=== PATIENT | female | born 1930 | race Caucasian/White ===

== ENCOUNTER 2017-04-05 14:45 | Emergency (ER) | payer MEDICARE, BC ==
[2017-04-05 15:00] VITALS: O2SAT 98
--- NOTE | 2017-04-05 15:19 | ERPHSYRPT ---
- History of Present Illness Time Seen by Provider: 04/05/17 15:00 Source: patient Exam Limitations: clinical condition Patient Subjective Stated Complaint: WAS GETTING READY FOR A [employer] AND PATIENT REACHED INTO SOMETHING AND CUT LEFT HAND. Triage Nursing Assessment: TO ROOM PER W/C. SKIN W/D, COLOR NORMAL. HAD APPLIED PRESSURE WITH DISH TOWEL TO LEFT HAND. HAS 1CM LAC TO BACK OF LEFT HAND. HAD MODERATE BLEEDING THAT IS NOW CONTROLLED. WAS BROUGHT TO ER PER NEIGHBOR. PATIENT DOES NOT KNOW NAMES OF MEDS AND USES MAIL ORDER FOR SCRIPTS. Physician History: PATIENT WITH HISTORY OF TYPE 2 DIABETES AND CORONARY ARTERY DISEASE, PACEMAKER INSERTION ON COUMADIN THERAPY, WHILE WORKING AT [employer], SUSTAINED BRUISING AND SMALL LACERATION TO BACK OF LEFT HAND, HAD DIFFICULTY CONTROLLING BLEEDING INITIALLY. PATIENT IS UNSURE OF MECHANISM OF TRAUMA OR INJURY. Occurred: just prior to arrival Method of Injury: unknown Quality: other (BRUISING TO BACK OF HAND WITH SMALL LACERATION) Severity of Pain-Max: mild Severity of Pain-Current: mild Extremities Pain Location: hand: left Modifying Factors: Improves With: other (BLEEDING FROM WOUND) Allergies/Adverse Reactions: codeine Allergy (Verified 04/05/17 15:00) pneumococcal vaccine Allergy (Verified 04/05/17 15:00) Home Medications: AMITRIPTYLINE HCL 50 mg Tab [AMITRIPTYLINE HCL 50 mg Tablet] 50 mg PO HS [History] Multivit-Min/FA/Lycopene/Lut [Centrum Silver Tablet] 1 each PO DAILY 10/18/15 [ History] Naproxen Sodium 220 mg [Aleve 220 MG] 220 mg PO Q12H PRN PRN 10/18/15 [ History] [place]-3/Dha/Epa/Fish Oil [Fish Oil 1,200 mg Softgel] 2 each PO BID 10/18/15 [ History] Torsemide 100 mg PO DAILY 10/18/15 [History] Sildenafil Citrate [Sildenafil] 20 mg PO TID 03/19/16 [History] Hx Tetanus, Diphtheria Vaccination/Date Given: No Hx Influenza Vaccination/Date Given: Yes Hx Pneumococcal Vaccination/Date Given: No - Review of Systems Constitutional: No Symptoms Ears, Nose, & Throat: No Symptoms Respiratory: No Symptoms Musculoskeletal: Injury - Past Medical History Pertinent Past Medical History: Yes Neurological History: No Pertinent History ENT History: No Pertinent History Cardiac History: Coronary Artery Disease Respiratory History: No Pertinent History Endocrine Medical History: Diabetes Type II Musculoskeletal History: No Pertinent History GI Medical History: No Pertinent History History: No Pertinent History Psycho-Social History: No Pertinent History Female Reproductive Disorders: No Pertinent History - Past Surgical History Past Surgical History: Yes Neuro Surgical History: No Pertinent History Cardiac: Pacemaker Respiratory: No Pertinent History Gastrointestinal: Appendectomy, Cholecystectomy Genitourinary: No Pertinent History Musculoskeletal: No Pertinent History Female Surgical History: Hysterectomy - Social History Smoking Status: Never smoker Exposure to second hand smoke: No Drug Use: none Patient Lives Alone: No - Nursing Vital Signs Nursing Vital Signs: Initial Vital Signs Temperature 98.2 F Temperature Source Oral Pulse Rate 70 Respiratory Rate 16 Blood Pressure [Right Arm] 175/74 Pain Intensity 6 - Physical Exam General Appearance: alert Hand Exam: ecchymosis (LEFT HAND THERE IS A 2CM X 2.5CM AREA OF ECCHYMOSIS WITH A 3MM SUPERFICIAL LACAERATION AT THE BORDER PERIPHERAL OVER THE MID LEFT 2ND TO 3RD METACARPALS) DTR - Upper Extremity Exam: bicep (R): 2+, bicep (L): 2+, tricep (R): 2+, tricep (L): 2+ SpO2: 98 Oxygen Delivery: Room Air - Radiology Exams Left Hand X-ray Interpretation: Discussed w/ radiologist (DEGENERATIVE ARTHRITIS, NO FRACTURE) Ordered Tests: Active Orders 24 hr Category Date Time Status HAND (MINIMUM 3 VIEWS) Stat Exams 04/05/17 15:11 Completed - Progress Progress Note: 04/05/17 15:45 TETNUS IS UP TO DATE Counseled pt/family regarding: diagnosis, need for follow-up, rad results - Departure Time of Disposition: 15:40 Departure Disposition: Home Clinical Impression: CONTUSION/LACERATION LEFT HAND Condition: Stable Critical Care Time: No Referrals: CALVIN SRIVASTAVA MD [Primary Care Provider] - Instructions: Care for a Laceration After Repair Additional Instructions: APPLY WIDE BANDAID OVER WOUND ALONG WITH APPLICATION OF ICE EVERY 4 HOURS, 30 MINUTES FOR DURATION 48 HOURS. WATCHD OR SIGNS OF INFECTIONS, REDNESS, SWELLING OR DRAINAGE. REDUCE USE OF LIFTING WITH LEFT HAND FOR 1 WEEK.
--- NOTE | 2017-04-05 15:43 | XRAY ---
Indication: Second metacarpal pain and laceration. Comparison: None 3 views of the left hand limited due to rings at the base of the 3rd-5th fingers which patient states can't be removed. There is 2nd finger tip punctate soft tissue foreign body, ulnar carpal degenerative calcifications, and advanced degenerative changes base of the first metacarpal. No other bony, articular, or soft tissue abnormalities.
[2017-04-05 16:10] VITALS: BP 160/62; PULSE 74
== END 2017-04-05 16:10 | disposition home or self-care (01) ==
LOC: ED 14:45
DX: S61.412A Laceration without foreign body of left hand, initial encounter (principal); W45.8XXA Other foreign body or object entering through skin, initial encounter; E11.9 Type 2 diabetes mellitus without complications; I25.10 Atherosclerotic heart disease of native coronary artery without angina pectoris; Z79.01 Long term (current) use of anticoagulants; Z79.899 Other long term (current) drug therapy
CPT/HCPCS: 73130; 99282

== ENCOUNTER 2017-04-12 10:14 | Emergency (ER) | payer MEDICARE, BC ==
[2017-04-12 10:29] VITALS: O2SAT 98
[2017-04-12] MEDS ORDERED: Lactated Ringers 500 ML IV ONE (10:33)
--- NOTE | 2017-04-12 10:39 | ERPHSYRPT ---
- History of Present Illness Time Seen by Provider: 04/12/17 10:16 Historian: patient, family Exam Limitations: no limitations Patient Subjective Stated Complaint: pt co weakness,loose stools yesterday, eating and drinking well, abd pain yesterday Triage Nursing Assessment: pt arrived per wc, alert,ambluated from wc to bed without difficulty, mocus membranes moist, no edema note. abd soft with bs Physician History: patient hasn't felt well for 2-3 days; no travel; no exposure; no bad food; no one else ill; yesterday had diarrhea x 6 liquid brown stools with cramping diffuse; no localization; decreased appetite yesterday - only ate watermelon; today only water; no N&V; no fever or chills; no bm today; no gu symptoms Timing/Duration: today (feels weak), yesterday (abd cramps and diarrhea), improved Activities at Onset: none Quality: cramping Abdominal Pain Onset Location: generalized abdomen Pain Radiation: no radiation Severity of Pain-Max: moderate Severity of Pain-Current: none Associated Symptoms: diarrhea (yesterday only), fatigue, loss of appetite Previous symptoms: no prior history Allergies/Adverse Reactions: codeine Allergy (Verified 04/12/17 10:30) pneumococcal vaccine Allergy (Verified 04/12/17 10:30) Home Medications: Multivit-Min/FA/Lycopene/Lut [Centrum Silver Tablet] 1 each PO DAILY 10/18/15 [ History] [place]-3/Dha/Epa/Fish Oil [Fish Oil 1,200 mg Softgel] 2 each PO BID 10/18/15 [ History] Torsemide 100 mg PO DAILY 10/18/15 [History] Bumetanide 1 mg [Bumex 1 mg] 1 mg DAILY 04/12/17 [History] Gabapentin 100 mg BID 04/12/17 [History] Glimepiride 1 mg DAILY 04/12/17 [History] Levothyroxine Sodium 88 Mcg [Synthroid 88 Mcg] 88 mcg DAILY 04/12/17 [ History] Oxybutynin Chloride [Oxybutynin Chloride ER] 5 mg DAILY 04/12/17 [History] Ropinirole HCl 1 mg DAILY 04/12/17 [History] Tamsulosin HCl 0.4 mg [Flomax 0.4 MG] 0.4 mg DAILY 04/12/17 [History] Hx Tetanus, Diphtheria Vaccination/Date Given: No Hx Influenza Vaccination/Date Given: No Hx Pneumococcal Vaccination/Date Given: No - Review of Systems Constitutional: Malaise Eyes: No Symptoms Ears, Nose, & Throat: No Symptoms Respiratory: No Cough, No Dyspnea, No Wheezing Cardiac: No Chest Pain, No Palpitations, No Syncope Abdominal/Gastrointestinal: Abdominal Pain (crasmps yesterday only), Diarrhea ( x6 yesterday only), No Nausea, No Vomiting, No Constipation, No Hematemesis, No Hematochezia, No Melena Genitourinary Symptoms: No Dysuria, No Frequency, No Hematuria, No Hesitancy, No Incontinence, No Urgency, No Urinary Retention Musculoskeletal: No Symptoms Skin: No Symptoms Neurological: Dizziness (yesterday mild), No Gait Changes, No Headache, No Seizure, No Vertigo Psychological: No Symptoms Endocrine: No Symptoms Hematologic/Lymphatic: No Symptoms Immunological/Allergic: No Symptoms - Past Medical History Pertinent Past Medical History: Yes Neurological History: No Pertinent History ENT History: No Pertinent History Cardiac History: Coronary Artery Disease Respiratory History: No Pertinent History Endocrine Medical History: Diabetes Type II Musculoskeletal History: No Pertinent History GI Medical History: No Pertinent History History: No Pertinent History Psycho-Social History: No Pertinent History Female Reproductive Disorders: No Pertinent History - Past Surgical History Past Surgical History: Yes Neuro Surgical History: No Pertinent History Cardiac: Pacemaker Respiratory: No Pertinent History Gastrointestinal: Appendectomy, Cholecystectomy Genitourinary: No Pertinent History Musculoskeletal: No Pertinent History Female Surgical History: Hysterectomy - Social History Smoking Status: Never smoker Exposure to second hand smoke: No Alcohol Use: None Drug Use: none Patient Lives Alone: No Significant Family History: no pertinent family hx - Female History Hx Last Menstrual Period: post Hx Now: No - Nursing Vital Signs Nursing Vital Signs: Initial Vital Signs Temperature 97.5 F Temperature Source Oral Pulse Rate 70 Respiratory Rate 22 Blood Pressure [Right Arm] 136/50 Pain Intensity 0 - Physical Exam General Appearance: mild distress, alert, anxiety Eye Exam: PERRL/EOMI, eyes nml inspection, No photophobia Ears, Nose, Throat Exam: normal ENT inspection, TMs normal, pharynx normal, No moist mucous membranes (semi dry), No pharyngeal erythema Neck Exam: normal inspection, non-tender, supple, full range of motion, No meningismus, No JVD Respiratory Exam: normal breath sounds, lungs clear, airway intact, No chest tenderness, No respiratory distress, No crackles/rales, No rhonchi, No wheezing Cardiovascular Exam: regular rate/rhythm, normal heart sounds, normal peripheral pulses, capillary refill <2 sec, edema (trace), No murmur Gastrointestinal/Abdomen Exam: soft, normal bowel sounds, distention (soft/ mild ), No tenderness, No mass, No guarding, No pulsatile mass, No rebound, No organomegaly Pelvic Exam: deferred Rectal Exam: deferred Back Exam: normal inspection, normal range of motion, No CVA tenderness, No rash Extremity Exam: normal inspection, normal range of motion, pedal edema (trace), No kathryn's sign Neurologic Exam: alert, oriented x 3, cooperative, ton container filler II-XII nml as tested, normal mood/affect, nml cerebellar function, nml station & gait, sensation nml Skin Exam: normal color, warm, dry, No rash, No cyanosis Lymphatic Exam: No adenopathy SpO2 Interpretation: normal SpO2: 98 Oxygen Delivery: Room Air - Course Nursing assessment & vital signs reviewed: Yes EKG Interpreted by Me: RATE (paced 72), Right [place] Deviation, Right Bundle Branch Block, Non-specific ST Changes, Other (unchanged from 10-20-15) Rhythm Strip: Rate (72 paced) Ordered Tests: Active Orders 24 hr Category Date Time Status EKG-ER Only STAT Care 04/12/17 10:31 Active IV Insertion STAT Care 04/12/17 10:31 Active Orthostatic Vital Signs STAT Care 04/12/17 10:41 Active Re-Check Vital Signs STAT Care 04/12/17 10:31 Completed CBC W DIFF Stat Lab 04/12/17 10:50 Completed CMP Stat Lab 04/12/17 10:50 Completed Manual Differential NC Stat Lab 04/12/17 10:50 Completed TROPONIN Stat Lab 04/12/17 10:50 Completed UA W/RFX UR CULTURE Stat Lab 04/12/17 11:20 Completed Medication Summary Discontinued Medications Generic Name Dose Route Start Last Admin Trade Name Freq PRN Reason Stop Dose Admin Lactated Ringer's 500 mls @ 999 mls/hr 04/12/17 10:33 04/12/17 10:44 Lactated Ringers IV 04/12/17 11:03 999 mls/hr .Q31M ONE Administration Lactated Ringer's Confirm 04/12/17 10:42 Lactated Ringers Administered 04/12/17 10:43 Dose 1,000 mls @ ud IV .STK-MED ONE Lab/Rad Data: Laboratory Result Diagrams 04/12/17 10:50 04/12/17 10:50 Laboratory Results 04/12/17 04/12/17 04/12/17 Range/Units 11:20 10:50 10:50 WBC 10.9 H (4.0-10.5) K/mm3 RBC 4.27 (4.1-5.4) M/mm3 Hgb 13.7 (12.0-16.0) gm/dl Hct 40.9 (35-47) % MCV 95.8 (78-100) fl MCH 32.1 H (26-32) pg MCHC 33.5 (32-36) g/dl RDW 13.4 (11.5-14.0) % Plt Count 232 (150-450) K/mm3 MPV 10.9 H (6-9.5) fl Segmented Neutrophils 90 H (36.0-66.0) % Band Neutrophils 1 (0.0-2.0) % Lymphocytes (Manual) 8 L (24-44) % Eosinophils (Manual) 1 (0.00-3.0) % Differential Comment NORMAL Toxic Granulation 1+ Platelet Estimate NORMAL (NORMAL) Sodium 142 (136-145) mEq/L Potassium 3.5 (3.5-5.1) mEq/L Chloride 102 (98-107) mEq/L Carbon Dioxide 24.6 (21-32) mEq/L Anion Gap 19.3 H (5-15) MEQ/L BUN 33 H (9-20) mg/dL Creatinine 1.74 H (0.55-1.30) mg/dl Estimated GFR 30 ML/MIN Glucose 171 H (70-110) MG/DL Calcium 10.0 (8.5-10.1) mg/dL Total Bilirubin 1.20 H (0.2-1.0) mg/dL AST 20 (15-37) U/L ALT 11 L (12-78) U/L Alkaline Phosphatase 95 (46-116) U/L Troponin I < 0.017 (0.000-0.056) ng/ml Serum Total Protein 7.7 (6.4-8.2) gm/dL Albumin 3.3 L (3.4-5.0) g/dL Ur Collection Type CATH Urine Color YELLOW (YELLOW) Urine Appearance SLIGHTLY HAZY (CLEAR) Urine pH 5.0 (5-6) Ur Specific [place] 1.015 (1.005-1.025) Urine Protein NEGATIVE (Negative) Urine Ketones NEGATIVE (NEGATIVE) Urine Blood NEGATIVE (0-5) [place]/ul Urine Nitrite NEGATIVE (NEGATIVE) Urine Bilirubin NEGATIVE (NEGATIVE) Urine Urobilinogen NORMAL (0-1) mg/dL Ur Leukocyte Esterase NEGATIVE (NEGATIVE) Urine Glucose NEGATIVE (NEGATIVE) mg/dL Specimen Received 04/12/17 1120 reviewed - Progress Progress: improved (after IV fluids), re-examined (after IV fluids) Progress Note: 04/12/17 10:40 family at bedside; will get OSVS; give fluid bolus, labs and recheck 04/12/17 11:27 OSVS wnl; tolerated ok; CBC and u/a wnl; will continue IV fluids and recheck 04/12/17 12:11 rechecked and feeling better; no pains or diarrhea; discussed labs and result; treatment plan and d/c instructions given; family at bedside understood Counseled pt/family regarding: lab results, diagnosis, need for follow-up - Departure Time of Disposition: 12:12 Departure Disposition: Home Clinical Impression: Gastroenteritis Condition: Stable Critical Care Time: No Instructions: Viral Gastroenteritis -- Adult Additional Instructions: gatorade; yogurt; BRAT diet; follow up lmd recheck Follow-up with family doctor as directed. Call for appointment. Return if any problems. If you smoke please stop. Call or follow up with your family doctor for assistance if you need it to stop. Please wear your seatbelt when driving. Have a nice day. Thank you for allowing us to participate in your care today. :o) Dr Trey Croft
[2017-04-12] MEDS ORDERED: Lactated Ringers 1,000 ML IV ONE (10:42)
[2017-04-12 11:00] LABS: Mean Cell Volume 95.8 fl (78-100); Mean Corpuscular Hemoglobin 32.1 pg (26-32); Mean Platelet Volume 10.9 fl (6-9.5); Platelet Count 232 K/mm3 (150-450); Red Blood Count 4.27 M/mm3 (4.1-5.4); Red Cell Distribution Width 13.4 % (11.5-14.0); White Blood Count 10.9 K/mm3 (4.0-10.5)
[2017-04-12 11:23] LABS: ADD URINE CULTURE? NO (NO); Bilirubin NEGATIVE (NEGATIVE); Blood NEGATIVE Ery/ul (0-5); COMPLETE URINE MICROSCOPIC? NO; Collection Type CATH; Glucose NEGATIVE (NEGATIVE); Leukocyte Esterase NEGATIVE (NEGATIVE)
[2017-04-12 11:32] LABS: BAND 1 % (0.0-2.0); Eosinophil 1 % (0.00-3.0); Platelet Estimate NORMAL (NORMAL); Total Cells Counted 100; Toxic Granulation 1+
[2017-04-12 11:36] LABS: ALBUMIN 3.3 g/dL (3.4-5.0); ALKALINE PHOSPHATASE 95 U/L (46-116); ANION GAP 19.3 MEQ/L (5-15); BLOOD UREA NITROGEN 33 mg/dL (9-20); CHLORIDE 102 mEq/L (98-107); Carbon Dioxide 24.6 mEq/L (21-32); Glucose 171 MG/DL (70-110); Potassium 3.5 mEq/L (3.5-5.1); SGOT/AST 20 U/L (15-37); SODIUM 142 mEq/L (136-145); Total Protein 7.7 gm/dL (6.4-8.2)
[2017-04-12 11:39] LABS: TROPONIN < 0.017 ng/ml (0.000-0.056)
[2017-04-12 11:47] LABS: SGPT/ALT 11 U/L (12-78)
[2017-04-12 12:14] VITALS: BP 137/70; PULSE 77
== END 2017-04-12 12:31 | disposition home or self-care (01) ==
LOC: ED 10:14
DX: K52.9 Noninfective gastroenteritis and colitis, unspecified (principal); R53.1 Weakness; R53.83 Other fatigue; R19.7 Diarrhea, unspecified; Z79.899 Other long term (current) drug therapy
CPT/HCPCS: 36000; 36415; 80053; 81002; 84484; 85025; 87493; 93005; 96360; 96361; 99284

== ENCOUNTER 2017-10-14 05:24 | Inpatient (IN) | payer MEDICARE, BC ==
[2017-10-14] MEDS ORDERED: Lasix 40 MG/4 ML IV ONE (05:29)
[2017-10-14] MEDS ORDERED: ROCEPHIN 1 Gm-D5w 50 ml Bag** 1 G/50 ML IVPB IV STA (05:29)
[2017-10-14] MEDS ORDERED: DUONEB 0.5-3 MG/3 ml Neb IH ONE ×2 (05:29→05:32)
[2017-10-14] MEDS ORDERED: Levofloxacin 500MG/100ML D5W 500 MG/100 ML BAG IV STA (05:29)
[2017-10-14] MEDS ORDERED: solu-MEDROL 125 MG IV ONE (05:29)
[2017-10-14] MEDS ORDERED: Pepcid 20 MG VIAL IV ONE ×2 (05:29→06:11)
[2017-10-14] MEDS ORDERED: Sodium Chloride 0.9% 1000 ML 1,000 ML IV SCH (05:30)
[2017-10-14] MEDS ORDERED: Zofran 4 MG/2 ML VIAL IV ONE (05:35)
[2017-10-14] MEDS ORDERED: solu-MEDROL 125 MG ONE (05:36)
[2017-10-14] MEDS ORDERED: Lasix 40 MG/4 ML ONE (05:36)
[2017-10-14] MEDS ORDERED: Zofran 4 MG/2 ML VIAL ONE (05:36)
[2017-10-14] MEDS ORDERED: Sodium Chloride 0.9% 1000 ML 1,000 ML ONE (05:37)
[2017-10-14 06:07] LABS: Lactic Acid 2.8 (0.4-2.0)
[2017-10-14] MEDS ORDERED: ROCEPHIN 1 Gm-D5w 50 ml Bag** 1 G/50 ML IVPB IV ONE (06:11)
[2017-10-14] MEDS ORDERED: Levofloxacin 500MG/100ML D5W 500 MG/100 ML BAG IV ONE (06:11)
[2017-10-14 06:14] LABS: BASOPHIL % 0.1 % (0.0-0.4); Basophil (Absolute #) 0.02 (0-0.4); Eosinophil (Absolute #) 0.19 (0-0.5); Granulocyte Absolute (ANC) 15.99 (1.4-6.9); Hematocrit 40.6 % (35-47); Hemoglobin 12.9 gm/dl (12.0-16.0); Lymphocyte (Absolute #) 2.76 (1.0-4.6); Mean Cell Volume 93.1 fl (78-100); Mean Corpuscular Hemoglobin 29.6 pg (26-32); Mean Corpuscular Hgb Concent. 31.8 g/dl (32-36); Mean Platelet Volume 10.2 fl (6-9.5); Monocyte (Absolute #) 0.76 (0.0-1.3); Monocytes % 3.9 % (0.0-12.0); Platelet Count 263 K/mm3 (150-450); Red Blood Count 4.36 M/mm3 (4.1-5.4); Red Cell Distribution Width 13.5 % (11.5-14.0); White Blood Count 19.7 K/mm3 (4.0-10.5)
[2017-10-14 06:14] LABS: A-aADO2 511; ABG HEMOGLOBIN 14.1; ABG POTASSIUM 4.5 (3.5-5.1); ARTERIAL BLOOD GAS BASE EXCESS -3.5 (-2.0-2.0); ARTERIAL BLOOD GAS FIO2 100 %; ARTERIAL BLOOD GAS PCO2 41 mmHg (35-45); ARTERIAL BLOOD GAS PO2 151 mmHg (75-100); ARTERIAL BLOOD GAS pH 7.34 (7.35-7.45); HCO3- 22.1 (22-28); HGB O2 SAT 96.9 g/dF (94-100); Methhemoglobin 1.1 % (1.4-1.5); paO2 pAO1 0.23
[2017-10-14 06:15] LABS: ABG SITE LEFT RADIAL; ALLEN TEST OK? YES
[2017-10-14] MEDS ORDERED: FEVERALL 325 MG ONE (06:26)
--- NOTE | 2017-10-14 06:38 | ERPHSYRPT ---
- History of Present Illness Time Seen by Provider: 10/14/17 05:30 Source: patient, EMS Exam Limitations: clinical condition Patient Subjective Stated Complaint: SOB Triage Nursing Assessment: SOB beginning today, pt present by EMS with complaints of SOB. Pt to ED with CPAP in place. Pt in distress on arrival, unable to speak due to SOB. Pt alert, oriented x4. Physician History: 86-year-old female with significant past medical history of hypertension, pulmonary hypertension, chronic atrial fibrillation, carotid atherosclerosis, cerebrovascular accident, hypertension. Was doing all right since last night, suddenly she started getting sick by stomach and had episode of vomiting twice at home and afterwards she started getting short of breath. So her called ambulance and patient was brought into the emergency room. Patient was alert but extremely short of breath in the emergency room. Patient was given DuoNeb nebulizer treatment on the route to the emergency room. Patient was put on BiPAP immediately in the emergency room. A shunt denies any fever, chills, chest pain, and she states that she was feeling fine when she went to bed, but afterwards she had episode of vomiting and's after that she become very short of breath Timing/Duration: today Activities at Onset: rest Severity of Dyspnea-Max: severe Severity of Dyspnea-Current: severe Possible Cause: frequent episodes Associated Symptoms: fever International travel in last 2 weeks: No Allergies/Adverse Reactions: codeine Allergy (Verified 04/12/17 10:30) penicillin G Allergy (Verified 10/14/17 06:08) Penicillins Allergy (Verified 10/14/17 06:08) pneumococcal vaccine Allergy (Verified 04/12/17 10:30) Home Medications: Multivit-Min/FA/Lycopen/Lutein [Centrum Silver Tablet] 1 each PO DAILY 10/18/15 [History] [place]-3/Dha/Epa/Fish Oil [Fish Oil 1,200 mg Softgel] 2 each PO BID 10/18/15 [ History] Torsemide 100 mg PO DAILY 10/18/15 [History] Bumetanide 1 mg [Bumex 1 mg] 1 mg DAILY 04/12/17 [History] Gabapentin 100 mg BID 04/12/17 [History] Glimepiride 1 mg DAILY 04/12/17 [History] Levothyroxine Sodium 88 Mcg [Synthroid 88 Mcg] 88 mcg DAILY 04/12/17 [ History] Oxybutynin Chloride [Oxybutynin Chloride ER] 5 mg DAILY 04/12/17 [History] Ropinirole HCl 1 mg DAILY 04/12/17 [History] Tamsulosin HCl 0.4 mg [Flomax 0.4 MG] 0.4 mg DAILY 04/12/17 [History] Hx Tetanus, Diphtheria Vaccination/Date Given: No Hx Influenza Vaccination/Date Given: No Hx Pneumococcal Vaccination/Date Given: No Immunizations Up to Date: No - Review of Systems Constitutional: Fever Eyes: No Symptoms Ears, Nose, & Throat: No Symptoms Respiratory: Cough, Cyanosis, Dyspnea, Dyspnea on Exertion (KINNEY), Wheezing Cardiac: Palpitations, Orthopnea, PND Abdominal/Gastrointestinal: No Symptoms Genitourinary Symptoms: No Symptoms Musculoskeletal: No Symptoms Skin: No Symptoms Neurological: No Symptoms Psychological: No Symptoms - Past Medical History Pertinent Past Medical History: Yes Neurological History: Stroke ENT History: No Pertinent History Cardiac History: Arrhythmia, Congestive Heart Failure, Coronary Artery Disease, Hypertension Respiratory History: COPD Endocrine Medical History: Diabetes Type II Musculoskeletal History: Arthritis GI Medical History: No Pertinent History History: No Pertinent History Psycho-Social History: No Pertinent History Female Reproductive Disorders: No Pertinent History Other Medical History: GERD, pacemaker - Past Surgical History Past Surgical History: Yes Neuro Surgical History: No Pertinent History Cardiac: Pacemaker Respiratory: No Pertinent History Gastrointestinal: Appendectomy, Cholecystectomy Genitourinary: No Pertinent History Musculoskeletal: No Pertinent History Female Surgical History: Hysterectomy - Social History Smoking Status: Former smoker Exposure to second hand smoke: No Alcohol Use: None Drug Use: none Patient Lives Alone: No Significant Family History: no pertinent family hx - Nursing Vital Signs Nursing Vital Signs: Initial Vital Signs Pulse Rate 75 10/14/17 05:57 Respiratory Rate 45 H 10/14/17 05:57 Blood Pressure 163/130 10/14/17 05:57 O2 Sat by Pulse Oximetry 95 10/14/17 05:57 Pain Scale Pain Intensity 0 - Physical Exam General Appearance: moderate distress, alert Eye Exam: PERRL/EOMI Ears, Nose, Throat Exam: normal ENT inspection Neck Exam: normal inspection, supple, JVD Respiratory Exam: accessory muscle use, prolonged expirations, crackles/rales, rhonchi, wheezing Cardiovascular/Chest Exam: JVD, irregular Abdominal/Gastrointestinal Exam: soft, No tenderness, No distention, No mass Extremity Exam: non-tender, normal range of motion, normal inspection, no calf tenderness, no pedal edema Peripheral Pulses Exam: carotid (R): 1+, carotid (L): 1+, femoral (R): 2+, femoral (L): 2+, dorsalis-pedis (R): 2+, dorsalis-pedis (L): 2+ Neurologic Exam: alert, oriented x 3, cooperative, sensation nml, No motor deficits, No sensory deficit Skin Exam: cyanosis, No dry Lymphatic Exam: No adenopathy SpO2 Interpretation: normal, ABG ordered, O2 applied SpO2: 100 Oxygen Delivery: BiPap Procedures - Central Line Timeout: Performed Central Line Lumen: triple Lumen Size: 7 Kinyarwanda Central Line Procedure: chlorahexadine prep, Aseptic Technique Central Line Postion: subclavian (R) Anesthesia: 1% Lidocaine cc's of anesthesia: 3 Ultrasound Guided Placement: No Complications: none Central Line Post Position: sutured, good blood return, position confirmed w/ CXR - Course Nursing assessment & vital signs reviewed: Yes EKG Interpreted by Me: Non-specific ST Changes - Radiology Exams Chest X-ray Interpretation: Reviewed by me, Pneumonia (right side aspiration pneumonia , right subclavian catheter in place) Ordered Tests: Active Orders 24 hr Category Date Time Status CO2 Monitoring STAT Care 10/14/17 05:29 Active Drum Sprayer STAT Care 10/14/17 05:31 Active EKG-ER Only STAT Care 10/14/17 05:29 Active IV Insertion STAT Care 10/14/17 05:29 Active Oxygen-ED Only NASAL CANNULA 2 lpm Care 10/14/17 05:29 Active Pulse Oximetry (ED) STAT Care 10/14/17 05:29 Active CHEST 1 VIEW (PORTABLE) Stat Exams 10/14/17 05:30 Taken ABG [ARTERIAL BLOOD GASES] Routine Lab 10/14/17 05:45 Completed BLOOD CULTURE Stat Lab 10/14/17 06:04 Ordered CBC W DIFF Stat Lab 10/14/17 06:04 Completed CMP Stat Lab 10/14/17 06:04 Received CULTURE,SPUTUM Stat Lab 10/14/17 05:30 Uncollected CULTURE,URINE Stat Lab 10/14/17 06:04 Received Lactic Acid Stat Lab 10/14/17 05:29 Results NT PRO BNP Stat Lab 10/14/17 06:04 Received TROPONIN Q3H Lab 10/14/17 05:30 Ordered TROPONIN Q3H Lab 10/14/17 08:30 Ordered TROPONIN Q3H Lab 10/14/17 11:30 Ordered TROPONIN Q3H Lab 10/14/17 14:30 Ordered TROPONIN Q3H Lab 10/14/17 17:30 Ordered UA W/RFX UR CULTURE Stat Lab 10/14/17 06:04 Received BiPap/CPAP Assessment STAT RT 10/14/17 05:29 Active Respiratory Nebulizer STAT RT 10/14/17 05:32 Active Medication Summary Generic Name Dose Route Start Last Admin Trade Name Freq PRN Reason Stop Dose Admin Sodium Chloride 1,000 mls @ 100 mls/hr 10/14/17 05:30 10/14/17 06:10 Sodium Chloride 0.9% 1000 Ml IV 11/13/17 05:29 100 mls/hr .Q10H FAHAD Administration Discontinued Medications Generic Name Dose Route Start Last Admin Trade Name Freq PRN Reason Stop Dose Admin Acetaminophen Confirm 10/14/17 06:26 Feverall 325 Mg Administered 10/14/17 06:27 Dose 650 mg .ROUTE .STK-MED ONE Albuterol/Ipratropium 3 ml 10/14/17 05:29 Duoneb 0.5-3 Mg/3 Ml Neb IH 10/14/17 05:30 STAT ONE Albuterol/Ipratropium Confirm 10/14/17 05:32 Duoneb 0.5-3 Mg/3 Ml Neb Administered 10/14/17 05:33 Dose 3 ml IH .STK-MED ONE Famotidine 20 mg 10/14/17 05:29 10/14/17 06:12 Pepcid 20 Mg Vial IV 10/14/17 05:30 20 mg STAT ONE Administration Famotidine Confirm 10/14/17 06:11 Pepcid 20 Mg Vial Administered 10/14/17 06:12 Dose 20 mg IV .STK-MED ONE Furosemide 40 mg 10/14/17 05:29 10/14/17 06:09 Lasix 40 Mg/4 Ml IV 10/14/17 05:30 40 mg STAT ONE Administration Furosemide Confirm 10/14/17 05:36 Lasix 40 Mg/4 Ml Administered 10/14/17 05:37 Dose 40 mg .ROUTE .STK-MED ONE Levofloxacin/Dextrose 500 mg in 100 mls @ 100 mls/hr 10/14/17 05:29 Levofloxacin 500mg/100ml D5w IV 10/14/17 06:28 STAT STA Ceftriaxone Sodium/Dextrose 1 g in 50 mls @ 100 mls/hr 10/14/17 05:29 06:12 Rocephin 1 Gm-D5w 50 Ml Bag IV 10/14/17 05:58 100 mls/hr STAT STA Administration Ceftriaxone Sodium/Dextrose Confirm 10/14/17 06:11 Rocephin 1 Gm-D5w 50 Ml Bag Administered 10/14/17 06:12 Dose 1 g in 50 mls @ ud IV .STK-MED ONE Levofloxacin/Dextrose Confirm 10/14/17 06:11 Levofloxacin 500mg/100ml D5w Administered 10/14/17 06:12 Dose 500 mg in 100 mls @ ud IV .STK-MED ONE Methylprednisolone Sodium Succinate 80 mg 10/14/17 05:29 10/14/17 06:09 Solu-Medrol 125 Mg IV 10/14/17 05:30 80 mg STAT ONE Administration Methylprednisolone Sodium Succinate Confirm 10/14/17 05:36 Solu-Medrol 125 Mg Administered 10/14/17 05:37 Dose 125 mg .ROUTE .STK-MED ONE Ondansetron HCl 4 mg 10/14/17 05:35 10/14/17 06:09 Zofran 4 Mg/2 Ml Vial IV 10/14/17 05:36 4 mg STAT ONE Administration Ondansetron HCl Confirm 10/14/17 05:36 Zofran 4 Mg/2 Ml Vial Administered 10/14/17 05:37 Dose 4 mg .ROUTE .STK-MED ONE Lab/Rad Data: Laboratory Result Diagrams 10/14/17 06:04 Laboratory Results 10/14/17 10/14/17 10/14/17 Range/Units 06:04 05:45 05:29 WBC 19.7 H (4.0-10.5) K/mm3 RBC 4.36 (4.1-5.4) M/mm3 Hgb 12.9 (12.0-16.0) gm/dl Hct 40.6 (35-47) % MCV 93.1 (78-100) fl MCH 29.6 (26-32) pg MCHC 31.8 L (32-36) g/dl RDW 13.5 (11.5-14.0) % Plt Count 263 (150-450) K/mm3 MPV 10.2 H (6-9.5) fl Gran % 81.0 H (36.0-66.0) % Lymphocytes % 14.0 L (24.0-44.0) % Monocytes % 3.9 (0.0-12.0) % Eosinophils % 1.0 (0.00-5.0) % Basophils % 0.1 (0.0-0.4) % Basophils # 0.02 (0-0.4) Puncture Site LEFT RADIAL pCO2 41 (35-45) mmHg pO2 151 H* (75-100) mmHg Base Excess -3.5 L (-2.0-2.0) O2 Saturation 96.9 (94-100) g/dF ABG pH 7.34 L (7.35-7.45) ABG HCO3 22.1 (22-28) ABG O2 Sat (Measured) 100.0 (95-100) % Adria Test YES A-a Gradient 511 a/A Ratio 0.23 Hemoglobin 14.1 Carboxyhemoglobin 2.0 (0.0-6.9) % THgb Methemoglobin 1.1 L (1.4-1.5) % Potassium 4.5 (3.5-5.1) Temperature 37.0 C POC O2 Flow Rate 100 % Lactic Acid 2.8 H (0.4-2.0) - Progress Air Movement: fair Blood Culture(s) Obtained: Yes Antibiotics given: Yes Discussed with : César Will see patient in: hospital (full admit) (ICU) Counseled pt/family regarding: lab results, diagnosis, need for follow-up, rad results - Departure Time of Disposition: 06:40 Departure Disposition: In-patient Admission Clinical Impression: Pneumonia Qualifiers: Pneumonia type: aspiration pneumonia Aspiration pneumonia type: due to vomit Laterality: right Lung location: lower lobe of lung Qualified Code(s): J69.0 - Pneumonitis due to inhalation of food and vomit Condition: Fair Critical Care Time: Yes Critical Care Time(excluding separately billable procedures): 30-74 minutes Referrals: CALVIN SRIVASTAVA MD [Primary Care Provider] -
[2017-10-14 06:51] LABS: ALBUMIN 3.2 g/dL (3.4-5.0); BILIRUBIN,TOTAL 0.7 mg/dL (0.2-1.0); Calcium 9.4 mg/dL (8.5-10.1); Creatinine 1 1.5 mg/dl (0.55-1.30); Potassium 4.2 mEq/L (3.5-5.1); Total Protein 7.1 gm/dL (6.4-8.2)
[2017-10-14 06:57] LABS: Appearance CLEAR (CLEAR); Bilirubin NEGATIVE (NEGATIVE); Blood NEGATIVE Ery/ul (0-5); Glucose NEGATIVE (NEGATIVE); Ketones NEGATIVE (NEGATIVE); Leukocyte Esterase NEGATIVE (NEGATIVE); Nitrite NEGATIVE (NEGATIVE); Protein,Urine Dip NEGATIVE (Negative); Urobilinogen NORMAL mg/dL (0-1)
[2017-10-14 07:45] LABS: INFLUENZA A NEGATIVE (NEGATIVE); INFLUENZA B NEGATIVE (NEGATIVE); RESPIRATORY SYNCTIAL VIRUS NEGATIVE (Negative)
[2017-10-14 07:56] LABS: A-aADO2 -23; ABG HEMOGLOBIN 12.6; ABG POTASSIUM 3.9 (3.5-5.1); ARTERIAL BLD GAS O2 SATURATION 100.1 % (95-100); ARTERIAL BLOOD GAS BASE EXCESS -1.1 (-2.0-2.0); ARTERIAL BLOOD GAS FIO2 60 %; ARTERIAL BLOOD GAS PCO2 33 mmHg (35-45); ARTERIAL BLOOD GAS PO2 410 mmHg (75-100); ARTERIAL BLOOD GAS VENT MODE BiPAP; ARTERIAL BLOOD GAS pH 7.44 (7.35-7.45); CARBOXYHEMOGLOBIN 1.6 % THgb (0.0-6.9); HCO3- 22.4 (22-28); HGB O2 SAT 97.3 g/dF (94-100); Methhemoglobin 1.2 % (1.4-1.5); paO2 pAO1 1.06
[2017-10-14 07:57] LABS: ABG SITE RIGHT RADIAL; ALLEN TEST OK? YES
[2017-10-14 07:59] LABS: Lactic Acid 2.6 (0.4-2.0)
--- NOTE | 2017-10-14 10:40 | XRAY ---
Indication: Short of breath. Comparison: October 20, 2015. Portable chest demonstrates new diffuse right lung airspace disease with upper lobe consolidation. Remaining left lung, heart, right central venous access catheter, and left pacemaker unremarkable.
[2017-10-14] MEDS: DUONEB 0.5-3 MG/3 ml Neb IH SCH ×3 (11:15→18:55)
[2017-10-14] MEDS ORDERED: ELIQUIS PO SCH (13:00)
[2017-10-14] MEDS: Amaryl 2 MG PO SCH (13:13)
[2017-10-14] MEDS: Flomax 0.4 MG PO SCH (13:14)
[2017-10-14] MEDS: Lyrica 50MG PO SCH (13:14)
[2017-10-14] MEDS: Ditropan XL 5 MG PO SCH (13:14)
[2017-10-14 13:31] LABS: Granulocyte Absolute (ANC) 21.88 (1.4-6.9); Hematocrit 35.5 % (35-47); Hemoglobin 11.4 gm/dl (12.0-16.0); Mean Cell Volume 93.2 fl (78-100); Mean Corpuscular Hemoglobin 29.9 pg (26-32); Mean Corpuscular Hgb Concent. 32.1 g/dl (32-36); Mean Platelet Volume 10.5 fl (6-9.5); Platelet Count 198 K/mm3 (150-450); Red Blood Count 3.81 M/mm3 (4.1-5.4); Red Cell Distribution Width 13.6 % (11.5-14.0)
[2017-10-14] MEDS ORDERED: Merrem 1 GM 1 G in Sodium Chloride 100ML MINI-BAG PLUS 100 ML IV SCH (14:00)
[2017-10-14] MEDS: solu-MEDROL 40 MG IV SCH ×2 (14:50→21:50)
[2017-10-14] MEDS: Merrem 1 GM 1 G in Sodium Chloride 100ML MINI-BAG PLUS 100 ML IV SCH (14:50)
[2017-10-14] MEDS: Neurontin 100 MG PO SCH ×2 (15:04→21:50)
[2017-10-14 15:23] LABS: BAND 22 % (0.0-2.0); Lymphocytes 3 % (24-44); Metamyelocyte 1 %; Monocyte 4 % (0.0-12.0); Neutrophils 70 % (36.0-66.0); Total Cells Counted 100
[2017-10-14 15:24] LABS: ANISOCYTOSIS 1+; Platelet Estimate NORMAL (NORMAL); Poikilocytosis 1+; Rouleau 1+
--- NOTE | 2017-10-14 21:39 | PCM.HP ---
History of Present Illness - Chief Complaint Chief Complaint: sudden onset of shortness of breath and vomiting for 3hrs History of Present Illness: is a 86 year old female.86-year-old female with significant past medical history of hypertension, pulmonary hypertension, chronic atrial fibrillation, carotid atherosclerosis, cerebrovascular accident, hypertension. Was doing all right since last night, suddenly she started getting sick by stomach and had episode of vomiting twice at home and afterwards she started getting short of breath. So her called ambulance and patient was brought into the emergency room. Patient was alert but extremely short of breath in the emergency room. Patient was given DuoNeb nebulizer treatment on the route to the emergency room. Patient was put on BiPAP immediately in the emergency room. A shunt denies any fever, chills, chest pain, and she states that she was feeling fine when she went to bed, but afterwards she had episode of vomiting and's after that she become very short of breath Timing/Duration: today Activities at Onset: rest Severity of Dyspnea-Max: severe Severity of Dyspnea-Current: severe Possible Cause: frequent episodes Associated Symptoms: fever International travel in last 2 weeks: No - Review of Systems Constitutional: Fever, No Chills Eyes: No Symptoms Ears, Nose, & Throat: No Symptoms Respiratory: Orthopnea, Short Of Breath, Wheezing, No Cough Cardiac: No Chest Pain, No Edema, No Syncope Abdominal/Gastrointestinal: Vomiting, No Abdominal Pain, No Nausea, No Diarrhea Genitourinary Symptoms: No Dysuria Musculoskeletal: No Back Pain, No Neck Pain Skin: No Rash Neurological: No Dizziness, No Focal Weakness, No Sensory Changes Psychological: No Symptoms Endocrine: No Symptoms Hematologic/Lymphatic: No Symptoms Immunological/Allergic: No Symptoms Medications & Allergies Home Medications: Home Medication List Bumetanide 1 mg [Bumex 1 mg] 1 mg DAILY 04/12/17 [History Confirmed ] Gabapentin 300 mg TID 04/12/17 [History Confirmed 10/14/17] Glimepiride 1 mg PO DAILY 04/12/17 [History Confirmed 10/14/17] Oxybutynin Chloride [Oxybutynin Chloride ER] 5 mg DAILY 04/12/17 [History Confirmed 10/14/17] Ropinirole HCl 1 mg PO HS 04/12/17 [History Confirmed 10/14/17] Tamsulosin HCl 0.4 mg [Flomax 0.4 MG] 0.4 mg DAILY 04/12/17 [History Confirmed 10/14/17] Amitriptyline HCl 25 mg [Elavil 25 mg] 25 mg PO HS 10/14/17 [History Confirmed 10/14/17] Apixaban [Eliquis] 2.5 mg PO BID 10/14/17 [History Confirmed 10/14/17] Pregabalin 50 mg [Lyrica 50MG] 50 mg PO DAILY 10/14/17 [History Confirmed 10/14/17] Simvastatin 5 mg PO HS 10/14/17 [History Confirmed 10/14/17] Allergies/Adverse Reactions: Allergies Allergy/AdvReac Type Severity Reaction Status Date / Time codeine Allergy Verified 04/12/17 10:30 penicillin G Allergy Verified 10/14/17 06:08 Penicillins Allergy Verified 10/14/17 06:08 pneumococcal vaccine Allergy Verified 04/12/17 10:30 - Past Medical History Past Medical History: Yes Neurological History: Stroke ENT History: No Pertinent History Cardiac History: Arrhythmia, Congestive Heart Failure, Coronary Artery Disease, Hypertension Respiratory History: COPD Endocrine Medical History: Diabetes Type II Musculoskelatal History: Arthritis GI Medical History: No Pertinent History History: No Pertinent History Pyscho-Social History: No Pertinent History Reproductive Disorders: No Pertinent History Comment: GERD, pacemaker - Female History Hx Last Menstrual Period: hysterectomy Are you now?: No - Past Surgical History Past Surgical History: Yes Neuro Surgical History: No Pertinent History Cardiac History: Pacemaker Respiratory Surgery: No Pertinent History GI Surgical History: Appendectomy, Cholecystectomy Genitourinary Surgical Hx: No Pertinent History Musculskeletal Surgical Hx: No Pertinent History Female Surgical History: Hysterectomy - Social History Smoking Status: Former smoker Exposure to second hand smoke: No Alcohol: None Drug Use: none Significant Family History: no pertinent family hx - Physical Exam Vital Signs: Vital Signs - 24 hr Temp Pulse Resp BP Pulse Ox 10/14/17 20:00 97.8 F 73 24 121/54 97 10/14/17 18:56 73 21 99 10/14/17 16:00 98.0 F 73 20 116/53 99 10/14/17 14:34 73 24 99 10/14/17 11:52 98.0 F 76 21 113/71 97 10/14/17 11:13 98.0 F 73 26 H 123/59 97 10/14/17 11:00 76 10/14/17 10:55 78 22 96 10/14/17 10:22 73 10/14/17 07:00 73 31 H 122/48 100 10/14/17 06:44 70 37 H 147/113 100 10/14/17 06:41 100 10/14/17 06:22 78 39 H 100 10/14/17 06:03 98 10/14/17 05:57 75 45 H 163/130 95 Oxygen-Last 24 hours O2 Percentage 4 Liters = 36% O2 Percentage 5 Liters = 40% O2 Percentage 6 Liters = 44% O2 Percentage 6 Liters = 44% O2 Percentage 100% O2 Percentage 100% Oxygen Flowrate (L/min)-RT 6 Oxygen Flowrate (L/min)-RT 6 General Appearance: no apparent distress, alert Neurologic Exam: alert, oriented x 3, cooperative, normal mood/affect, nml cerebellar function, nml station & gait, sensation nml, No motor deficits Eye Exam: PERRL/EOMI, eyes nml inspection Ears, Nose, Throat Exam: normal ENT inspection, TMs normal, pharynx normal, moist mucous membranes Neck Exam: normal inspection, non-tender, supple, full range of motion Respiratory Exam: normal breath sounds, accessory muscle use, crackles/rales, rhonchi, wheezing, No respiratory distress Cardiovascular Exam: irregular, capillary refill 2-3 sec Gastrointestinal/Abdomen Exam: soft, normal bowel sounds, No tenderness, No mass Back Exam: normal inspection, normal range of motion, No CVA tenderness, No vertebral tenderness Extremity Exam: normal inspection, normal range of motion, pelvis stable Skin Exam: normal color, warm, dry, No rash Lymphatic Exam: No adenopathy Results - Labs Lab/Micro Results: Accuchecks Date 10/14/17 Time 18:08 Accucheck Value: 296 Lab Results-Last 24 Hours 10/14/17 10/14/17 10/14/17 Range/Units 13:45 13:45 14:30 WBC 23.0 H (4.0-10.5) K/mm3 RBC 3.81 L (4.1-5.4) M/mm3 Hgb 11.4 L (12.0-16.0) gm/dl Hct 35.5 (35-47) % MCV 93.2 (78-100) fl MCH 29.9 (26-32) pg MCHC 32.1 (32-36) g/dl RDW 13.6 (11.5-14.0) % Plt Count 198 (150-450) K/mm3 MPV 10.5 H (6-9.5) fl Segmented Neutrophils 70 H (36.0-66.0) % Band Neutrophils 22 H (0.0-2.0) % Lymphocytes (Manual) 3 L (24-44) % Monocytes (Manual) 4 (0.0-12.0) % Metamyelocytes 1 % Differential Comment ABNORMAL Platelet Estimate NORMAL (NORMAL) Poikilocytosis 1+ Anisocytosis 1+ Rouleaux 1+ Troponin I 0.101 H* 0.200 H* (0.000-0.056) ng/ml 10/14/17 Range/Units 18:30 WBC (4.0-10.5) K/mm3 RBC (4.1-5.4) M/mm3 Hgb (12.0-16.0) gm/dl Hct (35-47) % MCV (78-100) fl MCH (26-32) pg MCHC (32-36) g/dl RDW (11.5-14.0) % Plt Count (150-450) K/mm3 MPV (6-9.5) fl Segmented Neutrophils (36.0-66.0) % Band Neutrophils (0.0-2.0) % Lymphocytes (Manual) (24-44) % Monocytes (Manual) (0.0-12.0) % Metamyelocytes % Differential Comment Platelet Estimate (NORMAL) Poikilocytosis Anisocytosis Rouleaux Troponin I 0.076 H* (0.000-0.056) ng/ml Accuchecks Date 10/14/17 Time 18:08 Accucheck Value: 296 - Other Procedures and Tests Respiratory Therapy 10/14/17 10:55 Flutter Therapy UD Respiratory Nebulizer Q4H 10/14/17 11:36 RT Screen per Nursing Assess ONCE Assessment/Plan (1) Pneumonia Current Visit: Yes Status: Acute Qualifiers: Pneumonia type: aspiration pneumonia Aspiration pneumonia type: due to vomit Laterality: right Lung location: upper lobe of lung Qualified Code(s ): J69.0 - Pneumonitis due to inhalation of food and vomit Assessment & Plan: Chief Complaint Diagnosis sudden onset of shortness of breath and vomiting for 3hrs Allergies Allergy/AdvReac Type Severity Reaction Status Date / Time codeine Allergy Verified 04/12/17 10:30 penicillin G Allergy Verified 10/14/17 06:08 Penicillins Allergy Verified 10/14/17 06:08 pneumococcal vaccine Allergy Verified 04/12/17 10:30 Vital Signs (Last 24 hours) Temp Pulse Resp BP Pulse Ox 10/14/17 20:00 97.8 F 73 24 121/54 97 10/14/17 18:56 73 21 99 10/14/17 16:00 98.0 F 73 20 116/53 99 10/14/17 14:34 73 24 99 10/14/17 11:52 98.0 F 76 21 113/71 97 10/14/17 11:13 98.0 F 73 26 H 123/59 97 10/14/17 11:00 76 10/14/17 10:55 78 22 96 10/14/17 10:22 73 10/14/17 07:00 73 31 H 122/48 100 10/14/17 06:44 70 37 H 147/113 100 10/14/17 06:41 100 10/14/17 06:22 78 39 H 100 10/14/17 06:03 98 10/14/17 05:57 75 45 H 163/130 95 Home Medications Medication Instructions Recorded Confirmed Last Taken Type Amitriptyline HCl 25 mg [Elavil 25 mg PO 10/14/17 10/14/17 10/13/17 History 25 mg] Apixaban [Eliquis] 2.5 mg PO BID 10/14/17 10/14/17 10/13/17 History Pregabalin 50 mg [Lyrica 50 mg PO DAILY 10/14/17 10/14/17 10/13/17 History 50MG] Simvastatin 5 mg PO HS 10/14/17 10/14/17 10/13/17 History Current Medications Generic Name Dose Route Start Last Admin Trade Name Freq PRN Reason Stop Dose Admin Albuterol/Ipratropium 3 ml 10/14/17 11:00 10/14/17 18:55 Duoneb 0.5-3 Mg/3 Ml Neb IH 11/13/17 10:59 3 ml Q4HRT FAHAD Administration Amitriptyline HCl 25 mg 10/14/17 22:00 Elavil 25 Mg PO 11/13/17 21:59 HS FAHAD Bumetanide 1 mg 10/15/17 10:00 Bumex 1 Mg PO 11/14/17 09:59 DAILY FAHAD Gabapentin 300 mg 10/14/17 15:00 10/14/17 15:04 Neurontin 100 Mg PO 11/13/17 14:59 300 mg TID FAHAD Administration Glimepiride 1 mg 10/14/17 13:00 10/14/17 13:13 Amaryl 2 Mg PO 11/13/17 12:59 1 mg DAILY FAHAD Administration Levofloxacin/Dextrose 500 mg in 100 mls @ 100 mls/hr 10/15/17 10:00 Levofloxacin 500mg/100ml D5w IV 11/14/17 09:59 Q24H10 FAHAD Meropenem 1 g/ Sodium Chloride 100 mls @ 200 mls/hr 10/14/17 14:00 10/14/17 14:50 IV 11/13/17 13:59 200 mls/hr Q12H FAHAD Administration Methylprednisolone Sodium Succinate 40 mg 10/14/17 14:00 10/14/17 14:50 Solu-Medrol 40 Mg IV 11/13/17 13:59 40 mg Q8H FAHAD Administration Oxybutynin Chloride 5 mg 10/14/17 13:00 10/14/17 13:14 Ditropan Xl 5 Mg PO 11/13/17 12:59 5 mg DAILY FAHAD Administration Pregabalin 50 mg 10/14/17 13:00 10/14/17 13:14 Lyrica 50mg PO 11/13/17 12:59 50 mg DAILY FAHAD Administration Ropinirole HCl 1 mg 10/14/17 22:00 Requip 0.5 Mg PO 11/13/17 21:59 HS FAHAD Simvastatin 5 mg 10/14/17 22:00 Zocor 10mg PO 11/13/17 21:59 HS FAHAD Tamsulosin HCl 0.4 mg 10/14/17 13:00 10/14/17 13:14 Flomax 0.4 Mg PO 11/13/17 12:59 0.4 mg DAILY FAHAD Administration Discontinued Medications Generic Name Dose Route Start Last Admin Trade Name Dianna PRN Reason Stop Dose Admin Acetaminophen Confirm 10/14/17 06:26 Feverall 325 Mg Administered 10/14/17 06:27 Dose 650 mg .ROUTE .STK-MED ONE Albuterol/Ipratropium 3 ml 10/14/17 05:29 10/14/17 06:22 Duoneb 0.5-3 Mg/3 Ml Neb IH 10/14/17 05:30 3 ml STAT ONE Administration Albuterol/Ipratropium Confirm 10/14/17 05:32 Duoneb 0.5-3 Mg/3 Ml Neb Administered 10/14/17 05:33 Dose 3 ml IH .STK-MED ONE Apixaban 2.5 mg 10/14/17 13:00 10/14/17 13:15 Eliquis PO 11/13/17 12:59 2.5 mg BID FAHAD Administration Famotidine 20 mg 10/14/17 05:29 10/14/17 06:12 Pepcid 20 Mg Vial IV 10/14/17 05:30 20 mg STAT ONE Administration Famotidine Confirm 10/14/17 06:11 Pepcid 20 Mg Vial Administered 10/14/17 06:12 Dose 20 mg IV .STK-MED ONE Furosemide 40 mg 10/14/17 05:29 10/14/17 06:09 Lasix 40 Mg/4 Ml IV 10/14/17 05:30 40 mg STAT ONE Administration Furosemide Confirm 10/14/17 05:36 Lasix 40 Mg/4 Ml Administered 10/14/17 05:37 Dose 40 mg .ROUTE .STK-MED ONE Levofloxacin/Dextrose 500 mg in 100 mls @ 100 mls/hr 10/14/17 05:29 10/14/17 06:46 Levofloxacin 500mg/100ml D5w IV 10/14/17 06:28 100 mls/hr STAT STA Administration Ceftriaxone Sodium/Dextrose 1 g in 50 mls @ 100 mls/hr 10/14/17 05:29 06:12 Rocephin 1 Gm-D5w 50 Ml Bag IV 10/14/17 05:58 100 mls/hr STAT STA Administration Sodium Chloride 1,000 mls @ 100 mls/hr 10/14/17 05:30 10/14/17 06:10 Sodium Chloride 0.9% 1000 Ml IV 11/13/17 05:29 100 mls/hr .Q10H FAHAD Administration Ceftriaxone Sodium/Dextrose Confirm 10/14/17 06:11 Rocephin 1 Gm-D5w 50 Ml Bag Administered 10/14/17 06:12 Dose 1 g in 50 mls @ ud IV .STK-MED ONE Levofloxacin/Dextrose Confirm 10/14/17 06:11 Levofloxacin 500mg/100ml D5w Administered 10/14/17 06:12 Dose 500 mg in 100 mls @ ud IV .STK-MED ONE Sodium Chloride Confirm 10/14/17 05:37 Sodium Chloride 0.9% 1000 Ml Administered 10/14/17 05:38 Dose 1,000 mls @ ud .ROUTE .STK-MED ONE Meropenem 1 g/ Sodium Chloride 100 mls @ 200 mls/hr 10/14/17 14:00 IV 11/13/17 13:59 Q8HT FAHAD Methylprednisolone Sodium Succinate 80 mg 10/14/17 05:29 10/14/17 06:09 Solu-Medrol 125 Mg IV 10/14/17 05:30 80 mg STAT ONE Administration Methylprednisolone Sodium Succinate Confirm 10/14/17 05:36 Solu-Medrol 125 Mg Administered 10/14/17 05:37 Dose 125 mg .ROUTE .STK-MED ONE Non-Formulary Medication 2.5 mg 10/14/17 13:00 Apixaban [Eliquis] PO 11/13/17 12:59 BID FAHAD Ondansetron HCl 4 mg 10/14/17 05:35 10/14/17 06:09 Zofran 4 Mg/2 Ml Vial IV 10/14/17 05:36 4 mg STAT ONE Administration Ondansetron HCl Confirm 10/14/17 05:36 Zofran 4 Mg/2 Ml Vial Administered 10/14/17 05:37 Dose 4 mg .ROUTE .STK-MED ONE Intake & Output (Last 24 hours) 10/12/17 10/13/17 10/14/17 10/15/17 11:59 11:59 11:59 11:59 Intake Total 960 Output Total 900 Balance 60 Weight 74.4 kg Microbiology Results (Last 24 hours) 10/14/17 06:04 Catherized Urine Culture - Pending 10/14/17 06:04 Blood - Pending 10/14/17 06:04 Blood Blood Culture - Pending 10/14/17 05:30 Blood - Pending 10/14/17 05:30 Blood Blood Culture - Pending Laboratory Results (Last 24 hours) 10/14/17 10/14/17 10/14/17 18:30 14:30 13:45 WBC 23.0 H RBC 3.81 L Hgb 11.4 L Hct 35.5 MCV 93.2 MCH 29.9 MCHC 32.1 RDW 13.6 Plt Count 198 MPV 10.5 H Gran % Lymphocytes % Monocytes % Eosinophils % Basophils % Segmented Neutrophils 70 H Band Neutrophils 22 H Lymphocytes (Manual) 3 L Monocytes (Manual) 4 Basophils # Metamyelocytes 1 Differential Comment ABNORMAL Platelet Estimate NORMAL Poikilocytosis 1+ Anisocytosis 1+ Rouleaux 1+ Puncture Site pCO2 pO2 Base Excess O2 Saturation ABG pH ABG HCO3 ABG O2 Sat (Measured) Adria Test A-a Gradient a/A Ratio Hemoglobin Carboxyhemoglobin Methemoglobin Potassium Temperature POC O2 Flow Rate Vent Mode Inspiratory BiPAP Expiratory BiPAP Sodium Chloride Carbon Dioxide Anion Gap BUN Creatinine Estimated GFR Glucose Lactic Acid Calcium Total Bilirubin AST ALT Alkaline Phosphatase Troponin I 0.076 H* 0.200 H* NT-Pro-B Natriuret Pep Serum Total Protein Albumin Ur Collection Type Urine Color Urine Appearance Urine pH Ur Specific [place] Urine Protein Urine Ketones Urine Blood Urine Nitrite Urine Bilirubin Urine Urobilinogen Ur Leukocyte Esterase Urine Culture Reflexed Urine Glucose Influenza Type A Ag Influenza Type B Ag RSV (PCR) Specimen Received 10/14/17 10/14/17 10/14/17 13:45 09:39 07:58 WBC RBC Hgb Hct MCV MCH MCHC RDW Plt Count MPV Gran % Lymphocytes % Monocytes % Eosinophils % Basophils % Segmented Neutrophils Band Neutrophils Lymphocytes (Manual) Monocytes (Manual) Basophils # Metamyelocytes Differential Comment Platelet Estimate Poikilocytosis Anisocytosis Rouleaux Puncture Site pCO2 pO2 Base Excess O2 Saturation ABG pH ABG HCO3 ABG O2 Sat (Measured) Adria Test A-a Gradient a/A Ratio Hemoglobin Carboxyhemoglobin Methemoglobin Potassium Temperature POC O2 Flow Rate Vent Mode Inspiratory BiPAP Expiratory BiPAP Sodium Chloride Carbon Dioxide Anion Gap BUN Creatinine Estimated GFR Glucose Lactic Acid 2.6 H Calcium Total Bilirubin AST ALT Alkaline Phosphatase Troponin I 0.101 H* 0.303 H* NT-Pro-B Natriuret Pep Serum Total Protein Albumin Ur Collection Type Urine Color Urine Appearance Urine pH Ur Specific [place] Urine Protein Urine Ketones Urine Blood Urine Nitrite Urine Bilirubin Urine Urobilinogen Ur Leukocyte Esterase Urine Culture Reflexed Urine Glucose Influenza Type A Ag Influenza Type B Ag RSV (PCR) Specimen Received 10/14/17 10/14/17 10/14/17 07:39 06:30 06:04 WBC RBC Hgb Hct MCV MCH MCHC RDW Plt Count MPV Gran % Lymphocytes % Monocytes % Eosinophils % Basophils % Segmented Neutrophils Band Neutrophils Lymphocytes (Manual) Monocytes (Manual) Basophils # Metamyelocytes Differential Comment Platelet Estimate Poikilocytosis Anisocytosis Rouleaux Puncture Site RIGHT RADIAL pCO2 33 L pO2 410 H* Base Excess -1.1 O2 Saturation 97.3 ABG pH 7.44 ABG HCO3 22.4 ABG O2 Sat (Measured) 100.1 H Adria Test YES A-a Gradient -23 a/A Ratio 1.06 Hemoglobin 12.6 Carboxyhemoglobin 1.6 Methemoglobin 1.2 L Potassium 3.9 Temperature 37.0 POC O2 Flow Rate 60 Vent Mode BiPAP Inspiratory BiPAP 12 Expiratory BiPAP 6 Sodium Chloride Carbon Dioxide Anion Gap BUN Creatinine Estimated GFR Glucose Lactic Acid Calcium Total Bilirubin AST ALT Alkaline Phosphatase Troponin I 0.025 NT-Pro-B Natriuret Pep Serum Total Protein Albumin Ur Collection Type Urine Color Urine Appearance Urine pH Ur Specific [place] Urine Protein Urine Ketones Urine Blood Urine Nitrite Urine Bilirubin Urine Urobilinogen Ur Leukocyte Esterase Urine Culture Reflexed Urine Glucose Influenza Type A Ag NEGATIVE Influenza Type B Ag NEGATIVE RSV (PCR) NEGATIVE Specimen Received 10/14/17 10/14/17 10/14/17 06:04 06:04 06:04 WBC 19.7 H RBC 4.36 Hgb 12.9 Hct 40.6 MCV 93.1 MCH 29.6 MCHC 31.8 L RDW 13.5 Plt Count 263 MPV 10.2 H Gran % 81.0 H Lymphocytes % 14.0 L Monocytes % 3.9 Eosinophils % 1.0 Basophils % 0.1 Segmented Neutrophils Band Neutrophils Lymphocytes (Manual) Monocytes (Manual) Basophils # 0.02 Metamyelocytes Differential Comment Platelet Estimate Poikilocytosis Anisocytosis Rouleaux Puncture Site pCO2 pO2 Base Excess O2 Saturation ABG pH ABG HCO3 ABG O2 Sat (Measured) Adria Test A-a Gradient a/A Ratio Hemoglobin Carboxyhemoglobin Methemoglobin Potassium 4.2 Temperature POC O2 Flow Rate Vent Mode Inspiratory BiPAP Expiratory BiPAP Sodium 139 Chloride 103 Carbon Dioxide 22.0 Anion Gap 18.0 H BUN 30 H Creatinine 1.50 H Estimated GFR 35 Glucose 238 H Lactic Acid Calcium 9.4 Total Bilirubin 0.70 AST 36 ALT 20 Alkaline Phosphatase 172 H Troponin I NT-Pro-B Natriuret Pep 2520 H Serum Total Protein 7.1 Albumin 3.2 L Ur Collection Type CATH Urine Color YELLOW Urine Appearance CLEAR Urine pH 5.0 Ur Specific [place] 1.020 Urine Protein NEGATIVE Urine Ketones NEGATIVE Urine Blood NEGATIVE Urine Nitrite NEGATIVE Urine Bilirubin NEGATIVE Urine Urobilinogen NORMAL Ur Leukocyte Esterase NEGATIVE Urine Culture Reflexed NO Urine Glucose NEGATIVE Influenza Type A Ag Influenza Type B Ag RSV (PCR) Specimen Received 10/14/17 0630 10/14/17 10/14/17 05:45 05:29 WBC RBC Hgb Hct MCV MCH MCHC RDW Plt Count MPV Gran % Lymphocytes % Monocytes % Eosinophils % Basophils % Segmented Neutrophils Band Neutrophils Lymphocytes (Manual) Monocytes (Manual) Basophils # Metamyelocytes Differential Comment Platelet Estimate Poikilocytosis Anisocytosis Rouleaux Puncture Site LEFT RADIAL pCO2 41 pO2 151 H* Base Excess -3.5 L O2 Saturation 96.9 ABG pH 7.34 L ABG HCO3 22.1 ABG O2 Sat (Measured) 100.0 Adria Test YES A-a Gradient 511 a/A Ratio 0.23 Hemoglobin 14.1 Carboxyhemoglobin 2.0 Methemoglobin 1.1 L Potassium 4.5 Temperature 37.0 POC O2 Flow Rate 100 Vent Mode Inspiratory BiPAP Expiratory BiPAP Sodium Chloride Carbon Dioxide Anion Gap BUN Creatinine Estimated GFR Glucose Lactic Acid 2.8 H Calcium Total Bilirubin AST ALT Alkaline Phosphatase Troponin I NT-Pro-B Natriuret Pep Serum Total Protein Albumin Ur Collection Type Urine Color Urine Appearance Urine pH Ur Specific [place] Urine Protein Urine Ketones Urine Blood Urine Nitrite Urine Bilirubin Urine Urobilinogen Ur Leukocyte Esterase Urine Culture Reflexed Urine Glucose Influenza Type A Ag Influenza Type B Ag RSV (PCR) Specimen Received Orders (Last 24 hours) Category Date Time Status Bedrest ROUTINE Activity 10/14/17 10:22 Active Bedrest with BRP/BSC TOLERATED Activity 10/14/17 10:22 Active ACCUCHECK [Accucheck] ACHS Care 10/14/17 13:01 Active Admission/Status Order ROUTINE Care 10/14/17 10:22 Active CO2 Monitoring STAT Care 10/14/17 05:29 Inactive Dope Pourer ROUTINE Care 10/14/17 10:22 Active Dope Pourer STAT Care 10/14/17 05:31 Completed Code Status Order ROUTINE Care 10/14/17 10:22 Active EKG-ER Only STAT Care 10/14/17 05:29 Completed IV Insertion ROUTINE Care 10/14/17 10:22 Completed IV Insertion STAT Care 10/14/17 05:29 Completed Implement Pneumonia Pathway ROUTINE Care 10/14/17 10:22 Active Oxygen-ED Only NASAL CANNULA 2 lpm Care 10/14/17 05:29 Inactive Pulse Oximetry (ED) STAT Care 10/14/17 05:29 Completed Cardio-Pulmonary Rehab .as ordered Cons 10/14/17 11:01 Active Infection Control Consult ROUTINE Cons 10/14/17 11:36 Completed Infection Control Consult ROUTINE Cons 10/14/17 12:00 Active Medical Territory Manager/Discharge Plan ROUTINE Cons 10/14/17 11:36 Active Nutritional Admission Screen once Diet 10/14/17 11:36 Completed Regular Diet Diet 10/14/17 Breakfast Active CHEST 1 VIEW (PORTABLE) Stat Exams 10/14/17 05:30 Completed ABG [ARTERIAL BLOOD GASES] Routine Lab 10/14/17 05:45 Completed ARTERIAL BLOOD GASES Stat Lab 10/14/17 07:39 Completed BLOOD CULTURE Stat Lab 10/14/17 06:04 Stop Req BMP DAILY Lab 10/15/17 10:22 Ordered BMP DAILY Lab 10/16/17 10:22 Ordered CBC W DIFF DAILY Lab 10/14/17 13:45 Completed CBC W DIFF DAILY Lab 10/15/17 10:22 Ordered CBC W DIFF DAILY Lab 10/16/17 10:22 Ordered CBC W DIFF Stat Lab 10/14/17 06:04 Completed CMP Stat Lab 10/14/17 06:04 Completed CULTURE,SPUTUM Stat Lab 10/14/17 05:30 Uncollected CULTURE,URINE Stat Lab 10/14/17 06:04 Received Lactic Acid Routine Lab 10/14/17 07:58 Completed Lactic Acid Stat Lab 10/14/17 05:29 Completed Manual Differential NC Routine Lab 10/14/17 13:45 Completed NT PRO BNP Stat Lab 10/14/17 06:04 Completed Respiratory Panel Stat Lab 10/14/17 06:04 Completed TROPONIN Q3H Lab 10/14/17 06:30 Completed TROPONIN Q3H Lab 10/14/17 09:39 Completed TROPONIN Q3H Lab 10/14/17 13:45 Completed TROPONIN Q3H Lab 10/14/17 14:30 Completed TROPONIN Q3H Lab 10/14/17 18:30 Completed UA W/RFX UR CULTURE Stat Lab 10/14/17 06:04 Completed Acetaminophen 325Mg [Feverall 325 mg] Med 10/14/17 06:26 Discontinued 650 mg .ROUTE .STK-MED ONE Albuterol/Ipratropium 3ml Neb* [DUONEB 0.5-3 MG/3 ml Med 10/14/17 05:32 Discontinued Neb] 3 ml IH .STK-MED ONE Albuterol/Ipratropium 3ml Neb* [DUONEB 0.5-3 MG/3 ml Med 10/14/17 11:00 Active Neb] 3 ml IH Q4HRT Albuterol/Ipratropium 3ml Neb* [DUONEB 0.5-3 MG/3 ml Med 10/14/17 05:29 Discontinued Neb] 3 ml IH STAT ONE Amitriptyline HCl 25 mg [Elavil 25 mg] Med 10/14/17 22:00 Active 25 mg PO HS Apixaban [Eliquis] Med 10/14/17 13:00 Discontinued 2.5 mg PO BID Apixaban [Eliquis] Med 10/14/17 13:00 Discontinued 2.5 mg PO BID Bumetanide 1 mg [Bumex 1 mg] Med 10/15/17 10:00 Active 1 mg PO DAILY Ceftriaxone 1 GM/50 ML PREMIX* [ROCEPHIN 1 Gm-D5w 50 ml Med 10/14/17 05:29 Discontinued Bag] 1 g in 50 ml IV STAT Ceftriaxone 1 GM/50 ML PREMIX* [ROCEPHIN 1 Gm-D5w 50 ml Med 10/14/17 06:11 Discontinued Bag] 1 g in 50 ml IV UD Famotidine 20 mg Vial [Pepcid 20 MG VIAL] Med 10/14/17 06:11 Discontinued 20 mg IV .STK-MED ONE Famotidine 20 mg Vial [Pepcid 20 MG VIAL] Med 10/14/17 05:29 Discontinued 20 mg IV STAT ONE Furosemide 40 mg/4 ml [Lasix 40 MG/4 ML] Med 10/14/17 05:36 Discontinued 40 mg .ROUTE .STK-MED ONE Furosemide 40 mg/4 ml [Lasix 40 MG/4 ML] Med 10/14/17 05:29 Discontinued 40 mg IV STAT ONE Gabapentin 100 mg [Neurontin 100 MG] Med 10/14/17 15:00 Active 300 mg PO TID Glimepiride 2 mg [Amaryl 2 MG] Med 10/14/17 13:00 Active 1 mg PO DAILY Levofloxacin [Levofloxacin 500MG/100ML D5W] Med 10/15/17 10:00 Active 500 mg in 100 ml IV Q24H10 Levofloxacin [Levofloxacin 500MG/100ML D5W] Med 10/14/17 05:29 Discontinued 500 mg in 100 ml IV STAT Levofloxacin [Levofloxacin 500MG/100ML D5W] Med 10/14/17 06:11 Discontinued 500 mg in 100 ml IV UD Meropenem [Merrem 1 GM] 1 g Med 10/14/17 14:00 Active NaCl 0.9% 100 ml Mini-Bag Plus [Sodium Chloride 100ML MINI-BAG PLUS] 100 ml IV Q12H Meropenem [Merrem 1 GM] 1 g Med 10/14/17 14:00 Discontinued NaCl 0.9% 100 ml Mini-Bag Plus [Sodium Chloride 100ML MINI-BAG PLUS] 100 ml IV Q8HT Methylprednis Sod Succ 125 mg* [solu-MEDROL 125 MG] Med 10/14/17 05:36 Discontinued 125 mg .ROUTE .STK-MED ONE Methylprednis Sod Succ 125 mg* [solu-MEDROL 125 MG] Med 10/14/17 05:29 Discontinued 80 mg IV STAT ONE Methylprednisolone Sod Suc 40M [solu-MEDROL 40 MG] Med 10/14/17 14:00 Active 40 mg IV Q8H NaCl 0.9% 1000 ml [Sodium Chloride 0.9% 1000 ML] 1,000 Med 10/14/17 05:30 Discontinued ml IV 100 mls/hr Ondansetron HCl 4 mg/2 ml [Zofran 4 MG/2 ML VIAL] Med 10/14/17 05:36 Discontinued 4 mg .ROUTE .STK-MED ONE Ondansetron HCl 4 mg/2 ml [Zofran 4 MG/2 ML VIAL] Med 10/14/17 05:35 Discontinued 4 mg IV STAT ONE Oxybutynin Chloride Xl 5 mg [Ditropan XL 5 MG] Med 10/14/17 13:00 Active 5 mg PO DAILY Pregabalin 50 mg [Lyrica 50MG] Med 10/14/17 13:00 Active 50 mg PO DAILY Ropinirole HCl 0.5 mg [Requip 0.5 MG] Med 10/14/17 22:00 Active 1 mg PO HS Simvastatin 10 mg [Zocor 10MG] Med 10/14/17 22:00 Active 5 mg PO HS Tamsulosin HCl 0.4 mg [Flomax 0.4 MG] Med 10/14/17 13:00 Active 0.4 mg PO DAILY BiPap/CPAP Assessment STAT RT 10/14/17 05:29 Completed Flutter Therapy UD RT 10/14/17 10:55 Active RT Screen per Nursing Assess ONCE RT 10/14/17 11:36 Active Respiratory Nebulizer Q4H RT 10/14/17 10:55 Active Respiratory Nebulizer STAT RT 10/14/17 05:32 Completed Respiratory Therapy Consult ROUTINE RT 10/14/17 10:22 Active Transfer Order Routine Transfer 10/14/17 Completed Patient Care Notes (Last 24 hours) 10/14/17 15:31 Nursing Note by Lorrie Overton spoke with Dr. Lindsey on the phone, informed pt just coughed up some blood. asked about pt taking eliquis. Stated no, stop the eliquis, it is causing her bleeding. Initialized on 10/14/17 15:31 - END OF NOTE 10/14/17 13:18 Nursing Note by Lorrie Overton Pt asking for home medications to be reordered. went through medication list with pt, states theres a new pill and a heart pill she can't think of the name of. brought in pill box but those meds are not present. Pt calling home to see if nephew can find the pills and will call back. Dr Lindsey stated to continue home meds. will continue home meds at this time and informed pt when nephew looks for those pills we will enter them Initialized on 10/14/17 13:18 - END OF NOTE Code(s): J18.9 - PNEUMONIA, UNSPECIFIED ORGANISM (2) Vomiting Current Visit: Yes Status: Acute Qualifiers: Vomiting type: unspecified Vomiting Intractability: intractable Nausea presence: without nausea Qualified Code(s): R11.11 - Vomiting without nausea Code(s): R11.10 - VOMITING, UNSPECIFIED (3) Elevated troponin Current Visit: Yes Status: Acute Code(s): R74.8 - ABNORMAL LEVELS OF OTHER SERUM ENZYMES (4) Atrial fibrillation Current Visit: Yes Status: Chronic Qualifiers: Atrial fibrillation type: chronic Qualified Code(s): I48.2 - Chronic atrial fibrillation Code(s): I48.91 - UNSPECIFIED ATRIAL FIBRILLATION (5) Pulmonary hypertension Current Visit: Yes Status: Chronic Code(s): I27.20 - PULMONARY HYPERTENSION , UNSPECIFIED
[2017-10-14] MEDS: Requip 0.5 MG PO SCH (21:50)
[2017-10-14] MEDS: Zocor 10MG PO SCH (21:51)
[2017-10-14] MEDS: ELAVIL 25 MG PO SCH (21:51)
[2017-10-14] MEDS ORDERED: NON-FORMULARY ITEM (Simvastatin [Simvastatin] 5 MG) PO SCH (22:00)
[2017-10-14] MEDS: NovoLOG Insulin SQ PRN (22:33)
[2017-10-14] MEDS: Restoril 15 MG PO PRN (23:04)
[2017-10-15] MEDS: DUONEB 0.5-3 MG/3 ml Neb IH SCH ×6 (00:04→17:47)
[2017-10-15] MEDS: Merrem 1 GM 1 G in Sodium Chloride 100ML MINI-BAG PLUS 100 ML IV SCH ×2 (01:35→14:26)
[2017-10-15] MEDS: solu-MEDROL 40 MG IV SCH ×3 (06:26→21:54)
[2017-10-15 09:25] LABS: Hematocrit 35.1 % (35-47); Hemoglobin 11.3 gm/dl (12.0-16.0); Mean Cell Volume 92.4 fl (78-100); Mean Corpuscular Hemoglobin 29.7 pg (26-32); Mean Corpuscular Hgb Concent. 32.2 g/dl (32-36); Mean Platelet Volume 10.3 fl (6-9.5); Platelet Count 185 K/mm3 (150-450); Red Cell Distribution Width 13.7 % (11.5-14.0); White Blood Count 24.7 K/mm3 (4.0-10.5)
--- NOTE | 2017-10-15 09:33 | XRAY ---
Indication: Pneumonia. Comparison: One day earlier. Portable chest demonstrates mild clearing of the diffuse right lung airspace disease again greatest in the upper lobe. New small bibasilar effusions. Heart and mediastinal structures within normal limits with stable right venous access catheter and left pacemaker.
[2017-10-15] MEDS: Levofloxacin 500MG/100ML D5W 500 MG/100 ML BAG IV SCH (09:34)
[2017-10-15] MEDS: Neurontin 100 MG PO SCH ×3 (09:34→21:54)
[2017-10-15] MEDS: Flomax 0.4 MG PO SCH (09:35)
[2017-10-15] MEDS: Amaryl 2 MG PO SCH (09:35)
[2017-10-15] MEDS: Lyrica 50MG PO SCH (09:35)
[2017-10-15] MEDS: BUMEX 1 MG PO SCH (09:35)
[2017-10-15] MEDS: Ditropan XL 5 MG PO SCH (09:36)
[2017-10-15 09:54] LABS: ANION GAP 15.3 MEQ/L (5-15); Calcium 9.3 mg/dL (8.5-10.1); Carbon Dioxide 23.7 mEq/L (21-32); Creatinine 1 1.69 mg/dl (0.55-1.30); Potassium 4.1 mEq/L (3.5-5.1)
[2017-10-15] MEDS: NovoLOG Insulin SQ PRN ×2 (11:23→22:33)
--- NOTE | 2017-10-15 11:47 | PCM.NOTE ---
Date and Time: 10/15/17 1147 Subjective Assessment: doing better - Review of Systems Constitutional: No Fever, No Chills Eyes: No Symptoms Ears, Nose, & Throat: No Symptoms Respiratory: No Cough, No Short Of Breath Cardiac: No Chest Pain, No Edema, No Syncope Abdominal/Gastrointestinal: No Abdominal Pain, No Nausea, No Vomiting, No Diarrhea Genitourinary Symptoms: No Dysuria Musculoskeletal: No Back Pain, No Neck Pain Skin: No Rash Neurological: No Dizziness, No Focal Weakness, No Sensory Changes Psychological: No Symptoms Endocrine: No Symptoms Hematologic/Lymphatic: No Symptoms Immunological/Allergic: No Symptoms Objective Exam General Appearance: no apparent distress, alert Neurologic Exam: alert, oriented x 3, cooperative, normal mood/affect, nml cerebellar function, sensation nml, No motor deficits Skin Exam: normal color, warm, dry Eye Exam: PERRL, EOMI, eyes nml inspection Ears, Nose, Throat Exam: normal ENT inspection, pharynx normal, moist mucous membranes Neck Exam: normal inspection, non-tender, supple, full range of motion Respiratory Exam: normal breath sounds, lungs clear, No respiratory distress Cardiovascular Exam: regular rate/rhythm, normal heart sounds Gastrointestinal/Abdomen Exam: soft, No tenderness, No mass Extremity Exam: normal inspection, normal range of motion Back Exam: normal inspection, normal range of motion, No CVA tenderness, No vertebral tenderness Pelvic Exam: deferred Rectal Exam: deferred OBJECTIVE DATA Vital Signs: Vital Signs - 24 hr Temp Pulse Resp BP Pulse Ox 10/15/17 11:00 78 10/15/17 10:42 78 16 96 10/15/17 08:16 98 10/15/17 08:00 98 F 78 16 155/67 98 10/15/17 07:00 75 16 98 10/15/17 06:34 70 23 148/65 99 10/15/17 03:45 75 19 98 10/15/17 00:01 76 10/15/17 00:00 97.7 F 76 20 125/60 99 10/14/17 23:50 77 23 99 10/14/17 20:00 97.8 F 73 24 121/54 97 10/14/17 18:56 73 21 99 10/14/17 16:00 98.0 F 73 20 116/53 99 10/14/17 14:34 73 24 99 10/14/17 11:52 98.0 F 76 21 113/71 97 Oxygen-Last 24 hours O2 Percentage 5 Liters = 40% O2 Percentage 6 Liters = 44% O2 Percentage 6 Liters = 44% O2 Percentage 4 Liters = 36% O2 Percentage 4 Liters = 36% O2 Percentage 5 Liters = 40% O2 Percentage 6 Liters = 44% Oxygen Flowrate (L/min)-RT 6 Intake and Output: Intake & Output 10/12/17 10/13/17 10/14/17 10/15/17 11:59 11:59 11:59 11:59 Intake Total 2470 Output Total 2275 Balance 195 Weight 74.4 kg Lab Results: Accuchecks Date 10/15/17 Date 10/15/17 Date 10/14/17 Date 10/14/17 Time 11:22 Time 08:08 Time 22:10 Time 18:08 Accucheck Value: 246 Accucheck Value: 206 Accucheck Value: 281 Accucheck Value: 296 Lab Results-Last 24 Hours 10/14/17 10/14/17 10/14/17 Range/Units 13:45 13:45 14:30 WBC 23.0 H (4.0-10.5) K/mm3 RBC 3.81 L (4.1-5.4) M/mm3 Hgb 11.4 L (12.0-16.0) gm/dl Hct 35.5 (35-47) % MCV 93.2 (78-100) fl MCH 29.9 (26-32) pg MCHC 32.1 (32-36) g/dl RDW 13.6 (11.5-14.0) % Plt Count 198 (150-450) K/mm3 MPV 10.5 H (6-9.5) fl Segmented Neutrophils 70 H (36.0-66.0) % Band Neutrophils 22 H (0.0-2.0) % Lymphocytes (Manual) 3 L (24-44) % Monocytes (Manual) 4 (0.0-12.0) % Metamyelocytes 1 % Differential Comment ABNORMAL Platelet Estimate NORMAL (NORMAL) Poikilocytosis 1+ Anisocytosis 1+ Rouleaux 1+ Sodium (136-145) mEq/L Potassium (3.5-5.1) mEq/L Chloride (98-107) mEq/L Carbon Dioxide (21-32) mEq/L Anion Gap (5-15) MEQ/L BUN (9-20) mg/dL Creatinine (0.55-1.30) mg/dl Estimated GFR ML/MIN Glucose (70-110) MG/DL Calcium (8.5-10.1) mg/dL Troponin I 0.101 H* 0.200 H* (0.000-0.056) ng/ml 10/14/17 10/15/17 10/15/17 Range/Units 18:30 09:22 09:22 WBC 24.7 H (4.0-10.5) K/mm3 RBC 3.80 L (4.1-5.4) M/mm3 Hgb 11.3 L (12.0-16.0) gm/dl Hct 35.1 (35-47) % MCV 92.4 (78-100) fl MCH 29.7 (26-32) pg MCHC 32.2 (32-36) g/dl RDW 13.7 (11.5-14.0) % Plt Count 185 (150-450) K/mm3 MPV 10.3 H (6-9.5) fl Segmented Neutrophils (36.0-66.0) % Band Neutrophils (0.0-2.0) % Lymphocytes (Manual) (24-44) % Monocytes (Manual) (0.0-12.0) % Metamyelocytes % Differential Comment Platelet Estimate (NORMAL) Poikilocytosis Anisocytosis Rouleaux Sodium 139 (136-145) mEq/L Potassium 4.1 (3.5-5.1) mEq/L Chloride 104 (98-107) mEq/L Carbon Dioxide 23.7 (21-32) mEq/L Anion Gap 15.3 H (5-15) MEQ/L BUN 41 H (9-20) mg/dL Creatinine 1.69 H (0.55-1.30) mg/dl Estimated GFR 31 ML/MIN Glucose 240 H (70-110) MG/DL Calcium 9.3 (8.5-10.1) mg/dL Troponin I 0.076 H* (0.000-0.056) ng/ml Radiology Exams: Radiology Procedures Category Date Time Status Portable Chest [CHEST 1 VIEW (PORTABLE)] Routine Exams 10/15/17 08:46 Completed Assessment/Plan (1) Pneumonia Current Visit: Yes Status: Acute Qualifiers: Pneumonia type: aspiration pneumonia Aspiration pneumonia type: due to vomit Laterality: right Lung location: upper lobe of lung Qualified Code(s ): J69.0 - Pneumonitis due to inhalation of food and vomit Code(s): J18.9 - PNEUMONIA, UNSPECIFIED ORGANISM (2) Vomiting Current Visit: Yes Status: Acute Qualifiers: Vomiting type: unspecified Vomiting Intractability: intractable Nausea presence: without nausea Qualified Code(s): R11.11 - Vomiting without nausea Code(s): R11.10 - VOMITING, UNSPECIFIED (3) Elevated troponin Current Visit: Yes Status: Acute Code(s): R74.8 - ABNORMAL LEVELS OF OTHER SERUM ENZYMES (4) Atrial fibrillation Current Visit: Yes Status: Chronic Qualifiers: Atrial fibrillation type: chronic Qualified Code(s): I48.2 - Chronic atrial fibrillation Code(s): I48.91 - UNSPECIFIED ATRIAL FIBRILLATION (5) Pulmonary hypertension Current Visit: Yes Status: Chronic Code(s): I27.20 - PULMONARY HYPERTENSION , UNSPECIFIED
[2017-10-15] MEDS ORDERED: Valium 5 MG PO PRN (14:00)
[2017-10-15] MEDS: Restoril 15 MG PO PRN (20:27)
[2017-10-15] MEDS: Zocor 10MG PO SCH (21:54)
[2017-10-15] MEDS: FISH OIL 1,000 MG CAPSULE PO SCH (21:54)
[2017-10-15] MEDS: ELAVIL 25 MG PO SCH (21:55)
[2017-10-15] MEDS: Requip 0.5 MG PO SCH (21:55)
[2017-10-16] MEDS: Merrem 1 GM 1 G in Sodium Chloride 100ML MINI-BAG PLUS 100 ML IV SCH ×2 (01:41→14:01)
[2017-10-16] MEDS: solu-MEDROL 40 MG IV SCH ×2 (06:20→22:27)
[2017-10-16] MEDS: DUONEB 0.5-3 MG/3 ml Neb IH SCH ×4 (06:42→18:11)
[2017-10-16] MEDS: Neurontin 100 MG PO SCH ×3 (09:31→22:23)
[2017-10-16] MEDS: Levofloxacin 500MG/100ML D5W 500 MG/100 ML BAG IV SCH (09:31)
[2017-10-16 10:24] LABS: Hematocrit 35.3 % (35-47); Hemoglobin 11.4 gm/dl (12.0-16.0); Mean Cell Volume 92.7 fl (78-100); Mean Corpuscular Hemoglobin 29.9 pg (26-32); Mean Corpuscular Hgb Concent. 32.3 g/dl (32-36); Platelet Count 213 K/mm3 (150-450); Red Blood Count 3.81 M/mm3 (4.1-5.4); Red Cell Distribution Width 14.2 % (11.5-14.0)
[2017-10-16] MEDS: Amaryl 2 MG PO SCH (10:40)
[2017-10-16] MEDS: BUMEX 1 MG PO SCH (10:40)
[2017-10-16] MEDS: Flomax 0.4 MG PO SCH (10:41)
[2017-10-16] MEDS: FISH OIL 1,000 MG CAPSULE PO SCH ×2 (10:41→22:22)
[2017-10-16] MEDS: Lyrica 50MG PO SCH (10:42)
[2017-10-16] MEDS: Ditropan XL 5 MG PO SCH (10:42)
[2017-10-16 10:44] LABS: ANION GAP 14.5 MEQ/L (5-15); Calcium 9.2 mg/dL (8.5-10.1); Creatinine 1 1.43 mg/dl (0.55-1.30); Potassium 4.3 mEq/L (3.5-5.1)
[2017-10-16 10:50] LABS: BAND 5 % (0.0-2.0); Lymphocytes 2 % (24-44); Monocyte 5 % (0.0-12.0); Neutrophils 88 % (36.0-66.0); Total Cells Counted 100
[2017-10-16 10:51] LABS: Granulocyte Absolute (ANC) 20.5 (1.4-6.9); Platelet Estimate NORMAL (NORMAL)
[2017-10-16] MEDS: NovoLOG Insulin SQ PRN (12:29)
[2017-10-16] MEDS: ELIQUIS PO SCH ×2 (14:01→22:27)
[2017-10-16] MEDS: Zocor 10MG PO SCH (22:23)
[2017-10-16] MEDS: Requip 0.5 MG PO SCH (22:26)
[2017-10-16] MEDS: ELAVIL 25 MG PO SCH (22:26)
[2017-10-16] MEDS: Restoril 15 MG PO PRN (22:35)
[2017-10-17] MEDS: Merrem 1 GM 1 G in Sodium Chloride 100ML MINI-BAG PLUS 100 ML IV SCH (02:13)
[2017-10-17] MEDS: DUONEB 0.5-3 MG/3 ml Neb IH SCH ×2 (06:44→10:25)
[2017-10-17 08:32] VITALS: BP 182/77
[2017-10-17] MEDS: Amaryl 2 MG PO SCH (09:31)
[2017-10-17] MEDS: BUMEX 1 MG PO SCH (09:33)
[2017-10-17] MEDS: ELIQUIS PO SCH (09:34)
[2017-10-17] MEDS: FISH OIL 1,000 MG CAPSULE PO SCH (09:35)
[2017-10-17] MEDS: Lyrica 50MG PO SCH (09:36)
[2017-10-17] MEDS: Flomax 0.4 MG PO SCH (09:36)
[2017-10-17] MEDS: Levofloxacin 500MG/100ML D5W 500 MG/100 ML BAG IV SCH (09:36)
[2017-10-17] MEDS: Neurontin 100 MG PO SCH (09:36)
[2017-10-17] MEDS: solu-MEDROL 40 MG IV SCH (09:37)
[2017-10-17] MEDS: Ditropan XL 5 MG PO SCH (09:38)
[2017-10-17 09:44] LABS: ANION GAP 16.4 MEQ/L (5-15); Calcium 9.3 mg/dL (8.5-10.1); Carbon Dioxide 23.8 mEq/L (21-32); Creatinine 1 1.6 mg/dl (0.55-1.30); Potassium 4.4 mEq/L (3.5-5.1)
[2017-10-17 09:56] LABS: Granulocyte Absolute (ANC) 16.39 (1.4-6.9); Hematocrit 37.5 % (35-47); Hemoglobin 11.9 gm/dl (12.0-16.0); Mean Cell Volume 92.6 fl (78-100); Mean Corpuscular Hgb Concent. 31.7 g/dl (32-36); Mean Platelet Volume 11.1 fl (6-9.5); Platelet Count 222 K/mm3 (150-450); Red Blood Count 4.05 M/mm3 (4.1-5.4); White Blood Count 17.6 K/mm3 (4.0-10.5)
[2017-10-17 10:18] LABS: Mean Corpuscular Hemoglobin 29.3 pg (26-32)
[2017-10-17 10:29] VITALS: PULSE 73; O2SAT 96
--- NOTE | 2017-10-17 10:39 | XRAY ---
Indication: Pneumonia. Comparison: October 15, 2017. PA/lateral chest demonstrates continued clearing of the right lung airspace disease with small residual in the right upper lobe and small right base effusion. Left effusion has cleared. Heart is not enlarged. No new cardiopulmonary abnormalities.
[2017-10-17 12:32] LABS: Lymphocytes 10 % (24-44); Monocyte 5 % (0.0-12.0); Neutrophils 85 % (36.0-66.0); Platelet Estimate NORMAL (NORMAL); Total Cells Counted 100
== END 2017-10-17 13:34 | disposition home or self-care (01) | DRG 179 ==
LOC: ED 05:24 → ICU 10:19
PROVIDERS: ADMIT General Practice; ATTEND General Practice
DX: J69.0 Pneumonitis due to inhalation of food and vomit (principal); K21.9 Gastro-esophageal reflux disease without esophagitis; I10 Essential (primary) hypertension; R06.02 Shortness of breath; E11.9 Type 2 diabetes mellitus without complications; I25.10 Atherosclerotic heart disease of native coronary artery without angina pectoris; J44.9 Chronic obstructive pulmonary disease, unspecified; M19.90 Unspecified osteoarthritis, unspecified site; Z95.0 Presence of cardiac pacemaker; Z87.891 Personal history of nicotine dependence; Z79.899 Other long term (current) drug therapy; I50.9 Heart failure, unspecified; J18.9 Pneumonia, unspecified organism; R11.11 Vomiting without nausea; R74.8 Abnormal levels of other serum enzymes; I48.91 Unspecified atrial fibrillation; I27.20 Pulmonary hypertension, unspecified
CPT/HCPCS: 36000; 36415; 36600; 71045; 71046; 80048; 80053; 81002; 82375; 82803; 82962; 83605; 83880; 84484; 85025; 85027; 87040; 87070; 87086; 87631; 93005; 93041; 94002; 94640; 94667; 94668; 94760; 96360; 96361; 96365; 99285; J0696; J1940; J1956; J2405; J2920; J2930; A9270-GY

== ENCOUNTER 2017-10-19 13:56 | Emergency (ER) | payer MEDICARE, BC ==
--- NOTE | 2017-10-19 14:35 | ERPHSYRPT ---
- History of Present Illness Time Seen by Provider: 10/19/17 14:15 Source: patient Exam Limitations: clinical condition Patient Subjective Stated Complaint: PT REPORTS HEADACHE-GENERAL WEAKNESS- NUMBNESS TO RIGHT SIDE OF HEAD-BROUGHT TO ED PER EMS FROM HOME-REPORTS RECENT DC FROM HOSPITAL Triage Nursing Assessment: PT PINK WARM ET [id number] ALL QUESTIONS CORRECTLY-TALKATIVE WITH NO DIFFICULTY NOTED-HAND IN STORE DEMONSTRATOR EQUAL BILATERALLY- PUPILS REACTIVE-MOIST COUGH NOTED-PT REPROTS CLEAR SPUTUM Physician History: PATIENT WITH A HISTORY OF TYPE 2 DIABETES, RECENTLY HOSPITALIZED FOR PNEUMONIA , NOW COMPLAINS OF GENERALIZED WEAKNESS ASSOCIATED WITH COUGH OCCASIONAL DYSPNEA. ALSO COMPLAINS OF A RIGHT HEADACHE OVER THE PAST WEEK, DENIES CHEST PAIN, FEVER OR DIFFICULTY BREATHING. Timing/Duration: today Severity: mild Associated Symptoms: cough, weakness Allergies/Adverse Reactions: codeine Allergy (Verified 10/19/17 13:59) penicillin G Allergy (Verified 10/19/17 13:59) Penicillins Allergy (Verified 10/19/17 13:59) pneumococcal vaccine Allergy (Verified 10/19/17 13:59) Home Medications: RX: Bumetanide 1 mg [Bumex 1 mg] 1 mg DAILY 04/12/17 [History] RX: Gabapentin 300 mg TID 04/12/17 [History] RX: Glimepiride 1 mg PO DAILY 04/12/17 [History] RX: Oxybutynin Chloride [Oxybutynin Chloride ER] 5 mg DAILY 04/12/17 [History] RX: Ropinirole HCl 1 mg PO HS 04/12/17 [History] RX: Tamsulosin HCl 0.4 mg [Flomax 0.4 MG] 0.4 mg DAILY 04/12/17 [History] RX: Amitriptyline HCl 25 mg [Elavil 25 mg] 25 mg PO HS 10/14/17 [History] RX: Apixaban [Eliquis] 2.5 mg PO BID 10/14/17 [History] RX: Pregabalin 50 mg [Lyrica 50MG] 50 mg PO DAILY 10/14/17 [History] RX: Simvastatin 5 mg PO HS 10/14/17 [History] RX: Pratts-3S/Dha/Epa/Fish Oil [Fish Oil 1,200 mg Softgel] 2 each PO BID [History] Hx Tetanus, Diphtheria Vaccination/Date Given: No Hx Influenza Vaccination/Date Given: No Hx Pneumococcal Vaccination/Date Given: No Immunizations Up to Date: Yes - Review of Systems Constitutional: No Fever, No Chills Eyes: No Symptoms Ears, Nose, & Throat: No Symptoms Respiratory: Cough, Dyspnea Cardiac: No Symptoms, No Chest Pain, No Edema, No Syncope Abdominal/Gastrointestinal: No Symptoms, No Abdominal Pain, No Nausea, No Vomiting, No Diarrhea Genitourinary Symptoms: No Symptoms, No Dysuria Musculoskeletal: No Symptoms, No Back Pain, No Neck Pain Skin: No Rash Neurological: No Dizziness, No Focal Weakness, No Sensory Changes Psychological: No Symptoms Endocrine: No Symptoms All Other Systems: Reviewed and Negative - Past Medical History Pertinent Past Medical History: Yes Neurological History: Stroke ENT History: No Pertinent History Cardiac History: Arrhythmia, Congestive Heart Failure, Coronary Artery Disease, Hypertension Respiratory History: COPD Endocrine Medical History: Diabetes Type II Musculoskeletal History: Arthritis GI Medical History: No Pertinent History History: No Pertinent History Psycho-Social History: No Pertinent History Female Reproductive Disorders: No Pertinent History Other Medical History: GERD, pacemaker - Past Surgical History Past Surgical History: Yes Neuro Surgical History: No Pertinent History Cardiac: Pacemaker Respiratory: No Pertinent History Gastrointestinal: Appendectomy, Cholecystectomy Genitourinary: No Pertinent History Musculoskeletal: No Pertinent History Female Surgical History: Hysterectomy - Social History Smoking Status: Former smoker Exposure to second hand smoke: No Alcohol Use: None Drug Use: none Patient Lives Alone: No Significant Family History: no pertinent family hx - Female History Hx Now: No - Nursing Vital Signs Nursing Vital Signs: Initial Vital Signs Temperature 98.1 F 10/19/17 13:58 Pulse Rate 69 10/19/17 13:58 Respiratory Rate 20 10/19/17 13:58 Blood Pressure 156/62 10/19/17 13:58 O2 Sat by Pulse Oximetry 97 10/19/17 13:58 Pain Scale Pain Intensity 7 - Physical Exam SpO2: 97 Oxygen Delivery: Room Air - Course EKG Interpreted by Me: RATE, Sinus Rhythm, 1st degree AV Block Rhythm Strip: 3rd degree block (INDETERMINATE AXIS) - Radiology Exams Chest X-ray Interpretation: Interpreted by me (RIGHT LOWER AND MIDDLE LOBE INFILTRATES ) - CT Exams Head CT Interpretation: Discussed w/radiologist (NONACUTE SENILE BRAIN, OLD BASAL GANGLIA LACUNAR INFARCTS, NEAR COMPLETE FLUID LEVELING MAXILLARY SINUSES) Chest CT Interpretation: Discussed w/radiologist (NEW RIGHT UPPER INFILTRATE WITH SMALL EFFUSION, ALSO NEW TINY LEFT PLEURAL EFFUSION) Ordered Tests: Active Orders 24 hr Category Date Time Status Clean Catch Urine Specimen STAT Care 10/19/17 14:33 Active EKG-ER Only STAT Care 10/19/17 14:31 Active IV Insertion STAT Care 10/19/17 14:26 Active Oxygen-ED Only NASAL CANNULA 2 lpm Care 10/19/17 14:31 Active CHEST 1 VIEW (PORTABLE) Stat Exams 10/19/17 14:31 Taken CHEST WITHOUT CONTRAST [CT] Stat Exams 10/19/17 15:29 Taken HEAD WITHOUT CONTRAST [CT] Stat Exams 10/19/17 14:33 Taken CBC W DIFF Stat Lab 10/19/17 14:45 Completed CMP Stat Lab 10/19/17 14:45 Completed Manual Differential NC Stat Lab 10/19/17 14:45 Completed PROTIME WITH INR Stat Lab 10/19/17 14:45 Completed TROPONIN Q3H Lab 10/19/17 14:45 Completed TROPONIN Q3H Lab 10/20/17 02:45 Ordered UA W/ MICROSCOPIC Stat Lab 10/19/17 14:45 Completed Medication Summary Generic Name Dose Route Start Last Admin Trade Name Freq PRN Reason Stop Dose Admin Sodium Chloride 1,000 mls @ 50 mls/hr 10/19/17 14:45 10/19/17 15:05 Sodium Chloride 0.9% 1000 Ml IV 11/18/17 14:44 50 mls/hr .Q20H FAHAD Administration Discontinued Medications Generic Name Dose Route Start Last Admin Trade Name Freq PRN Reason Stop Dose Admin Levofloxacin/Dextrose 500 mg in 100 mls @ 100 mls/hr 10/19/17 16:27 10/19/17 16:33 Levofloxacin 500mg/100ml D5w IV 10/19/17 17:26 100 mls/hr STAT STA Administration Levofloxacin/Dextrose Confirm 10/19/17 16:31 Levofloxacin 500mg/100ml D5w Administered 10/19/17 16:32 Dose 500 mg in 100 mls @ ud IV .STK-MED ONE Lab/Rad Data: Laboratory Result Diagrams 10/19/17 14:45 10/19/17 14:45 Laboratory Results 01/09/2410/19/17 10/19/17 Range/Units 14:45 14:45 14:45 WBC (4.0-10.5) K/mm3 RBC (4.1-5.4) M/mm3 Hgb (12.0-16.0) gm/dl Hct (35-47) % MCV (78-100) fl MCH (26-32) pg MCHC (32-36) g/dl RDW (11.5-14.0) % Plt Count (150-450) K/mm3 MPV (6-9.5) fl Segmented Neutrophils (36.0-66.0) % Band Neutrophils (0.0-2.0) % Lymphocytes (Manual) (24-44) % Monocytes (Manual) (0.0-12.0) % Eosinophils (Manual) (0.00-3.0) % Nucleated RBCs % Differential Comment Platelet Estimate (NORMAL) INR 1.39 (0.8-3.0) Sodium (136-145) mEq/L Potassium (3.5-5.1) mEq/L Chloride (98-107) mEq/L Carbon Dioxide (21-32) mEq/L Anion Gap (5-15) MEQ/L BUN (9-20) mg/dL Creatinine (0.55-1.30) mg/dl Estimated GFR ML/MIN Glucose (70-110) MG/DL Calcium (8.5-10.1) mg/dL Total Bilirubin (0.2-1.0) mg/dL AST (15-37) U/L ALT (12-78) U/L Alkaline Phosphatase (46-116) U/L Troponin I 0.026 (0.000-0.056) ng/ml Serum Total Protein (6.4-8.2) gm/dL Albumin (3.4-5.0) g/dL Ur Collection Type VOID Urine Color YELLOW (YELLOW) Urine Appearance CLEAR (CLEAR) Urine pH 6.0 (5-6) Ur Specific [place] 1.010 (1.005-1.025) Urine Protein NEGATIVE (Negative) Urine Ketones NEGATIVE (NEGATIVE) Urine Blood NEGATIVE (0-5) Tanner/ul Urine Nitrite NEGATIVE (NEGATIVE) Urine Bilirubin NEGATIVE (NEGATIVE) Urine Urobilinogen NORMAL (0-1) mg/dL Ur Leukocyte Esterase NEGATIVE (NEGATIVE) Urine Microscopic RBC 0-2 (0-2) /HPF Urine Microscopic WBC 0-2 (0-5) /HPF Ur Epithelial Cells MANY (FEW) /HPF Urine Glucose NEGATIVE (NEGATIVE) mg/dL Specimen Received 10/19/2017 10/19/17 10/19/17 Range/Units 14:45 14:45 WBC 13.2 H (4.0-10.5) K/mm3 RBC 4.72 (4.1-5.4) M/mm3 Hgb 14.2 (12.0-16.0) gm/dl Hct 43.5 (35-47) % MCV 92.2 (78-100) fl MCH 30.1 (26-32) pg MCHC 32.6 (32-36) g/dl RDW 14.3 H (11.5-14.0) % Plt Count 276 (150-450) K/mm3 MPV 10.1 H (6-9.5) fl Segmented Neutrophils 88 H (36.0-66.0) % Band Neutrophils 1 (0.0-2.0) % Lymphocytes (Manual) 6 L (24-44) % Monocytes (Manual) 1 (0.0-12.0) % Eosinophils (Manual) 4 H (0.00-3.0) % Nucleated RBCs 1 % Differential Comment NORMAL Platelet Estimate NORMAL (NORMAL) INR (0.8-3.0) Sodium 141 (136-145) mEq/L Potassium 3.6 (3.5-5.1) mEq/L Chloride 103 (98-107) mEq/L Carbon Dioxide 29.4 (21-32) mEq/L Anion Gap 12.4 (5-15) MEQ/L BUN 53 H (9-20) mg/dL Creatinine 1.49 H (0.55-1.30) mg/dl Estimated GFR 35 ML/MIN Glucose 95 (70-110) MG/DL Calcium 9.2 (8.5-10.1) mg/dL Total Bilirubin 0.80 (0.2-1.0) mg/dL AST 27 (15-37) U/L ALT 44 (12-78) U/L Alkaline Phosphatase 144 H (46-116) U/L Troponin I (0.000-0.056) ng/ml Serum Total Protein 6.7 (6.4-8.2) gm/dL Albumin 3.0 L (3.4-5.0) g/dL Ur Collection Type Urine Color (YELLOW) Urine Appearance (CLEAR) Urine pH (5-6) Ur Specific [place] (1.005-1.025) Urine Protein (Negative) Urine Ketones (NEGATIVE) Urine Blood (0-5) Tanner/ul Urine Nitrite (NEGATIVE) Urine Bilirubin (NEGATIVE) Urine Urobilinogen (0-1) mg/dL Ur Leukocyte Esterase (NEGATIVE) Urine Microscopic RBC (0-2) /HPF Urine Microscopic WBC (0-5) /HPF Ur Epithelial Cells (FEW) /HPF Urine Glucose (NEGATIVE) mg/dL Specimen Received - Progress Progress Note: 10/19/17 16:39 ADMINISTERED IV NORMAL SALINE 50ML/HR, LEVAQUIN 500MG IVPB, TYLENOL 650MG ORALLY Discussed with Dr.: Michael Mayfield (DISCUSSED WITH DR Molina LANG A 1705 ACCEPTS TRANSFER TO [facility]IA [facility] DIRECT ADMISSION) - Departure Time of Disposition: 18:25 Departure Disposition: Transfer Clinical Impression: RECURRENT PNEUMONIA , ACUTE MAXILLARY SINUSITIS Condition: Stable Critical Care Time: No Referrals: CLAVIN SRIVASTAVA MD [Primary Care Provider] -
[2017-10-19] MEDS ORDERED: Sodium Chloride 0.9% 1000 ML 1,000 ML IV SCH (14:45)
[2017-10-19 14:49] LABS: Granulocyte Absolute (ANC) 10.32 (1.4-6.9); Hematocrit 43.5 % (35-47); Hemoglobin 14.2 gm/dl (12.0-16.0); Mean Cell Volume 92.2 fl (78-100); Mean Corpuscular Hemoglobin 30.1 pg (26-32); Mean Corpuscular Hgb Concent. 32.6 g/dl (32-36); Mean Platelet Volume 10.1 fl (6-9.5); Platelet Count 276 K/mm3 (150-450); Red Blood Count 4.72 M/mm3 (4.1-5.4); Red Cell Distribution Width 14.3 % (11.5-14.0); White Blood Count 13.2 K/mm3 (4.0-10.5)
[2017-10-19 15:09] LABS: ANION GAP 12.4 MEQ/L (5-15); BILIRUBIN,TOTAL 0.8 mg/dL (0.2-1.0); Calcium 9.2 mg/dL (8.5-10.1); Carbon Dioxide 29.4 mEq/L (21-32); Creatinine 1 1.49 mg/dl (0.55-1.30); Potassium 3.6 mEq/L (3.5-5.1); Total Protein 6.7 gm/dL (6.4-8.2)
[2017-10-19 15:13] LABS: Appearance CLEAR (CLEAR); Bilirubin NEGATIVE (NEGATIVE); Blood NEGATIVE Ery/ul (0-5); Epithelial Cells MANY /HPF (FEW); Glucose NEGATIVE (NEGATIVE); INR 1.39 (0.8-3.0); Ketones NEGATIVE (NEGATIVE); Leukocyte Esterase NEGATIVE (NEGATIVE); Nitrite NEGATIVE (NEGATIVE); Protein,Urine Dip NEGATIVE (Negative); Urobilinogen NORMAL mg/dL (0-1); WBC 0-2 /HPF (0-5)
[2017-10-19 16:20] LABS: BAND 1 % (0.0-2.0); Eosinophil 4 % (0.00-3.0); Lymphocytes 6 % (24-44); Monocyte 1 % (0.0-12.0); Neutrophils 88 % (36.0-66.0); Nucleated Red Blood Cell 1 %; Total Cells Counted 100
[2017-10-19 16:21] LABS: Platelet Estimate NORMAL (NORMAL)
[2017-10-19] MEDS ORDERED: Levofloxacin 500MG/100ML D5W 500 MG/100 ML BAG IV STA (16:27)
[2017-10-19] MEDS ORDERED: Levofloxacin 500MG/100ML D5W 500 MG/100 ML BAG IV ONE (16:31)
[2017-10-19 16:34] VITALS: BP 150/74; O2SAT 97
[2017-10-19 17:40] VITALS: PULSE 88
--- NOTE | 2017-10-19 22:35 | XRAY ---
Indication: Cough and weakness. Possible pneumonia. Multiple contiguous axial images obtained through the chest without contrast as ordered. Comparison: August 30, 2015. Lung parenchyma demonstrates new right upper lobe airspace opacity with small effusion. Also tiny left effusion. Stable bibasilar fibrosis/scarring and scattered calcified granulomas. Heart is not enlarged again with left-sided pacemaker and leads. Aorta remains mildly arteriosclerotic without aneurysmal dilatation. Again a few calcified mediastinal nodes. No pathologic mediastinal lymphadenopathy. Stable small hiatal hernia. Bony thorax intact again with minimal degenerative changes throughout the spine. Limited upper abdomen again demonstrates pneumobilia. Impression: 1. New right upper lobe airspace disease with small effusion. Tiny left effusion. 2. Stable small hiatal hernia and evidence for old granulomatous disease. CTDI 16.94
--- NOTE | 2017-10-19 22:36 | XRAY ---
Indication: Right-sided headache and weakness 1 week. No known injury. Multiple contiguous axial images obtained through the head without contrast. Comparison: None Several images slightly degraded by motion artifact. There is age-appropriate global atrophy and mild periventricular degenerative micro-ischemia bilaterally. Remote lacunar infarcts in the left basal ganglia. No acute intracranial hemorrhage, abnormal extra-axial fluid collection, or mass effect. Fourth ventricle is midline. Bony calvarium intact. There is near complete opacification of the visualized maxillary sinuses. Mastoid air cells are clear. Impression: 1. Nonacute senile brain with left basal ganglia remote lacunar infarcts. 2. Incidental paranasal sinus disease. CTDI 69.79
--- NOTE | 2017-10-19 22:37 | XRAY ---
Indication: Dyspnea. Comparison: October 17, 2017. Portable chest demonstrates stable right upper lung airspace disease with small effusion. New tiny left effusion. Heart is not enlarged again with left-sided dual-lead pacemaker.
== END 2017-10-19 18:42 | disposition short-term general hospital (02) ==
LOC: ED 13:56
DX: J18.9 Pneumonia, unspecified organism (principal); J01.00 Acute maxillary sinusitis, unspecified; R51 Headache; R53.1 Weakness; E11.9 Type 2 diabetes mellitus without complications; Z79.899 Other long term (current) drug therapy
CPT/HCPCS: 36415; 70450; 71045; 71250; 80053; 81000; 84484; 85025; 85610; 93005; 96360; 96361; 96365; 99285; J1956

== ENCOUNTER 2017-11-26 09:18 | Emergency (ER) | payer MEDICARE, BC ==
[2017-11-26] MEDS ORDERED: TYLENOL 325 MG PO ONE (09:44)
[2017-11-26] MEDS ORDERED: TYLENOL 325 MG ONE (09:48)
--- NOTE | 2017-11-26 09:49 | ERPHSYRPT ---
- History of Present Illness Time Seen by Provider: 11/26/17 09:35 Source: patient Physician History: CC: neck pain Hx: 86 y/o patient of Dr Srivastava. She awoke today with a stiff neck. She has left sided neck pain. She had prior carotid surgery. She takes blood thinners. No fall or injury. She has pain in left neck worse when she moves the neck. Pain is severe. She does not want to live the rest of her life like this nor does she want to answer any further questions. Severity: severe Allergies/Adverse Reactions: codeine Allergy (Verified 11/26/17 09:47) penicillin G Allergy (Verified 11/26/17 09:47) Penicillins Allergy (Verified 11/26/17 09:47) pneumococcal vaccine Allergy (Verified 11/26/17 09:47) Home Medications: Bumetanide 1 mg [Bumex 1 mg] 1 mg DAILY 04/12/17 [History] Gabapentin 300 mg TID 04/12/17 [History] Glimepiride 1 mg PO DAILY 04/12/17 [History] Oxybutynin Chloride [Oxybutynin Chloride ER] 5 mg DAILY 04/12/17 [History] Ropinirole HCl 1 mg PO HS 04/12/17 [History] Tamsulosin HCl 0.4 mg [Flomax 0.4 MG] 0.4 mg DAILY 04/12/17 [History] Amitriptyline HCl 25 mg [Elavil 25 mg] 50 mg PO HS 10/14/17 [History] Apixaban [Eliquis] 2.5 mg PO BID 10/14/17 [History] Pregabalin 50 mg [Lyrica 50MG] 50 mg PO DAILY 10/14/17 [History] Simvastatin 5 mg PO HS 10/14/17 [History] Sildenafil Citrate [Sildenafil] 20 mg PO TID 11/26/17 [History] Hx Tetanus, Diphtheria Vaccination/Date Given: No Hx Influenza Vaccination/Date Given: No Hx Pneumococcal Vaccination/Date Given: No - Review of Systems Constitutional: No Fever, No Chills Cardiac: No Chest Pain Abdominal/Gastrointestinal: No Abdominal Pain, No Nausea, No Vomiting Musculoskeletal: Neck Pain (stiff neck) Skin: No Rash Neurological: No Focal Weakness, No Headache, No Parasthesia All Other Systems: Reviewed and Negative - Past Medical History Pertinent Past Medical History: Yes Neurological History: Stroke ENT History: No Pertinent History Cardiac History: Arrhythmia, Congestive Heart Failure, Coronary Artery Disease, Hypertension Respiratory History: COPD Endocrine Medical History: Diabetes Type II Musculoskeletal History: Arthritis GI Medical History: No Pertinent History History: No Pertinent History Psycho-Social History: No Pertinent History Female Reproductive Disorders: No Pertinent History Other Medical History: GERD, pacemaker - Past Surgical History Past Surgical History: Yes Neuro Surgical History: No Pertinent History Cardiac: Pacemaker Respiratory: No Pertinent History Gastrointestinal: Appendectomy, Cholecystectomy Genitourinary: No Pertinent History Musculoskeletal: No Pertinent History Female Surgical History: Hysterectomy - Social History Smoking Status: Former smoker Exposure to second hand smoke: No Alcohol Use: None Drug Use: none Patient Lives Alone: No Significant Family History: no pertinent family hx - Nursing Vital Signs Nursing Vital Signs: Initial Vital Signs Temperature 97.4 F 11/26/17 09:27 Pulse Rate 70 11/26/17 09:27 Respiratory Rate 18 11/26/17 09:27 Blood Pressure 158/63 11/26/17 09:27 O2 Sat by Pulse Oximetry 97 11/26/17 09:27 Pain Scale Pain Intensity 10 - Physical Exam General Appearance: alert Eye Exam: PERRL/EOMI Ears, Nose, Throat Exam: moist mucous membranes Neck Exam: normal inspection, non-tender, supple Respiratory Exam: normal breath sounds, lungs clear Cardiovascular Exam: regular rate/rhythm Gastrointestinal/Abdomen Exam: soft, No tenderness, No distention Extremity Exam: normal inspection, normal range of motion Neurologic Exam: alert, oriented x 3, cooperative, operator supply II-XII nml as tested, sensation nml, No motor deficits Skin Exam: warm, dry, No rash - Course Nursing assessment & vital signs reviewed: Yes - CT Exams cervical CT Interpretation: Tele-radiologist Report (no fx or canal stensosis, cervical lortotic straightening, degenerative change, osteopenia) Ordered Tests: Active Orders 24 hr Category Date Time Status Other ED Treatment STAT Care 11/26/17 09:44 Active CERVICAL SPINE WO CONTRAST [CT] Stat Exams 11/26/17 09:43 Completed Medication Summary Discontinued Medications Generic Name Dose Route Start Last Admin Trade Name Freq PRN Reason Stop Dose Admin Acetaminophen 650 mg 11/26/17 09:44 11/26/17 09:48 Tylenol 325 Mg PO 11/26/17 09:45 650 mg STAT ONE Administration Acetaminophen Confirm 11/26/17 09:48 Tylenol 325 Mg Administered 11/26/17 09:49 Dose 650 mg .ROUTE .STK-MED ONE - Progress Progress Note: 11/26/17 10:40 Advised warm compress, APAP, and follow up with Dr Srivastava to consider PT. Counseled pt/family regarding: diagnosis, need for follow-up, rad results - Departure Time of Disposition: 10:41 Departure Disposition: Home Clinical Impression: Torticollis, acute Condition: Stable Critical Care Time: No Referrals: CALVIN SRIVASTAVA MD [Primary Care Provider] - Instructions: Cervical Muscle Strain (DC), Torticollis, Adult Additional Instructions: Tylenol 650mg every 6 hours as needed for pain. Warm compresses to neck off and on. Follow up with Dr Srivastava this week.
--- NOTE | 2017-11-26 10:24 | XRAY ---
Indication: Left neck pain and stiffness. No known injury. Multiple contiguous axial images obtained through the cervical spine. Sagittal and coronal reformatted images obtained. Comparison: None Age-related osteopenia and nonunited C1 posterior arch, a normal variant. Axial images negative for acute fracture, suspicious bony lesions, or spinal canal stenosis. Mild C6-C7 degenerative endplate spurring and mild multilevel bilateral degenerative facet arthropathy. Sagittal and coronal reformatted images demonstrates cervical lordotic straightening, positional versus paraspinal muscular spasm. Minimal 2 mm anterolisthesis of C3 on C4 on C5 presumed degenerative. C6-C7 disc space loss. No acute compression fracture or jumped facet. Normal appearing craniocervical junction. Visualized noncontrasted soft tissues demonstrates minimal bilateral carotid calcifications and previous left carotid endarterectomy. Base of the brain unremarkable. Mild right apical pleural parenchymal scarring. Impression: 1. Negative acute fracture or canal stenosis. 2. Cervical lordotic straightening, positional versus paraspinal spasm. 3. Multilevel degenerative spondylosis and osteopenia. CT DI 46.10
[2017-11-26 11:00] VITALS: BP 138/70; PULSE 76; O2SAT 98
== END 2017-11-26 11:00 | disposition home or self-care (01) ==
LOC: ED 09:18
DX: M43.6 Torticollis (principal)
CPT/HCPCS: 72125; 99283; 99284; A9270-GY

== ENCOUNTER 2018-01-28 12:12 | Inpatient (IN) | payer MEDICARE, BC ==
[2018-01-28 13:20] LABS: Granulocyte Absolute (ANC) 16.01 (1.4-6.9); Hematocrit 35.5 % (35-47); Hemoglobin 11.8 gm/dl (12.0-16.0); Mean Cell Volume 89.4 fl (78-100); Mean Corpuscular Hemoglobin 29.7 pg (26-32); Mean Corpuscular Hgb Concent. 33.2 g/dl (32-36); Mean Platelet Volume 10.7 fl (6-9.5); Platelet Count 231 K/mm3 (150-450); Red Blood Count 3.97 M/mm3 (4.1-5.4); Red Cell Distribution Width 13.9 % (11.5-14.0); White Blood Count 18.4 K/mm3 (4.0-10.5)
--- NOTE | 2018-01-28 13:55 | XRAY ---
Indication: Right shoulder pain following fall. Comparison: None 3 views of the right shoulder demonstrates mild AC degenerative arthropathy. No other bony, articular, or soft tissue abnormalities. Chest reported separately.
[2018-01-28 13:59] LABS: ANION GAP 16.6 MEQ/L (5-15); Calcium 9.2 mg/dL (8.4-10.2); Creatinine 1 1.27 mg/dL (0.52-1.04); Potassium 4.4 mmol/L (3.5-5.1)
[2018-01-28] MEDS ORDERED: MEDICATION INTERVENTION MC SCH (14:00)
--- NOTE | 2018-01-28 14:00 | XRAY ---
Indication: Pneumonia. Short of breath. Comparison: October 19, 2017. PA/lateral chest again demonstrates hazy right lung airspace disease with small effusion again extending into the minor/major fissure. Remaining heart, left lung, bony thorax, and left-sided pacemaker unremarkable.
[2018-01-28 14:41] LABS: ALBUMIN 3.4 g/dL (3.5-5.0); ANION GAP 15.9 MEQ/L (5-15); BILIRUBIN,TOTAL 0.6 mg/dL (0.2-1.3); Calcium 9.2 mg/dL (8.4-10.2); Creatinine 1 1.29 mg/dL (0.52-1.04); Potassium 4.4 mmol/L (3.5-5.1); Total Protein 6.3 g/dL (6.3-8.2)
[2018-01-28] MEDS: NEURONTIN 300 MG PO SCH ×2 (14:44→22:02)
[2018-01-28] MEDS: ROCEPHIN 1 Gm-D5w 50 ml Bag** 1 G/50 ML IVPB IV SCH (14:44)
[2018-01-28] MEDS: Zithromax 500 MG/ 250 ML NaCl Premix 500 MG/250 ML IVPB IV SCH (14:44)
[2018-01-28] MEDS ORDERED: PROVENTIL 2.5 MG/3 ML NEB IH PRN (14:47)
--- NOTE | 2018-01-28 14:50 | CONS ---
CONSULT DATE: 01/28/2018 HISTORY: Samina Lopez is an 87 year-old pleasant woman with long standing history of pulmonary problems, well known to me, who has not been feeling good for about a week. The patient was also experiencing increasing cough productive of expectoration. She was seen by Dr. Lindsey and was admitted with diagnosis of pneumonia. A chest x-ray performed had shown infiltrates in the right lung which are largely unchanged from previous x-ray of 10/19/2017. The patient does report increasing shortness of breath. She reports low grade fever at home. PAST MEDICAL HISTORY: The patient has history of chronic obstructive pulmonary disease, hypoxemia, pulmonary hypertension along with coronary artery disease. PAST SURGICAL HISTORY: No recent surgery. She had pacemaker placed in the past. PERSONAL AND SOCIAL HISTORY: Nonsmoker. MEDICATIONS: Home and current medications are reviewed. ALLERGIES: ALLERGIES NOTED. PHYSICAL EXAMINATION: This is an elderly woman who is sitting comfortably in bed. Vital signs are noted. HEENT: Normocephalic. Oral exam unremarkable. CVS: First and second heart sounds are normal, regular, rhythmic. RESPIRATORY: Shows diminished breath sounds. Basilar crackles are heard. ABDOMEN: Soft. EXTREMITIES: No edema noted. LABORATORY DATA AND TESTS: Labs are pending. Chest x-ray noted. ASSESSMENT: This is an 87 year old woman admitted with: 1) Right lung community acquired pneumonia. 2) Congestive heart failure with decompensation? 3) Underlying chronic obstructive pulmonary disease. 4) Chronic hypoxic respiratory failure. 5) Pulmonary hypertension. 6) Chronic obstructive pulmonary disease. 7) Atrial fibrillation on anticoagulation comorbid as listed above. RECOMMENDATIONS: I agree with the present treatments. Start the patient on Rocephin and Zithromax IV. Check sputum culture. Follow up labs. Eliquis will offer deep venous thrombosis prophylaxis. Keep saturation more than 92%. Will place the patient on telemetry due to age and comorbidities. I will continue to follow. Thank you for allowing me to participate in the care of Samina Lopez.
[2018-01-28 14:55] LABS: PREALBUMIN 9.49 mg/dL (17.6-36.0)
[2018-01-28] MEDS ORDERED: Neurontin 100 MG PO SCH (15:00)
[2018-01-28] MEDS ORDERED: SILDENAFIL CITRATE 20 MG PO SCH (15:00)
[2018-01-28 17:09] LABS: BAND 12 % (0.0-2.0); Lymphocytes 2 % (24-44); Monocyte 4 % (0.0-12.0); Neutrophils 82 % (36.0-66.0); Total Cells Counted 100
[2018-01-28 17:10] LABS: Platelet Estimate NORMAL (NORMAL)
[2018-01-28] MEDS: PATIENT OWN MEDICATION PO SCH ×2 (17:31→22:02)
[2018-01-28] MEDS: Coreg 6.25 MG PO SCH (17:31)
[2018-01-28] MEDS ORDERED: NON-FORMULARY ITEM (Simvastatin [Simvastatin] 5 MG) PO SCH (22:00)
[2018-01-28] MEDS ORDERED: ELAVIL 25 MG PO SCH (22:00)
[2018-01-28] MEDS: Requip 0.5 MG PO SCH (22:00)
[2018-01-28] MEDS: Zocor 10MG PO SCH (22:01)
[2018-01-28] MEDS: ELIQUIS 2.5 MG TABLET PO SCH (22:01)
[2018-01-29] MEDS: Flomax 0.4 MG PO SCH (08:26)
[2018-01-29] MEDS: BUMEX 1 MG PO SCH (08:26)
[2018-01-29] MEDS: Coreg 6.25 MG PO SCH ×2 (08:26→16:27)
[2018-01-29] MEDS: SYNTHROID 88 MCG PO SCH (08:26)
[2018-01-29] MEDS: Lyrica 50MG PO SCH (08:26)
[2018-01-29] MEDS: NEURONTIN 300 MG PO SCH ×3 (08:26→21:49)
[2018-01-29] MEDS: Amaryl 2 MG PO SCH (08:26)
[2018-01-29] MEDS: Ditropan XL 5 MG PO SCH (08:26)
[2018-01-29] MEDS: ECOTRIN 81 MG PO SCH (08:27)
[2018-01-29] MEDS: PATIENT OWN MEDICATION PO SCH ×3 (08:27→21:50)
[2018-01-29] MEDS: ELIQUIS 2.5 MG TABLET PO SCH ×2 (08:27→21:49)
--- NOTE | 2018-01-29 09:10 | PCM.NOTE ---
Date and Time: 01/29/18907 Subjective Assessment: still very short of breath, labs reviewed, Dr Rain Mayfield notes reviewed - Review of Systems Constitutional: No Fever, No Chills Eyes: No Symptoms Ears, Nose, & Throat: No Symptoms Respiratory: No Cough, No Short Of Breath Cardiac: No Chest Pain, No Edema, No Syncope Abdominal/Gastrointestinal: No Abdominal Pain, No Nausea, No Vomiting, No Diarrhea Genitourinary Symptoms: No Dysuria Musculoskeletal: No Back Pain, No Neck Pain Skin: No Rash Neurological: No Dizziness, No Focal Weakness, No Sensory Changes Psychological: No Symptoms Endocrine: No Symptoms Hematologic/Lymphatic: No Symptoms Immunological/Allergic: No Symptoms Objective Exam General Appearance: no apparent distress, alert Neurologic Exam: alert, oriented x 3, cooperative, normal mood/affect, nml cerebellar function, sensation nml, No motor deficits Skin Exam: normal color, warm, dry Eye Exam: PERRL, EOMI, eyes nml inspection Ears, Nose, Throat Exam: normal ENT inspection, pharynx normal, moist mucous membranes Neck Exam: normal inspection, non-tender, supple, full range of motion Respiratory Exam: prolonged expirations, crackles/rales, rhonchi, wheezing, No respiratory distress Cardiovascular Exam: regular rate/rhythm, normal heart sounds Gastrointestinal/Abdomen Exam: soft, No tenderness, No mass Extremity Exam: normal inspection, normal range of motion Back Exam: normal inspection, normal range of motion, No CVA tenderness, No vertebral tenderness Pelvic Exam: deferred Rectal Exam: deferred OBJECTIVE DATA Vital Signs: Vital Signs - 24 hr Temp Pulse Resp BP Pulse Ox 01/29/18 07:37 98.3 F 75 18 117/58 97 01/29/18 04:00 97.5 F 71 16 98/49 98 01/29/18 00:00 97.8 F 69 16 98/48 97 01/28/18 20:50 82 20 97 01/28/18 20:00 97.5 F 75 20 120/59 100 01/28/18 16:33 98.3 F 70 18 123/58 100 01/28/18 14:48 85 22 96 01/28/18 12:44 72 24 136/61 01/28/18 12:37 72 24 136/61 95 Oxygen-Last 24 hours O2 Percentage 4 Liters = 36% O2 Percentage 2 Liters = 28% O2 Percentage 3 Liters = 32% O2 Percentage 4 Liters = 36% O2 Percentage 4 Liters = 36% O2 Percentage 3 Liters = 32% Pain Assessment - Last Documented Pain Scale Used FLACC Intake and Output: Intake & Output 01/26/18 01/27/18 01/28/18 01/29/18 11:59 11:59 11:59 11:59 Intake Total 620 Balance 620 Weight 70.3 kg Lab Results: Lab Results-Last 24 Hours 01/28/18 01/28/18 01/28/18 Range/Units 13:07 13:07 13:13 WBC 18.4 H (4.0-10.5) K/mm3 RBC 3.97 L (4.1-5.4) M/mm3 Hgb 11.8 L (12.0-16.0) gm/dl Hct 35.5 (35-47) % MCV 89.4 (78-100) fl MCH 29.7 (26-32) pg MCHC 33.2 (32-36) g/dl RDW 13.9 (11.5-14.0) % Plt Count 231 (150-450) K/mm3 MPV 10.7 H (6-9.5) fl Absolute Granulocytes 16.01 H (1.4-6.9) Segmented Neutrophils 82 H (36.0-66.0) % Band Neutrophils 12 H (0.0-2.0) % Lymphocytes (Manual) 2 L (24-44) % Monocytes (Manual) 4 (0.0-12.0) % Platelet Estimate NORMAL (NORMAL) RBC Morphology NORMAL Sodium 138 138 (137-145) mmol/L Potassium 4.4 4.4 (3.5-5.1) mmol/L Chloride 105 106 (98-107) mmol/L Carbon Dioxide 21 L 20 L (22-30) mmol/L Anion Gap 16.6 H 15.9 H (5-15) MEQ/L BUN 47 H 47 H (7-17) mg/dL Creatinine 1.27 H 1.29 H (0.52-1.04) mg/dL Estimated GFR 42.5 41.7 ML/MIN Glucose 141 H 143 H (74-106) mg/dL Calcium 9.2 9.2 (8.4-10.2) mg/dL Total Bilirubin 0.60 (0.2-1.3) mg/dL AST 24 (14-36) U/L ALT 14 (0-35) U/L Alkaline Phosphatase 128 H (38-126) U/L NT-Pro-B Natriuret Pep (0-1800) pg/mL Serum Total Protein 6.3 (6.3-8.2) g/dL Albumin 3.4 L (3.5-5.0) g/dL Prealbumin 9.49 L (17.6-36.0) mg/dL 01/28/18 Range/Units 14:20 WBC (4.0-10.5) K/mm3 RBC (4.1-5.4) M/mm3 Hgb (12.0-16.0) gm/dl Hct (35-47) % MCV (78-100) fl MCH (26-32) pg MCHC (32-36) g/dl RDW (11.5-14.0) % Plt Count (150-450) K/mm3 MPV (6-9.5) fl Absolute Granulocytes (1.4-6.9) Segmented Neutrophils (36.0-66.0) % Band Neutrophils (0.0-2.0) % Lymphocytes (Manual) (24-44) % Monocytes (Manual) (0.0-12.0) % Platelet Estimate (NORMAL) RBC Morphology Sodium (137-145) mmol/L Potassium (3.5-5.1) mmol/L Chloride (98-107) mmol/L Carbon Dioxide (22-30) mmol/L Anion Gap (5-15) MEQ/L BUN (7-17) mg/dL Creatinine (0.52-1.04) mg/dL Estimated GFR ML/MIN Glucose (74-106) mg/dL Calcium (8.4-10.2) mg/dL Total Bilirubin (0.2-1.3) mg/dL AST (14-36) U/L ALT (0-35) U/L Alkaline Phosphatase (38-126) U/L NT-Pro-B Natriuret Pep 4040 H (0-1800) pg/mL Serum Total Protein (6.3-8.2) g/dL Albumin (3.5-5.0) g/dL Prealbumin (17.6-36.0) mg/dL Radiology Exams: Radiology Procedures Category Date Time Status CHEST 2 VIEWS (PA AND LAT) Stat Exams 01/28/18 12:44 Completed SHOULDER Urgent Exams 01/28/18 13:40 Completed Assessment/Plan (1) Pneumonia Current Visit: Yes Status: Acute Onset Date: ~01/29/18 Qualifiers: Pneumonia type: due to unspecified organism Laterality: unspecified laterality Lung location: unspecified part of lung Qualified Code(s): J18.9 - Pneumonia, unspecified organism Code(s): J18.9 - PNEUMONIA, UNSPECIFIED ORGANISM (2) Atrial fibrillation Current Visit: No Status: Chronic Qualifiers: Atrial fibrillation type: chronic Code(s): I48.91 - UNSPECIFIED ATRIAL FIBRILLATION (3) Pulmonary hypertension Current Visit: Yes Status: Chronic Code(s): I27.20 - PULMONARY HYPERTENSION , UNSPECIFIED
[2018-01-29 09:30] LABS: Hematocrit 35.2 % (35-47); Hemoglobin 11.3 gm/dl (12.0-16.0); Mean Cell Volume 91.4 fl (78-100); Mean Corpuscular Hgb Concent. 32.1 g/dl (32-36); Mean Platelet Volume 10.2 fl (6-9.5); Platelet Count 248 K/mm3 (150-450); Red Blood Count 3.85 M/mm3 (4.1-5.4)
[2018-01-29 09:35] LABS: Mean Corpuscular Hemoglobin 29.3 pg (26-32)
[2018-01-29 09:43] LABS: ANION GAP 11.3 MEQ/L (5-15); Calcium 9.2 mg/dL (8.4-10.2); Creatinine 1 1.13 mg/dL (0.52-1.04); Potassium 4.4 mmol/L (3.5-5.1)
[2018-01-29] MEDS: Zithromax 500 MG/ 250 ML NaCl Premix 500 MG/250 ML IVPB IV SCH (10:58)
[2018-01-29] MEDS: ROCEPHIN 1 Gm-D5w 50 ml Bag** 1 G/50 ML IVPB IV SCH (11:00)
[2018-01-29] MEDS: Requip 0.5 MG PO SCH (21:50)
[2018-01-29] MEDS: Zocor 10MG PO SCH (21:50)
[2018-01-30] MEDS: Amaryl 2 MG PO SCH (08:08)
[2018-01-30] MEDS: Coreg 6.25 MG PO SCH (08:09)
[2018-01-30] MEDS: PATIENT OWN MEDICATION PO SCH (10:13)
[2018-01-30] MEDS: ROCEPHIN 1 Gm-D5w 50 ml Bag** 1 G/50 ML IVPB IV SCH ×2 (10:13→10:20)
[2018-01-30] MEDS: BUMEX 1 MG PO SCH (10:14)
[2018-01-30] MEDS: ECOTRIN 81 MG PO SCH (10:15)
[2018-01-30] MEDS: SYNTHROID 88 MCG PO SCH (10:15)
[2018-01-30] MEDS: Ditropan XL 5 MG PO SCH (10:15)
[2018-01-30] MEDS: ELIQUIS 2.5 MG TABLET PO SCH (10:15)
[2018-01-30] MEDS: Flomax 0.4 MG PO SCH (10:15)
[2018-01-30] MEDS: NEURONTIN 300 MG PO SCH (10:15)
[2018-01-30] MEDS: Lyrica 50MG PO SCH (10:15)
[2018-01-30] MEDS: Zithromax 500 MG/ 250 ML NaCl Premix 500 MG/250 ML IVPB IV SCH (10:23)
--- NOTE | 2018-01-30 11:47 | PCM.DS ---
Discharge Summary Date of Admission: 01/28/18 12:12 Admitting Physician: CALVIN SRIVASTAVA Consults: Consults on Case 01/28/18 13:50 Consult Pulmonology ROUTINE Primary Care Provider: CALVIN SRIVASTAVA Allergies Allergies codeine Allergy (Verified 11/26/17 09:47) penicillin G Allergy (Verified 11/26/17 09:47) Penicillins Allergy (Verified 11/26/17 09:47) pneumococcal vaccine Allergy (Verified 11/26/17 09:47) Hospital Summary - Hospital Course Hospital Course: Chief Complaint Diagnosis Pneumonia Allergies Allergy/AdvReac Type Severity Reaction Status Date / Time codeine Allergy Verified 11/26/17 09:47 penicillin G Allergy Verified 11/26/17 09:47 Penicillins Allergy Verified 11/26/17 09:47 pneumococcal vaccine Allergy Verified 11/26/17 09:47 Vital Signs (Last 24 hours) Temp Pulse Resp BP Pulse Ox 01/30/18 09:05 71 18 96 01/30/18 07:02 98.3 F 71 18 120/57 93 L 01/30/18 04:00 97.9 F 71 18 114/58 94 L 01/30/18 00:00 98.5 F 76 23 125/55 94 L 01/29/18 20:00 97.5 F 70 23 118/59 97 01/29/18 19:31 69 16 94 L 01/29/18 16:00 97.4 F 70 18 131/60 97 01/29/18 12:00 97.5 F 70 18 116/58 98 Home Medications Medication Instructions Recorded Confirmed Last Taken Type Aspirin EC 81 mg [Ecotrin 81 81 mg PO DAILY 01/28/18 01/28/18 01/28/18 07:00 History mg] Carvedilol 6.25 mg [Coreg 6.25 6.25 mg PO BID 01/28/18 01/28/18 01/28/18 07: 00 History MG] Levothyroxine Sodium 88 Mcg 88 mcg PO DAILY 01/28/18 01/28/18 01/28/18 07:00 History [Synthroid 88 Mcg] Cephalexin Mh 500 mg [Keflex 500 500 mg PO QID 5 Days #20 capsule 01/30/18 Unknown Rx mg] Current Medications Generic Name Dose Route Start Last Admin Trade Name Freq PRN Reason Stop Dose Admin Albuterol Sulfate 2.5 mg 01/28/18 14:47 Proventil 2.5 Mg/3 Ml Neb IH 02/27/18 14:46 Q4H PRN PRN SHORTNESS OF BREATH/WHEEZING Amitriptyline HCl 50 mg 01/28/18 22:00 01/29/18 21:49 Amitriptyline Hcl 50 Mg Tablet PO 02/27/18 21:59 50 mg HS FAHAD Administration Apixaban 2.5 mg 01/28/18 22:00 01/30/18 10:15 Eliquis 2.5 Mg Tablet PO 02/27/18 21:59 2.5 mg BID FAHAD Administration Aspirin 81 mg 01/29/18 10:00 01/30/18 10:15 Ecotrin 81 Mg PO 02/28/18 09:59 81 mg DAILY FAHAD Administration Bumetanide 1 mg 01/29/18 10:00 01/30/18 10:14 Bumex 1 Mg PO 02/28/18 09:59 1 mg DAILY FAHAD Administration Carvedilol 6.25 mg 01/28/18 17:00 01/30/18 08:09 Coreg 6.25 Mg PO 02/27/18 16:59 6.25 mg BIDWMEALS FAHAD Administration Gabapentin 300 mg 01/28/18 15:00 01/30/18 10:15 Neurontin 300 Mg PO 02/27/18 14:59 300 mg TID FAHAD Administration Glimepiride 1 mg 01/29/18 08:00 01/30/18 08:08 Amaryl 2 Mg PO 02/28/18 07:59 1 mg DAILY@0800 FAHAD Administration Ceftriaxone Sodium/Dextrose 1 g in 50 mls @ 100 mls/hr 01/28/18 13:00 10:20 Rocephin 1 Gm-D5w 50 Ml Bag IV 02/27/18 12:59 Not Given Q24H10 FAHAD Azithromycin 500 mg in 250 mls @ 250 mls/hr 01/28/18 14:00 01/30/18 10:23 Zithromax 500 Mg/ 250 Ml Nacl Premix IV 02/27/18 13:59 Not Given DAILY FAHAD Levothyroxine Sodium 88 mcg 01/29/18 10:00 01/30/18 10:15 Synthroid 88 Mcg PO 02/28/18 09:59 88 mcg DAILY FAHAD Administration Oxybutynin Chloride 5 mg 01/29/18 10:00 01/30/18 10:15 Ditropan Xl 5 Mg PO 02/28/18 09:59 5 mg DAILY FAHAD Administration Patient Own Med 1 each 01/28/18 17:00 01/30/18 10:13 Misc: Sildenafil 20 PO 02/27/18 16:59 1 each Mg Tablet TID FAHAD Administration Pregabalin 50 mg 01/29/18 10:00 01/30/18 10:15 Lyrica 50mg PO 02/28/18 09:59 50 mg DAILY FAHAD Administration Ropinirole HCl 1 mg 01/28/18 22:00 01/29/18 21:50 Requip 0.5 Mg PO 02/27/18 21:59 1 mg HS FAHAD Administration Simvastatin 5 mg 01/28/18 22:00 01/29/18 21:50 Zocor 10mg PO 02/27/18 21:59 5 mg HS FAHAD Administration Tamsulosin HCl 0.4 mg 01/29/18 10:00 01/30/18 10:15 Flomax 0.4 Mg PO 02/28/18 09:59 0.4 mg DAILY FAHAD Administration Intake & Output (Last 24 hours) 01/27/18 01/28/18 01/29/18 01/30/18 11:59 11:59 11:59 11:59 Intake Total 1100 970 Balance 1100 970 Weight 70.3 kg Microbiology Results (Last 24 hours) 01/28/18 13:15 Blood Blood Culture Gram Stain - Pending 01/28/18 13:15 Blood Blood Culture - Preliminary NO GROWTH TO DATE 01/28/18 13:15 Blood Blood Culture Gram Stain - Pending 01/28/18 13:15 Blood Blood Culture - Preliminary NO GROWTH TO DATE Orders (Last 24 hours) Category Date Time Status Discharge Planning,Consult Routine Discharge 01/30/18 Active Discharge Routine Discharge 01/30/18 Ordered - Vitals & Intake/Output Vital Signs: Vital Signs Temperature 98.3 F 01/30/18 07:02 Pulse Rate 71 01/30/18 09:05 Respiratory Rate 18 01/30/18 09:05 Blood Pressure 120/57 01/30/18 07:02 O2 Sat by Pulse Oximetry 96 01/30/18 09:05 Oxygen-Last Documented O2 Percentage 4 Liters = 36% Intake & Output: Intake & Output 01/27/18 01/28/18 01/29/18 01/30/18 11:59 11:59 11:59 11:59 Intake Total 1100 970 Balance 1100 970 Weight 70.3 kg - Lab Result Diagrams: 01/29/18 09:14 01/29/18 09:14 Micro Results-Entire Visit: Microbiology 01/28/18 13:15 Blood Culture - Preliminary Blood NO GROWTH TO DATE 01/28/18 13:15 Blood Culture - Preliminary Blood NO GROWTH TO DATE - Radiology Exams Ordered Rad Exams-Entire Visit: Radiology Procedures Category Date Time Status CHEST 2 VIEWS (PA AND LAT) Stat Exams 01/28/18 12:44 Completed SHOULDER Urgent Exams 01/28/18 13:40 Completed - Procedures and Test Procedures and Tests throughout Hospitalization: Therapy Orders & Screens 01/28/18 12:44 Respiratory Therapy Consult ROUTINE Comment: Reason For Exam: Diagnosis: Pneumonia 01/28/18 14:20 Oxygen NASAL CANNULA 2 lpm Comment: keep SPO2 >92% Diagnosis: Pneumonia 01/28/18 14:48 Respiratory Nebulizer PRN Comment: Diagnosis: Pneumonia Discharge Exam General Appearance: no apparent distress, alert Neurologic Exam: alert, oriented x 3, cooperative, normal mood/affect, nml cerebellar function, sensation nml, No motor deficits Skin Exam: normal color, warm, dry Eye Exam: PERRL, EOMI, eyes nml inspection Ears, Nose, Throat Exam: normal ENT inspection, pharynx normal, moist mucous membranes Neck Exam: normal inspection, non-tender, supple, full range of motion Respiratory Exam: normal breath sounds, lungs clear, No respiratory distress Cardiovascular Exam: regular rate/rhythm, normal heart sounds Gastrointestinal/Abdomen Exam: soft, No tenderness, No mass Extremity Exam: normal inspection, normal range of motion Back Exam: normal inspection, normal range of motion, No CVA tenderness, No vertebral tenderness Pelvic Exam: deferred Rectal Exam: deferred Final Diagnosis/Problem List - Final Discharge Diagnosis/Problem (1) Pneumonia Current Visit: Yes Status: Acute Onset Date: ~01/29/18 (2) Atrial fibrillation Current Visit: No Status: Chronic (3) Pulmonary hypertension Current Visit: Yes Status: Chronic - Discharge Discharge Date: 01/30/18 Disposition: Home, Self-Care Condition: Stable Prescriptions: New Cephalexin Mh 500 mg [Keflex 500 mg] 500 mg PO QID 5 Days #20 capsule Continue Ropinirole HCl 1 mg PO HS Glimepiride 1 mg PO DAILY Gabapentin 300 mg PO TID Tamsulosin HCl 0.4 mg [Flomax 0.4 MG] 0.4 mg PO DAILY Oxybutynin Chloride [Oxybutynin Chloride ER] 5 mg PO DAILY Bumetanide 1 mg [Bumex 1 mg] 1 mg PO DAILY Pregabalin 50 mg [Lyrica 50MG] 50 mg PO DAILY Amitriptyline HCl 25 mg [Elavil 25 mg] 50 mg PO HS Simvastatin 5 mg PO HS Apixaban [Eliquis] 2.5 mg PO BID Sildenafil Citrate [Sildenafil] 20 mg PO TID Levothyroxine Sodium 88 Mcg [Synthroid 88 Mcg] 88 mcg PO DAILY Carvedilol 6.25 mg [Coreg 6.25 MG] 6.25 mg PO BID Aspirin EC 81 mg [Ecotrin 81 mg] 81 mg PO DAILY Instructions: Pneumonia, Adult (DC) Additional Instructions: [facility] WILL CALL YOU TO ARRANGE YOUR FIRST VISIT. Follow up with: JENNIFER MASTERSON [ACTIVE STAFF] - 02/06/18 3:45 pm (at [facility] ) CALVIN SRIVASTAVA MD [Primary Care Provider] - 02/04/18 10:00 am (at [facility] ) Forms: Discharge Instructions
[2018-01-30 12:19] VITALS: BP 143/75; PULSE 72; O2SAT 94
== END 2018-01-30 12:40 | disposition home health service (06) | DRG 194 ==
LOC: MED SURG 12:12 → OBSVTOIN 12:12
PROVIDERS: ADMIT General Practice; ATTEND General Practice
DX: J18.9 Pneumonia, unspecified organism (principal); J96.11 Chronic respiratory failure with hypoxia; I48.91 Unspecified atrial fibrillation; I27.20 Pulmonary hypertension, unspecified; E78.5 Hyperlipidemia, unspecified; E11.9 Type 2 diabetes mellitus without complications; J44.9 Chronic obstructive pulmonary disease, unspecified; G62.9 Polyneuropathy, unspecified; I50.9 Heart failure, unspecified; G47.30 Sleep apnea, unspecified; M19.90 Unspecified osteoarthritis, unspecified site; Z79.01 Long term (current) use of anticoagulants; Z79.899 Other long term (current) drug therapy; Z95.0 Presence of cardiac pacemaker
CPT/HCPCS: 36415; 71046; 73030; 80048; 80053; 83880; 84134; 85025; 85027; 87040; 94150; 94640; 94760; J0456; J0696; A9270-GY

== ENCOUNTER 2018-06-02 11:47 | Inpatient (IN) | payer MEDICARE, BC ==
[2018-06-02] MEDS ORDERED: DUONEB 0.5-3 MG/3 ml Neb IH ONE ×2 (12:21→12:31)
[2018-06-02] MEDS ORDERED: solu-MEDROL 125 MG IV ONE (12:21)
--- NOTE | 2018-06-02 12:28 | ERPHSYRPT ---
- History of Present Illness Time Seen by Provider: 06/02/18 12:15 Source: patient Exam Limitations: no limitations Patient Subjective Stated Complaint: SOB starting yesterday,. wheezing today. sdenies CP or cough Triage Nursing Assessment: alert and slightly confused. audible exp wheezes. O2 placed at 2L NC with sat of 91 on arrival. exp wheezes ausculatated. denies swelling. denies CP Physician History: 87 y/o female with history of COPD and atrial fibrillation comes to the ER with complaints of shortness of breath, wheezing and cough for the past 2 days. Pt has been using her neb treatments with no relief. Pt did receive a duoneb in the ER with some relief of dyspnea. Pt also admits that her legs are more swollen. Pt arrives with a low grade fever of 100.1. Timing/Duration: yesterday Activities at Onset: none Severity of Dyspnea-Max: mild Severity of Dyspnea-Current: mild Possible Cause: occasional episodes Modifying Factors: Improves With: nothing Associated Symptoms: wheezing Allergies/Adverse Reactions: codeine Allergy (Verified 11/26/17 09:47) penicillin G Allergy (Verified 11/26/17 09:47) Penicillins Allergy (Verified 11/26/17 09:47) pneumococcal vaccine Allergy (Verified 11/26/17 09:47) Home Medications: Bumetanide 1 mg [Bumex 1 mg] 1 mg PO DAILY 04/12/17 [History] Gabapentin 300 mg PO TID 04/12/17 [History] Glimepiride 1 mg PO DAILY 04/12/17 [History] Oxybutynin Chloride [Oxybutynin Chloride ER] 5 mg PO DAILY 04/12/17 [History] Ropinirole HCl 1 mg PO HS 04/12/17 [History] Tamsulosin HCl 0.4 mg [Flomax 0.4 MG] 0.4 mg PO DAILY 04/12/17 [History] Amitriptyline HCl 25 mg [Elavil 25 mg] 50 mg PO HS 10/14/17 [History] Apixaban [Eliquis] 2.5 mg PO BID 10/14/17 [History] Simvastatin 5 mg PO HS 10/14/17 [History] Sildenafil Citrate [Sildenafil] 20 mg PO TID 11/26/17 [History] Carvedilol 6.25 mg [Coreg 6.25 MG] 6.25 mg PO BID 01/28/18 [History] Hx Tetanus, Diphtheria Vaccination/Date Given: No Hx Influenza Vaccination/Date Given: No Hx Pneumococcal Vaccination/Date Given: No - Review of Systems Constitutional: No Fever, No Chills Eyes: No Symptoms Ears, Nose, & Throat: No Symptoms Respiratory: Cough, Dyspnea, Dyspnea on Exertion (KINNEY), Wheezing Cardiac: No Chest Pain, No Edema, No Syncope Abdominal/Gastrointestinal: No Abdominal Pain, No Nausea, No Vomiting, No Diarrhea Genitourinary Symptoms: No Dysuria Musculoskeletal: No Back Pain, No Neck Pain Skin: No Rash Neurological: No Dizziness, No Focal Weakness, No Sensory Changes Psychological: No Symptoms Endocrine: No Symptoms All Other Systems: Reviewed and Negative - Past Medical History Pertinent Past Medical History: Yes Neurological History: Stroke ENT History: No Pertinent History Cardiac History: Arrhythmia, Congestive Heart Failure, Coronary Artery Disease, Hypertension Respiratory History: COPD Endocrine Medical History: Diabetes Type II Musculoskeletal History: Arthritis GI Medical History: No Pertinent History History: No Pertinent History Psycho-Social History: No Pertinent History Female Reproductive Disorders: No Pertinent History Other Medical History: GERD, pacemaker - Past Surgical History Past Surgical History: Yes Neuro Surgical History: No Pertinent History Cardiac: Pacemaker Respiratory: No Pertinent History Gastrointestinal: Appendectomy, Cholecystectomy Genitourinary: No Pertinent History Musculoskeletal: No Pertinent History Female Surgical History: Hysterectomy - Social History Smoking Status: Never smoker Exposure to second hand smoke: No Alcohol Use: None Drug Use: none Patient Lives Alone: No Significant Family History: no pertinent family hx - Female History Hx Now: No - Nursing Vital Signs Nursing Vital Signs: Initial Vital Signs Temperature 100.1 F 06/02/18 12:11 Pulse Rate 72 06/02/18 12:11 Respiratory Rate 22 06/02/18 12:11 Blood Pressure 131/85 06/02/18 12:11 O2 Sat by Pulse Oximetry 96 06/02/18 12:11 Pain Scale Pain Intensity 0 - Physical Exam General Appearance: no apparent distress, alert Eye Exam: PERRL/EOMI Neck Exam: normal inspection, supple Respiratory Exam: respiratory distress, wheezing Cardiovascular/Chest Exam: normal heart sounds, regular rate/rhythm Abdominal/Gastrointestinal Exam: soft, No tenderness, No distention, No mass Extremity Exam: non-tender, normal range of motion, normal inspection, no calf tenderness, no pedal edema Neurologic Exam: alert, oriented x 3, cooperative, 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 nml as tested, sensation nml, No motor deficits Skin Exam: normal color, warm, No dry SpO2 Interpretation: normal SpO2: 96 Oxygen Delivery: Nasal Cannula - Course Nursing assessment & vital signs reviewed: Yes EKG Interpreted by Me: NORMAL AXIS, NORMAL INTERVALS, Right Bundle Branch Block , NORMAL ST-T Ordered Tests: Active Orders 24 hr Category Date Time Status Admit as Inpatient ROUTINE Care 06/02/18 14:05 Active Bog Cutter STAT Care 06/02/18 12:22 Active Code Status Order ROUTINE Care 06/02/18 14:04 Active EKG-ER Only STAT Care 06/02/18 12:21 Active IV Care Q6H Care 06/02/18 14:04 Active IV Insertion STAT Care 06/02/18 12:21 Active Implement CHF Pathway ROUTINE Care 06/02/18 14:04 Active Oxygen-ED Only NASAL CANNULA 2 lpm Care 06/02/18 12:37 Active Telemetry ROUTINE Care 06/02/18 14:04 Active Weight,Daily 0600 Care 06/02/18 14:04 Active Low Sodium Diet 06/02/18 Dinner Active CHEST 1 VIEW (PORTABLE) IN AM Exams 06/03/18 06:00 Ordered CHEST 1 VIEW (PORTABLE) Stat Exams 06/02/18 12:22 Ordered ARTERIAL BLOOD GASES Stat Lab 06/02/18 12:21 Completed BLOOD CULTURE Stat Lab 06/02/18 12:40 Received BMP AM.LAB Lab 06/03/18 04:00 Ordered CBC AM.LAB Lab 06/03/18 04:00 Ordered CBC W DIFF Stat Lab 06/02/18 12:30 Completed CMP Stat Lab 06/02/18 12:30 Completed MAGNESIUM Stat Lab 06/02/18 12:30 Completed NT PRO BNP AM.LAB Lab 06/03/18 04:00 Ordered NT PRO BNP Stat Lab 06/02/18 12:30 Completed PROTIME WITH INR Stat Lab 06/02/18 12:30 Completed PTT Stat Lab 06/02/18 12:30 Completed TROPONIN Q3H Lab 06/02/18 12:30 Completed TROPONIN Q3H Lab 06/02/18 15:30 Ordered TROPONIN Q3H Lab 06/02/18 18:30 Ordered TROPONIN Q3H Lab 06/02/18 21:30 Ordered TROPONIN Q3H Lab 06/03/18 00:30 Ordered EKG IN AM RT 06/03/18 06:00 Active Oxygen NASAL CANNULA 2 lpm RT 06/02/18 14:04 Active Peak Expiratory Flow Rate ONCE RT 06/02/18 12:30 Completed Respiratory Therapy Assessment DAILY RT 06/02/18 12:30 Completed Respiratory Therapy Assessment DAILY RT 06/02/18 14:31 Completed Transfer Order Routine Transfer 06/02/18 Ordered Medication Summary Generic Name Dose Route Start Last Admin Trade Name Freq PRN Reason Stop Dose Admin Albuterol/Ipratropium 3 ml 06/02/18 14:04 06/02/18 14:30 Duoneb 0.5-3 Mg/3 Ml Neb IH 07/02/18 14:03 3 ml Q4HPRN PRN Administration SHORTNESS OF BREATH/WHEEZING Furosemide 40 mg 06/03/18 10:00 Lasix 40 Mg/4 Ml IV 07/03/18 09:59 DAILY FAHAD Levofloxacin/Dextrose 750 mg in 150 mls @ 100 mls/hr 06/02/18 14:01 06/02/18 14:08 Levofloxacin 750mg/150ml D5w IV 06/02/18 15:30 100 mls/hr STAT STA Administration Levofloxacin/Dextrose 750 mg in 150 mls @ 100 mls/hr 06/03/18 10:00 Levofloxacin 750mg/150ml D5w IV 07/03/18 09:59 Q24H10 FAHAD Methylprednisolone Sodium Succinate 80 mg 06/02/18 14:30 Solu-Medrol 125 Mg IV 07/02/18 14:29 Q6H FAHAD Discontinued Medications Generic Name Dose Route Start Last Admin Trade Name Freq PRN Reason Stop Dose Admin Albuterol/Ipratropium 3 ml 06/02/18 12:21 06/02/18 12:35 Duoneb 0.5-3 Mg/3 Ml Neb IH 06/02/18 12:22 3 ml STAT ONE Administration Albuterol/Ipratropium Confirm 06/02/18 12:31 Duoneb 0.5-3 Mg/3 Ml Neb Administered 06/02/18 12:32 Dose 3 ml IH .STK-MED ONE Furosemide 40 mg 06/02/18 13:57 08/26/18 14:05 Lasix 40 Mg/4 Ml IV 06/02/18 13:58 40 mg STAT ONE Administration Furosemide Confirm 06/02/18 14:03 Lasix 40 Mg/4 Ml Administered 06/02/18 14:04 Dose 40 mg .ROUTE .STK-MED ONE Levofloxacin/Dextrose Confirm 06/02/18 14:07 Levofloxacin 750mg/150ml D5w Administered 06/02/18 14:08 Dose 750 mg in 150 mls @ ud IV .STK-MED ONE Methylprednisolone Sodium Succinate 125 mg 06/02/18 12:21 06/02/18 12:33 Solu-Medrol 125 Mg IV 06/02/18 12:22 125 mg STAT ONE Administration Methylprednisolone Sodium Succinate Confirm 06/02/18 12:30 Solu-Medrol 125 Mg Administered 06/02/18 12:31 Dose 125 mg .ROUTE .STK-MED ONE Lab/Rad Data: Laboratory Result Diagrams 06/02/18 12:30 06/02/18 12:30 Laboratory Results 06/02/18 06/02/18 06/02/18 Range/Units 12:30 12:30 12:30 WBC (4.0-10.5) K/mm3 RBC (4.1-5.4) M/mm3 Hgb (12.0-16.0) gm/dl Hct (35-47) % MCV (78-100) fl MCH (26-32) pg MCHC (32-36) g/dl RDW (11.5-14.0) % Plt Count (150-450) K/mm3 MPV (6-9.5) fl Gran % (36.0-66.0) % Eos # (Auto) (0-0.5) Absolute Lymphs (auto) (1.0-4.6) Absolute Monos (auto) (0.0-1.3) Lymphocytes % (24.0-44.0) % Monocytes % (0.0-12.0) % Eosinophils % (0.00-5.0) % Basophils % (0.0-0.4) % Absolute Granulocytes (1.4-6.9) Basophils # (0-0.4) PT 15.1 H (9.95-12.35) SECONDS INR 1.29 (0.8-3.0) APTT 27.9 (25.3-37.0) SECONDS Puncture Site pCO2 (35-45) mmHg pO2 (75-100) mmHg Base Excess (-2.0-2.0) O2 Saturation (94-100) g/dF ABG pH (7.35-7.45) ABG HCO3 (22-28) ABG O2 Sat (Measured) (95-100) % Adria Test A-a Gradient a/A Ratio Hemoglobin Carboxyhemoglobin (0.0-6.9) % THgb Methemoglobin (1.4-1.5) % Potassium 4.2 (3.5-5.1) Temperature C POC O2 Flow Rate % Sodium 138 (137-145) mmol/L Chloride 106 (98-107) mmol/L Carbon Dioxide 20 L (22-30) mmol/L Anion Gap 16.2 H (5-15) MEQ/L BUN 35 H (7-17) mg/dL Creatinine 1.33 H (0.52-1.04) mg/dL Estimated GFR 40.3 ML/MIN Glucose 129 H (74-106) mg/dL Calcium 9.2 (8.4-10.2) mg/dL Magnesium 1.5 L (1.6-2.3) mg/dL Total Bilirubin 1.20 (0.2-1.3) mg/dL AST 29 (14-36) U/L ALT 15 (0-35) U/L Alkaline Phosphatase 150 H (38-126) U/L Troponin I 0.091 H* (0.000-0.034) ng/mL NT-Pro-B Natriuret Pep 3360 H (0-1800) pg/mL Serum Total Protein 6.9 (6.3-8.2) g/dL Albumin 3.9 (3.5-5.0) g/dL 06/02/18 06/02/18 Range/Units 12:30 12:21 WBC 17.7 H (4.0-10.5) K/mm3 RBC 3.95 L (4.1-5.4) M/mm3 Hgb 12.3 (12.0-16.0) gm/dl Hct 36.2 (35-47) % MCV 91.6 (78-100) fl MCH 31.1 (26-32) pg MCHC 34.0 (32-36) g/dl RDW 14.4 H (11.5-14.0) % Plt Count 219 (150-450) K/mm3 MPV 10.4 H (6-9.5) fl Gran % 86.6 H (36.0-66.0) % Eos # (Auto) 0.26 (0-0.5) Absolute Lymphs (auto) 0.63 L (1.0-4.6) Absolute Monos (auto) 1.44 H (0.0-1.3) Lymphocytes % 3.6 L (24.0-44.0) % Monocytes % 8.1 (0.0-12.0) % Eosinophils % 1.5 (0.00-5.0) % Basophils % 0.2 (0.0-0.4) % Absolute Granulocytes 15.35 H (1.4-6.9) Basophils # 0.03 (0-0.4) PT (9.95-12.35) SECONDS INR (0.8-3.0) APTT (25.3-37.0) SECONDS Puncture Site LEFT BRACHIAL pCO2 29 L (35-45) mmHg pO2 178 H* (75-100) mmHg Base Excess -2.2 L (-2.0-2.0) O2 Saturation 95.7 (94-100) g/dF ABG pH 7.46 H (7.35-7.45) ABG HCO3 20.6 L (22-28) ABG O2 Sat (Measured) 99.7 (95-100) % Adria Test NOT APPLICABLE A-a Gradient 71 a/A Ratio 0.71 Hemoglobin 12.8 Carboxyhemoglobin 2.6 (0.0-6.9) % THgb Methemoglobin 1.4 (1.4-1.5) % Potassium 4.0 (3.5-5.1) Temperature 37.0 C POC O2 Flow Rate 40 % Sodium (137-145) mmol/L Chloride (98-107) mmol/L Carbon Dioxide (22-30) mmol/L Anion Gap (5-15) MEQ/L BUN (7-17) mg/dL Creatinine (0.52-1.04) mg/dL Estimated GFR ML/MIN Glucose (74-106) mg/dL Calcium (8.4-10.2) mg/dL Magnesium (1.6-2.3) mg/dL Total Bilirubin (0.2-1.3) mg/dL AST (14-36) U/L ALT (0-35) U/L Alkaline Phosphatase (38-126) U/L Troponin I (0.000-0.034) ng/mL NT-Pro-B Natriuret Pep (0-1800) pg/mL Serum Total Protein (6.3-8.2) g/dL Albumin (3.5-5.0) g/dL - Progress Progress: improved Progress Note: 06/02/18 13:59 Pt has increase vascular congestion on the right side, could be CHF vs pneumonia. Pt had a low grade fever of 100.1 and a white count of 17,000. Pt will be given a dose of levaquin for possible pneumonia. Pt will also be given a dose of lasix 40mg IV X 1 dose. Pt also has a troponin of 0.091 with no EKG changes. This elevated troponin is likely due to CHF since the patient has no chest pain but the cardiac enzymes will be followed in the inpatient. Pt has been admitted to Dr Srivastava. 06/02/18 14:01 - Departure Time of Disposition: 14:03 Departure Disposition: In-patient Admission Clinical Impression: CHF (congestive heart failure) Qualifiers: Heart failure type: unspecified Heart failure chronicity: acute on chronic Qualified Code(s): I50.9 - Heart failure, unspecified COPD (chronic obstructive pulmonary disease) Qualifiers: COPD type: unspecified COPD Qualified Code(s): J44.9 - Chronic obstructive pulmonary disease, unspecified Pneumonia Qualifiers: Pneumonia type: due to unspecified organism Laterality: right Lung location: upper lobe of lung Qualified Code(s): J18.1 - Lobar pneumonia, unspecified organism Condition: Fair Critical Care Time: Yes Critical Care Time(excluding separately billable procedures): 30-74 minutes Referrals: CALVIN SRIVASTAVA MD [Primary Care Provider] - Instructions: Heart Failure, Chronic Obstructive Pulmonary Disease
[2018-06-02] MEDS ORDERED: solu-MEDROL 125 MG ONE (12:30)
[2018-06-02 12:50] LABS: A-aADO2 71; ABG HEMOGLOBIN 12.8; ABG SITE LEFT BRACHIAL; ARTERIAL BLD GAS O2 SATURATION 99.7 % (95-100); ARTERIAL BLOOD GAS BASE EXCESS -2.2 (-2.0-2.0); ARTERIAL BLOOD GAS FIO2 40 %; ARTERIAL BLOOD GAS PCO2 29 mmHg (35-45); ARTERIAL BLOOD GAS PO2 178 mmHg (75-100); ARTERIAL BLOOD GAS pH 7.46 (7.35-7.45); CARBOXYHEMOGLOBIN 2.6 % THgb (0.0-6.9); HCO3- 20.6 (22-28); HGB O2 SAT 95.7 g/dF (94-100); Methhemoglobin 1.4 % (1.4-1.5); paO2 pAO1 0.71
[2018-06-02 12:56] LABS: BASOPHIL % 0.2 % (0.0-0.4); Basophil (Absolute #) 0.03 (0-0.4); Eosinophil % 1.5 % (0.00-5.0); Eosinophil (Absolute #) 0.26 (0-0.5); Granulocyte Absolute (ANC) 15.35 (1.4-6.9); Granulocytes % 86.6 % (36.0-66.0); Hematocrit 36.2 % (35-47); Hemoglobin 12.3 gm/dl (12.0-16.0); Lymphocyte (Absolute #) 0.63 (1.0-4.6); Lymphocytes % 3.6 % (24.0-44.0); Mean Cell Volume 91.6 fl (78-100); Mean Corpuscular Hemoglobin 31.1 pg (26-32); Mean Platelet Volume 10.4 fl (6-9.5); Monocyte (Absolute #) 1.44 (0.0-1.3); Monocytes % 8.1 % (0.0-12.0); Platelet Count 219 K/mm3 (150-450); Red Blood Count 3.95 M/mm3 (4.1-5.4); Red Cell Distribution Width 14.4 % (11.5-14.0); White Blood Count 17.7 K/mm3 (4.0-10.5)
[2018-06-02 13:12] LABS: ALBUMIN 3.9 g/dL (3.5-5.0); ANION GAP 16.2 MEQ/L (5-15); BILIRUBIN,TOTAL 1.2 mg/dL (0.2-1.3); Calcium 9.2 mg/dL (8.4-10.2); Creatinine 1 1.33 mg/dL (0.52-1.04); Potassium 4.2 mmol/L (3.5-5.1); Total Protein 6.9 g/dL (6.3-8.2)
[2018-06-02 13:16] LABS: INR 1.29 (0.8-3.0)
[2018-06-02 13:19] LABS: PTT 27.9 SECONDS (25.3-37.0)
[2018-06-02] MEDS ORDERED: Lasix 40 MG/4 ML IV ONE (13:57)
[2018-06-02] MEDS ORDERED: LEVOFLOXACIN 750MG/150ML D5W 750 MG/150 ML BAG IV STA (14:01)
[2018-06-02] MEDS ORDERED: Lasix 40 MG/4 ML ONE (14:03)
[2018-06-02] MEDS ORDERED: LEVOFLOXACIN 750MG/150ML D5W 750 MG/150 ML BAG IV ONE (14:07)
[2018-06-02] MEDS: DUONEB 0.5-3 MG/3 ml Neb IH PRN ×2 (14:30→20:19)
[2018-06-02] MEDS: NEURONTIN 300 MG PO SCH ×2 (15:58→21:08)
[2018-06-02] MEDS: PATIENT OWN MEDICATION PO SCH ×2 (16:41→21:08)
[2018-06-02] MEDS: Coreg 6.25 MG PO SCH (16:41)
[2018-06-02] MEDS ORDERED: Zithromax 500 MG/ 250 ML NaCl Premix 500 MG/250 ML IVPB IV SCH (18:00)
[2018-06-02] MEDS ORDERED: ROCEPHIN 1 Gm-D5w 50 ml Bag** 1 G/50 ML IVPB IV SCH (20:00)
[2018-06-02] MEDS: solu-MEDROL 125 MG IV SCH (20:22)
[2018-06-02] MEDS: Zocor 10MG PO SCH (21:07)
[2018-06-02] MEDS: Requip 0.5 MG PO SCH (21:07)
[2018-06-02] MEDS: ELIQUIS 2.5 MG TABLET PO SCH (21:08)
[2018-06-02] MEDS ORDERED: SILDENAFIL CITRATE 20 MG PO SCH (22:00)
[2018-06-02] MEDS ORDERED: Neurontin 100 MG PO SCH (22:00)
[2018-06-02] MEDS ORDERED: ELAVIL 25 MG PO SCH (22:00)
[2018-06-02] MEDS ORDERED: NON-FORMULARY ITEM (Simvastatin [Simvastatin] 5 MG) PO SCH (22:00)
[2018-06-03] MEDS: DUONEB 0.5-3 MG/3 ml Neb IH PRN ×2 (00:30→07:19)
[2018-06-03] MEDS: solu-MEDROL 125 MG IV SCH ×4 (00:31→17:43)
[2018-06-03 05:37] LABS: Hemoglobin 12.3 gm/dl (12.0-16.0); Mean Cell Volume 90.7 fl (78-100); Mean Corpuscular Hgb Concent. 34.2 g/dl (32-36); Mean Platelet Volume 10.7 fl (6-9.5); Platelet Count 205 K/mm3 (150-450); Red Blood Count 3.97 M/mm3 (4.1-5.4); Red Cell Distribution Width 14.5 % (11.5-14.0); White Blood Count 17.1 K/mm3 (4.0-10.5)
[2018-06-03 05:44] LABS: Mean Corpuscular Hemoglobin 30.9 pg (26-32)
[2018-06-03 05:52] LABS: ANION GAP 14.8 MEQ/L (5-15); Calcium 8.9 mg/dL (8.4-10.2); Creatinine 1 1.2 mg/dL (0.52-1.04); Potassium 3.7 mmol/L (3.5-5.1)
[2018-06-03] MEDS ORDERED: MEDICATION INTERVENTION MC SCH (07:45)
[2018-06-03] MEDS: Coreg 6.25 MG PO SCH ×2 (07:59→17:43)
[2018-06-03] MEDS: Amaryl 2 MG PO SCH (07:59)
--- NOTE | 2018-06-03 08:35 | XRAY ---
Indication: CHF. Comparison: One day earlier. Portable chest unchanged again demonstrating diffuse right lung airspace opacity, right effusion, and left-sided dual-lead pacemaker. Heart is not enlarged. No new cardiopulmonary abnormalities.
[2018-06-03] MEDS ORDERED: BUMEX 1 MG PO SCH (10:00)
[2018-06-03] MEDS ORDERED: LEVOFLOXACIN 750MG/150ML D5W 750 MG/150 ML BAG IV SCH (10:00)
[2018-06-03] MEDS: NEURONTIN 300 MG PO SCH ×3 (10:11→21:35)
[2018-06-03] MEDS: Flomax 0.4 MG PO SCH (10:11)
[2018-06-03] MEDS: Lasix 40 MG/4 ML IV SCH (10:11)
[2018-06-03] MEDS: PATIENT OWN MEDICATION PO SCH ×3 (10:11→21:46)
[2018-06-03] MEDS: ELIQUIS 2.5 MG TABLET PO SCH ×2 (10:11→21:35)
[2018-06-03] MEDS: Ditropan XL 5 MG PO SCH (10:13)
--- NOTE | 2018-06-03 13:11 | PCM.HP ---
History of Present Illness - Chief Complaint Chief Complaint: Shortness of Breath for 2 -3 days History of Present Illness: 87 y/o female with history of COPD and atrial fibrillation comes to the ER with complaints of shortness of breath, wheezing and cough for the past 2 days. Pt has been using her neb treatments with no relief. Pt did receive a duoneb in the ER with some relief of dyspnea. Pt also admits that her legs are more swollen. Pt arrives with a low grade fever of 100.1. Timing/Duration: yesterday Activities at Onset: none Severity of Dyspnea-Max: mild Severity of Dyspnea-Current: mild Possible Cause: occasional episodes Modifying Factors: Improves With: nothing Associated Symptoms: wheezing. - Review of Systems Constitutional: No Fever, No Chills Eyes: No Symptoms Ears, Nose, & Throat: No Symptoms Respiratory: Orthopnea, Short Of Breath, No Cough Cardiac: Chest Pain, No Edema, No Syncope Abdominal/Gastrointestinal: No Abdominal Pain, No Nausea, No Vomiting, No Diarrhea Genitourinary Symptoms: No Dysuria Musculoskeletal: No Back Pain, No Neck Pain Skin: No Rash Neurological: No Dizziness, No Focal Weakness, No Sensory Changes Psychological: No Symptoms Endocrine: No Symptoms Hematologic/Lymphatic: No Symptoms Immunological/Allergic: No Symptoms Medications & Allergies Home Medications: Home Medication List Bumetanide 1 mg [Bumex 1 mg] 1 mg PO DAILY 04/12/17 [History Confirmed ] Gabapentin 300 mg PO TID 04/12/17 [History Confirmed 06/02/18] Glimepiride 1 mg PO DAILY 04/12/17 [History Confirmed 06/02/18] Oxybutynin Chloride [Oxybutynin Chloride ER] 5 mg PO DAILY 04/12/17 [History Confirmed 06/02/18] Ropinirole HCl 1 mg PO HS 04/12/17 [History Confirmed 06/02/18] Tamsulosin HCl 0.4 mg [Flomax 0.4 MG] 0.4 mg PO DAILY 04/12/17 [History Confirmed 06/02/18] Amitriptyline HCl 25 mg [Elavil 25 mg] 50 mg PO HS 10/14/17 [History Confirmed 06/02/18] Apixaban [Eliquis] 2.5 mg PO BID 10/14/17 [History Confirmed 06/02/18] Simvastatin 5 mg PO HS 10/14/17 [History Confirmed 06/02/18] Sildenafil Citrate [Sildenafil] 20 mg PO TID 11/26/17 [History Confirmed ] Carvedilol 6.25 mg [Coreg 6.25 MG] 6.25 mg PO BID 01/28/18 [History Confirmed 06/02/18] Allergies/Adverse Reactions: Allergies Allergy/AdvReac Type Severity Reaction Status Date / Time levofloxacin [From Levaquin] Allergy Intermediate Hives Verified 06/02/18 15:35 codeine Allergy Verified 11/26/17 09:47 penicillin G Allergy Verified 11/26/17 09:47 Penicillins Allergy Verified 11/26/17 09:47 pneumococcal vaccine Allergy Verified 11/26/17 09:47 - Past Medical History Past Medical History: Yes Neurological History: Stroke ENT History: No Pertinent History Cardiac History: Arrhythmia, Congestive Heart Failure, Coronary Artery Disease, Hypertension Respiratory History: COPD Endocrine Medical History: Diabetes Type II Musculoskelatal History: Arthritis GI Medical History: No Pertinent History History: No Pertinent History Pyscho-Social History: No Pertinent History Reproductive Disorders: No Pertinent History Comment: GERD, pacemaker - Female History Are you now?: No - Past Surgical History Past Surgical History: Yes Neuro Surgical History: No Pertinent History Cardiac History: Pacemaker Respiratory Surgery: No Pertinent History GI Surgical History: Appendectomy, Cholecystectomy Genitourinary Surgical Hx: No Pertinent History Musculskeletal Surgical Hx: No Pertinent History Female Surgical History: Hysterectomy - Social History Smoking Status: Never smoker Exposure to second hand smoke: No Alcohol: None Drug Use: none Significant Family History: no pertinent family hx - Physical Exam Vital Signs: Vital Signs - 24 hr Temp Pulse Resp BP Pulse Ox 06/03/18 12:00 73 18 136/63 98 06/03/18 11:13 94 L 06/03/18 07:31 98.1 F 70 18 122/59 97 06/03/18 07:19 72 20 96 06/03/18 03:59 98.0 F 75 18 125/49 95 06/03/18 03:00 18 06/03/18 00:30 69 19 97 06/02/18 23:42 97.8 F 74 19 124/58 97 06/02/18 23:00 19 08/26/18 20:19 70 18 96 06/02/18 19:48 97.9 F 73 19 132/60 97 06/02/18 19:00 18 06/02/18 15:36 96 06/02/18 15:22 77 18 96 06/02/18 15:02 98.2 F 70 18 136/87 96 06/02/18 15:00 98.2 F 70 18 136/87 96 06/02/18 14:59 98.2 F 70 18 136/87 96 06/02/18 14:39 96 06/02/18 14:32 70 18 97 06/02/18 13:15 74 20 123/63 96 Oxygen-Last 24 hours O2 Percentage 2 Liters = 28% O2 Percentage 2 Liters = 28% O2 Percentage 2 Liters = 28% O2 Percentage 2 Liters = 28% O2 Percentage 2 Liters = 28% O2 Percentage 2 Liters = 28% General Appearance: no apparent distress, alert Neurologic Exam: alert, oriented x 3, cooperative, normal mood/affect, nml cerebellar function, nml station & gait, sensation nml, No motor deficits Eye Exam: PERRL/EOMI, eyes nml inspection Ears, Nose, Throat Exam: normal ENT inspection, TMs normal, pharynx normal, moist mucous membranes Neck Exam: normal inspection, non-tender, supple, full range of motion Respiratory Exam: normal breath sounds, lungs clear, No respiratory distress Cardiovascular Exam: regular rate/rhythm, normal heart sounds, normal peripheral pulses Gastrointestinal/Abdomen Exam: soft, normal bowel sounds, No tenderness, No mass Back Exam: normal inspection, normal range of motion, No CVA tenderness, No vertebral tenderness Extremity Exam: normal inspection, normal range of motion, pelvis stable Skin Exam: normal color, warm, dry, No rash Lymphatic Exam: No adenopathy Results - Labs Lab/Micro Results: Lab Results-Last 24 Hours 06/02/18 06/02/18 06/02/18 Range/Units 12:30 12:30 12:30 WBC 17.7 H (4.0-10.5) K/mm3 RBC 3.95 L (4.1-5.4) M/mm3 Hgb 12.3 (12.0-16.0) gm/dl Hct 36.2 (35-47) % MCV 91.6 (78-100) fl MCH 31.1 (26-32) pg MCHC 34.0 (32-36) g/dl RDW 14.4 H (11.5-14.0) % Plt Count 219 (150-450) K/mm3 MPV 10.4 H (6-9.5) fl Gran % 86.6 H (36.0-66.0) % Eos # (Auto) 0.26 (0-0.5) Absolute Lymphs (auto) 0.63 L (1.0-4.6) Absolute Monos (auto) 1.44 H (0.0-1.3) Lymphocytes % 3.6 L (24.0-44.0) % Monocytes % 8.1 (0.0-12.0) % Eosinophils % 1.5 (0.00-5.0) % Basophils % 0.2 (0.0-0.4) % Absolute Granulocytes 15.35 H (1.4-6.9) Basophils # 0.03 (0-0.4) PT 15.1 H (9.95-12.35) SECONDS INR 1.29 (0.8-3.0) APTT 27.9 (25.3-37.0) SECONDS Sodium 138 (137-145) mmol/L Potassium 4.2 (3.5-5.1) mmol/L Chloride 106 (98-107) mmol/L Carbon Dioxide 20 L (22-30) mmol/L Anion Gap 16.2 H (5-15) MEQ/L BUN 35 H (7-17) mg/dL Creatinine 1.33 H (0.52-1.04) mg/dL Estimated GFR 40.3 ML/MIN Glucose 129 H (74-106) mg/dL Calcium 9.2 (8.4-10.2) mg/dL Magnesium 1.5 L (1.6-2.3) mg/dL Total Bilirubin 1.20 (0.2-1.3) mg/dL AST 29 (14-36) U/L ALT 15 (0-35) U/L Alkaline Phosphatase 150 H (38-126) U/L Troponin I (0.000-0.034) ng/mL NT-Pro-B Natriuret Pep 3360 H (0-1800) pg/mL Serum Total Protein 6.9 (6.3-8.2) g/dL Albumin 3.9 (3.5-5.0) g/dL 06/02/18 06/02/18 06/02/18 Range/Units 12:30 15:35 18:38 WBC (4.0-10.5) K/mm3 RBC (4.1-5.4) M/mm3 Hgb (12.0-16.0) gm/dl Hct (35-47) % MCV (78-100) fl MCH (26-32) pg MCHC (32-36) g/dl RDW (11.5-14.0) % Plt Count (150-450) K/mm3 MPV (6-9.5) fl Gran % (36.0-66.0) % Eos # (Auto) (0-0.5) Absolute Lymphs (auto) (1.0-4.6) Absolute Monos (auto) (0.0-1.3) Lymphocytes % (24.0-44.0) % Monocytes % (0.0-12.0) % Eosinophils % (0.00-5.0) % Basophils % (0.0-0.4) % Absolute Granulocytes (1.4-6.9) Basophils # (0-0.4) PT (9.95-12.35) SECONDS INR (0.8-3.0) APTT (25.3-37.0) SECONDS Sodium (137-145) mmol/L Potassium (3.5-5.1) mmol/L Chloride (98-107) mmol/L Carbon Dioxide (22-30) mmol/L Anion Gap (5-15) MEQ/L BUN (7-17) mg/dL Creatinine (0.52-1.04) mg/dL Estimated GFR ML/MIN Glucose (74-106) mg/dL Calcium (8.4-10.2) mg/dL Magnesium (1.6-2.3) mg/dL Total Bilirubin (0.2-1.3) mg/dL AST (14-36) U/L ALT (0-35) U/L Alkaline Phosphatase (38-126) U/L Troponin I 0.091 H* 0.181 H* 0.136 H* (0.000-0.034) ng/mL NT-Pro-B Natriuret Pep (0-1800) pg/mL Serum Total Protein (6.3-8.2) g/dL Albumin (3.5-5.0) g/dL 06/02/18 06/03/18 06/03/18 Range/Units 21:28 01:02 05:31 WBC 17.1 H (4.0-10.5) K/mm3 RBC 3.97 L (4.1-5.4) M/mm3 Hgb 12.3 (12.0-16.0) gm/dl Hct 36.0 (35-47) % MCV 90.7 (78-100) fl MCH 30.9 (26-32) pg MCHC 34.2 (32-36) g/dl RDW 14.5 H (11.5-14.0) % Plt Count 205 (150-450) K/mm3 MPV 10.7 H (6-9.5) fl Gran % (36.0-66.0) % Eos # (Auto) (0-0.5) Absolute Lymphs (auto) (1.0-4.6) Absolute Monos (auto) (0.0-1.3) Lymphocytes % (24.0-44.0) % Monocytes % (0.0-12.0) % Eosinophils % (0.00-5.0) % Basophils % (0.0-0.4) % Absolute Granulocytes (1.4-6.9) Basophils # (0-0.4) PT (9.95-12.35) SECONDS INR (0.8-3.0) APTT (25.3-37.0) SECONDS Sodium (137-145) mmol/L Potassium (3.5-5.1) mmol/L Chloride (98-107) mmol/L Carbon Dioxide (22-30) mmol/L Anion Gap (5-15) MEQ/L BUN (7-17) mg/dL Creatinine (0.52-1.04) mg/dL Estimated GFR ML/MIN Glucose (74-106) mg/dL Calcium (8.4-10.2) mg/dL Magnesium (1.6-2.3) mg/dL Total Bilirubin (0.2-1.3) mg/dL AST (14-36) U/L ALT (0-35) U/L Alkaline Phosphatase (38-126) U/L Troponin I 0.108 H* 0.075 H* (0.000-0.034) ng/mL NT-Pro-B Natriuret Pep (0-1800) pg/mL Serum Total Protein (6.3-8.2) g/dL Albumin (3.5-5.0) g/dL 06/03/18 Range/Units 05:31 WBC (4.0-10.5) K/mm3 RBC (4.1-5.4) M/mm3 Hgb (12.0-16.0) gm/dl Hct (35-47) % MCV (78-100) fl MCH (26-32) pg MCHC (32-36) g/dl RDW (11.5-14.0) % Plt Count (150-450) K/mm3 MPV (6-9.5) fl Gran % (36.0-66.0) % Eos # (Auto) (0-0.5) Absolute Lymphs (auto) (1.0-4.6) Absolute Monos (auto) (0.0-1.3) Lymphocytes % (24.0-44.0) % Monocytes % (0.0-12.0) % Eosinophils % (0.00-5.0) % Basophils % (0.0-0.4) % Absolute Granulocytes (1.4-6.9) Basophils # (0-0.4) PT (9.95-12.35) SECONDS INR (0.8-3.0) APTT (25.3-37.0) SECONDS Sodium 138 (137-145) mmol/L Potassium 3.7 (3.5-5.1) mmol/L Chloride 105 (98-107) mmol/L Carbon Dioxide 22 (22-30) mmol/L Anion Gap 14.8 (5-15) MEQ/L BUN 36 H (7-17) mg/dL Creatinine 1.20 H (0.52-1.04) mg/dL Estimated GFR 45.4 ML/MIN Glucose 222 H (74-106) mg/dL Calcium 8.9 (8.4-10.2) mg/dL Magnesium (1.6-2.3) mg/dL Total Bilirubin (0.2-1.3) mg/dL AST (14-36) U/L ALT (0-35) U/L Alkaline Phosphatase (38-126) U/L Troponin I (0.000-0.034) ng/mL NT-Pro-B Natriuret Pep 7610 H (0-1800) pg/mL Serum Total Protein (6.3-8.2) g/dL Albumin (3.5-5.0) g/dL - Radiology Impressions Radiology Exams & Impressions: Radiology Procedures Category Date Time Status CHEST 1 VIEW (PORTABLE) IN AM Exams 06/03/18 06:00 Completed - Other Procedures and Tests Respiratory Therapy 06/02/18 14:04 Oxygen NASAL CANNULA 2 lpm 06/02/18 15:16 Peak Expiratory Flow Rate ONCE Respiratory Therapy Assessment DAILY 06/02/18 20:26 BiPap/CPAP ROUTINE Assessment/Plan (1) Elevated troponin I level Current Visit: Yes Status: Acute Code(s): R74.8 - ABNORMAL LEVELS OF OTHER SERUM ENZYMES (2) CHF (congestive heart failure) Current Visit: Yes Status: Acute Onset Date: ~06/02/18 Qualifiers: Heart failure type: combined systolic and diastolic Heart failure chronicity: chronic Qualified Code(s): I50.42 - Chronic combined systolic ( congestive) and diastolic (congestive) heart failure Code(s): I50.9 - HEART FAILURE, UNSPECIFIED (3) COPD (chronic obstructive pulmonary disease) Current Visit: Yes Status: Acute Onset Date: ~06/02/18 Qualifiers: COPD type: unspecified COPD Qualified Code(s): J44.9 - Chronic obstructive pulmonary disease, unspecified (4) Pneumonia Current Visit: Yes Status: Acute Onset Date: ~06/02/18 Qualifiers: Pneumonia type: due to unspecified organism Laterality: right Lung location: upper lobe of lung Qualified Code(s): J18.1 - Lobar pneumonia, unspecified organism Code(s): J18.9 - PNEUMONIA, UNSPECIFIED ORGANISM (5) Atrial fibrillation Current Visit: No Status: Chronic Qualifiers: Code(s): I48.91 - UNSPECIFIED ATRIAL FIBRILLATION
[2018-06-03] MEDS ORDERED: Zithromax 500 MG/ 250 ML NaCl Premix 500 MG/250 ML IVPB IV SCH (18:00)
[2018-06-03] MEDS: Zithromax 500 MG/ 250 ML NaCl Premix 500 MG/250 ML IVPB IV SCH (18:22)
[2018-06-03] MEDS ORDERED: Robitussin-Dm Syrup PO PRN (21:22)
[2018-06-03] MEDS: Requip 0.5 MG PO SCH (21:35)
[2018-06-03] MEDS: Zocor 10MG PO SCH (21:36)
[2018-06-03] MEDS: ROCEPHIN 1 Gm-D5w 50 ml Bag** 1 G/50 ML IVPB IV SCH (21:37)
[2018-06-04] MEDS: solu-MEDROL 125 MG IV SCH ×5 (01:10→23:45)
[2018-06-04] MEDS ORDERED: NORCO 5/325 MG PO PRN (02:39)
[2018-06-04] MEDS: DUONEB 0.5-3 MG/3 ml Neb IH PRN (07:37)
[2018-06-04] MEDS: Amaryl 2 MG PO SCH (07:53)
[2018-06-04] MEDS: Coreg 6.25 MG PO SCH ×2 (07:53→17:28)
[2018-06-04 09:10] LABS: Hematocrit 38.2 % (35-47); Mean Cell Volume 91.2 fl (78-100); Mean Platelet Volume 10.8 fl (6-9.5); Platelet Count 256 K/mm3 (150-450); Red Blood Count 4.19 M/mm3 (4.1-5.4); Red Cell Distribution Width 14.5 % (11.5-14.0); White Blood Count 23.6 K/mm3 (4.0-10.5)
[2018-06-04] MEDS: Ditropan XL 5 MG PO SCH (09:16)
[2018-06-04] MEDS: NEURONTIN 300 MG PO SCH ×3 (09:16→21:44)
[2018-06-04] MEDS: Flomax 0.4 MG PO SCH (09:16)
[2018-06-04] MEDS: Lasix 40 MG/4 ML IV SCH (09:17)
[2018-06-04] MEDS: ELIQUIS 2.5 MG TABLET PO SCH ×2 (09:17→21:44)
[2018-06-04] MEDS: PATIENT OWN MEDICATION PO SCH ×3 (09:18→21:45)
[2018-06-04 09:50] LABS: ALBUMIN 4.1 g/dL (3.5-5.0); ANION GAP 16.5 MEQ/L (5-15); BILIRUBIN,TOTAL 0.5 mg/dL (0.2-1.3); Creatinine 1 1.12 mg/dL (0.52-1.04); Potassium 3.7 mmol/L (3.5-5.1); TROPONIN 0.019 ng/mL (0.000-0.034); Total Protein 6.9 g/dL (6.3-8.2)
[2018-06-04] MEDS ORDERED: LEVOFLOXACIN 750MG/150ML D5W 750 MG/150 ML BAG IV SCH (10:00)
--- NOTE | 2018-06-04 11:47 | PCM.NOTE ---
Date and Time: 06/04/18 1145 Subjective Assessment: doing ok - Review of Systems Constitutional: No Fever, No Chills Eyes: No Symptoms Ears, Nose, & Throat: No Symptoms Respiratory: No Cough, No Short Of Breath Cardiac: No Chest Pain, No Edema, No Syncope Abdominal/Gastrointestinal: No Abdominal Pain, No Nausea, No Vomiting, No Diarrhea Genitourinary Symptoms: No Dysuria Musculoskeletal: No Back Pain, No Neck Pain Skin: No Rash Neurological: No Dizziness, No Focal Weakness, No Sensory Changes Psychological: No Symptoms Endocrine: No Symptoms Hematologic/Lymphatic: No Symptoms Immunological/Allergic: No Symptoms Objective Exam General Appearance: no apparent distress, alert Neurologic Exam: alert, oriented x 3, cooperative, normal mood/affect, nml cerebellar function, sensation nml, No motor deficits Skin Exam: normal color, warm, dry Eye Exam: PERRL, EOMI, eyes nml inspection Ears, Nose, Throat Exam: normal ENT inspection, pharynx normal, moist mucous membranes Neck Exam: normal inspection, non-tender, supple, full range of motion Respiratory Exam: normal breath sounds, lungs clear, No respiratory distress Cardiovascular Exam: regular rate/rhythm, normal heart sounds Gastrointestinal/Abdomen Exam: soft, No tenderness, No mass Extremity Exam: normal inspection, normal range of motion Back Exam: normal inspection, normal range of motion, No CVA tenderness, No vertebral tenderness Pelvic Exam: deferred Rectal Exam: deferred OBJECTIVE DATA Vital Signs: Vital Signs - 24 hr Temp Pulse Resp BP Pulse Ox 06/04/18 08:00 97.5 F 72 20 153/69 98 06/04/18 07:37 76 20 95 06/04/18 04:00 98 F 73 20 105/64 96 06/04/18 00:00 18 06/03/18 23:53 97.7 F 71 18 116/53 98 06/03/18 20:15 73 16 95 06/03/18 20:00 97.7 F 74 16 131/60 96 06/03/18 16:00 98.0 F 70 18 139/64 96 06/03/18 12:00 73 18 136/63 98 Oxygen-Last 24 hours O2 Percentage 2 Liters = 28% O2 Percentage 2 Liters = 28% Pain Assessment - Last Documented Pain Intensity 0 Pain Scale [facility] Intake and Output: Intake & Output 08/25/18 06/02/18 06/03/18 06/04/18 11:59 11:59 11:59 11:59 Intake Total 1740 840 Output Total 800 Balance 1740 40 Weight 74.5 kg 78 kg Lab Results: Lab Results-Last 24 Hours 06/04/18 06/04/18 Range/Units 09:04 09:04 WBC 23.6 H (4.0-10.5) K/mm3 RBC 4.19 (4.1-5.4) M/mm3 Hgb 13.0 (12.0-16.0) gm/dl Hct 38.2 (35-47) % MCV 91.2 (78-100) fl MCH 31.0 (26-32) pg MCHC 34.0 (32-36) g/dl RDW 14.5 H (11.5-14.0) % Plt Count 256 (150-450) K/mm3 MPV 10.8 H (6-9.5) fl Sodium 139 (137-145) mmol/L Potassium 3.7 (3.5-5.1) mmol/L Chloride 104 (98-107) mmol/L Carbon Dioxide 22 (22-30) mmol/L Anion Gap 16.5 H (5-15) MEQ/L BUN 38 H (7-17) mg/dL Creatinine 1.12 H (0.52-1.04) mg/dL Estimated GFR 49.1 ML/MIN Glucose 267 H (74-106) mg/dL Calcium 9.0 (8.4-10.2) mg/dL Total Bilirubin 0.50 (0.2-1.3) mg/dL AST 26 (14-36) U/L ALT 17 (0-35) U/L Alkaline Phosphatase 121 (38-126) U/L Troponin I 0.019 (0.000-0.034) ng/mL Serum Total Protein 6.9 (6.3-8.2) g/dL Albumin 4.1 (3.5-5.0) g/dL Radiology Exams: Radiology Procedures Category Date Time Status CHEST 1 VIEW (PORTABLE) IN AM Exams 06/03/18 06:00 Completed Multi-Disciplinary Progress Notes: Multi-Disciplinary Progress Notes 06/03/18 21:15 Respiratory Note by AriJulian WENT TO PLACE PT ON CPAP W/ 2LPM INLINE AND PT STATED SHE DID NOT WANT TO WEAR CPAP TONIGHT. SHE TOOK IT OFF LAST NIGHT. I PLACED HER ON 2LPM VIA NC AND SATS WERE 97%. Initialized on 06/03/18 21:15 - END OF NOTE Assessment/Plan (1) CHF (congestive heart failure) Current Visit: Yes Status: Acute Onset Date: ~06/02/18 Qualifiers: Heart failure type: combined systolic and diastolic Heart failure chronicity: chronic Qualified Code(s): I50.42 - Chronic combined systolic ( congestive) and diastolic (congestive) heart failure Code(s): I50.9 - HEART FAILURE, UNSPECIFIED (2) Elevated troponin I level Current Visit: Yes Status: Resolved Code(s): R74.8 - ABNORMAL LEVELS OF OTHER SERUM ENZYMES (3) COPD (chronic obstructive pulmonary disease) Current Visit: Yes Status: Acute Onset Date: ~06/02/18 Qualifiers: COPD type: unspecified COPD Qualified Code(s): J44.9 - Chronic obstructive pulmonary disease, unspecified (4) Pneumonia Current Visit: Yes Status: Acute Onset Date: ~06/02/18 Qualifiers: Pneumonia type: due to unspecified organism Laterality: right Lung location: upper lobe of lung Qualified Code(s): J18.1 - Lobar pneumonia, unspecified organism Code(s): J18.9 - PNEUMONIA, UNSPECIFIED ORGANISM (5) Atrial fibrillation Current Visit: Yes Status: Chronic Qualifiers: Code(s): I48.91 - UNSPECIFIED ATRIAL FIBRILLATION
[2018-06-04 12:39] LABS: Hematocrit 40.5 % (35-47); Hemoglobin 13.6 gm/dl (12.0-16.0); Mean Corpuscular Hemoglobin 30.9 pg (26-32); Mean Corpuscular Hgb Concent. 33.6 g/dl (32-36); Mean Platelet Volume 10.8 fl (6-9.5); Platelet Count 244 K/mm3 (150-450); Red Cell Distribution Width 14.7 % (11.5-14.0)
[2018-06-04 12:47] LABS: White Blood Count 25.2 K/mm3 (4.0-10.5)
[2018-06-04] MEDS: Zithromax 500 MG/ 250 ML NaCl Premix 500 MG/250 ML IVPB IV SCH (18:08)
[2018-06-04] MEDS: Zocor 10MG PO SCH (21:44)
[2018-06-04] MEDS: Requip 0.5 MG PO SCH (21:45)
[2018-06-04] MEDS: ROCEPHIN 1 Gm-D5w 50 ml Bag** 1 G/50 ML IVPB IV SCH (22:48)
[2018-06-05] MEDS: solu-MEDROL 125 MG IV SCH (07:01)
[2018-06-05] MEDS: Flomax 0.4 MG PO SCH (09:35)
[2018-06-05] MEDS: NEURONTIN 300 MG PO SCH ×3 (09:35→21:54)
[2018-06-05] MEDS: ELIQUIS 2.5 MG TABLET PO SCH ×2 (09:35→21:54)
[2018-06-05] MEDS: Ditropan XL 5 MG PO SCH (09:35)
[2018-06-05] MEDS: Amaryl 2 MG PO SCH (09:35)
[2018-06-05] MEDS: Coreg 6.25 MG PO SCH ×2 (09:36→17:48)
[2018-06-05] MEDS: Lasix 40 MG/4 ML IV SCH (09:36)
[2018-06-05] MEDS: PATIENT OWN MEDICATION PO SCH ×3 (09:36→21:56)
--- NOTE | 2018-06-05 11:24 | PCM.NOTE ---
Date and Time: 06/05/18 1123 Subjective Assessment: doing better - Review of Systems Constitutional: No Fever, No Chills Eyes: No Symptoms Ears, Nose, & Throat: No Symptoms Respiratory: No Cough, No Short Of Breath Cardiac: No Chest Pain, No Edema, No Syncope Abdominal/Gastrointestinal: No Abdominal Pain, No Nausea, No Vomiting, No Diarrhea Genitourinary Symptoms: No Dysuria Musculoskeletal: No Back Pain, No Neck Pain Skin: No Rash Neurological: No Dizziness, No Focal Weakness, No Sensory Changes Psychological: No Symptoms Endocrine: No Symptoms Hematologic/Lymphatic: No Symptoms Immunological/Allergic: No Symptoms Objective Exam General Appearance: no apparent distress, alert Neurologic Exam: alert, oriented x 3, cooperative, normal mood/affect, nml cerebellar function, sensation nml, No motor deficits Skin Exam: normal color, warm, dry Eye Exam: PERRL, EOMI, eyes nml inspection Ears, Nose, Throat Exam: normal ENT inspection, pharynx normal, moist mucous membranes Neck Exam: normal inspection, non-tender, supple, full range of motion Respiratory Exam: normal breath sounds, lungs clear, No respiratory distress Cardiovascular Exam: regular rate/rhythm, normal heart sounds Gastrointestinal/Abdomen Exam: soft, No tenderness, No mass Extremity Exam: normal inspection, normal range of motion Back Exam: normal inspection, normal range of motion, No CVA tenderness, No vertebral tenderness Pelvic Exam: deferred Rectal Exam: deferred OBJECTIVE DATA Vital Signs: Vital Signs - 24 hr Temp Pulse Resp BP Pulse Ox 06/05/18 08:28 97 06/05/18 07:09 97.7 F 75 16 126/61 95 06/05/18 04:00 97.2 F 68 14 132/61 95 06/05/18 00:00 98.1 F 71 16 120/59 94 L 06/04/18 21:00 72 17 95 06/04/18 20:00 97.9 F 71 16 142/66 99 06/04/18 16:00 97.0 F 75 18 134/63 99 06/04/18 12:00 97.5 F 77 18 150/69 98 Pain Assessment - Last Documented Pain Intensity 0 Pain Scale Used [facility] Intake and Output: Intake & Output 06/02/18 06/03/18 06/04/18 06/05/18 11:59 11:59 11:59 11:59 Intake Total 5369 113 4851 Output Total 800 950 Balance 1740 40 330 Weight 74.5 kg 78 kg 76.1 kg Lab Results: Lab Results-Last 24 Hours 06/04/18 Range/Units 12:35 WBC 25.2 H* (4.0-10.5) K/mm3 RBC 4.40 (4.1-5.4) M/mm3 Hgb 13.6 (12.0-16.0) gm/dl Hct 40.5 (35-47) % MCV 92.0 (78-100) fl MCH 30.9 (26-32) pg MCHC 33.6 (32-36) g/dl RDW 14.7 H (11.5-14.0) % Plt Count 244 (150-450) K/mm3 MPV 10.8 H (6-9.5) fl Assessment/Plan (1) CHF (congestive heart failure) Current Visit: Yes Status: Acute Onset Date: ~06/02/18 Qualifiers: Heart failure type: combined systolic and diastolic Heart failure chronicity: chronic Qualified Code(s): I50.42 - Chronic combined systolic ( congestive) and diastolic (congestive) heart failure Code(s): I50.9 - HEART FAILURE, UNSPECIFIED (2) Elevated troponin I level Current Visit: Yes Status: Resolved Code(s): R74.8 - ABNORMAL LEVELS OF OTHER SERUM ENZYMES (3) COPD (chronic obstructive pulmonary disease) Current Visit: Yes Status: Acute Onset Date: ~06/02/18 Qualifiers: COPD type: unspecified COPD Qualified Code(s): J44.9 - Chronic obstructive pulmonary disease, unspecified (4) Pneumonia Current Visit: Yes Status: Acute Onset Date: ~06/02/18 Qualifiers: Pneumonia type: due to unspecified organism Laterality: right Lung location: upper lobe of lung Qualified Code(s): J18.1 - Lobar pneumonia, unspecified organism Code(s): J18.9 - PNEUMONIA, UNSPECIFIED ORGANISM (5) Atrial fibrillation Current Visit: Yes Status: Chronic Qualifiers: Code(s): I48.91 - UNSPECIFIED ATRIAL FIBRILLATION
[2018-06-05] MEDS: solu-MEDROL 40 MG IV SCH (17:48)
[2018-06-05] MEDS ORDERED: solu-MEDROL 125 MG IV SCH ×2 (18:00)
[2018-06-05] MEDS: Zithromax 500 MG/ 250 ML NaCl Premix 500 MG/250 ML IVPB IV SCH (21:53)
[2018-06-05] MEDS: Requip 0.5 MG PO SCH (21:54)
[2018-06-05] MEDS: ROCEPHIN 1 Gm-D5w 50 ml Bag** 1 G/50 ML IVPB IV SCH (21:54)
[2018-06-05] MEDS: Zocor 10MG PO SCH (21:55)
[2018-06-06] MEDS: solu-MEDROL 40 MG IV SCH (06:19)
[2018-06-06] MEDS: Flomax 0.4 MG PO SCH (08:43)
[2018-06-06] MEDS: Coreg 6.25 MG PO SCH (08:43)
[2018-06-06] MEDS: Amaryl 2 MG PO SCH (08:43)
[2018-06-06] MEDS: NEURONTIN 300 MG PO SCH (08:44)
[2018-06-06] MEDS: Ditropan XL 5 MG PO SCH (08:44)
[2018-06-06] MEDS: ELIQUIS 2.5 MG TABLET PO SCH (08:44)
[2018-06-06] MEDS: Lasix 40 MG/4 ML IV SCH (08:45)
[2018-06-06] MEDS: PATIENT OWN MEDICATION PO SCH (10:06)
[2018-06-06 13:42] VITALS: BP 163/74; PULSE 75; O2SAT 94
--- NOTE | 2018-06-06 21:38 | PCM.DS ---
Discharge Summary Date of Admission: 06/02/18 14:54 Admitting Physician: CALVIN SRIVASTAVA Primary Care Provider: CALVIN SRIVASTAVA Allergies Allergies levofloxacin [From Levaquin] Allergy (Intermediate, Verified 06/02/18 15:35) Hives Hives noted to IV insertion site where antibiotic was infused. codeine Allergy (Verified 11/26/17 09:47) penicillin G Allergy (Verified 11/26/17 09:47) Penicillins Allergy (Verified 11/26/17 09:47) pneumococcal vaccine Allergy (Verified 11/26/17 09:47) Hospital Summary - Hospital Course Hospital Course: Chief Complaint Diagnosis Shortness of Breath for 2 -3 days Allergies Allergy/AdvReac Type Severity Reaction Status Date / Time levofloxacin [From Levaquin] Allergy Intermediate Hives Verified 06/02/18 15:35 codeine Allergy Verified 11/26/17 09:47 penicillin G Allergy Verified 11/26/17 09:47 Penicillins Allergy Verified 11/26/17 09:47 pneumococcal vaccine Allergy Verified 11/26/17 09:47 Vital Signs (Last 24 hours) Temp Pulse Resp BP Pulse Ox 06/06/18 13:41 97.5 F 75 163/74 94 L 06/06/18 12:00 97.3 F 73 18 165/82 95 06/06/18 08:00 18 06/06/18 07:14 98.1 F 70 18 116/56 95 06/06/18 04:00 97.8 F 79 20 128/60 95 06/06/18 00:00 97.7 F 68 18 142/65 96 Home Medications Medication Instructions Recorded Confirmed Last Taken Type Cephalexin Mh 500 mg [Keflex 500 500 mg PO QID #28 capsule 06/06/18 Unknown Rx mg] Methylprednisolone Packet 4 mg PO UD #30 packet 06/06/18 Unknown Rx [Medrol Dosepack] Current Medications Discontinued Medications Generic Name Dose Route Start Last Admin Trade Name Freq PRN Reason Stop Dose Admin Hydrocodone Bitart/Acetaminophen 1 tab 06/04/18 02:39 [place] 5/325 Mg PO 06/09/18 02:38 Q6H PRN PRN PAIN Albuterol/Ipratropium 3 ml 06/02/18 12:21 06/02/18 12:35 Duoneb 0.5-3 Mg/3 Ml Neb IH 06/02/18 12:22 3 ml STAT ONE Administration Albuterol/Ipratropium Confirm 06/02/18 12:31 Duoneb 0.5-3 Mg/3 Ml Neb Administered 06/02/18 12:32 Dose 3 ml IH .STK-MED ONE Albuterol/Ipratropium 3 ml 06/02/18 14:04 06/04/18 07:37 Duoneb 0.5-3 Mg/3 Ml Neb IH 07/02/18 14:03 3 ml Q4HPRN PRN Administration SHORTNESS OF BREATH/WHEEZING Amitriptyline HCl 50 mg 06/02/18 22:00 06/05/18 21:54 Amitriptyline Hcl 50 Mg Tablet PO 07/02/18 21:59 50 mg HS FAHAD Administration Apixaban 2.5 mg 06/02/18 22:00 06/06/18 08:44 Eliquis 2.5 Mg Tablet PO 07/02/18 21:59 2.5 mg BID FAHAD Administration Carvedilol 6.25 mg 06/02/18 17:00 06/06/18 08:43 Coreg 6.25 Mg PO 07/02/18 16:59 6.25 mg BIDWMEALS FAHAD Administration Furosemide 40 mg 06/02/18 13:57 06/02/18 14:05 Lasix 40 Mg/4 Ml IV 06/02/18 13:58 40 mg STAT ONE Administration Furosemide Confirm 06/02/18 14:03 Lasix 40 Mg/4 Ml Administered 06/02/18 14:04 Dose 40 mg .ROUTE .STK-MED ONE Furosemide 40 mg 06/03/18 10:00 06/06/18 08:45 Lasix 40 Mg/4 Ml IV 07/03/18 09:59 40 mg DAILY FAHAD Administration Gabapentin 300 mg 06/02/18 15:00 06/06/18 08:44 Neurontin 300 Mg PO 07/02/18 14:59 300 mg TID FAHAD Administration Glimepiride 1 mg 06/03/18 08:00 06/06/18 08:43 Amaryl 2 Mg PO 07/03/18 07:59 1 mg QAM@0800 FAHAD Administration Guaifenesin/Dextromethorphan 5 ml 06/03/18 21:22 06/03/18 21:35 Robitussin-Dm Syrup PO 07/03/18 21:21 5 ml Q4H PRN PRN Administration COUGH Levofloxacin/Dextrose 750 mg in 150 mls @ 100 mls/hr 06/02/18 14:01 06/02/18 14:08 Levofloxacin 750mg/150ml D5w IV 06/02/18 15:30 100 mls/hr STAT STA Administration Levofloxacin/Dextrose 750 mg in 150 mls @ 100 mls/hr 06/03/18 10:00 Levofloxacin 750mg/150ml D5w IV 07/03/18 09:59 Q24H10 FAHAD Levofloxacin/Dextrose Confirm 06/02/18 14:07 Levofloxacin 750mg/150ml D5w Administered 06/02/18 14:08 Dose 750 mg in 150 mls @ ud IV .STK-MED ONE Levofloxacin/Dextrose 750 mg in 150 mls @ 100 mls/hr 06/04/18 10:00 Levofloxacin 750mg/150ml D5w IV 07/04/18 09:59 Q48H FAHAD Azithromycin 500 mg in 250 mls @ 250 mls/hr 06/03/18 18:00 Zithromax 500 Mg/ 250 Ml Nacl Premix IV 07/03/18 17:59 Q24H10 FAHAD Ceftriaxone Sodium/Dextrose 1 g in 50 mls @ 100 mls/hr 06/02/18 20:00 20:23 Rocephin 1 Gm-D5w 50 Ml Bag IV 07/02/18 19:59 100 mls/hr Q24H10 FAHAD Administration Azithromycin 500 mg in 250 mls @ 250 mls/hr 06/02/18 18:00 06/02/18 18:44 Zithromax 500 Mg/ 250 Ml Nacl Premix IV 07/02/18 17:59 250 mls/hr Q24H10 FAHAD Administration Ceftriaxone Sodium/Dextrose 1 g in 50 mls @ 100 mls/hr 06/03/18 22:00 21:54 Rocephin 1 Gm-D5w 50 Ml Bag IV 07/03/18 21:59 100 mls/hr Q24H22 FAHAD Administration Azithromycin 500 mg in 250 mls @ 250 mls/hr 06/03/18 19:00 06/05/18 21:53 Zithromax 500 Mg/ 250 Ml Nacl Premix IV 07/03/18 18:59 250 mls/hr Q24H FAHAD Administration Methylprednisolone Sodium Succinate 125 mg 06/02/18 12:21 06/02/18 12:33 Solu-Medrol 125 Mg IV 06/02/18 12:22 125 mg STAT ONE Administration Methylprednisolone Sodium Succinate Confirm 06/02/18 12:30 Solu-Medrol 125 Mg Administered 06/02/18 12:31 Dose 125 mg .ROUTE .STK-MED ONE Methylprednisolone Sodium Succinate 80 mg 06/02/18 18:00 06/05/18 07:01 Solu-Medrol 125 Mg IV 07/02/18 17:59 80 mg Q6HT FAHAD Administration Methylprednisolone Sodium Succinate 80 mg 06/05/18 18:00 Solu-Medrol 125 Mg IV 07/05/18 17:59 Q12H FAHAD Methylprednisolone Sodium Succinate 40 mg 06/05/18 18:00 06/06/18 06:19 Solu-Medrol 40 Mg IV 07/05/18 17:59 40 mg Q12H FAHAD Administration Miscellaneous Information 0 each 06/03/18 07:45 Medication Intervention 07/03/18 07:44 .RN TO CHECK WITH [facility] Oxybutynin Chloride 5 mg 06/03/18 10:00 06/06/18 08:44 Ditropan Xl 5 Mg PO 07/03/18 09:59 5 mg DAILY FAHAD Administration Patient Own Med: 0 each 06/02/18 15:00 06/06/18 10:06 Sildenafil 20 Mg Tab PO 07/02/18 14:59 1 each TID FAHAD Administration Ropinirole HCl 1 mg 06/02/18 22:00 06/05/18 21:54 Requip 0.5 Mg PO 07/02/18 21:59 1 mg HS FAHAD Administration Simvastatin 5 mg 06/02/18 22:00 06/05/18 21:55 Zocor 10mg PO 07/02/18 21:59 5 mg HS FAHAD Administration Tamsulosin HCl 0.4 mg 06/03/18 10:00 06/06/18 08:43 Flomax 0.4 Mg PO 07/03/18 09:59 0.4 mg DAILY FAHAD Administration Intake & Output (Last 24 hours) 06/04/18 06/05/18 06/06/18 06/07/18 11:59 11:59 11:59 11:59 Intake Total 840 1280 1736 480 Output Total 021 456 7536 Balance 40 330 -664 480 Weight 78 kg 76.1 kg 72.3 kg Microbiology Results (Last 24 hours) 06/02/18 12:30 Blood Blood Culture Gram Stain - Final Not Reportable 06/02/18 12:30 Blood Blood Culture - Final NO GROWTH 06/02/18 12:40 Blood Blood Culture Gram Stain - Final Not Reportable 06/02/18 12:40 Blood Blood Culture - Final NO GROWTH 06/04/18 Unknown Sputum - Expectorant Gram Stain - Final 06/04/18 Unknown Sputum - Expectorant Sputum Culture - Final ORGANISMS ISOLATED ARE CONSISTENT WITH NORMAL RESP VANDANA MODERATE GROWTH, NO PREDOMINANT ORGANISM Orders (Last 24 hours) Category Date Time Status Discharge Routine Discharge 06/06/18 12:30 Ordered Patient Care Notes (Last 24 hours) 06/06/18 12:15 (created 06/06/18 15:15) Case Management Note by Daniela Freed DR. ROUNDED AND EVALUATED, DISCUSSED DC HOME WITH PT ALONG WITH RX'S THAT SHE WOULD BE SENT HOME ON. PT REPORTS FEELING BETTER AND IN AGREEMENT WITH DISCHARGE TO HOME. VERBALIZED UNDERSTANDING TO ALL INFORMATION PROVIDED. CONTINUES TO DECLINE ADDNL NEEDS FOR DISCHARGE. INDEPENDENT WITH ALL ADL'S. REPORTS THAT HER FAMILY WILL PICK HER UP TODAY. Initialized on 06/06/18 15:15 - END OF NOTE 06/06/18 11:04 Pharmacy Note by Ravi Cuello Sputum culture shows heavy yeast. Recommend treating with Diflucan if clinically indicated. Initialized on 06/06/18 11:04 - END OF NOTE - Vitals & Intake/Output Vital Signs: Vital Signs Temperature 97.5 F 06/06/18 13:41 Pulse Rate 75 06/06/18 13:41 Respiratory Rate 18 06/06/18 12:00 Blood Pressure 163/74 06/06/18 13:41 O2 Sat by Pulse Oximetry 94 L 06/06/18 13:41 Oxygen-Last Documented O2 Percentage 2 Liters = 28% Intake & Output: Intake & Output 06/04/18 06/05/18 06/06/18 06/07/18 11:59 11:59 11:59 11:59 Intake Total 840 1280 1736 480 Output Total 543 081 2586 Balance 40 330 -664 480 Weight 78 kg 76.1 kg 72.3 kg - Lab Result Diagrams: 06/04/18 12:35 06/04/18 09:04 Micro Results-Entire Visit: Microbiology 06/02/18 12:30 Blood Culture Gram Stain - Final Blood Not Reportable Blood Culture - Final NO GROWTH 06/02/18 12:40 Blood Culture Gram Stain - Final Blood Not Reportable Blood Culture - Final NO GROWTH 06/04/18 Unknown Gram Stain - Final Sputum - Expectorant Sputum Culture - Final ORGANISMS ISOLATED ARE CONSISTENT WITH NORMAL RESP VANDANA MODERATE GROWTH, NO PREDOMINANT ORGANISM - Procedures and Test Procedures and Tests throughout Hospitalization: Therapy Orders & Screens 06/02/18 12:30 Peak Expiratory Flow Rate ONCE Comment: Reason For Exam: Diagnosis: Shortness of Breath Respiratory Therapy Assessment DAILY Comment: Diagnosis: Shortness of Breath 06/02/18 14:04 Oxygen NASAL CANNULA 2 lpm Comment: Diagnosis: Shortness of Breath 06/02/18 14:31 Respiratory Therapy Assessment DAILY Comment: Diagnosis: Shortness of Breath 06/02/18 15:16 Peak Expiratory Flow Rate ONCE Comment: Reason For Exam: Diagnosis: Shortness of Breath Respiratory Therapy Assessment DAILY Comment: Diagnosis: Shortness of Breath 06/02/18 16:00 RT Screen per Nursing Assess ONCE Comment: Protocol Order Physician Instructions: Greater than 3 points order RT Admission Screen Reason For Exam: Triggered on Admission Diagnosis: Shortness of Breath Diagnosis: Shortness of Breath Pneumonia: Yes Home O2: No Asthma: No CHF: Yes Home CPAP/BIPAP: Yes Home Nebs/MDI: No Total Points: 11 06/02/18 20:26 BiPap/CPAP ROUTINE Comment: Diagnosis: Shortness of Breath 06/03/18 06:00 EKG IN AM Comment: Diagnosis: Shortness of Breath Discharge Exam General Appearance: no apparent distress, alert Neurologic Exam: alert, oriented x 3, cooperative, normal mood/affect, nml cerebellar function, sensation nml, No motor deficits Skin Exam: normal color, warm, dry Eye Exam: PERRL, EOMI, eyes nml inspection Ears, Nose, Throat Exam: normal ENT inspection, pharynx normal, moist mucous membranes Neck Exam: normal inspection, non-tender, supple, full range of motion Respiratory Exam: normal breath sounds, lungs clear, No respiratory distress Cardiovascular Exam: regular rate/rhythm, normal heart sounds Gastrointestinal/Abdomen Exam: soft, No tenderness, No mass Extremity Exam: normal inspection, normal range of motion Back Exam: normal inspection, normal range of motion, No CVA tenderness, No vertebral tenderness Pelvic Exam: deferred Rectal Exam: deferred Final Diagnosis/Problem List - Final Discharge Diagnosis/Problem (1) CHF (congestive heart failure) Status: Resolved Onset Date: ~06/02/18 Assessment & Plan: Chief Complaint Diagnosis Shortness of Breath for 2 -3 days Allergies Allergy/AdvReac Type Severity Reaction Status Date / Time levofloxacin [From Levaquin] Allergy Intermediate Hives Verified 06/02/18 15:35 codeine Allergy Verified 11/26/17 09:47 penicillin G Allergy Verified 11/26/17 09:47 Penicillins Allergy Verified 11/26/17 09:47 pneumococcal vaccine Allergy Verified 11/26/17 09:47 Vital Signs (Last 24 hours) Temp Pulse Resp BP Pulse Ox 06/06/18 13:41 97.5 F 75 163/74 94 L 06/06/18 12:00 97.3 F 73 18 165/82 95 06/06/18 08:00 18 06/06/18 07:14 98.1 F 70 18 116/56 95 06/06/18 04:00 97.8 F 79 20 128/60 95 06/06/18 00:00 97.7 F 68 18 142/65 96 Home Medications Medication Instructions Recorded Confirmed Last Taken Type Cephalexin Mh 500 mg [Keflex 500 500 mg PO QID #28 capsule 06/06/18 Unknown Rx mg] Methylprednisolone Packet 4 mg PO UD #30 packet 06/06/18 Unknown Rx [Medrol Dosepack] Current Medications Discontinued Medications Generic Name Dose Route Start Last Admin Trade Name Freq PRN Reason Stop Dose Admin Hydrocodone Bitart/Acetaminophen 1 tab 06/04/18 02:39 [place] 5/325 Mg PO 06/09/18 02:38 Q6H PRN PRN PAIN Albuterol/Ipratropium 3 ml 06/02/18 12:21 06/02/18 12:35 Duoneb 0.5-3 Mg/3 Ml Neb IH 06/02/18 12:22 3 ml STAT ONE Administration Albuterol/Ipratropium Confirm 06/02/18 12:31 Duoneb 0.5-3 Mg/3 Ml Neb Administered 06/02/18 12:32 Dose 3 ml IH .STK-MED ONE Albuterol/Ipratropium 3 ml 06/02/18 14:04 06/04/18 07:37 Duoneb 0.5-3 Mg/3 Ml Neb IH 07/02/18 14:03 3 ml Q4HPRN PRN Administration SHORTNESS OF BREATH/WHEEZING Amitriptyline HCl 50 mg 06/02/18 22:00 06/05/18 21:54 Amitriptyline Hcl 50 Mg Tablet PO 07/02/18 21:59 50 mg HS FAHAD Administration Apixaban 2.5 mg 06/02/18 22:00 06/06/18 08:44 Eliquis 2.5 Mg Tablet PO 07/02/18 21:59 2.5 mg BID FAHAD Administration Carvedilol 6.25 mg 06/02/18 17:00 06/06/18 08:43 Coreg 6.25 Mg PO 07/02/18 16:59 6.25 mg BIDWMEALS FAHAD Administration Furosemide 40 mg 06/02/18 13:57 06/02/18 14:05 Lasix 40 Mg/4 Ml IV 06/02/18 13:58 40 mg STAT ONE Administration Furosemide Confirm 06/02/18 14:03 Lasix 40 Mg/4 Ml Administered 06/02/18 14:04 Dose 40 mg .ROUTE .STK-MED ONE Furosemide 40 mg 06/03/18 10:00 06/06/18 08:45 Lasix 40 Mg/4 Ml IV 07/03/18 09:59 40 mg DAILY FAHAD Administration Gabapentin 300 mg 06/02/18 15:00 06/06/18 08:44 Neurontin 300 Mg PO 07/02/18 14:59 300 mg TID FAHAD Administration Glimepiride 1 mg 06/03/18 08:00 06/06/18 08:43 Amaryl 2 Mg PO 07/03/18 07:59 1 mg QAM@0800 FAHAD Administration Guaifenesin/Dextromethorphan 5 ml 06/03/18 21:22 06/03/18 21:35 Robitussin-Dm Syrup PO 07/03/18 21:21 5 ml Q4H PRN PRN Administration COUGH Levofloxacin/Dextrose 750 mg in 150 mls @ 100 mls/hr 06/02/18 14:01 06/02/18 14:08 Levofloxacin 750mg/150ml D5w IV 06/02/18 15:30 100 mls/hr STAT STA Administration Levofloxacin/Dextrose 750 mg in 150 mls @ 100 mls/hr 06/03/18 10:00 Levofloxacin 750mg/150ml D5w IV 07/03/18 09:59 Q24H10 FAHAD Levofloxacin/Dextrose Confirm 06/02/18 14:07 Levofloxacin 750mg/150ml D5w Administered 06/02/18 14:08 Dose 750 mg in 150 mls @ ud IV .STK-MED ONE Levofloxacin/Dextrose 750 mg in 150 mls @ 100 mls/hr 06/04/18 10:00 Levofloxacin 750mg/150ml D5w IV 07/04/18 09:59 Q48H FAHAD Azithromycin 500 mg in 250 mls @ 250 mls/hr 06/03/18 18:00 Zithromax 500 Mg/ 250 Ml Nacl Premix IV 07/03/18 17:59 Q24H10 FAHAD Ceftriaxone Sodium/Dextrose 1 g in 50 mls @ 100 mls/hr 06/02/18 20:00 20:23 Rocephin 1 Gm-D5w 50 Ml Bag IV 07/02/18 19:59 100 mls/hr Q24H10 FAHAD Administration Azithromycin 500 mg in 250 mls @ 250 mls/hr 06/02/18 18:00 06/02/18 18:44 Zithromax 500 Mg/ 250 Ml Nacl Premix IV 07/02/18 17:59 250 mls/hr Q24H10 FAHAD Administration Ceftriaxone Sodium/Dextrose 1 g in 50 mls @ 100 mls/hr 06/03/18 22:00 21:54 Rocephin 1 Gm-D5w 50 Ml Bag IV 07/03/18 21:59 100 mls/hr Q24H22 FAHAD Administration Azithromycin 500 mg in 250 mls @ 250 mls/hr 06/03/18 19:00 06/05/18 21:53 Zithromax 500 Mg/ 250 Ml Nacl Premix IV 07/03/18 18:59 250 mls/hr Q24H FAHAD Administration Methylprednisolone Sodium Succinate 125 mg 06/02/18 12:21 06/02/18 12:33 Solu-Medrol 125 Mg IV 06/02/18 12:22 125 mg STAT ONE Administration Methylprednisolone Sodium Succinate Confirm 06/02/18 12:30 Solu-Medrol 125 Mg Administered 06/02/18 12:31 Dose 125 mg .ROUTE .STK-MED ONE Methylprednisolone Sodium Succinate 80 mg 06/02/18 18:00 06/05/18 07:01 Solu-Medrol 125 Mg IV 07/02/18 17:59 80 mg Q6HT FAHAD Administration Methylprednisolone Sodium Succinate 80 mg 06/05/18 18:00 Solu-Medrol 125 Mg IV 07/05/18 17:59 Q12H FAHAD Methylprednisolone Sodium Succinate 40 mg 06/05/18 18:00 06/06/18 06:19 Solu-Medrol 40 Mg IV 07/05/18 17:59 40 mg Q12H FAHAD Administration Miscellaneous Information 0 each 06/03/18 07:45 Medication Intervention 07/03/18 07:44 .RN TO CHECK WITH [facility] Oxybutynin Chloride 5 mg 06/03/18 10:00 06/06/18 08:44 Ditropan Xl 5 Mg PO 07/03/18 09:59 5 mg DAILY FAHAD Administration Patient Own Med: 0 each 06/02/18 15:00 06/06/18 10:06 Sildenafil 20 Mg Tab PO 07/02/18 14:59 1 each TID FAHAD Administration Ropinirole HCl 1 mg 06/02/18 22:00 06/05/18 21:54 Requip 0.5 Mg PO 07/02/18 21:59 1 mg HS FAHAD Administration Simvastatin 5 mg 06/02/18 22:00 06/05/18 21:55 Zocor 10mg PO 07/02/18 21:59 5 mg HS FAHAD Administration Tamsulosin HCl 0.4 mg 06/03/18 10:00 06/06/18 08:43 Flomax 0.4 Mg PO 07/03/18 09:59 0.4 mg DAILY FAHAD Administration Intake & Output (Last 24 hours) 06/04/18 06/05/18 06/06/18 06/07/18 11:59 11:59 11:59 11:59 Intake Total 840 1280 1736 480 Output Total 283 556 1558 Balance 40 330 -664 480 Weight 78 kg 76.1 kg 72.3 kg Microbiology Results (Last 24 hours) 06/02/18 12:30 Blood Blood Culture Gram Stain - Final Not Reportable 06/02/18 12:30 Blood Blood Culture - Final NO GROWTH 06/02/18 12:40 Blood Blood Culture Gram Stain - Final Not Reportable 06/02/18 12:40 Blood Blood Culture - Final NO GROWTH 06/04/18 Unknown Sputum - Expectorant Gram Stain - Final 06/04/18 Unknown Sputum - Expectorant Sputum Culture - Final ORGANISMS ISOLATED ARE CONSISTENT WITH NORMAL RESP VANDANA MODERATE GROWTH, NO PREDOMINANT ORGANISM Orders (Last 24 hours) Category Date Time Status Discharge Routine Discharge 06/06/18 12:30 Ordered Patient Care Notes (Last 24 hours) 06/06/18 12:15 (created 06/06/18 15:15) Case Management Note by Daniela Freed DR. ROUNDED AND EVALUATED, DISCUSSED DC HOME WITH PT ALONG WITH RX'S THAT SHE WOULD BE SENT HOME ON. PT REPORTS FEELING BETTER AND IN AGREEMENT WITH DISCHARGE TO HOME. VERBALIZED UNDERSTANDING TO ALL INFORMATION PROVIDED. CONTINUES TO DECLINE ADDNL NEEDS FOR DISCHARGE. INDEPENDENT WITH ALL ADL'S. REPORTS THAT HER FAMILY WILL PICK HER UP TODAY. Initialized on 06/06/18 15:15 - END OF NOTE 06/06/18 11:04 Pharmacy Note by Ravi Cuello Sputum culture shows heavy yeast. Recommend treating with Diflucan if clinically indicated. Initialized on 06/06/18 11:04 - END OF NOTE (2) Elevated troponin I level Status: Resolved (3) COPD (chronic obstructive pulmonary disease) Status: Resolved Onset Date: ~06/02/18 (4) Pneumonia Status: Resolved Onset Date: ~06/02/18 (5) Atrial fibrillation Status: Chronic - Discharge Discharge Date: 06/06/18 Disposition: Home, Self-Care Condition: Fair Prescriptions: New Cephalexin Mh 500 mg [Keflex 500 mg] 500 mg PO QID #28 capsule Methylprednisolone Packet [Medrol Dosepack] 4 mg PO UD #30 packet Continue Ropinirole HCl 1 mg PO HS Glimepiride 1 mg PO DAILY Gabapentin 300 mg PO TID Tamsulosin HCl 0.4 mg [Flomax 0.4 MG] 0.4 mg PO DAILY Oxybutynin Chloride [Oxybutynin Chloride ER] 5 mg PO DAILY Bumetanide 1 mg [Bumex 1 mg] 1 mg PO DAILY Amitriptyline HCl 25 mg [Elavil 25 mg] 50 mg PO HS Simvastatin 5 mg PO HS Apixaban [Eliquis] 2.5 mg PO BID Sildenafil Citrate [Sildenafil] 20 mg PO TID Carvedilol 6.25 mg [Coreg 6.25 MG] 6.25 mg PO BID Instructions: Heart Failure, Adult (DC), Exacerbation of COPD (DC) Follow up with: CALVIN SRIVASTAVA MD [Primary Care Provider] - 06/12/18 11:00 am ([facility]) Forms: Discharge Instructions
== END 2018-06-06 13:55 | disposition home or self-care (01) | DRG 291 ==
LOC: ED 11:47 → MED SURG 14:54
PROVIDERS: ADMIT General Practice; ATTEND General Practice
DX: I50.9 Heart failure, unspecified (principal); J44.9 Chronic obstructive pulmonary disease, unspecified; R74.8 Abnormal levels of other serum enzymes; J18.9 Pneumonia, unspecified organism; I25.10 Atherosclerotic heart disease of native coronary artery without angina pectoris; E11.9 Type 2 diabetes mellitus without complications; K21.9 Gastro-esophageal reflux disease without esophagitis; I10 Essential (primary) hypertension; Z95.0 Presence of cardiac pacemaker; I48.91 Unspecified atrial fibrillation; Z79.01 Long term (current) use of anticoagulants; M19.90 Unspecified osteoarthritis, unspecified site; Z79.899 Other long term (current) drug therapy; Z86.73 Personal history of transient ischemic attack (TIA), and cerebral infarction without residual deficits
CPT/HCPCS: 36000; 36415; 36600; 71045; 80048; 80053; 82375; 82803; 83735; 83880; 84484; 85025; 85027; 85610; 85730; 87040; 87070; 93005; 93041; 94150; 94640; 94660; 94760; 96365; 96374; 96375; 99285; J0456; J0696; J1940; J1956; J2920; J2930; A9270-GY

== ENCOUNTER 2018-06-15 01:19 | Emergency (ER) | payer MEDICARE, BC ==
[2018-06-15 01:36] VITALS: PULSE 73; O2SAT 95
--- NOTE | 2018-06-15 01:58 | ERPHSYRPT ---
- History of Present Illness Time Seen by Provider: 06/15/18 01:50 Source: patient, family Exam Limitations: no limitations Patient Subjective Stated Complaint: pt states she has been feeling some fullnes in her lt neck tonight. states she is having no pain. Triage Nursing Assessment: pt alert and oriented. answers questions approp. pt transfer from wheelchair to stretcher with minimal assist. respirations nonlabored with lungs cta. no tenderness noted in neck, no swelling. 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 Pt states that she woke up with left sided neck pain lasting several minutes. In the ER, patient has no complaints. Pt did take 3 baby ASA prior to arrival. Pt denies any headache, blurry vision, dizziness, chest pain, shortness of breath or palpitations. Timing/Duration: today Severity: mild Character of Deficits: none Deficits: no difficulties Baseline/Normal Cognition: alert oriented x 3 Current Cognition: alert oriented x 3 Baseline Gait: walks w/o assistance Associated Symptoms: denies symptoms Allergies/Adverse Reactions: levofloxacin [From Levaquin] Allergy (Intermediate, Verified 06/15/18 01:36) Hives Hives noted to IV insertion site where antibiotic was infused. codeine Allergy (Verified 06/15/18 01:36) penicillin G Allergy (Verified 06/15/18 01:36) Penicillins Allergy (Verified 06/15/18 01:36) pneumococcal vaccine Allergy (Verified 06/15/18 01:36) Home Medications: Bumetanide 1 mg [Bumex 1 mg] 1 mg PO DAILY 04/12/17 [History] Gabapentin 300 mg PO TID 04/12/17 [History] Glimepiride 1 mg PO DAILY 04/12/17 [History] Oxybutynin Chloride [Oxybutynin Chloride ER] 5 mg PO DAILY 04/12/17 [History] Ropinirole HCl 1 mg PO HS 04/12/17 [History] Tamsulosin HCl 0.4 mg [Flomax 0.4 MG] 0.4 mg PO DAILY 04/12/17 [History] Amitriptyline HCl 25 mg [Elavil 25 mg] 50 mg PO HS 10/14/17 [History] Apixaban [Eliquis] 2.5 mg PO BID 10/14/17 [History] Simvastatin 5 mg PO HS 10/14/17 [History] Sildenafil Citrate [Sildenafil] 20 mg PO TID 11/26/17 [History] Carvedilol 6.25 mg [Coreg 6.25 MG] 6.25 mg PO BID 01/28/18 [History] Hx Tetanus, Diphtheria Vaccination/Date Given: No Hx Influenza Vaccination/Date Given: No Hx Pneumococcal Vaccination/Date Given: No Immunizations Up to Date: No - Review of Systems Constitutional: No Fever, No Chills Eyes: No Symptoms Ears, Nose, & Throat: No Symptoms Respiratory: No Cough, No Dyspnea Cardiac: No Chest Pain, No Edema, No Syncope Abdominal/Gastrointestinal: No Abdominal Pain, No Nausea, No Vomiting, No Diarrhea Genitourinary Symptoms: No Dysuria Musculoskeletal: Neck Pain, No Back Pain Skin: No Rash Neurological: No Dizziness, No Focal Weakness, No Sensory Changes Psychological: No Symptoms Endocrine: No Symptoms All Other Systems: Reviewed and Negative - Past Medical History Pertinent Past Medical History: Yes Neurological History: Stroke ENT History: No Pertinent History Cardiac History: Arrhythmia, Congestive Heart Failure, Coronary Artery Disease, Hypertension Respiratory History: COPD Endocrine Medical History: Diabetes Type II Musculoskeletal History: Arthritis GI Medical History: No Pertinent History History: No Pertinent History Psycho-Social History: No Pertinent History Female Reproductive Disorders: No Pertinent History Other Medical History: GERD, pacemaker - Past Surgical History Past Surgical History: Yes Neuro Surgical History: No Pertinent History Cardiac: Pacemaker Respiratory: No Pertinent History Gastrointestinal: Appendectomy, Cholecystectomy Genitourinary: No Pertinent History Musculoskeletal: No Pertinent History Female Surgical History: Hysterectomy - Social History Smoking Status: Never smoker Exposure to second hand smoke: No Alcohol Use: None Drug Use: none Patient Lives Alone: No Significant Family History: no pertinent family hx - Nursing Vital Signs Nursing Vital Signs: Initial Vital Signs Temperature 97.2 F 06/15/18 01:27 Pulse Rate 73 06/15/18 01:27 Respiratory Rate 16 06/15/18 01:27 Blood Pressure 143/72 06/15/18 01:27 O2 Sat by Pulse Oximetry 95 06/15/18 01:27 Pain Scale Pain Intensity 0 - Priscila Coma Scale Best Eye Response (Priscila): (4) open spontaneously Best Verbal Response ([place]): (5) oriented Best Motor Response (Priscila): (6) obeys commands Priscila Total: 15 - Physical Exam General Appearance: no apparent distress, alert Eye Exam: bilateral eye: PERRL, EOMI Ears, Nose, Throat Exam: normal ENT inspection, moist mucous membranes Neck Exam: normal inspection, non-tender, supple, full range of motion, No carotid bruit, No JVD, No limited range of motion, No midline tenderness Respiratory: normal breath sounds, lungs clear, airway intact, No respiratory distress Cardiovascular: regular rate/rhythm, No edema Gastrointestinal: soft, No tenderness, No distention Back Exam: normal inspection Extremity Exam: normal inspection, No pedal edema 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, 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 Exam: tongue midline Coordination/Gait: normal finger to nose, normal gait Skin Exam: normal color, warm, dry, No rash SpO2: 95 Oxygen Delivery: Room Air - Course Nursing assessment & vital signs reviewed: Yes EKG Interpreted by Me: RATE (HR 70), NORMAL INTERVALS, NORMAL QRS, Right Bundle Branch Block, NORMAL ST-T Ordered Tests: Active Orders 24 hr Category Date Time Status [employer] Manager STAT Care 06/15/18 01:53 Active EKG-ER Only STAT Care 06/15/18 01:53 Active HEAD WITHOUT CONTRAST [CT] Stat Exams 06/15/18 01:54 Taken CBC W DIFF Stat Lab 06/15/18 02:25 Completed CMP Stat Lab 06/15/18 02:25 Completed Manual Differential NC Stat Lab 06/15/18 02:25 Completed PROTIME WITH INR Stat Lab 06/15/18 02:25 Completed PTT Stat Lab 06/15/18 02:25 Completed TROPONIN Q3H Lab 06/15/18 02:25 Completed TROPONIN Q3H Lab 06/15/18 05:00 Ordered TROPONIN Q3H Lab 06/15/18 08:00 Ordered TROPONIN Q3H Lab 06/15/18 11:00 Ordered TROPONIN Q3H Lab 06/15/18 14:00 Ordered Lab/Rad Data: Laboratory Result Diagrams 06/15/18 02:25 06/15/18 02:25 Laboratory Results 06/15/18 06/15/18 06/15/18 Range/Units 02:25 02:25 02:25 WBC (4.0-10.5) K/mm3 RBC (4.1-5.4) M/mm3 Hgb (12.0-16.0) gm/dl Hct (35-47) % MCV (78-100) fl MCH (26-32) pg MCHC (32-36) g/dl RDW (11.5-14.0) % Plt Count (150-450) K/mm3 MPV (6-9.5) fl Absolute Granulocytes (1.4-6.9) PT 12.5 H (9.95-12.35) SECONDS INR 1.07 (0.8-3.0) APTT 25.0 L (25.3-37.0) SECONDS Sodium 137 (137-145) mmol/L Potassium 3.9 (3.5-5.1) mmol/L Chloride 101 (98-107) mmol/L Carbon Dioxide 29 (22-30) mmol/L Anion Gap 10.1 (5-15) MEQ/L BUN 34 H (7-17) mg/dL Creatinine 1.05 H (0.52-1.04) mg/dL Estimated GFR 52.9 ML/MIN Glucose 76 (74-106) mg/dL Calcium 8.6 (8.4-10.2) mg/dL Total Bilirubin 0.60 (0.2-1.3) mg/dL AST 12 L (14-36) U/L ALT 15 (0-35) U/L Alkaline Phosphatase 109 (38-126) U/L Troponin I 0.023 (0.000-0.034) ng/mL Serum Total Protein 5.4 L (6.3-8.2) g/dL Albumin 3.1 L (3.5-5.0) g/dL 06/15/18 Range/Units 02:25 WBC 11.0 H (4.0-10.5) K/mm3 RBC 3.70 L (4.1-5.4) M/mm3 Hgb 11.6 L (12.0-16.0) gm/dl Hct 34.5 L (35-47) % MCV 93.2 (78-100) fl MCH 31.3 (26-32) pg MCHC 33.6 (32-36) g/dl RDW 14.9 H (11.5-14.0) % Plt Count 185 (150-450) K/mm3 MPV 9.9 H (6-9.5) fl Absolute Granulocytes 8.20 H (1.4-6.9) PT (9.95-12.35) SECONDS INR (0.8-3.0) APTT (25.3-37.0) SECONDS Sodium (137-145) mmol/L Potassium (3.5-5.1) mmol/L Chloride (98-107) mmol/L Carbon Dioxide (22-30) mmol/L Anion Gap (5-15) MEQ/L BUN (7-17) mg/dL Creatinine (0.52-1.04) mg/dL Estimated GFR ML/MIN Glucose (74-106) mg/dL Calcium (8.4-10.2) mg/dL Total Bilirubin (0.2-1.3) mg/dL AST (14-36) U/L ALT (0-35) U/L Alkaline Phosphatase (38-126) U/L Troponin I (0.000-0.034) ng/mL Serum Total Protein (6.3-8.2) g/dL Albumin (3.5-5.0) g/dL - Progress Progress: improved Progress Note: 06/15/18 03:25 The patient has remained asymptomatic in the ER. The CT scan head and cardiac workup are all within normal limits. Pt will F/U with her PCP. - Departure Time of Disposition: 03:26 Departure Disposition: Home Clinical Impression: Neck pain Condition: Stable Critical Care Time: No Referrals: CALVIN SRIVASTAVA MD [Primary Care Provider] - Instructions: Generalized Neck Pain (DC) Additional Instructions: Follow up with your primary care doctor in the next few days for additional recommendations.
[2018-06-15 02:32] LABS: Hematocrit 34.5 % (35-47); Hemoglobin 11.6 gm/dl (12.0-16.0); Mean Cell Volume 93.2 fl (78-100); Mean Corpuscular Hgb Concent. 33.6 g/dl (32-36); Mean Platelet Volume 9.9 fl (6-9.5); Platelet Count 185 K/mm3 (150-450); Red Cell Distribution Width 14.9 % (11.5-14.0)
[2018-06-15 02:49] LABS: ALBUMIN 3.1 g/dL (3.5-5.0); ANION GAP 10.1 MEQ/L (5-15); BILIRUBIN,TOTAL 0.6 mg/dL (0.2-1.3); Calcium 8.6 mg/dL (8.4-10.2); Creatinine 1 1.05 mg/dL (0.52-1.04); Potassium 3.9 mmol/L (3.5-5.1); Total Protein 5.4 g/dL (6.3-8.2)
[2018-06-15 02:53] LABS: INR 1.07 (0.8-3.0)
[2018-06-15 02:57] LABS: Mean Corpuscular Hemoglobin 31.3 pg (26-32)
[2018-06-15 03:34] VITALS: BP 127/75
[2018-06-15 04:40] LABS: Eosinophil 4 % (0.00-3.0); Lymphocytes 14 % (24-44); Monocyte 10 % (0.0-12.0); Neutrophils 72 % (36.0-66.0); Platelet Estimate NORMAL (NORMAL); Total Cells Counted 100
--- NOTE | 2018-06-15 07:25 | XRAY ---
Indication: Patient just doesn't feel right. Possible stroke. Multiple contiguous axial images obtained through the head without contrast. Comparison: October 19, 2017. Stable age-appropriate global atrophy, mild periventricular degenerative micro-ischemia bilaterally, and remote left basal ganglia lacunar infarcts. No acute intracranial hemorrhage, abnormal extra-axial fluid collection, or mass effect. Fourth ventricle is midline. Bony calvarium intact. Mild mucosal thickening of both ethmoid sinuses. Mastoid air cells are clear. Impression: 1. Stable nonacute senile brain with left basal ganglia remote lacunar infarcts. 2. Mild paranasal sinus disease. Comment: Preliminary interpretation was made by [facility]. No critical discrepancy. CTDI 68.32
== END 2018-06-15 03:42 | disposition home or self-care (01) ==
LOC: ED 01:19
DX: M54.2 Cervicalgia (principal); Z79.01 Long term (current) use of anticoagulants; Z79.899 Other long term (current) drug therapy
CPT/HCPCS: 36415; 70450; 80053; 84484; 85025; 85610; 85730; 93005; 93041; 99284

== ENCOUNTER 2018-06-26 16:06 | Emergency (ER) | payer MEDICARE, BC ==
[2018-06-26 16:54] VITALS: BP 163/85; PULSE 71; O2SAT 98
--- NOTE | 2018-06-26 16:54 | ERPHSYRPT ---
- History of Present Illness Time Seen by Provider: 06/26/18 16:45 Source: patient Exam Limitations: no limitations Physician History: patient suffered a skin tear to her left mid dorsal forearm on the edge of a kitchen cabinet a few minutes ago; local bruising and minimal bleeding; no other injuries or complaints; allergic to tetanus; right handed Occurred: just prior to arrival, this afternoon Method of Injury: other (scraped on a cabinet) Quality: aching Severity of Pain-Max: mild Severity of Pain-Current: mild Extremities Pain Location: arm: left (mid forearm dorsal) Modifying Factors: Improves With: nothing Associated Symptoms: none Allergies/Adverse Reactions: levofloxacin [From Levaquin] Allergy (Intermediate, Verified 06/26/18 16:36) Hives Hives noted to IV insertion site where antibiotic was infused. codeine Allergy (Verified 06/26/18 16:36) penicillin G Allergy (Verified 06/26/18 16:36) Penicillins Allergy (Verified 06/26/18 16:36) pneumococcal vaccine Allergy (Verified 06/26/18 16:36) Home Medications: Bumetanide 1 mg [Bumex 1 mg] 1 mg PO DAILY 04/12/17 [History] Gabapentin 300 mg PO TID 04/12/17 [History] Glimepiride 1 mg PO DAILY 04/12/17 [History] Oxybutynin Chloride [Oxybutynin Chloride ER] 5 mg PO DAILY 04/12/17 [History] Ropinirole HCl 1 mg PO HS 04/12/17 [History] Tamsulosin HCl 0.4 mg [Flomax 0.4 MG] 0.4 mg PO DAILY 04/12/17 [History] Amitriptyline HCl 25 mg [Elavil 25 mg] 50 mg PO HS 10/14/17 [History] Apixaban [Eliquis] 2.5 mg PO BID 10/14/17 [History] Simvastatin 5 mg PO HS 10/14/17 [History] Sildenafil Citrate [Sildenafil] 20 mg PO TID 11/26/17 [History] Carvedilol 6.25 mg [Coreg 6.25 MG] 6.25 mg PO BID 01/28/18 [History] Hx Tetanus, Diphtheria Vaccination/Date Given: No Hx Influenza Vaccination/Date Given: No Hx Pneumococcal Vaccination/Date Given: No - Review of Systems Constitutional: No Symptoms Respiratory: No Cough, No Dyspnea, No Wheezing Cardiac: No Chest Pain, No Palpitations, No Syncope Abdominal/Gastrointestinal: No Abdominal Pain, No Nausea, No Vomiting, No Diarrhea Skin: Other (skin tear left lateral forearm), No Cellulitis, No Rash Neurological: No Symptoms Psychological: No Symptoms Hematologic/Lymphatic: Easy Bleeding, Easy Bruising, No Blood Clots, No Gum Bleeding - Past Medical History Pertinent Past Medical History: Yes Neurological History: Stroke ENT History: No Pertinent History Cardiac History: Arrhythmia, Congestive Heart Failure, Coronary Artery Disease, Hypertension Respiratory History: COPD Endocrine Medical History: Diabetes Type II Musculoskeletal History: Arthritis GI Medical History: No Pertinent History History: No Pertinent History Psycho-Social History: No Pertinent History Female Reproductive Disorders: No Pertinent History Other Medical History: GERD, pacemaker - Past Surgical History Past Surgical History: Yes Neuro Surgical History: No Pertinent History Cardiac: Pacemaker Respiratory: No Pertinent History Gastrointestinal: Appendectomy, Cholecystectomy Genitourinary: No Pertinent History Musculoskeletal: No Pertinent History Female Surgical History: Hysterectomy - Social History Smoking Status: Never smoker Exposure to second hand smoke: No Alcohol Use: None Drug Use: none Patient Lives Alone: No Significant Family History: no pertinent family hx - Female History Hx Now: No - Physical Exam General Appearance: mild distress, alert Elbow/Forearm Exam: normal ROM, abrasions (with small skin tear mid dorsal left forearm; minimal bleeding), ecchymosis, soft tissue tenderness Wrist Exam: normal inspection, non-tender, no evidence of injury, normal ROM Neuro/Tendon Exam: normal sensation, normal motor functions, normal tendon functions, responds to pain, no evidence tendon injury Mental Status Exam: alert, oriented x 3, cooperative Skin Exam: normal color, warm, dry, ecchymosis (left forearm), laceration ( small skin tear left forearms 2 cm), No rash, No petechiae - Course Nursing assessment & vital signs reviewed: Yes Ordered Tests: Active Orders 24 hr Category Date Time Status Re-Check Vital Signs STAT Care 06/26/18 16:48 Ordered Wound Care STAT Care 06/26/18 16:48 Ordered - Progress Progress: improved Progress Note: 06/26/18 16:54 cleaned bacitracin dressing op site; release- instructions given Counseled pt/family regarding: diagnosis, need for follow-up - Departure Time of Disposition: 16:55 Departure Disposition: Home Clinical Impression: Contusion of left forearm, Skin tear of left forearm without complication Condition: Stable Critical Care Time: No Referrals: CALVIN SRIVASTAVA MD [Primary Care Provider] - Instructions: Contusion (DC), Wound Care Additional Instructions: clean dry Follow-up with family doctor as directed. Call for appointment. Return if any problems. If you smoke please stop. Call or follow up with your family doctor for assistance if you need it to stop. Please wear your seatbelt when driving. Have a nice day. Thank you for allowing us to participate in your care today. :o) Dr Trey Croft
== END 2018-06-26 17:11 | disposition home or self-care (01) ==
LOC: ED 16:06
DX: S51.812A Laceration without foreign body of left forearm, initial encounter (principal); S50.12XA Contusion of left forearm, initial encounter; W22.8XXA Striking against or struck by other objects, initial encounter; Y92.000 Kitchen of unspecified non-institutional (private) residence as the place of occurrence of the external cause; Z79.899 Other long term (current) drug therapy
CPT/HCPCS: 99283

== ENCOUNTER 2018-11-20 12:25 | Emergency (ER) | payer MEDICARE, BC ==
[2018-11-20] MEDS ORDERED: EMLA Cream 5 GM TP ONE (12:51)
--- NOTE | 2018-11-20 13:12 | ERPHSYRPT ---
- History of Present Illness Time Seen by Provider: 11/20/18 12:35 Source: patient Exam Limitations: no limitations Patient Subjective Stated Complaint: pt here for a fall on porch today, she lost her balance. she landed on concrete, no loc Triage Nursing Assessment: pt alert, resp easy, skin w/d/p. 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 pt c/o left hand, left elbow and left lower leg pain and skin tears. denies head, neck or back pain. Occurred: just prior to arrival Reason for Fall: slipped Injuries/Pain Location: upper extremity (left hand and elbow), lower extremity ( left lower leg) Loss of Consciousness: no loss of consciousness Quality: aching Severity of Pain-Max: mild Severity of Pain-Current: mild Modifying Factors: Improves With: movement (pain) Associated Symptoms (Fall): extremity injury, No abdominal pain, No confusion, No chest pain, No dizziness, No lightheadedness, No shortness of breath, No slurred speech, No trouble walking, No vision changes Allergies/Adverse Reactions: levofloxacin [From Levaquin] Allergy (Intermediate, Verified 11/20/18 12:58) Hives Hives noted to IV insertion site where antibiotic was infused. codeine Allergy (Verified 11/20/18 12:58) penicillin G Allergy (Verified 11/20/18 12:58) Penicillins Allergy (Verified 11/20/18 12:58) pneumococcal vaccine Allergy (Verified 11/20/18 12:58) Home Medications: Bumetanide 1 mg [Bumex 1 mg] 1 mg PO DAILY 04/12/17 [History] Gabapentin 300 mg PO TID 04/12/17 [History] Glimepiride 1 mg PO DAILY 04/12/17 [History] Oxybutynin Chloride [Oxybutynin Chloride ER] 5 mg PO DAILY 04/12/17 [History] Ropinirole HCl 1 mg PO HS 04/12/17 [History] Tamsulosin HCl 0.4 mg [Flomax 0.4 MG] 0.4 mg PO DAILY 04/12/17 [History] Amitriptyline HCl 25 mg [Elavil 25 mg] 50 mg PO HS 10/14/17 [History] Apixaban [Eliquis] 2.5 mg PO BID 10/14/17 [History] Simvastatin 5 mg PO HS 10/14/17 [History] Sildenafil Citrate [Sildenafil] 20 mg PO TID 11/26/17 [History] Carvedilol 6.25 mg [Coreg 6.25 MG] 6.25 mg PO BID 01/28/18 [History] Hx Tetanus, Diphtheria Vaccination/Date Given: No Hx Influenza Vaccination/Date Given: No Hx Pneumococcal Vaccination/Date Given: No Immunizations Up to Date: No - Review of Systems Constitutional: No Symptoms Eyes: No Symptoms Ears, Nose, & Throat: No Symptoms Respiratory: No Symptoms Cardiac: No Symptoms Abdominal/Gastrointestinal: No Symptoms Genitourinary Symptoms: No Symptoms Musculoskeletal: Fall, Injury Skin: Other (skin tears-multiple left hand, elbow and lower leg) Neurological: No Symptoms, No Dizziness, No Headache Psychological: No Symptoms Endocrine: No Symptoms Hematologic/Lymphatic: No Symptoms Immunological/Allergic: No Symptoms All Other Systems: Reviewed and Negative - Past Medical History Pertinent Past Medical History: Yes Neurological History: Stroke ENT History: No Pertinent History Cardiac History: Arrhythmia, Coronary Artery Disease, Congestive Heart Failure, Hypertension Respiratory History: COPD Endocrine Medical History: Diabetes Type II Musculoskeletal History: Arthritis GI Medical History: No Pertinent History History: No Pertinent History Psycho-Social History: No Pertinent History Female Reproductive Disorders: No Pertinent History Other Medical History: GERD, pacemaker - Past Surgical History Past Surgical History: Yes Neuro Surgical History: No Pertinent History Cardiac: Pacemaker Respiratory: No Pertinent History Gastrointestinal: Appendectomy, Cholecystectomy Genitourinary: No Pertinent History Musculoskeletal: No Pertinent History Female Surgical History: Hysterectomy - Social History Smoking Status: Never smoker Exposure to second hand smoke: No Alcohol Use: None Drug Use: none Patient Lives Alone: No Significant Family History: no pertinent family hx - Female History Hx Last Menstrual Period: post - Nursing Vital Signs Nursing Vital Signs: Initial Vital Signs Temperature 97.2 F 11/20/18 12:33 Pulse Rate 68 11/20/18 12:33 Respiratory Rate 18 11/20/18 12:33 Blood Pressure 154/68 11/20/18 12:33 O2 Sat by Pulse Oximetry 94 L 11/20/18 12:33 Pain Scale Pain Intensity 7 - [place] Coma Score Best Eye Response ([place]isc[place]): (4) open spontaneously Best Verbal Response ([place]): (5) oriented Best Motor Response (Prisc[place]): (6) obeys commands Priscila Total: 15 - Physical Exam General Appearance: no apparent distress, alert, anxiety Head Injury: no evidence of injury, No active bleeding, No Castillo's Sign Eye Exam: PERRL/EOMI, eyes nml inspection ENT Exam: airway nml, No evidence of ENT injury, No dental injury Neck Exam: supple, trachea midline, full range of motion, normal alignment Respiratory/Chest Exam: No chest tenderness Gastrointestinal Exam: No tenderness Rectal Exam: not done Extremity Exam: normal range of motion, capillary refill <3 sec, pelvis stable, deformities, pain with movement, tenderness, other (abrasions and multiple skin tears left hand, left elbow and left lower leg) Neurologic Exam: alert, oriented x 3, cooperative, 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, normal mood/affect Skin Exam: abrasion, other (multiple skin tears as above) SpO2 Interpretation: borderline oxygenation SpO2: 94 O2 Delivery: Room Air Procedures - Laceration/Wound Repair Left Dorsal Finger Wound Location: Left, hand Wound Length (cm): 1 Wound's Depth, Shape: superficial Wound Explored: clean Irrigated: Yes Hibiclens Prep: Yes Wound Repaired With: Steri-strips, Dermabond - Course Nursing assessment & vital signs reviewed: Yes Ordered Tests: Active Orders 24 hr Category Date Time Status Wound Care STAT Care 11/20/18 12:37 Active ELBOW (MINIMUM 3 VIEWS) Stat Exams 11/20/18 12:38 Completed HAND (MINIMUM 3 VIEWS) Stat Exams 11/20/18 12:38 Completed LOWER LEG Stat Exams 11/20/18 12:38 Completed Medication Summary Discontinued Medications Generic Name Dose Route Start Last Admin Trade Name Freq PRN Reason Stop Dose Admin Lidocaine/Prilocaine Confirm 11/20/18 12:51 Emla Cream 5 Gm Administered 11/20/18 12:52 Dose 5 gm TP .STK-MED ONE - Progress Progress: improved, pain not gone completely, re-examined Progress Note: 11/20/18 14:07 xrays of left hand left elbow and left lower leg no acute processes. Counseled pt/family regarding: diagnosis, need for follow-up, rad results - Departure Time of Disposition: 14:08 Departure Disposition: Home Clinical Impression: Abrasions of multiple sites, Skin tear of left upper extremity, Skin tear of left lower leg without complication Condition: Stable Critical Care Time: No Referrals: CALVIN SRIVASTAVA MD [Primary Care Provider] - Additional Instructions: keep all sites dry for 24 hours. after 24 hours, may wash all sites with soap and water. apply antibiotic ointment to all abrasion sites except those of left hand. leave left hand steristrips in place until they fall off. follow up with your primary doctor for further management Prescriptions: Hydrocodone/APAP 5-325 Tab^^^ [[place] 5-325 Tablet^^^] 1 tab PO Q6HPRN PRN #10 tablet MDD 6 PRN Reason: Pain
--- NOTE | 2018-11-20 13:17 | XRAY ---
Indication: Pain/laceration following fall. Comparison: None 3 views of the left elbow demonstrates mild osteopenia and tiny lateral epicondyle heterotopic ossification either degenerative versus old injury. No other bony, articular, or soft tissue abnormalities.
--- NOTE | 2018-11-20 13:19 | XRAY ---
Indication: Pain/laceration following fall. Comparison: None 3 views of the left hand demonstrates mild osteopenia, advanced degenerative changes 1st metacarpal multangular articulation, distal forearm vascular calcifications, ulnar carpal degenerative chondrocalcinosis, and ring base of 2nd finger. No other bony, articular, or soft tissue abnormalities.
--- NOTE | 2018-11-20 13:20 | XRAY ---
Indication: Pain/laceration following fall. Comparison: None 2 views of the left lower leg demonstrates proximal anterior soft tissue swelling/laceration, osteopenia, mild knee degenerative changes, and scattered vascular calcifications. No other bony, articular, or soft tissue abnormalities.
[2018-11-20] MEDS ORDERED: MORPHINE SULFATE 2 MG INJ IM ONE (14:06)
[2018-11-20] MEDS ORDERED: ZOFRAN ODT 4 MG PO ONE (14:07)
[2018-11-20] MEDS ORDERED: MORPHINE SULFATE 2 MG INJ ONE (14:10)
[2018-11-20] MEDS ORDERED: ZOFRAN ODT 4 MG ONE (14:10)
[2018-11-20 15:01] VITALS: BP 148/83; PULSE 70; O2SAT 98
== END 2018-11-20 15:01 | disposition home or self-care (01) ==
LOC: ED 12:25
DX: S50.812A Abrasion of left forearm, initial encounter (principal); S80.812A Abrasion, left lower leg, initial encounter; S61.215A Laceration without foreign body of left ring finger without damage to nail, initial encounter; S61.217A Laceration without foreign body of left little finger without damage to nail, initial encounter; W18.30XA Fall on same level, unspecified, initial encounter; Z79.899 Other long term (current) drug therapy; I25.10 Atherosclerotic heart disease of native coronary artery without angina pectoris; I50.9 Heart failure, unspecified; I10 Essential (primary) hypertension; E11.9 Type 2 diabetes mellitus without complications
CPT/HCPCS: 12001; 73080; 73130; 73590; 96372; 99284; J2270; Q0162; A9270-GY

== ENCOUNTER 2018-11-30 08:15 | Emergency (ER) | payer MEDICARE, BC ==
--- NOTE | 2018-11-30 08:28 | ERPHSYRPT ---
- History of Present Illness Time Seen by Provider: 11/30/18 08:18 Source: patient, EMS, old records Exam Limitations: clinical condition (dyspnea and confused) Physician History: patient brought by EMS from home- initial sats mid 80s put on O2 and improved to 90%, during duoneb enroute improved to mid 90S; denies CP; states not eating; hx of COPD, DM, recent Pnuemonia and falls; she is confused and disoriented; unable to add to hx at this time; sats now 95% on RA but breathing rapid and shallow at 40+/min; evidence of emesis this am on gown and soiled self with urine but denies N&V or gu symptoms Timing/Duration: today Activities at Onset: rest Severity of Dyspnea-Max: severe Severity of Dyspnea-Current: severe Possible Cause: occasional episodes Modifying Factors: Improves With: albuterol nebulizer Associated Symptoms: cough, loss of appetite, No chest pain/discomfort, No fever International travel in last 2 weeks: No Allergies/Adverse Reactions: levofloxacin [From Levaquin] Allergy (Intermediate, Verified 11/20/18 12:58) Hives Hives noted to IV insertion site where antibiotic was infused. codeine Allergy (Verified 11/20/18 12:58) penicillin G Allergy (Verified 11/20/18 12:58) Penicillins Allergy (Verified 11/20/18 12:58) pneumococcal vaccine Allergy (Verified 11/20/18 12:58) Home Medications: Bumetanide 1 mg [Bumex 1 mg] 1 mg PO DAILY 04/12/17 [History] Gabapentin 300 mg PO TID 04/12/17 [History] Glimepiride 1 mg PO DAILY 04/12/17 [History] Oxybutynin Chloride [Oxybutynin Chloride ER] 5 mg PO DAILY 04/12/17 [History] Ropinirole HCl 1 mg PO HS 04/12/17 [History] Tamsulosin HCl 0.4 mg [Flomax 0.4 MG] 0.4 mg PO DAILY 04/12/17 [History] Amitriptyline HCl 25 mg [Elavil 25 mg] 50 mg PO HS 10/14/17 [History] Apixaban [Eliquis] 2.5 mg PO BID 10/14/17 [History] Simvastatin 5 mg PO HS 10/14/17 [History] Sildenafil Citrate [Sildenafil] 20 mg PO TID 11/26/17 [History] Carvedilol 6.25 mg [Coreg 6.25 MG] 6.25 mg PO BID 01/28/18 [History] Hx Tetanus, Diphtheria Vaccination/Date Given: No Hx Influenza Vaccination/Date Given: No Hx Pneumococcal Vaccination/Date Given: No - Review of Systems Constitutional: No Symptoms Eyes: No Symptoms Ears, Nose, & Throat: No Symptoms Respiratory: Cough, Cyanosis, Dyspnea Cardiac: No Chest Pain, No Syncope Abdominal/Gastrointestinal: Vomiting, No Abdominal Pain, No Nausea Genitourinary Symptoms: No Symptoms Musculoskeletal: No Symptoms Skin: Other (evidence of old injuries from fall) Neurological: No Symptoms All Other Systems: Unable due to condition - Past Medical History Pertinent Past Medical History: Yes Neurological History: Stroke ENT History: No Pertinent History Cardiac History: Arrhythmia, Coronary Artery Disease, Congestive Heart Failure, Hypertension Respiratory History: COPD Endocrine Medical History: Diabetes Type II Musculoskeletal History: Arthritis GI Medical History: No Pertinent History History: No Pertinent History Psycho-Social History: No Pertinent History Female Reproductive Disorders: No Pertinent History Other Medical History: GERD, pacemaker - Past Surgical History Past Surgical History: Yes Neuro Surgical History: No Pertinent History Cardiac: Pacemaker Respiratory: No Pertinent History Gastrointestinal: Appendectomy, Cholecystectomy Genitourinary: No Pertinent History Musculoskeletal: No Pertinent History Female Surgical History: Hysterectomy - Social History Smoking Status: Never smoker Exposure to second hand smoke: No Alcohol Use: None Drug Use: none Patient Lives Alone: No Significant Family History: heart disease, diabetes, hypertension - Female History Hx Now: No - Nursing Vital Signs Nursing Vital Signs: Initial Vital Signs Respiratory Rate 42 H 11/30/18 08:16 Blood Pressure 168/87 11/30/18 08:16 O2 Sat by Pulse Oximetry 95 11/30/18 08:16 Pain Scale Pain Intensity 0 - Physical Exam General Appearance: severe distress (respiratory - tachypnes and dusky appearing ), alert, obese, other (confused- poor skin tugor; dry mucous membranes) Eye Exam: PERRL/EOMI, eyes nml inspection Ears, Nose, Throat Exam: hearing grossly normal, normal ENT inspection, normal pharynx Neck Exam: normal inspection, non-tender, supple, full range of motion, No carotid bruit, No JVD Respiratory Exam: respiratory distress (tachypnea 40+ rate), airway intact, diminished breath sounds, accessory muscle use, other (coarse), No normal breath sounds (shallow- rapid - coarse), No chest tenderness, No stridor Cardiovascular/Chest Exam: normal heart sounds, regular rate/rhythm, normal peripheral pulses, edema (trace), No murmur, No JVD Abdominal/Gastrointestinal Exam: soft, normal bowel sounds, distention (softly) , No tenderness, No mass, No guarding, No pulsatile mass, No rebound, No organomegaly Rectal Exam: deferred Extremity Exam: normal range of motion, normal capillary refill, pedal edema ( trace), No normal inspection (multiple old bruises and abrasions and cuts healing all extremities), No kathryn's sign Peripheral Pulses Exam: carotid (R): 4+, carotid (L): 4+, femoral (R): 4+, femoral (L): 4+, dorsalis-pedis (R): 2+, dorsalis-pedis (L): 2+ Neurologic Exam: alert, cooperative, sensation nml, agitation, other (moves all extremities well), No oriented x 3 (self- hospital but not cite- 2017), No normal mood/affect (anxious) Skin Exam: warm, dry, cyanosis (extremities) SpO2 Interpretation: normal SpO2: 95 (appears dusky and will place on O2) O2 Delivery: Room Air - Course Nursing assessment & vital signs reviewed: Yes EKG Interpreted by Me: RATE (74 paced), Left [place] Deviation, Left Bundle Branch Block (old), Non-specific ST Changes, Other (unchanged from 06-15-2018) Rhythm Strip: Rate (74 paced) - Radiology Exams Chest X-ray Interpretation: Interpreted by me, No Pneumothorax, Nml Heart Size, Nml Mediastinum, Other (pacemaker; possible early infiltrate RLL) Ordered Tests: Active Orders 24 hr Category Date Time Status [employer] STAT Care 11/30/18 08:20 Active Cath for Specimen-Straight STAT Care 11/30/18 08:20 Active EKG-ER Only STAT Care 11/30/18 08:19 Active IV Insertion STAT Care 11/30/18 08:19 Active IV Insertion-2nd Peripheral STAT Care 11/30/18 08:53 Active Oxygen-ED Only Nasal Cannula 2 lpm Care 11/30/18 08:19 Active Pulse Oximetry (ED) STAT Care 11/30/18 08:19 Active Rectal Temperature STAT Care 11/30/18 08:19 Active CHEST 1 VIEW (PORTABLE) Stat Exams 11/30/18 08:20 Taken ARTERIAL BLOOD GASES Stat Lab 11/30/18 08:40 Completed BLOOD CULTURE Stat Lab 11/30/18 08:40 Received CBC W DIFF Stat Lab 11/30/18 08:35 Completed CMP Stat Lab 11/30/18 08:35 Completed CULTURE,URINE Stat Lab 11/30/18 08:53 Received D-DIMER QUANTITATION Stat Lab 11/30/18 08:35 Completed Lactic Acid Stat Lab 11/30/18 08:40 Completed Lactic Acid Stat Lab 11/30/18 10:44 Ordered MAGNESIUM Stat Lab 11/30/18 08:35 Completed Manual Differential NC Stat Lab 11/30/18 08:35 Completed NT PRO BNP Stat Lab 11/30/18 08:35 Completed PROTIME WITH INR Stat Lab 11/30/18 08:35 Completed TROPONIN Q3H Lab 11/30/18 08:35 Completed TROPONIN Q3H Lab 11/30/18 11:30 Ordered TROPONIN Q3H Lab 11/30/18 14:30 Ordered TROPONIN Q3H Lab 11/30/18 17:30 Ordered TROPONIN Q3H Lab 11/30/18 20:30 Ordered UA W/RFX UR CULTURE Stat Lab 11/30/18 08:53 Completed Medication Summary Generic Name Dose Route Start Last Admin Trade Name Freq PRN Reason Stop Dose Admin Sodium Chloride 1,000 mls @ 100 mls/hr 11/30/18 08:30 11/30/18 08:36 Sodium Chloride 0.9% 1000 Ml IV 12/30/18 08:29 100 mls/hr .Q10H FAHAD Administration Sodium Chloride 1,000 mls @ 999 mls/hr 11/30/18 09:00 Sodium Chloride 0.9% 1000 Ml IV 11/30/18 11:00 .Q1H1M FAHAD Discontinued Medications Generic Name Dose Route Start Last Admin Trade Name Freq PRN Reason Stop Dose Admin Acetaminophen Confirm 11/30/18 08:47 [place] 325 Mg Administered 11/30/18 08:48 Dose 650 mg .ROUTE .STK-MED ONE Acetaminophen Confirm 11/30/18 08:47 F[place]all 650 Mg Administered 11/30/18 08:48 Dose 650 mg .ROUTE .STK-MED ONE Acetaminophen 650 mg 11/30/18 08:53 11/30/18 08:[address] [place] [address] 11/30/18 08:54 650 mg STAT ONE Administration Lactated Ringer's Confirm 11/30/18 08:33 Lactated Ringers Administered 11/30/18 08:34 Dose 1,000 mls @ ud IV .STK-MED ONE Ceftriaxone Sodium/Dextrose 1 g in 50 mls @ 100 mls/hr 11/30/18 08:53 09:02 Rocephin 1 Gm-D5w 50 Ml Bag IV 11/30/18 09:22 100 mls/hr STAT STA Administration Azithromycin 500 mg in 250 mls @ 250 mls/hr 11/30/18 08:53 11/30/18 09:21 Zithromax 500 Mg/ 250 Ml Nacl Premix IV 11/30/18 09:52 250 mls/hr STAT STA Administration Azithromycin Confirm 11/30/18 09:00 Zithromax 500 Mg/ 250 Ml Nacl Premix Administered 11/30/18 09:01 Dose 500 mg in 250 mls @ ud IV .STK-MED ONE Ceftriaxone Sodium/Dextrose Confirm 11/30/18 09:00 Rocephin 1 Gm-D5w 50 Ml Bag Administered 11/30/18 09:01 Dose 1 g in 50 mls @ ud IV .STK-MED ONE Lab/Rad Data: Laboratory Result Diagrams 11/30/18 08:35 11/30/18 08:35 Laboratory Results 11/30/18 11/30/18 11/30/18 Range/Units 08:53 08:40 08:40 WBC (4.0-10.5) K/mm3 RBC (4.1-5.4) M/mm3 Hgb (12.0-16.0) gm/dl Hct (35-47) % MCV (78-100) fl MCH (26-32) pg MCHC (32-36) g/dl RDW (11.5-14.0) % Plt Count (150-450) K/mm3 MPV (6-9.5) fl Segmented Neutrophils (36.0-66.0) % Band Neutrophils (0.0-2.0) % Lymphocytes (Manual) (24-44) % Monocytes (Manual) (0.0-12.0) % Toxic Granulation Platelet Estimate (NORMAL) RBC Morphology PT (9.95-12.35) SECONDS INR (0.8-3.0) D-Dimer (215-500) ng/mL Puncture Site RIGHT RADIAL pCO2 21 L (35-45) mmHg pO2 81 (75-100) mmHg Base Excess -6.1 L (-2.0-2.0) O2 Saturation 96.1 (94-100) g/dF ABG pH 7.47 H (7.35-7.45) ABG HCO3 15.3 L* (22-28) ABG O2 Sat (Measured) 99.8 (95-100) % Adria Test YES A-a Gradient 92 a/A Ratio 0.47 Hemoglobin 13.8 Carboxyhemoglobin 3.0 (0.0-6.9) % THgb Methemoglobin 0.7 L (1.4-1.5) % Temperature 37.0 C POC O2 Flow Rate 28 % Sodium (137-145) mmol/L Potassium 3.9 (3.5-5.1) mmol/L Chloride (98-107) mmol/L Carbon Dioxide (22-30) mmol/L Anion Gap (5-15) MEQ/L BUN (7-17) mg/dL Creatinine (0.52-1.04) mg/dL Estimated GFR ML/MIN Glucose (74-106) mg/dL Lactic Acid 4.2 H (0.4-2.0) Calcium (8.4-10.2) mg/dL Magnesium (1.6-2.3) mg/dL Total Bilirubin (0.2-1.3) mg/dL AST (14-36) U/L ALT (0-35) U/L Alkaline Phosphatase (38-126) U/L Troponin I (0.000-0.034) ng/mL NT-Pro-B Natriuret Pep (0-1800) pg/mL Serum Total Protein (6.3-8.2) g/dL Albumin (3.5-5.0) g/dL Urine Color QI (YELLOW) Urine Appearance SLIGHTLY CLOUDY (CLEAR) Urine pH 5.0 (5-6) Ur Specific [address] 1.021 (1.005-1.025) Urine Protein 100 (Negative) Urine Ketones SMALL (NEGATIVE) Urine Blood MODERATE (0-5) Tanner/ul Urine Nitrite NEGATIVE (NEGATIVE) Urine Bilirubin NEGATIVE (NEGATIVE) Urine Urobilinogen 4 (0-1) mg/dL Ur Leukocyte Esterase NEGATIVE (NEGATIVE) Urine WBC (Auto) 3-5 (0-5) /HPF Urine RBC (Auto) 3-5 (0-2) /HPF U Hyaline Cast (Auto) 3-5 (0-2) /LPF U Epithel Cells (Auto) RARE (FEW) /HPF Urine Bacteria (Auto) MODERATE (NEGATIVE) /HPF Urine Mucus (Auto) SLIGHT (NEGATIVE) /HPF Urine Culture Reflexed YES (NO) Urine Glucose 50 (NEGATIVE) mg/dL Influenza Type A Ag (NEGATIVE) Influenza Type B Ag (NEGATIVE) RSV (PCR) (Negative) 11/30/18 11/30/18 11/30/18 Range/Units 08:35 08:35 08:35 WBC (4.0-10.5) K/mm3 RBC (4.1-5.4) M/mm3 Hgb (12.0-16.0) gm/dl Hct (35-47) % MCV (78-100) fl MCH (26-32) pg MCHC (32-36) g/dl RDW (11.5-14.0) % Plt Count (150-450) K/mm3 MPV (6-9.5) fl Segmented Neutrophils (36.0-66.0) % Band Neutrophils (0.0-2.0) % Lymphocytes (Manual) (24-44) % Monocytes (Manual) (0.0-12.0) % Toxic Granulation Platelet Estimate (NORMAL) RBC Morphology PT 20.0 H (9.95-12.35) SECONDS INR 1.71 (0.8-3.0) D-Dimer 23045 H* (215-500) ng/mL Puncture Site pCO2 (35-45) mmHg pO2 (75-100) mmHg Base Excess (-2.0-2.0) O2 Saturation (94-100) g/dF ABG pH (7.35-7.45) ABG HCO3 (22-28) ABG O2 Sat (Measured) (95-100) % Daria Test A-a Gradient a/A Ratio Hemoglobin Carboxyhemoglobin (0.0-6.9) % THgb Methemoglobin (1.4-1.5) % Temperature C POC O2 Flow Rate % Sodium (137-145) mmol/L Potassium (3.5-5.1) mmol/L Chloride (98-107) mmol/L Carbon Dioxide (22-30) mmol/L Anion Gap (5-15) MEQ/L BUN (7-17) mg/dL Creatinine (0.52-1.04) mg/dL Estimated GFR ML/MIN Glucose (74-106) mg/dL Lactic Acid (0.4-2.0) Calcium (8.4-10.2) mg/dL Magnesium (1.6-2.3) mg/dL Total Bilirubin (0.2-1.3) mg/dL AST (14-36) U/L ALT (0-35) U/L Alkaline Phosphatase (38-126) U/L Troponin I 1.570 H* (0.000-0.034) ng/mL NT-Pro-B Natriuret Pep (0-1800) pg/mL Serum Total Protein (6.3-8.2) g/dL Albumin (3.5-5.0) g/dL Urine Color (YELLOW) Urine Appearance (CLEAR) Urine pH (5-6) Ur Specific [address] (1.005-1.025) Urine Protein (Negative) Urine Ketones (NEGATIVE) Urine Blood (0-5) Tanner/ul Urine Nitrite (NEGATIVE) Urine Bilirubin (NEGATIVE) Urine Urobilinogen (0-1) mg/dL Ur Leukocyte Esterase (NEGATIVE) Urine WBC (Auto) (0-5) /HPF Urine RBC (Auto) (0-2) /HPF U Hyaline Cast (Auto) (0-2) /LPF U Epithel Cells (Auto) (FEW) /HPF Urine Bacteria (Auto) (NEGATIVE) /HPF Urine Mucus (Auto) (NEGATIVE) /HPF Urine Culture Reflexed (NO) Urine Glucose (NEGATIVE) mg/dL Influenza Type A Ag NEGATIVE (NEGATIVE) Influenza Type B Ag NEGATIVE (NEGATIVE) RSV (PCR) NEGATIVE (Negative) 11/30/18 11/30/18 Range/Units 08:35 08:35 WBC 28.4 H* (4.0-10.5) K/mm3 RBC 4.24 (4.1-5.4) M/mm3 Hgb 13.5 (12.0-16.0) gm/dl Hct 39.4 (35-47) % MCV 92.9 (78-100) fl MCH 31.8 (26-32) pg MCHC 34.3 (32-36) g/dl RDW 14.6 H (11.5-14.0) % Plt Count 184 (150-450) K/mm3 MPV 10.7 H (6-9.5) fl Segmented Neutrophils 86 H (36.0-66.0) % Band Neutrophils 11 H (0.0-2.0) % Lymphocytes (Manual) 1 L (24-44) % Monocytes (Manual) 2 (0.0-12.0) % Toxic Granulation 2+ Platelet Estimate DECREASED (NORMAL) RBC Morphology NORMAL PT (9.95-12.35) SECONDS INR (0.8-3.0) D-Dimer (215-500) ng/mL Puncture Site pCO2 (35-45) mmHg pO2 (75-100) mmHg Base Excess (-2.0-2.0) O2 Saturation (94-100) g/dF ABG pH (7.35-7.45) ABG HCO3 (22-28) ABG O2 Sat (Measured) (95-100) % Adria Test A-a Gradient a/A Ratio Hemoglobin Carboxyhemoglobin (0.0-6.9) % THgb Methemoglobin (1.4-1.5) % Temperature C POC O2 Flow Rate % Sodium 136 L (137-145) mmol/L Potassium 4.1 (3.5-5.1) mmol/L Chloride 105 (98-107) mmol/L Carbon Dioxide 15 L* (22-30) mmol/L Anion Gap 19.4 H (5-15) MEQ/L BUN 27 H (7-17) mg/dL Creatinine 1.42 H (0.52-1.04) mg/dL Estimated GFR 37.4 ML/MIN Glucose 175 H (74-106) mg/dL Lactic Acid (0.4-2.0) Calcium 9.2 (8.4-10.2) mg/dL Magnesium 1.7 (1.6-2.3) mg/dL Total Bilirubin 4.30 H (0.2-1.3) mg/dL AST 79 H (14-36) U/L ALT 33 (0-35) U/L Alkaline Phosphatase 215 H (38-126) U/L Troponin I (0.000-0.034) ng/mL NT-Pro-B Natriuret Pep 07945 H (0-1800) pg/mL Serum Total Protein 6.9 (6.3-8.2) g/dL Albumin 3.8 (3.5-5.0) g/dL Urine Color (YELLOW) Urine Appearance (CLEAR) Urine pH (5-6) Ur Specific [address] (1.005-1.025) Urine Protein (Negative) Urine Ketones (NEGATIVE) Urine Blood (0-5) Tanner/ul Urine Nitrite (NEGATIVE) Urine Bilirubin (NEGATIVE) Urine Urobilinogen (0-1) mg/dL Ur Leukocyte Esterase (NEGATIVE) Urine WBC (Auto) (0-5) /HPF Urine RBC (Auto) (0-2) /HPF U Hyaline Cast (Auto) (0-2) /LPF U Epithel Cells (Auto) (FEW) /HPF Urine Bacteria (Auto) (NEGATIVE) /HPF Urine Mucus (Auto) (NEGATIVE) /HPF Urine Culture Reflexed (NO) Urine Glucose (NEGATIVE) mg/dL Influenza Type A Ag (NEGATIVE) Influenza Type B Ag (NEGATIVE) RSV (PCR) (Negative) reviewed - Progress Progress: improved (after meds and IV fluids), re-examined (after meds and test) Air Movement: fair Progress Note: 11/30/18 08:40 IV started; O2 applies; EKG paced no acute change; sats good at 95%; old chart , CXR; labs pending will monitor and recheck and get ABG for CO2 etention 11/30/18 08:57 lactate came back 4.2 and rectal temp was 103- tylenol and fluid bolus and ATBs ordered per sepsis protocol; will monitor and recheck; informed not coming 11/30/18 08:58 ABG sow ph 7.47; pCO2 21; Po2 81; BE - 6.1; elevated WBC 11/30/18 09:43 some improvement after IV fluids and O@; Dr Molina Maharaj paged for disposition; 11/30/18 10:03 Dr Molina Maharaj consulted and is seeing in ED before disposition 11/30/18 10:18 Dr Maharaj said to transfer to [facility] as a Direct Admit to her; we called notifying [facility] of the request; UA showed infection; aTBS given; will arrange transfer by EMS and continue fluids and to monitor; patient had slight drop in BP and increasing IV fluids and will monitor; 11/30/18 10:36 recheck and awake and alert; patient responded to fluid challenge and BP wnl; EMS notified and will transfer; [facility] accepted 11/30/18 11:20 Patient remains awake and alert and interactive though confused; VS ok; EMS here to transfer; Blood Culture(s) Obtained: Yes Antibiotics given: Yes Discussed with : Michael Masterson (consulted and will see in ED) Will see patient in: ED, other (transfer to [facility]) Counseled pt/family regarding: lab results, diagnosis, need for follow-up, rad results - Departure Time of Disposition: 11:21 Departure Disposition: Transfer (to [facility] per Dr Molina Maharaj) Clinical Impression: D-dimer, elevated, Elevated troponin I level, Severe sepsis Condition: Critical Critical Care Time: Yes Critical Care Time(excluding separately billable procedures): 30-74 minutes Referrals: CALVIN SRIVASTAVA MD [Primary Care Provider] - CALVIN MASTERSON [ACTIVE STAFF] -
[2018-11-30] MEDS ORDERED: Sodium Chloride 0.9% 1000 ML 1,000 ML IV SCH ×2 (08:30→09:00)
[2018-11-30] MEDS ORDERED: Lactated Ringers 0 ML IV ONE (08:33)
[2018-11-30] MEDS ORDERED: Sodium Chloride 0.9% 1000 ML 1,000 ML ONE ×2 (08:34→11:22)
[2018-11-30 08:45] LABS: A-aADO2 92; ABG HEMOGLOBIN 13.8; ABG POTASSIUM 3.9 (3.5-5.1); ARTERIAL BLD GAS O2 SATURATION 99.8 % (95-100); ARTERIAL BLOOD GAS BASE EXCESS -6.1 (-2.0-2.0); ARTERIAL BLOOD GAS FIO2 28 %; ARTERIAL BLOOD GAS PCO2 21 mmHg (35-45); ARTERIAL BLOOD GAS PO2 81 mmHg (75-100); ARTERIAL BLOOD GAS pH 7.47 (7.35-7.45); HCO3- 15.3 (22-28); HGB O2 SAT 96.1 g/dF (94-100); Lactic Acid 4.2 (0.4-2.0); Methhemoglobin 0.7 % (1.4-1.5); paO2 pAO1 0.47
[2018-11-30 08:46] LABS: ABG SITE RIGHT RADIAL; ALLEN TEST OK? YES
[2018-11-30] MEDS ORDERED: FEVERALL 650 MG ONE (08:47)
[2018-11-30] MEDS ORDERED: FEVERALL 325 MG ONE (08:47)
[2018-11-30] MEDS ORDERED: ROCEPHIN 1 Gm-D5w 50 ml Bag** 1 G/50 ML IVPB IV STA (08:53)
[2018-11-30] MEDS ORDERED: FEVERALL 650 MG PR ONE (08:53)
[2018-11-30] MEDS ORDERED: Zithromax 500 MG/ 250 ML NaCl Premix 500 MG/250 ML IVPB IV STA (08:53)
[2018-11-30 08:55] LABS: Hematocrit 39.4 % (35-47); Hemoglobin 13.5 gm/dl (12.0-16.0); Mean Cell Volume 92.9 fl (78-100); Mean Corpuscular Hemoglobin 31.8 pg (26-32); Mean Corpuscular Hgb Concent. 34.3 g/dl (32-36); Mean Platelet Volume 10.7 fl (6-9.5); Platelet Count 184 K/mm3 (150-450); Red Blood Count 4.24 M/mm3 (4.1-5.4); Red Cell Distribution Width 14.6 % (11.5-14.0)
[2018-11-30 08:56] LABS: INR 1.71 (0.8-3.0)
[2018-11-30 08:58] LABS: White Blood Count 28.4 K/mm3 (4.0-10.5)
[2018-11-30] MEDS ORDERED: ROCEPHIN 1 Gm-D5w 50 ml Bag** 1 G/50 ML IVPB IV ONE (09:00)
[2018-11-30] MEDS ORDERED: Zithromax 500 MG/ 250 ML NaCl Premix 500 MG/250 ML IVPB IV ONE (09:00)
[2018-11-30 09:08] LABS: ALBUMIN 3.8 g/dL (3.5-5.0); ANION GAP 19.4 MEQ/L (5-15); BILIRUBIN,TOTAL 4.3 mg/dL (0.2-1.3); Calcium 9.2 mg/dL (8.4-10.2); Creatinine 1 1.42 mg/dL (0.52-1.04); MAGNESIUM 1.7 mg/dL (1.6-2.3); Potassium 4.1 mmol/L (3.5-5.1); Total Protein 6.9 g/dL (6.3-8.2)
[2018-11-30 09:23] LABS: INFLUENZA A NEGATIVE (NEGATIVE); INFLUENZA B NEGATIVE (NEGATIVE); RESPIRATORY SYNCTIAL VIRUS NEGATIVE (Negative)
[2018-11-30 09:55] LABS: Appearance SLIGHTLY CLOUDY (CLEAR); Bacteria MODERATE /HPF (NEGATIVE); Bilirubin NEGATIVE (NEGATIVE); Blood MODERATE Ery/ul (0-5); Epithelial Cells RARE /HPF (FEW); Glucose 50 mg/dL (NEGATIVE); Ketones SMALL (NEGATIVE); Leukocyte Esterase NEGATIVE (NEGATIVE); Mucus SLIGHT /HPF (NEGATIVE); Nitrite NEGATIVE (NEGATIVE); Protein,Urine Dip 100 (Negative); Specific Gravity 1.021 (1.005-1.025); Urobilinogen 4 mg/dL (0-1)
[2018-11-30 10:08] LABS: BAND 11 % (0.0-2.0); Lymphocytes 1 % (24-44); Monocyte 2 % (0.0-12.0); Neutrophils 86 % (36.0-66.0); Platelet Estimate DECREASED (NORMAL); Total Cells Counted 100; Toxic Granulation 2+
[2018-11-30 11:11] VITALS: PULSE 70
[2018-11-30 11:21] VITALS: BP 102/53; O2SAT 95
--- NOTE | 2018-11-30 19:50 | XRAY ---
Indication: Short of breath. Comparison: June 03, 2018. Portable chest demonstrates clearing of previous right upper lung airspace opacity. Stable right base infiltrate/atelectasis, right base pleural effusion/thickening, right midlung discoid atelectasis/scarring, and right apical calcified granuloma. Left lung clear. Heart is not enlarged again with left-sided dual-lead pacemaker. Bony thorax intact again with mild osteopenia and degenerative changes. Impression: Stable right base infiltrate/atelectasis with pleural effusion/thickening.
--- NOTE | 2018-12-02 11:48 | HP ---
HISTORY OF PRESENT ILLNESS: The patient is a poor historian and is confused. No family members were available. History has been gathered from emergency room patient's chart and discussion with emergency room physician. Samina Lopez is an 87 year old woman with past medical history of hypertension, coronary artery disease, congestive heart failure, chronic obstructive pulmonary disease, chronic hypoxia and diabetes mellitus. Her recent course was notable for pneumonia and fall. She was brought to the emergency room this morning with increasing shortness of breath. Initial saturations were in the mid-80's and the patient was placed on oxygen and improved to 90's. Also she received DuoNeb from the emergency room. Also the patient was noted to be increasingly confused. Upon evaluation in the emergency room she was noted to be confused, emesis on her gown and soiled herself with urine. However she did not have any other symptoms. Also she was noted to have rapid shallow breathing while in the emergency room. Initial vitals in the emergency room were blood pressure 168/87, heart rate 74, respiratory rate 40. Oxygen saturation 95%. Her initial labs were notable for elevated lactic acid, elevated D-dimer, elevated BNP, elevated troponin. After initial evaluation she was treated with normal saline 1 liter, Tylenol 650 mg p.o. x1, Rocephin 1 gm x1, Zithromax 5 mg x1. At the time of this evaluation earlier today the patient was treated in the emergency room, alert, awake but confused. Upon asking she stated her breathing was better, "I'm okay" as answer to most other questions. Appeared comfortable. Having shallow and rapid breathing. PAST MEDICAL HISTORY: As noted above and gastroesophageal reflux disease. PAST SURGICAL HISTORY: Status post appendectomy, cholecystectomy, pacemaker placement. ALLERGIES: LEVOFLOXACIN, PENICILLIN, CODEINE. PNEUMOCOCCAL VACCINE. MEDICATIONS: Home medications were reviewed. FAMILY HISTORY: Heart disease, diabetes, hypertension in family members. SOCIAL HISTORY: Patient lives at home. No history of smoking, alcohol abuse or illicit drug use. REVIEW OF SYSTEMS: Somewhat limited since the patient is confused. However reported history of increasing shortness of breath, productive cough as noted. Also the patient was noted to have vomiting. The patient denied any symptoms. PHYSICAL EXAMINATION: An elderly woman lying comfortably in bed, not in acute distress. VITAL SIGNS: Blood pressure 104/58, heart rate 76, respiratory rate 40. Oxygen saturation of 98% on 2 liters. Also appeared pale. HEENT: Pallor is present. No icterus is noted. NECK: No JVD is present. CVS: S1, S2 present. RESPIRATORY: Breath sounds are bilaterally diminished, scattered rhonchi present. ABDOMEN: Obese, soft, nontender. NEURO: She is alert, cooperative but confused (less cooperative). EXTREMITIES: No edema on bilateral lower extremities. LABORATORY DATA AND TESTS: Labs from today show CBC with white blood cell 28.4, hemoglobin 13.5, hematocrit 39.4, [place] 184,[place] [address]. CMP notable for 27, creatinine 1.42, total bilirubin 4.30, AST 79, ALT 33, alkaline phosphatase 215. Troponin is 1.57. NT-BNP 708245. Flu A, B and respiratory syncytial virus were negative. UA showed presence of protein, moderate blood. Chest x-ray from today showed left axis deviation, left bundle branch block (old), nonspecific ST changes. Chest x-ray showed no pneumothorax, normal heart size, normal mediastinum, presence of early infiltrate (right lower lobe). ASSESSMENT: An 87 year old woman with impression: 1) Bronchopneumonia. 2) Sepsis. 3) Congestive heart failure with decompensation. 4) Elevated D-dimer. 5) Renal insufficiency. 6) Abnormal liver function test. 7) History of atrial fibrillation. 8) Diabetes mellitus. 9) Confusion. PLAN: The patient is admitted for further monitoring and management. In view of the patient's symptoms and abnormal labs as noted and likely need for cardiology input over the weekend, will transfer the patient to [facility]. The patient will be admitted there under my care. I advised nursing staff to check with the patient's family if they were okay with transferring her. I was informed by the emergency room nursing staff that son is agreeable with that. The patient will be transferred to [facility] on gentle diuretics, continue IV steroids, cardiology consultation will be obtained. Fall precautions. Replacement of electrolytes. The plan was discussed with the patient. Discussed with patient's emergency room nurse,
== END 2018-11-30 11:23 | disposition short-term general hospital (02) ==
LOC: ED 08:15
DX: R79.89 Other specified abnormal findings of blood chemistry (principal); R74.8 Abnormal levels of other serum enzymes; R65.20 Severe sepsis without septic shock; K21.9 Gastro-esophageal reflux disease without esophagitis; Z95.0 Presence of cardiac pacemaker
CPT/HCPCS: 80053; 81001; 82375; 82803; 83605; 83735; 83880; 84484; 85025; 85379; 85610; 87040; 87077; 87086; 87186; 87631; 93005; 93041; 96360; 96361; 96365; 96367; 96374; 96375; 99291; P9612; 36000; 36415; 36600; 71045; 99285; J0456; J0696; A9270-GY

== ENCOUNTER 2018-12-28 17:25 | Emergency (ER) | payer MEDICARE, BC ==
[2018-12-28 17:40] VITALS: O2SAT 97
[2018-12-28] MEDS ORDERED: TYLENOL 325 MG PO ONE (17:56)
[2018-12-28] MEDS ORDERED: DUONEB 0.5-3 MG/3 ml Neb IH ONE ×2 (17:57→18:09)
[2018-12-28] MEDS ORDERED: Sodium Chloride 0.9% 1000 ML 1,000 ML IV SCH (18:00)
--- NOTE | 2018-12-28 18:04 | ERPHSYRPT ---
- History of Present Illness Source: patient Exam Limitations: no limitations Patient Subjective Stated Complaint: Pt states "I got an infection in my internal pacemaker so they took it out and cleaned the cavity out. I have an external one on now. I started to have a cough a couple days ago and now I have a fever. [facility] Triage Nursing Assessment: Pt alert and oriented X 3, skin pwd. PT ambualtes slowly, able to speak in clear full sentences. PT has intermittant cough. pt has audible wheezes Timing/Duration: today (short of breath today) Severity of Dyspnea-Max: moderate Severity of Dyspnea-Current: moderate Possible Cause: occasional episodes (recent pneumonia recent infection in pacemaker p) Modifying Factors: Improves With: coughing. Worsens With: albuterol inhaler, albuterol nebulizer, deep breath, exertion, lying down, oxygen Associated Symptoms: constant, cough, fever, No intermittent, No anxiety, No chest pain/discomfort, No edema, No insomnia, No loss of appetite, No lightheadedness, No wheezing, No weakness, No ankle swelling, No chills, No hemoptysis, No calf pain, No dizziness, No heaviness, No heart racing, No lightheadedness, No leg swelling, No muscle spasms feet, No muscle spasms hands , No painful breathing, No productive cough, No sweating, No tightness, No tingling face International travel in last 2 weeks: No Hx Tetanus, Diphtheria Vaccination/Date Given: No Hx Influenza Vaccination/Date Given: No Hx Pneumococcal Vaccination/Date Given: No Immunizations Up to Date: Yes <ODALIS CRUZ - Last Filed: 12/28/18 19:10> <CALVIN SRIVASTAVA - Last Filed: 12/28/18 19:24> - History of Present Illness Time Seen by Provider: 12/28/18 17:46 Physician History: 88-year-old white female who states that she was treated for pneumonia 2 weeks ago she also states that she had developed a infection in her internal cardiac pacemaker which has been removed and an external pacemaker was placed. Arrives with complaint of shortness of breath when she arrives to the infusion center today. She was noted to have a increased temperature at infusion center She states that she developed short of breath and nonproductive cough she was unaware that she had a fever . She denies nausea no vomiting no chest pain. Past medical history includes CVA, diabetes type 2, COPD, arrhythmia, coronary artery disease, high blood pressure, arthritis, GERD, external pacemaker Patient had a recent pneumonia, she had an infection in her pacemaker pocket and therefore it was removed an external pacemaker was placed patient was receiving IV infusions to (antibiotics) through the infusion center. Past surgical history cataracts, tonsils, pacer, appendectomy, cholecystectomy, Pacer apparently removed and replaced with an external pacer Social history denies tobacco alcohol or illicit drug use (ODALIS CRUZ) Allergies/Adverse Reactions: levofloxacin [From Levaquin] Allergy (Intermediate, Verified 11/20/18 12:58) Hives Hives noted to IV insertion site where antibiotic was infused. codeine Allergy (Verified 11/20/18 12:58) penicillin G Allergy (Verified 11/20/18 12:58) Penicillins Allergy (Verified 11/20/18 12:58) pneumococcal vaccine Allergy (Verified 11/20/18 12:58) Home Medications: Gabapentin 300 mg PO BID 04/12/17 [History] Glimepiride 1 mg PO DAILY 04/12/17 [History] Oxybutynin Chloride [Oxybutynin Chloride ER] 5 mg PO DAILY 04/12/17 [History] Ropinirole HCl 1 mg PO HS 04/12/17 [History] Tamsulosin HCl 0.4 mg [Flomax 0.4 MG] 0.4 mg PO DAILY 04/12/17 [History] Amitriptyline HCl 25 mg [Elavil 25 mg] 50 mg PO HS 10/14/17 [History] Apixaban [Eliquis] 2.5 mg PO BID 10/14/17 [History] Simvastatin 5 mg PO HS 10/14/17 [History] Sildenafil Citrate [Sildenafil] 20 mg PO TID 11/26/17 [History] Carvedilol 6.25 mg [Coreg 6.25 MG] 6.25 mg PO BID 01/28/18 [History] Albuterol 2.5 mg/0.5 ml [PROVENTIL Solution 2.5 MG/0.5 ML] 2.5 mg IH Q6HPRN PRN 12/23/18 [History] Furosemide 20 mg [Lasix 20 mg] 20 mg PO BID 12/23/18 [History] Multivitamin [Multivitamins] 1 each PO DAILY 12/23/18 [History] Hosford-3 Fatty Acids/Fish Oil [Hosford-3 1,000 mg Softgel] 1 each PO DAILY [History] Potassium Chloride 10 Meq Tab* [Klor Con 10 MEQ] 10 meq PO DAILY 12/23/18 [ History] Prednisone 10 mg [Deltasone 10 mg] 10 mg PO DAILY 12/23/18 [History] Sildenafil Citrate [Sildenafil] 20 mg PO TID 12/23/18 [History] - Review of Systems Constitutional: Fever, No Chills, No Fatigue, No Lethargy, No Malaise, No Night Sweats, No Weakness, No Weight Loss Eyes: No Symptoms Ears, Nose, & Throat: No Symptoms Respiratory: Cough, Dyspnea, No Cyanosis, No Dyspnea on Exertion (KINNEY), No Stridor, No Wheezing Cardiac: No Chest Pain, No Edema, No Syncope Abdominal/Gastrointestinal: No Abdominal Pain, No Nausea, No Vomiting, No Diarrhea Genitourinary Symptoms: No Dysuria Musculoskeletal: No Back Pain, No Neck Pain Skin: No Rash Neurological: No Dizziness, No Focal Weakness, No Sensory Changes Psychological: No Symptoms Endocrine: No Symptoms (the pieces) All Other Systems: Reviewed and Negative <ODALIS CRUZ - Last Filed: 12/28/18 19:10> - Past Medical History Pertinent Past Medical History: Yes Neurological History: Stroke ENT History: No Pertinent History Cardiac History: Arrhythmia, Coronary Artery Disease, Congestive Heart Failure, Hypertension Respiratory History: COPD Endocrine Medical History: Diabetes Type II Musculoskeletal History: Arthritis GI Medical History: No Pertinent History History: No Pertinent History Psycho-Social History: No Pertinent History Female Reproductive Disorders: No Pertinent History Other Medical History: GERD, external pacemaker - Past Surgical History Past Surgical History: Yes Neuro Surgical History: No Pertinent History Cardiac: Pacemaker Respiratory: No Pertinent History Gastrointestinal: Appendectomy, Cholecystectomy Genitourinary: No Pertinent History Musculoskeletal: No Pertinent History Female Surgical History: Hysterectomy Other Surgical History: ppm placement, then removed for infecrtion, at this time she has external pacemaker. - Social History Smoking Status: Never smoker Exposure to second hand smoke: No Alcohol Use: None Drug Use: none Patient Lives Alone: No Significant Family History: heart disease, diabetes, hypertension - Female History Hx Now: No <ODALIS CRUZ - Last Filed: 12/28/18 19:10> - Physical Exam General Appearance: mild distress, alert Eye Exam: PERRL/EOMI Ears, Nose, Throat Exam: hearing grossly normal, normal ENT inspection, normal pharynx, No abnormal TM (R) Neck Exam: normal inspection, supple Respiratory Exam: respiratory distress, airway intact, other (dressing in place left anterior chest), No chest tenderness, No lungs clear Cardiovascular/Chest Exam: normal heart sounds, regular rate/rhythm Abdominal/Gastrointestinal Exam: soft, No tenderness, No distention, No mass Extremity Exam: non-tender, normal range of motion, normal inspection, no calf tenderness, no pedal edema Peripheral Pulses Exam: dorsalis-pedis (R): 2+, dorsalis-pedis (L): 2+ Neurologic Exam: alert, oriented x 3, cooperative, brush maker II-XII nml as tested, sensation nml, No motor deficits Skin Exam: normal color (Totally eliminated maxim when he had a pair as well as the surgery n last [place] for her to 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 ), warm SpO2 Interpretation: normal ((&%) SpO2: 97 <ODALIS CRUZ - Last Filed: 12/28/18 19:10> <CALVIN SRIVASTAVA - Last Filed: 12/28/18 19:24> - Nursing Vital Signs Nursing Vital Signs: Initial Vital Signs Temperature 101.8 F 12/28/18 17:32 Pulse Rate 72 12/28/18 17:32 Respiratory Rate 20 12/28/18 17:32 Blood Pressure 139/68 12/28/18 17:32 O2 Sat by Pulse Oximetry 97 12/28/18 17:32 Pain Scale Pain Intensity 0 - Course Nursing assessment & vital signs reviewed: Yes EKG Interpreted by Me: RATE (70 bpm), Other (EKG: Paced rhythm at 70 bpm) <ODALIS CRUZ - Last Filed: 12/28/18 19:10> Ordered Tests: Active Orders 24 hr Category Date Time Status Casing Splitter STAT Care 12/28/18 17:54 Active EKG-ER Only STAT Care 12/28/18 17:54 Active IV Insertion STAT Care 12/28/18 17:54 Active CHEST 1 VIEW (PORTABLE) Stat Exams 12/28/18 17:54 Taken BLOOD CULTURE Stat Lab 12/28/18 18:35 Received CBC W DIFF Stat Lab 12/28/18 18:34 Completed CMP Stat Lab 12/28/18 18:34 Completed CULTURE,SPUTUM Stat Lab 12/28/18 17:54 Uncollected D-DIMER QUANTITATION Stat Lab 12/28/18 18:34 Received Lactic Acid Stat Lab 12/28/18 18:15 Completed Manual Differential NC Stat Lab 12/28/18 18:34 Completed NT PRO BNP Stat Lab 12/28/18 18:34 Completed PROTIME WITH INR Stat Lab 12/28/18 18:34 Received PTT Stat Lab 12/28/18 18:34 Received TROPONIN Q3H Lab 12/28/18 18:10 Completed TROPONIN Q3H Lab 12/29/18 00:00 Ordered TROPONIN Q3H Lab 12/29/18 03:00 Ordered TROPONIN Q3H Lab 12/29/18 06:00 Ordered TROPONIN Routine Lab 12/28/18 21:00 Ordered UA W/RFX UR CULTURE Stat Lab 12/28/18 17:55 Uncollected VENOUS BLOOD GAS Stat Lab 12/28/18 18:15 Completed Peak Expiratory Flow Rate ONCE RT 12/28/18 18:14 Active Respiratory Nebulizer STAT RT 12/28/18 17:57 Completed Respiratory Therapy Assessment DAILY RT 12/28/18 18:15 Active Medication Summary Generic Name Dose Route Start Last Admin Trade Name Freq PRN Reason Stop Dose Admin Sodium Chloride 1,000 mls @ 100 mls/hr 12/28/18 18:00 12/28/18 18:32 Sodium Chloride 0.9% 1000 Ml IV 01/27/19 17:59 100 mls/hr .Q10H FAHAD Administration Discontinued Medications Generic Name Dose Route Start Last Admin Trade Name Freq PRN Reason Stop Dose Admin Acetaminophen 975 mg 12/28/18 17:56 12/28/18 18:31 Tylenol 325 Mg PO 12/28/18 17:57 975 mg STAT ONE Administration Acetaminophen Confirm 12/28/18 18:30 Tylenol 325 Mg Administered 12/28/18 18:31 Dose 975 mg .ROUTE .STK-MED ONE Albuterol/Ipratropium 3 ml 12/28/18 17:57 12/28/18 18:15 Duoneb 0.5-3 Mg/3 Ml Neb IH 12/28/18 17:58 3 ml STAT ONE Administration Albuterol/Ipratropium Confirm 12/28/18 18:09 Duoneb 0.5-3 Mg/3 Ml Neb Administered 12/28/18 18:10 Dose 3 ml IH .STK-MED ONE Lab/Rad Data: Laboratory Result Diagrams 12/28/18 18:34 12/28/18 18:34 Laboratory Results 12/28/18 12/28/18 12/28/18 Range/Units 18:34 18:34 18:34 WBC (4.0-10.5) K/mm3 RBC (4.1-5.4) M/mm3 Hgb (12.0-16.0) gm/dl Hct (35-47) % MCV (78-100) fl MCH (26-32) pg MCHC (32-36) g/dl RDW (11.5-14.0) % Plt Count (150-450) K/mm3 MPV (6-9.5) fl Absolute Granulocytes (1.4-6.9) pO2/FiO2 Ratio % VBG pH (7.32-7.42) VBG pCO2 at Pat Temp (42-55) mm/Hg VBG pO2 at Pat Temp (25-40) mm/Hg VBG HCO3 (22-28) meq/L VBG O2 Sat (Sonja) (95-100) VBG Base Excess (-2.0-2.0) VBG Hemoglobin VBG Carboxyhemoglobin (0.0-6.9) % T HGB POC Potassium (3.5-5.1) Sodium 135 L (137-145) mmol/L Potassium 4.4 (3.5-5.1) mmol/L Chloride 104 (98-107) mmol/L Carbon Dioxide 22 (22-30) mmol/L Anion Gap 13.9 (5-15) MEQ/L BUN 29 H (7-17) mg/dL Creatinine 0.97 (0.52-1.04) mg/dL Estimated GFR 57.9 ML/MIN Glucose 120 H (74-106) mg/dL Lactic Acid (0.4-2.0) Calcium 8.5 (8.4-10.2) mg/dL Total Bilirubin 0.60 (0.2-1.3) mg/dL AST 30 (14-36) U/L ALT 9 (0-35) U/L Alkaline Phosphatase 141 H (38-126) U/L Troponin I Cancelled (0.000-0.034) ng/mL NT-Pro-B Natriuret Pep 5910 H (0-1800) pg/mL Serum Total Protein 6.2 L (6.3-8.2) g/dL Albumin 3.4 L (3.5-5.0) g/dL 12/28/18 12/28/18 12/28/18 Range/Units 18:34 18:15 18:10 WBC 9.0 (4.0-10.5) K/mm3 RBC 3.43 L (4.1-5.4) M/mm3 Hgb 11.0 L (12.0-16.0) gm/dl Hct 33.6 L (35-47) % MCV 98.0 (78-100) fl MCH 32.0 (26-32) pg MCHC 32.7 (32-36) g/dl RDW 14.9 H (11.5-14.0) % Plt Count 254 (150-450) K/mm3 MPV 10.4 H (6-9.5) fl Absolute Granulocytes 6.53 (1.4-6.9) pO2/FiO2 Ratio 21.0 % VBG pH 7.49 H (7.32-7.42) VBG pCO2 at Pat Temp 30 L (42-55) mm/Hg VBG pO2 at Pat Temp 50 H (25-40) mm/Hg VBG HCO3 22.9 (22-28) meq/L VBG O2 Sat (Sonja) 92.7 L (95-100) VBG Base Excess 0.2 (-2.0-2.0) VBG Hemoglobin 11.4 VBG Carboxyhemoglobin 2.9 (0.0-6.9) % T HGB POC Potassium 4.3 (3.5-5.1) Sodium (137-145) mmol/L Potassium (3.5-5.1) mmol/L Chloride (98-107) mmol/L Carbon Dioxide (22-30) mmol/L Anion Gap (5-15) MEQ/L BUN (7-17) mg/dL Creatinine (0.52-1.04) mg/dL Estimated GFR ML/MIN Glucose (74-106) mg/dL Lactic Acid 1.5 (0.4-2.0) Calcium (8.4-10.2) mg/dL Total Bilirubin (0.2-1.3) mg/dL AST (14-36) U/L ALT (0-35) U/L Alkaline Phosphatase (38-126) U/L Troponin I 0.026 (0.000-0.034) ng/mL NT-Pro-B Natriuret Pep (0-1800) pg/mL Serum Total Protein (6.3-8.2) g/dL Albumin (3.5-5.0) g/dL - Progress Progress: improved Air Movement: fair <ODALIS CRUZ - Last Filed: 12/28/18 19:10> - Progress Air Movement: fair Counseled pt/family regarding: lab results, diagnosis, need for follow-up <CALVIN SRIVASTAVA - Last Filed: 12/28/18 19:24> - Progress Progress Note: 12/28/18 18:17 88-year-old white female who had a pneumonia approximately 2 weeks ago and apparently had gotten an infection in her cardiac pacemaker pocket. She apparently had the internal pacemaker removed and has had an external pacemaker placed. She apparently has been receiving antibiotics through the infusion center. She arrives at the infusion center today with complaints that she is short of breath since today having a nonproductive cough. She is noted to have an elevated temperature. She denies any pain she has no nausea no vomiting. Patient apparently did receive cefazolin 2 g IV at the infusion center today. Appropriate labs have been ordered including CBC CMP blood cultures urine cultures chest x-ray lactate respiratory panel as well as d-dimer. I have ordered a DuoNeb treatment for the patient. 12/28/18 19:09 Case will be transferred to Dr. Srivastava due to shift change. Case was discussed with Dr. Srivastava. (ODALIS CRUZ) 12/28/18 19:23 All labs reviewed, there are no significant changes. (CALVIN SRIVASTAVA) <ODALIS CRUZ - Last Filed: 12/28/18 19:10> - Departure Time of Disposition: 19:23 Departure Disposition: Home Critical Care Time: Yes Critical Care Time(excluding separately billable procedures): 30-74 minutes <CALVIN SRIVASTAVA - Last Filed: 12/28/18 19:24> - Departure Clinical Impression: Shortness of breath, Pulmonary hypertension Atrial fibrillation Qualifiers: Atrial fibrillation type: chronic Qualified Code(s): I48.2 - Chronic atrial fibrillation Condition: Stable Referrals: CALVIN SRIVASTAVA MD [Primary Care Provider] -
[2018-12-28 18:22] LABS: Lactic Acid 1.5 (0.4-2.0); VBG BASE EXCESS 0.2 (-2.0-2.0); VBG CARBOXYHEMOGLOBIN 2.9 % T HGB (0.0-6.9); VBG HCO3- 22.9 meq/L (22-28); VBG HEMOGLOBIN 11.4; VBG O2 SATURATION 92.7 (95-100); VBG POTASSIUM 4.3 (3.5-5.1); VBG pH 7.49 (7.32-7.42)
[2018-12-28 18:28] VITALS: PULSE 70
[2018-12-28] MEDS ORDERED: Sodium Chloride 0.9% 1000 ML 1,000 ML ONE (18:30)
[2018-12-28] MEDS ORDERED: TYLENOL 325 MG ONE (18:30)
[2018-12-28 18:38] LABS: Granulocyte Absolute (ANC) 6.53 (1.4-6.9); Hematocrit 33.6 % (35-47); Mean Corpuscular Hgb Concent. 32.7 g/dl (32-36); Mean Platelet Volume 10.4 fl (6-9.5); Platelet Count 254 K/mm3 (150-450); Red Blood Count 3.43 M/mm3 (4.1-5.4); Red Cell Distribution Width 14.9 % (11.5-14.0)
[2018-12-28 19:07] LABS: ALBUMIN 3.4 g/dL (3.5-5.0); ANION GAP 13.9 MEQ/L (5-15); BILIRUBIN,TOTAL 0.6 mg/dL (0.2-1.3); Calcium 8.5 mg/dL (8.4-10.2); Creatinine 1 0.97 mg/dL (0.52-1.04); Potassium 4.4 mmol/L (3.5-5.1); Total Protein 6.2 g/dL (6.3-8.2)
[2018-12-28 19:11] VITALS: BP 130/80
[2018-12-28 19:25] LABS: INFLUENZA A NEGATIVE (NEGATIVE); INFLUENZA B NEGATIVE (NEGATIVE); RESPIRATORY SYNCTIAL VIRUS NEGATIVE (Negative)
[2018-12-28 19:27] LABS: INR 1.21 (0.8-3.0); PROTIME 14.1 SECONDS (9.95-12.35)
[2018-12-28 19:37] LABS: ATYPICAL LYMPHS 2 %; BAND 10 % (0.0-2.0); Eosinophil 1 % (0.00-3.0); Lymphocytes 8 % (24-44); Monocyte 7 % (0.0-12.0); Neutrophils 72 % (36.0-66.0); Total Cells Counted 100
[2018-12-28 19:38] LABS: Platelet Estimate NORMAL (NORMAL)
[2018-12-28 19:39] LABS: Hypochromia 1+
--- NOTE | 2018-12-28 22:13 | XRAY ---
Indication: Short of breath, fever, and cough. Comparison: November 30, 2018. Portable chest again demonstrates right mid to lower lung infiltrate/atelectasis and small right effusion. New mild left base infiltrate/atelectasis and tiny left effusion. Elsewhere stable right midlung discoid atelectasis/scarring and tiny right apical calcified granuloma. Heart is not enlarged with new left single lead pacemaker. Bony thorax intact again with mild osteopenia and degenerative changes. Impression: Bilateral infiltrates/atelectasis/effusion, right greater than left without cardiomegaly.
[2018-12-29] MEDS ORDERED: PROVENTIL 2.5 MG/3 ML NEB IH ONE (04:10)
== END 2018-12-28 19:50 | disposition home or self-care (01) ==
LOC: ED 17:25
DX: R06.02 Shortness of breath (principal); I27.20 Pulmonary hypertension, unspecified; I48.2 Chronic atrial fibrillation; I25.10 Atherosclerotic heart disease of native coronary artery without angina pectoris; I10 Essential (primary) hypertension; E11.9 Type 2 diabetes mellitus without complications; I50.9 Heart failure, unspecified; K21.9 Gastro-esophageal reflux disease without esophagitis; Z95.0 Presence of cardiac pacemaker; Z79.01 Long term (current) use of anticoagulants; Z79.899 Other long term (current) drug therapy
CPT/HCPCS: 36000; 36415; 71045; 80053; 82805; 83605; 83880; 84484; 85025; 85379; 85610; 85730; 87040; 87631; 93005; 93041; 94150; 94640; 96365; 96374; 99211; 99284; J0690; J7609; A9270-GY

== ENCOUNTER 2018-12-29 04:07 | Inpatient (IN) | payer MEDICARE, BC ==
[2018-12-29] MEDS ORDERED: PROVENTIL 2.5 MG/3 ML NEB IH ONE (04:13)
[2018-12-29] MEDS ORDERED: Sodium Chloride 0.9% 1000 ML 1,000 ML ONE (04:14)
[2018-12-29] MEDS ORDERED: Lasix 40 MG/4 ML ONE (04:14)
[2018-12-29] MEDS ORDERED: Lasix 40 MG/4 ML IV ONE (04:21)
[2018-12-29 04:26] LABS: A-aADO2 162; ABG HEMOGLOBIN 12.2; ABG POTASSIUM 5.1 (3.5-5.1); ABG SITE LEFT RADIAL; ALLEN TEST OK? YES; ARTERIAL BLD GAS O2 SATURATION 95.7 % (95-100); ARTERIAL BLOOD GAS BASE EXCESS -9.2 (-2.0-2.0); ARTERIAL BLOOD GAS FIO2 36 %; ARTERIAL BLOOD GAS PCO2 25 mmHg (35-45); ARTERIAL BLOOD GAS PO2 63 mmHg (75-100); ARTERIAL BLOOD GAS pH 7.37 (7.35-7.45); CARBOXYHEMOGLOBIN 2.4 % THgb (0.0-6.9); HCO3- 14.5 (22-28); HGB O2 SAT 92.2 g/dF (94-100); Methhemoglobin 1.3 % (1.4-1.5); paO2 pAO1 0.28
[2018-12-29 04:28] LABS: Lactic Acid 7.8 (0.4-2.0)
[2018-12-29] MEDS ORDERED: Sodium Chloride 0.9% 1000 ML 1,000 ML IV SCH (04:30)
[2018-12-29 04:42] LABS: Granulocyte Absolute (ANC) 8.29 (1.4-6.9); Hematocrit 37.1 % (35-47); Hemoglobin 11.7 gm/dl (12.0-16.0); Mean Cell Volume 100.5 fl (78-100); Mean Corpuscular Hemoglobin 31.7 pg (26-32); Mean Corpuscular Hgb Concent. 31.5 g/dl (32-36); Mean Platelet Volume 10.4 fl (6-9.5); Platelet Count 300 K/mm3 (150-450); Red Blood Count 3.69 M/mm3 (4.1-5.4); White Blood Count 12.2 K/mm3 (4.0-10.5)
[2018-12-29 04:58] LABS: ALBUMIN 3.6 g/dL (3.5-5.0); ANION GAP 21.2 MEQ/L (5-15); Calcium 8.7 mg/dL (8.4-10.2); Creatinine 1 1.25 mg/dL (0.52-1.04); PHOSPHOROUS 4.8 mg/dL (2.5-4.5); Potassium 5.5 mmol/L (3.5-5.1)
[2018-12-29] MEDS ORDERED: KEFZOL 1 GM IV ONE (05:06)
[2018-12-29] MEDS ORDERED: CEFAZOLIN 2 GM-D5W BAG** 2 GM/50 ML ML IV ONE (05:11)
[2018-12-29] MEDS ORDERED: CEFAZOLIN 2 GM-D5W BAG** 2 GM/50 ML ML IV STA (05:22)
--- NOTE | 2018-12-29 05:23 | ERPHSYRPT ---
- History of Present Illness Time Seen by Provider: 12/29/18 05:17 Source: patient, family Exam Limitations: clinical condition Patient Subjective Stated Complaint: patient was seen and treated in emergency room [place] this evening patient improved and was discharged home with follow up patient returned to ER with shortness of breath and chills stated she was sleeping soundsly nad woke up feeling short of breath Triage Nursing Assessment: pt is alert and orietned to own ability, skin is cyanotic and pale, patient unable to catch her breath , brought in by wheelchair moved to bed assist of 1, patient lung sounds wheezes course, increased respiratory rate. pusles equal bialteral radius, patient external pacemaker functioning properly. Physician History: patient was seen and treated in emergency room earlier this evening patient improved and was discharged home with follow up patient returned to ER with shortness of breath and chills stated she was sleeping soundly, woke up feeling short of breath. Patient had recent hospitalization for infected pacemaker for which she is getting IV Antibiotics infusion Severity of Dyspnea-Max: severe Severity of Dyspnea-Current: severe Allergies/Adverse Reactions: levofloxacin [From Levaquin] Allergy (Intermediate, Verified 11/20/18 12:58) Hives Hives noted to IV insertion site where antibiotic was infused. codeine Allergy (Verified 11/20/18 12:58) penicillin G Allergy (Verified 11/20/18 12:58) Penicillins Allergy (Verified 11/20/18 12:58) pneumococcal vaccine Allergy (Verified 11/20/18 12:58) Home Medications: Gabapentin 300 mg PO BID 04/12/17 [History] Glimepiride 1 mg PO DAILY 04/12/17 [History] Oxybutynin Chloride [Oxybutynin Chloride ER] 5 mg PO DAILY 04/12/17 [History] Ropinirole HCl 1 mg PO HS 04/12/17 [History] Tamsulosin HCl 0.4 mg [Flomax 0.4 MG] 0.4 mg PO DAILY 04/12/17 [History] Amitriptyline HCl 25 mg [Elavil 25 mg] 50 mg PO HS 10/14/17 [History] Apixaban [Eliquis] 2.5 mg PO BID 10/14/17 [History] Simvastatin 5 mg PO HS 10/14/17 [History] Sildenafil Citrate [Sildenafil] 20 mg PO TID 11/26/17 [History] Carvedilol 6.25 mg [Coreg 6.25 MG] 6.25 mg PO BID 01/28/18 [History] Albuterol 2.5 mg/0.5 ml [PROVENTIL Solution 2.5 MG/0.5 ML] 2.5 mg IH Q6HPRN PRN 12/23/18 [History] Furosemide 20 mg [Lasix 20 mg] 20 mg PO BID 12/23/18 [History] Multivitamin [Multivitamins] 1 each PO DAILY 12/23/18 [History] [place]-3 Fatty Acids/Fish Oil [[place]-3 1,000 mg Softgel] 1 each PO DAILY [History] Potassium Chloride 10 Meq Tab* [Klor Con 10 MEQ] 10 meq PO DAILY 12/23/18 [ History] Prednisone 10 mg [Deltasone 10 mg] 10 mg PO DAILY 12/23/18 [History] Sildenafil Citrate [Sildenafil] 20 mg PO TID 12/23/18 [History] Hx Tetanus, Diphtheria Vaccination/Date Given: No Hx Influenza Vaccination/Date Given: No Hx Pneumococcal Vaccination/Date Given: No - Review of Systems Constitutional: No Fever, No Chills Eyes: No Symptoms Ears, Nose, & Throat: No Symptoms Respiratory: Cyanosis, Dyspnea, Dyspnea on Exertion (KINNEY), Wheezing, No Cough Cardiac: Palpitations, No Chest Pain, No Edema, No Syncope Abdominal/Gastrointestinal: No Abdominal Pain, No Nausea, No Vomiting, No Diarrhea Genitourinary Symptoms: No Dysuria Musculoskeletal: No Back Pain, No Neck Pain Skin: No Rash Neurological: No Dizziness, No Focal Weakness, No Sensory Changes Psychological: No Symptoms Endocrine: No Symptoms All Other Systems: Reviewed and Negative - Past Medical History Pertinent Past Medical History: Yes Neurological History: Stroke ENT History: No Pertinent History Cardiac History: Arrhythmia, Coronary Artery Disease, Congestive Heart Failure, Hypertension Respiratory History: COPD Endocrine Medical History: Diabetes Type II Musculoskeletal History: Arthritis GI Medical History: No Pertinent History History: No Pertinent History Psycho-Social History: No Pertinent History Female Reproductive Disorders: No Pertinent History Other Medical History: GERD, external pacemaker - Past Surgical History Past Surgical History: Yes Neuro Surgical History: No Pertinent History Cardiac: Pacemaker Respiratory: No Pertinent History Gastrointestinal: Appendectomy, Cholecystectomy Genitourinary: No Pertinent History Musculoskeletal: No Pertinent History Female Surgical History: Hysterectomy Other Surgical History: ppm placement, then removed for infecrtion, at this time she has external pacemaker. - Social History Smoking Status: Never smoker Exposure to second hand smoke: No Alcohol Use: None Drug Use: none Patient Lives Alone: No Significant Family History: heart disease, diabetes, hypertension - Female History Hx Now: No - Nursing Vital Signs Nursing Vital Signs: Initial Vital Signs Temperature 99.7 F 12/29/18 04:08 Pulse Rate 79 12/29/18 04:08 Respiratory Rate 28 H 12/29/18 04:08 Blood Pressure 156/102 12/29/18 04:08 O2 Sat by Pulse Oximetry 98 12/29/18 04:08 Pain Scale Pain Intensity 0 - Physical Exam General Appearance: no apparent distress, alert Eye Exam: PERRL/EOMI Neck Exam: normal inspection, supple Respiratory Exam: diminished breath sounds, accessory muscle use, prolonged expirations, crackles/rales, rhonchi, wheezing Cardiovascular/Chest Exam: normal heart sounds, regular rate/rhythm Abdominal/Gastrointestinal Exam: soft, No tenderness, No distention, No mass Extremity Exam: non-tender, normal range of motion, normal inspection, no calf tenderness, no pedal edema Neurologic Exam: alert, oriented x 3, cooperative, copy cutter II-XII nml as tested, sensation nml, No motor deficits Skin Exam: normal color, warm, No dry SpO2 Interpretation: borderline oxygenation SpO2: 90 - Course Nursing assessment & vital signs reviewed: Yes EKG Interpreted by Me: Sinus Tach - Radiology Exams Chest X-ray Interpretation: Reviewed by me (CHF and COPD changes) Ordered Tests: Active Orders 24 hr Category Date Time Status EKG-ER Only STAT Care 12/29/18 04:24 Active CHEST 1 VIEW (PORTABLE) Stat Exams 12/29/18 04:21 Taken ABG [ARTERIAL BLOOD GASES] Stat Lab 12/29/18 04:20 Completed BMP/RENAL PROFILE Stat Lab 12/29/18 04:37 Completed CBC W DIFF Stat Lab 12/29/18 04:37 Completed D-DIMER QUANTITATION Stat Lab 12/29/18 05:04 Ordered Lactic Acid Stat Lab 12/29/18 04:20 Results Lactic Acid Stat Lab 12/29/18 04:30 Ordered Manual Differential NC Stat Lab 12/29/18 04:37 Completed TROPONIN Q3H Lab 12/29/18 04:30 Ordered TROPONIN Q3H Lab 12/29/18 04:42 Received TROPONIN Q3H Lab 12/29/18 07:30 Ordered TROPONIN Q3H Lab 12/29/18 10:30 Ordered TROPONIN Q3H Lab 12/29/18 13:30 Ordered Respiratory Nebulizer STAT RT 12/29/18 04:38 Completed Respiratory Therapy Assessment DAILY RT 12/29/18 04:38 Active Medication Summary Generic Name Dose Route Start Last Admin Trade Name Freq PRN Reason Stop Dose Admin Sodium Chloride 1,000 mls @ 50 mls/hr 12/29/18 04:30 12/29/18 04:29 Sodium Chloride 0.9% 1000 Ml IV 01/28/19 04:29 50 mls/hr .Q20H FAHAD Administration Discontinued Medications Generic Name Dose Route Start Last Admin Trade Name Freq PRN Reason Stop Dose Admin Albuterol Sulfate 2.5 mg 12/29/18 04:13 Proventil 2.5 Mg/3 Ml Neb IH 12/29/18 04:14 STAT ONE Cefazolin Sodium 2 g 12/29/18 05:06 Kefzol 1 Gm IV 12/29/18 05:07 STAT ONE Furosemide Confirm 12/29/18 04:14 Lasix 40 Mg/4 Ml Administered 12/29/18 04:15 Dose 40 mg .ROUTE .STK-MED ONE Furosemide 20 mg 12/29/18 04:21 12/29/18 04:29 Lasix 40 Mg/4 Ml IV 12/29/18 04:22 20 mg STAT ONE Administration Sodium Chloride Confirm 12/29/18 04:14 Sodium Chloride 0.9% 1000 Ml Administered 12/29/18 04:15 Dose 1,000 mls @ ud .ROUTE .STK-MED ONE Cefazolin Sodium/Dextrose Confirm 12/29/18 05:11 Cefazolin 2 Gm-D5w Bag Administered 12/29/18 05:12 Dose 2 gm in 50 mls @ ud IV .STK-MED ONE Lab/Rad Data: Laboratory Result Diagrams 12/29/18 04:37 12/29/18 04:37 Laboratory Results 12/29/18 12/29/1812/29/19 Range/Units 04:37 04:37 04:20 WBC 12.2 H (4.0-10.5) K/mm3 RBC 3.69 L (4.1-5.4) M/mm3 Hgb 11.7 L (12.0-16.0) gm/dl Hct 37.1 (35-47) % MCV 100.5 H (78-100) fl MCH 31.7 (26-32) pg MCHC 31.5 L (32-36) g/dl RDW 15.0 H (11.5-14.0) % Plt Count 300 (150-450) K/mm3 MPV 10.4 H (6-9.5) fl Absolute Granulocytes 8.29 H (1.4-6.9) Puncture Site pCO2 (35-45) mmHg pO2 (75-100) mmHg Base Excess (-2.0-2.0) O2 Saturation (94-100) g/dF ABG pH (7.35-7.45) ABG HCO3 (22-28) ABG O2 Sat (Measured) (95-100) % Adria Test A-a Gradient a/A Ratio Hemoglobin Carboxyhemoglobin (0.0-6.9) % THgb Methemoglobin (1.4-1.5) % Potassium 5.5 H D (3.5-5.1) Temperature C POC O2 Flow Rate % Sodium 137 (137-145) mmol/L Chloride 102 (98-107) mmol/L Carbon Dioxide 19 L (22-30) mmol/L Anion Gap 21.2 H (5-15) MEQ/L BUN 30 H (7-17) mg/dL Creatinine 1.25 H (0.52-1.04) mg/dL Estimated GFR 43.2 ML/MIN Glucose 228 H (74-106) mg/dL Lactic Acid 7.8 H (0.4-2.0) Calcium 8.7 (8.4-10.2) mg/dL Phosphorus 4.8 H (2.5-4.5) mg/dL Albumin 3.6 (3.5-5.0) g/dL 12/29/18 Range/Units 04:20 WBC (4.0-10.5) K/mm3 RBC (4.1-5.4) M/mm3 Hgb (12.0-16.0) gm/dl Hct (35-47) % MCV (78-100) fl MCH (26-32) pg MCHC (32-36) g/dl RDW (11.5-14.0) % Plt Count (150-450) K/mm3 MPV (6-9.5) fl Absolute Granulocytes (1.4-6.9) Puncture Site LEFT RADIAL pCO2 25 L (35-45) mmHg pO2 63 L (75-100) mmHg Base Excess -9.2 L (-2.0-2.0) O2 Saturation 92.2 L (94-100) g/dF ABG pH 7.37 (7.35-7.45) ABG HCO3 14.5 L* (22-28) ABG O2 Sat (Measured) 95.7 (95-100) % Adria Test YES A-a Gradient 162 a/A Ratio 0.28 Hemoglobin 12.2 Carboxyhemoglobin 2.4 (0.0-6.9) % THgb Methemoglobin 1.3 L (1.4-1.5) % Potassium 5.1 (3.5-5.1) Temperature 37.0 C POC O2 Flow Rate 36 % Sodium (137-145) mmol/L Chloride (98-107) mmol/L Carbon Dioxide (22-30) mmol/L Anion Gap (5-15) MEQ/L BUN (7-17) mg/dL Creatinine (0.52-1.04) mg/dL Estimated GFR ML/MIN Glucose (74-106) mg/dL Lactic Acid (0.4-2.0) Calcium (8.4-10.2) mg/dL Phosphorus (2.5-4.5) mg/dL Albumin (3.5-5.0) g/dL - Progress Progress: improved Air Movement: fair Progress Note: 12/29/18 05:21 Patient is on BiPap. doing ok. will admit patient in ICU Blood Culture(s) Obtained: Yes Antibiotics given: Yes Discussed with : César Will see patient in: hospital (full admit) Counseled pt/family regarding: lab results, diagnosis, need for follow-up, rad results - Departure Time of Disposition: 05:22 Departure Disposition: In-patient Admission Clinical Impression: COPD exacerbation, Pulmonary hypertension, D-dimer, elevated, Severe sepsis Condition: Fair Critical Care Time: Yes Critical Care Time(excluding separately billable procedures): 30-74 minutes Referrals: CALVIN SRIVASTAVA MD [Primary Care Provider] - Instructions: Chronic Obstructive Pulmonary Disease
[2018-12-29 05:24] LABS: BAND 9 % (0.0-2.0); Eosinophil 4 % (0.00-3.0); Lymphocytes 23 % (24-44); Monocyte 8 % (0.0-12.0); Neutrophils 56 % (36.0-66.0); Total Cells Counted 100
[2018-12-29 05:25] LABS: Platelet Estimate NORMAL (NORMAL)
[2018-12-29 07:49] LABS: VBG BASE EXCESS -0.3 (-2.0-2.0); VBG CARBOXYHEMOGLOBIN 3.3 % T HGB (0.0-6.9); VBG HEMOGLOBIN 11.5; VBG O2 SATURATION 74.3 (95-100); VBG POTASSIUM 4.3 (3.5-5.1); VBG pH 7.42 (7.32-7.42)
--- NOTE | 2018-12-29 07:54 | PCM.HP ---
History of Present Illness - Chief Complaint Chief Complaint: Shortness of Breath for 2 days History of Present Illness: is a 88 year old female.Patient came to the emergency room with sudden onset of shortness of breath. Patient was just discharged from the emergency room. Last night. Patient has recent multiple hospital admission for sepsis and infected pacemaker leads. Patient was getting IV antibiotic as an outpatient. Patient has other comorbid conditions include moderate to severe pulmonary hypertension, coronary artery disease, COPD, hypertension, atrial fibrillation, severe peripheral vascular disease, and risk for sepsis. - Review of Systems Constitutional: Lethargy, Weakness, No Fever, No Chills Eyes: No Symptoms Ears, Nose, & Throat: No Symptoms Respiratory: Cough, Orthopnea, Short Of Breath, Wheezing Cardiac: Palpitations, No Chest Pain, No Edema, No Syncope Abdominal/Gastrointestinal: No Abdominal Pain, No Nausea, No Vomiting, No Diarrhea Genitourinary Symptoms: No Dysuria Musculoskeletal: No Back Pain, No Neck Pain Skin: No Rash Neurological: No Dizziness, No Focal Weakness, No Sensory Changes Psychological: No Symptoms Endocrine: No Symptoms Hematologic/Lymphatic: No Symptoms Immunological/Allergic: No Symptoms Medications & Allergies Home Medications: Home Medication List Gabapentin 300 mg PO BID 04/12/17 [History Confirmed 12/29/18] Glimepiride 1 mg PO DAILY 04/12/17 [History Confirmed 12/29/18] Oxybutynin Chloride [Oxybutynin Chloride ER] 5 mg PO DAILY 04/12/17 [History Confirmed 12/29/18] Ropinirole HCl 1 mg PO HS 04/12/17 [History Confirmed 12/29/18] Tamsulosin HCl 0.4 mg [Flomax 0.4 MG] 0.4 mg PO DAILY 04/12/17 [History Confirmed 12/29/18] Amitriptyline HCl 25 mg [Elavil 25 mg] 50 mg PO HS 10/14/17 [History Confirmed 12/29/18] Apixaban [Eliquis] 2.5 mg PO BID 10/14/17 [History Confirmed 12/29/18] Simvastatin 5 mg PO HS 10/14/17 [History Confirmed 12/29/18] Carvedilol 6.25 mg [Coreg 6.25 MG] 6.25 mg PO BID 01/28/18 [History Confirmed 12/29/18] Hydrocodone/APAP 5-325 Tab^^^ [[place] 5-325 Tablet^^^] 1 tab PO Q6HPRN PRN #10 tablet MDD 6 11/20/18 [Rx Confirmed 12/29/18] Albuterol 2.5 mg/0.5 ml [PROVENTIL Solution 2.5 MG/0.5 ML] 2.5 mg IH Q6HPRN PRN 12/23/18 [History Confirmed 12/29/18] Furosemide 20 mg [Lasix 20 mg] 20 mg PO BID 12/23/18 [History Confirmed ] Multivitamin [Multivitamins] 1 each PO DAILY 12/23/18 [History Confirmed ] [place]-3 Fatty Acids/Fish Oil [[place]-3 1,000 mg Softgel] 1 each PO BID 12/23/18 [ History Confirmed 12/29/18] Potassium Chloride 10 Meq Tab* [Klor Con 10 MEQ] 10 meq PO DAILY 12/23/18 [ History Confirmed 12/29/18] Prednisone 10 mg [Deltasone 10 mg] 10 mg PO DAILY 12/23/18 [History Confirmed 12/29/18] Sildenafil Citrate [Sildenafil] 20 mg PO TID 12/23/18 [History Confirmed ] Allergies/Adverse Reactions: Allergies Allergy/AdvReac Type Severity Reaction Status Date / Time levofloxacin [From Levaquin] Allergy Intermediate Hives Verified 11/20/18 12:58 codeine Allergy Verified 11/20/18 12:58 penicillin G Allergy Verified 11/20/18 12:58 Penicillins Allergy Verified 11/20/18 12:58 pneumococcal vaccine Allergy Verified 11/20/18 12:58 - Past Medical History Past Medical History: Yes Neurological History: Stroke ENT History: No Pertinent History Cardiac History: Arrhythmia, Coronary Artery Disease, Congestive Heart Failure, Hypertension Respiratory History: COPD Endocrine Medical History: Diabetes Type II Musculoskelatal History: Arthritis GI Medical History: No Pertinent History, GERD History: No Pertinent History Pyscho-Social History: No Pertinent History Reproductive Disorders: No Pertinent History Comment: external pacemaker - Female History Are you now?: No - Past Surgical History Past Surgical History: Yes Neuro Surgical History: No Pertinent History Cardiac History: Pacemaker Respiratory Surgery: No Pertinent History GI Surgical History: Appendectomy, Cholecystectomy Genitourinary Surgical Hx: No Pertinent History Musculskeletal Surgical Hx: No Pertinent History Female Surgical History: Hysterectomy Other Surgical History: ppm placement, then removed for infecrtion, at this time she has external pacemaker. - Social History Smoking Status: Never smoker Exposure to second hand smoke: No Alcohol: None Drug Use: none Significant Family History: heart disease, diabetes, hypertension - Physical Exam Vital Signs: Vital Signs - 24 hr Temp Pulse Resp BP Pulse Ox 12/29/18 05:48 70 16 102/89 100 12/29/18 05:23 90 L 12/29/18 04:58 70 27 H 118/103 100 12/29/18 04:24 30 H 90 L 12/29/18 04:14 77 38 H 98 12/29/18 04:08 99.7 F 79 28 H 156/102 98 Oxygen-Last 24 hours O2 Percentage 2 Liters = 28% O2 Percentage 2 Liters = 28% General Appearance: moderate distress, alert Neurologic Exam: alert, oriented x 3, cooperative, No motor deficits Eye Exam: PERRL/EOMI, eyes nml inspection Ears, Nose, Throat Exam: normal ENT inspection, TMs normal, pharynx normal, moist mucous membranes Neck Exam: normal inspection, non-tender, supple, full range of motion Respiratory Exam: diminished breath sounds, accessory muscle use, prolonged expirations, crackles/rales, rhonchi, wheezing, No respiratory distress Cardiovascular Exam: tachycardia, capillary refill >3 sec Gastrointestinal/Abdomen Exam: soft, normal bowel sounds, No tenderness, No mass Back Exam: normal inspection, normal range of motion, No CVA tenderness, No vertebral tenderness Extremity Exam: normal inspection, normal range of motion, pelvis stable Skin Exam: normal color, warm, dry, No rash Lymphatic Exam: No adenopathy Results - Labs Lab/Micro Results: Lab Results-Last 24 Hours 12/29/18 12/29/18 12/29/18 Range/Units 04:20 04:20 04:30 WBC (4.0-10.5) K/mm3 RBC (4.1-5.4) M/mm3 Hgb (12.0-16.0) gm/dl Hct (35-47) % MCV (78-100) fl MCH (26-32) pg MCHC (32-36) g/dl RDW (11.5-14.0) % Plt Count (150-450) K/mm3 MPV (6-9.5) fl Absolute Granulocytes (1.4-6.9) Segmented Neutrophils (36.0-66.0) % Band Neutrophils (0.0-2.0) % Lymphocytes (Manual) (24-44) % Monocytes (Manual) (0.0-12.0) % Eosinophils (Manual) (0.00-3.0) % Platelet Estimate (NORMAL) RBC Morphology D-Dimer (215-500) ng/mL Puncture Site LEFT RADIAL pCO2 25 L (35-45) mmHg pO2 63 L (75-100) mmHg pO2/FiO2 Ratio % Base Excess -9.2 L (-2.0-2.0) O2 Saturation 92.2 L (94-100) g/dF ABG pH 7.37 (7.35-7.45) ABG HCO3 14.5 L* (22-28) ABG O2 Sat (Measured) 95.7 (95-100) % Adria Test YES VBG pH (7.32-7.42) VBG pCO2 at Pat Temp (42-55) mm/Hg VBG pO2 at Pat Temp (25-40) mm/Hg VBG HCO3 (22-28) meq/L VBG O2 Sat (Sonja) (95-100) VBG Base Excess (-2.0-2.0) VBG Hemoglobin VBG Carboxyhemoglobin (0.0-6.9) % T HGB A-a Gradient 162 a/A Ratio 0.28 Hemoglobin 12.2 Carboxyhemoglobin 2.4 (0.0-6.9) % THgb Methemoglobin 1.3 L (1.4-1.5) % Potassium 5.1 (3.5-5.1) POC Potassium (3.5-5.1) Temperature 37.0 C POC O2 Flow Rate 36 % Sodium (137-145) mmol/L Chloride (98-107) mmol/L Carbon Dioxide (22-30) mmol/L Anion Gap (5-15) MEQ/L BUN (7-17) mg/dL Creatinine (0.52-1.04) mg/dL Estimated GFR ML/MIN Glucose (74-106) mg/dL Lactic Acid 7.8 H (0.4-2.0) Calcium (8.4-10.2) mg/dL Phosphorus (2.5-4.5) mg/dL Troponin I 0.031 (0.000-0.034) ng/mL Albumin (3.5-5.0) g/dL 12/29/18 12/29/18 12/29/18 Range/Units 04:30 04:37 04:37 WBC 12.2 H (4.0-10.5) K/mm3 RBC 3.69 L (4.1-5.4) M/mm3 Hgb 11.7 L (12.0-16.0) gm/dl Hct 37.1 (35-47) % MCV 100.5 H (78-100) fl MCH 31.7 (26-32) pg MCHC 31.5 L (32-36) g/dl RDW 15.0 H (11.5-14.0) % Plt Count 300 (150-450) K/mm3 MPV 10.4 H (6-9.5) fl Absolute Granulocytes 8.29 H (1.4-6.9) Segmented Neutrophils 56 (36.0-66.0) % Band Neutrophils 9 H (0.0-2.0) % Lymphocytes (Manual) 23 L (24-44) % Monocytes (Manual) 8 (0.0-12.0) % Eosinophils (Manual) 4 H (0.00-3.0) % Platelet Estimate NORMAL (NORMAL) RBC Morphology NORMAL D-Dimer 4805 H* (215-500) ng/mL Puncture Site pCO2 (35-45) mmHg pO2 (75-100) mmHg pO2/FiO2 Ratio % Base Excess (-2.0-2.0) O2 Saturation (94-100) g/dF ABG pH (7.35-7.45) ABG HCO3 (22-28) ABG O2 Sat (Measured) (95-100) % Adria Test VBG pH (7.32-7.42) VBG pCO2 at Pat Temp (42-55) mm/Hg VBG pO2 at Pat Temp (25-40) mm/Hg VBG HCO3 (22-28) meq/L VBG O2 Sat (Sonja) (95-100) VBG Base Excess (-2.0-2.0) VBG Hemoglobin VBG Carboxyhemoglobin (0.0-6.9) % T HGB A-a Gradient a/A Ratio Hemoglobin Carboxyhemoglobin (0.0-6.9) % THgb Methemoglobin (1.4-1.5) % Potassium 5.5 H D (3.5-5.1) POC Potassium (3.5-5.1) Temperature C POC O2 Flow Rate % Sodium 137 (137-145) mmol/L Chloride 102 (98-107) mmol/L Carbon Dioxide 19 L (22-30) mmol/L Anion Gap 21.2 H (5-15) MEQ/L BUN 30 H (7-17) mg/dL Creatinine 1.25 H (0.52-1.04) mg/dL Estimated GFR 43.2 ML/MIN Glucose 228 H (74-106) mg/dL Lactic Acid (0.4-2.0) Calcium 8.7 (8.4-10.2) mg/dL Phosphorus 4.8 H (2.5-4.5) mg/dL Troponin I (0.000-0.034) ng/mL Albumin 3.6 (3.5-5.0) g/dL 12/29/18 12/29/18 Range/Units 06:25 07:30 WBC (4.0-10.5) K/mm3 RBC (4.1-5.4) M/mm3 Hgb (12.0-16.0) gm/dl Hct (35-47) % MCV (78-100) fl MCH (26-32) pg MCHC (32-36) g/dl RDW (11.5-14.0) % Plt Count (150-450) K/mm3 MPV (6-9.5) fl Absolute Granulocytes (1.4-6.9) Segmented Neutrophils (36.0-66.0) % Band Neutrophils (0.0-2.0) % Lymphocytes (Manual) (24-44) % Monocytes (Manual) (0.0-12.0) % Eosinophils (Manual) (0.00-3.0) % Platelet Estimate (NORMAL) RBC Morphology D-Dimer (215-500) ng/mL Puncture Site pCO2 (35-45) mmHg pO2 (75-100) mmHg pO2/FiO2 Ratio 50.0 % Base Excess (-2.0-2.0) O2 Saturation (94-100) g/dF ABG pH (7.35-7.45) ABG HCO3 (22-28) ABG O2 Sat (Measured) (95-100) % Adria Test VBG pH 7.42 (7.32-7.42) VBG pCO2 at Pat Temp 37 L (42-55) mm/Hg VBG pO2 at Pat Temp 34 (25-40) mm/Hg VBG HCO3 24.0 (22-28) meq/L VBG O2 Sat (Sonja) 74.3 L (95-100) VBG Base Excess -0.3 (-2.0-2.0) VBG Hemoglobin 11.5 VBG Carboxyhemoglobin 3.3 (0.0-6.9) % T HGB A-a Gradient a/A Ratio Hemoglobin Carboxyhemoglobin (0.0-6.9) % THgb Methemoglobin (1.4-1.5) % Potassium (3.5-5.1) POC Potassium 4.3 (3.5-5.1) Temperature C POC O2 Flow Rate % Sodium (137-145) mmol/L Chloride (98-107) mmol/L Carbon Dioxide (22-30) mmol/L Anion Gap (5-15) MEQ/L BUN (7-17) mg/dL Creatinine (0.52-1.04) mg/dL Estimated GFR ML/MIN Glucose (74-106) mg/dL Lactic Acid 1.8 (0.4-2.0) Calcium (8.4-10.2) mg/dL Phosphorus (2.5-4.5) mg/dL Troponin I (0.000-0.034) ng/mL Albumin (3.5-5.0) g/dL - Radiology Impressions Radiology Exams & Impressions: Radiology Procedures Category Date Time Status CHEST 1 VIEW (PORTABLE) Stat Exams 12/29/18 04:21 Taken - Other Procedures and Tests Respiratory Therapy 12/29/18 06:08 Respiratory Therapy Consult ROUTINE Assessment/Plan (1) Severe sepsis Current Visit: Yes Status: Acute Assessment & Plan: Patient had sepsis, secondary to infected pacemaker leads, for which patient was admitted at [facility] and has been on IV antibiotics for 4 weeks which patient is getting as an outpatient. We will continue cefazolin zoning to , IV every 12. Code(s): A41.9 - SEPSIS, UNSPECIFIED ORGANISM; R65.20 - SEVERE SEPSIS WITHOUT SEPTIC SHOCK (2) COPD exacerbation Current Visit: Yes Status: Acute Assessment & Plan: Last Vital Signs Temp 99.7 F 12/29/18 07:31 Pulse 70 12/29/18 07:31 Resp 16 12/29/18 07:31 BP 102/89 12/29/18 07:31 Pulse Ox 100 12/29/18 07:31 Allergies levofloxacin [From Levaquin] Allergy (Intermediate, Verified 11/20/18 12:58) Hives Hives noted to IV insertion site where antibiotic was infused. codeine Allergy (Verified 11/20/18 12:58) penicillin G Allergy (Verified 11/20/18 12:58) Penicillins Allergy (Verified 11/20/18 12:58) pneumococcal vaccine Allergy (Verified 11/20/18 12:58) Active Medications Cefazolin Sodium/Dextrose (Kefzol 1 Gm/50 Ml Premix) 1 gm in 50 mls @ 100 mls /hr IV TID FAHAD Stop: 01/28/19 09:59 Intake & Output 12/28/18 12/29/18 11:59 11:59 Weight 73.4 kg Orders 12/29/18 04:21 CHEST 1 VIEW (PORTABLE) Stat 12/29/18 04:42 TROPONIN Q3H 12/29/18 06:08 Bedrest with BRP/BSC ROUTINE Admit as Inpatient ROUTINE [employer] Q8H Implement Pneumonia Pathway ROUTINE Respiratory Therapy Consult ROUTINE 12/29/18 06:31 Cardio-Pulmonary Rehab .as ordered 12/29/18 07:35 TROPONIN Q3H 12/29/18 10:00 Cefazolin 1 gm/50 ml Premix [Kefzol 1 gm/50 ml Premix] 1 gm in 50 ml IV TID 12/29/18 10:30 TROPONIN Q3H 12/29/18 13:30 TROPONIN Q3H 12/29/18 Breakfast Regular Diet 12/30/18 04:00 BMP AM.LAB CBC W DIFF AM.LAB 12/30/18 05:00 CBC Routine PREALBUMIN Routine Lab Tests 12/29/18 12/29/18 12/29/18 04:20 04:20 04:30 WBC RBC Hgb Hct MCV MCH MCHC RDW Plt Count MPV Absolute Granulocytes Segmented Neutrophils Band Neutrophils Lymphocytes (Manual) Monocytes (Manual) Eosinophils (Manual) Platelet Estimate RBC Morphology D-Dimer Puncture Site LEFT RADIAL pCO2 25 L pO2 63 L pO2/FiO2 Ratio Base Excess -9.2 L O2 Saturation 92.2 L ABG pH 7.37 ABG HCO3 14.5 L* ABG O2 Sat (Measured) 95.7 Adria Test YES VBG pH VBG pCO2 at Pat Temp VBG pO2 at Pat Temp VBG HCO3 VBG O2 Sat (Sonja) VBG Base Excess VBG Hemoglobin VBG Carboxyhemoglobin A-a Gradient 162 a/A Ratio 0.28 Hemoglobin 12.2 Carboxyhemoglobin 2.4 Methemoglobin 1.3 L Potassium 5.1 POC Potassium Temperature 37.0 POC O2 Flow Rate 36 Sodium Chloride Carbon Dioxide Anion Gap BUN Creatinine Estimated GFR Glucose Lactic Acid 7.8 H Calcium Phosphorus Troponin I 0.031 Albumin 12/29/18 12/29/18 12/29/18 04:30 04:37 04:37 WBC 12.2 H RBC 3.69 L Hgb 11.7 L Hct 37.1 MCV 100.5 H MCH 31.7 MCHC 31.5 L RDW 15.0 H Plt Count 300 MPV 10.4 H Absolute Granulocytes 8.29 H Segmented Neutrophils 56 Band Neutrophils 9 H Lymphocytes (Manual) 23 L Monocytes (Manual) 8 Eosinophils (Manual) 4 H Platelet Estimate NORMAL RBC Morphology NORMAL D-Dimer 4805 H* Puncture Site pCO2 pO2 pO2/FiO2 Ratio Base Excess O2 Saturation ABG pH ABG HCO3 ABG O2 Sat (Measured) Adria Test VBG pH VBG pCO2 at Pat Temp VBG pO2 at Pat Temp VBG HCO3 VBG O2 Sat (Sonja) VBG Base Excess VBG Hemoglobin VBG Carboxyhemoglobin A-a Gradient a/A Ratio Hemoglobin Carboxyhemoglobin Methemoglobin Potassium 5.5 H D POC Potassium Temperature POC O2 Flow Rate Sodium 137 Chloride 102 Carbon Dioxide 19 L Anion Gap 21.2 H BUN 30 H Creatinine 1.25 H Estimated GFR 43.2 Glucose 228 H Lactic Acid Calcium 8.7 Phosphorus 4.8 H Troponin I Albumin 3.6 12/29/18 12/29/18 06:25 07:30 WBC RBC Hgb Hct MCV MCH MCHC RDW Plt Count MPV Absolute Granulocytes Segmented Neutrophils Band Neutrophils Lymphocytes (Manual) Monocytes (Manual) Eosinophils (Manual) Platelet Estimate RBC Morphology D-Dimer Puncture Site pCO2 pO2 pO2/FiO2 Ratio 50.0 Base Excess O2 Saturation ABG pH ABG HCO3 ABG O2 Sat (Measured) Adria Test VBG pH 7.42 VBG pCO2 at Pat Temp 37 L VBG pO2 at Pat Temp 34 VBG HCO3 24.0 VBG O2 Sat (Sonja) 74.3 L VBG Base Excess -0.3 VBG Hemoglobin 11.5 VBG Carboxyhemoglobin 3.3 A-a Gradient a/A Ratio Hemoglobin Carboxyhemoglobin Methemoglobin Potassium POC Potassium 4.3 Temperature POC O2 Flow Rate Sodium Chloride Carbon Dioxide Anion Gap BUN Creatinine Estimated GFR Glucose Lactic Acid 1.8 Calcium Phosphorus Troponin I Albumin Code(s): J44.1 - CHRONIC OBSTRUCTIVE PULMONARY DISEASE W (ACUTE) EXACERBATION (3) D-dimer, elevated Current Visit: Yes Status: Acute Code(s): R79.89 - OTHER SPECIFIED ABNORMAL FINDINGS OF BLOOD CHEMISTRY (4) Pulmonary hypertension Current Visit: Yes Status: Chronic Code(s): I27.20 - PULMONARY HYPERTENSION , UNSPECIFIED
[2018-12-29] MEDS ORDERED: TYLENOL 325 MG PO PRN (08:02)
[2018-12-29] MEDS ORDERED: PROVENTIL Solution 2.5 MG/0.5 ML IH PRN (08:21)
[2018-12-29] MEDS ORDERED: NON-FORMULARY ITEM (Hydrocodone/Apap 5-325 Tab^^^ 1 TAB) PO PRN (08:21)
[2018-12-29] MEDS ORDERED: Sodium Chloride 0.9% 10 ML FLUSH Syringe PICC PRN (08:27)
[2018-12-29] MEDS ORDERED: PROVENTIL 2.5 MG/3 ML NEB IH PRN (08:44)
--- NOTE | 2018-12-29 08:47 | XRAY ---
Indication: Short of breath. Comparison: One day earlier. Portable chest unchanged again with bilateral infiltrates/atelectasis/effusions, right midlung discoid atelectasis/scarring, and right apical calcified granuloma. Heart is not enlarged for AP portable technique again with single lead pacemaker. No new cardiopulmonary abnormalities.
[2018-12-29] MEDS ORDERED: MEDICATION INTERVENTION MC SCH (09:00)
[2018-12-29] MEDS: PROVENTIL 2.5 MG/3 ML NEB IH SCH ×4 (09:23→23:14)
[2018-12-29] MEDS ORDERED: OMEGA PO SCH (10:00)
[2018-12-29] MEDS ORDERED: Neurontin 100 MG PO SCH (10:00)
[2018-12-29] MEDS ORDERED: SILDENAFIL CITRATE 20 MG PO SCH (10:00)
[2018-12-29] MEDS ORDERED: FATTY ACIDS PO SCH (10:00)
[2018-12-29] MEDS ORDERED: FISH OIL PO SCH (10:00)
[2018-12-29] MEDS ORDERED: KEFZOL 1 GM/50 ML PREMIX** 1 GM/50 ML IVPB IV SCH (10:00)
[2018-12-29] MEDS ORDERED: NON-FORMULARY ITEM (Multivitamin [Multivitamins] 1 EACH) PO SCH (10:00)
[2018-12-29] MEDS: Flomax 0.4 MG PO SCH (10:37)
[2018-12-29] MEDS: NEURONTIN 300 MG PO SCH ×2 (10:37→22:16)
[2018-12-29] MEDS: Ditropan XL 5 MG PO SCH (10:37)
[2018-12-29] MEDS: DELTASONE 10 MG PO SCH (10:37)
[2018-12-29] MEDS: Tessalon Perles 100 MG PO PRN (10:37)
[2018-12-29] MEDS: FISH OIL 1,000 MG CAPSULE PO SCH ×2 (10:37→22:16)
[2018-12-29] MEDS: LASIX 20 MG PO SCH ×2 (10:37→17:00)
[2018-12-29] MEDS: NORCO 5/325 MG PO PRN (10:37)
[2018-12-29] MEDS: ELIQUIS 2.5 MG TABLET PO SCH ×2 (10:38→22:16)
[2018-12-29] MEDS: Coreg 6.25 MG PO SCH ×2 (10:38→22:15)
[2018-12-29] MEDS: THERAGRAN MULTIVITAMIN PO SCH (10:38)
[2018-12-29] MEDS: Amaryl 2 MG PO SCH (10:38)
[2018-12-29] MEDS: Klor Con 10 MEQ PO SCH (10:39)
[2018-12-29] MEDS: CEFAZOLIN 2 GM-D5W BAG** 2 GM/50 ML ML IV SCH ×2 (14:58→22:15)
[2018-12-29] MEDS ORDERED: ELAVIL 25 MG PO SCH (22:00)
[2018-12-29] MEDS ORDERED: NON-FORMULARY ITEM (Simvastatin [Simvastatin] 5 MG) PO SCH (22:00)
[2018-12-29] MEDS: Zocor 10MG PO SCH (22:16)
[2018-12-29] MEDS: REQUIP 2MG TAB PO SCH (22:16)
[2018-12-30] MEDS: PROVENTIL 2.5 MG/3 ML NEB IH SCH ×6 (03:04→23:08)
[2018-12-30 05:53] LABS: BASOPHIL % 0.1 % (0.0-0.4); Basophil (Absolute #) 0.01 (0-0.4); Eosinophil % 1.3 % (0.00-5.0); Eosinophil (Absolute #) 0.11 (0-0.5); Granulocyte Absolute (ANC) 6.59 (1.4-6.9); Granulocytes % 80.4 % (36.0-66.0); Hematocrit 32.2 % (35-47); Hemoglobin 10.5 gm/dl (12.0-16.0); Lymphocyte (Absolute #) 0.82 (1.0-4.6); Mean Cell Volume 98.5 fl (78-100); Mean Corpuscular Hemoglobin 32.1 pg (26-32); Mean Corpuscular Hgb Concent. 32.6 g/dl (32-36); Monocyte (Absolute #) 0.67 (0.0-1.3); Monocytes % 8.2 % (0.0-12.0); Platelet Count 215 K/mm3 (150-450); Red Blood Count 3.27 M/mm3 (4.1-5.4); Red Cell Distribution Width 14.8 % (11.5-14.0); White Blood Count 8.2 K/mm3 (4.0-10.5)
[2018-12-30 06:08] LABS: ANION GAP 12.5 MEQ/L (5-15); BLOOD UREA NITROGEN 25 mg/dL (7-17); CHLORIDE 106 mmol/L (98-107); Calcium 8.3 mg/dL (8.4-10.2); Carbon Dioxide 24 mmol/L (22-30); Creatinine 1 0.93 mg/dL (0.52-1.04); Glucose 121 mg/dL (74-106); Potassium 4.1 mmol/L (3.5-5.1); SODIUM 138 mmol/L (137-145)
[2018-12-30] MEDS: CEFAZOLIN 2 GM-D5W BAG** 2 GM/50 ML ML IV SCH ×3 (06:34→21:47)
[2018-12-30] MEDS: ELIQUIS 2.5 MG TABLET PO SCH ×2 (10:19→21:46)
[2018-12-30] MEDS: NEURONTIN 300 MG PO SCH ×2 (10:19→21:46)
[2018-12-30] MEDS: Flomax 0.4 MG PO SCH (10:19)
[2018-12-30] MEDS: LASIX 20 MG PO SCH ×2 (10:19→17:54)
[2018-12-30] MEDS: Amaryl 2 MG PO SCH (10:20)
[2018-12-30] MEDS: Ditropan XL 5 MG PO SCH (10:20)
[2018-12-30] MEDS: FISH OIL 1,000 MG CAPSULE PO SCH ×2 (10:20→21:46)
[2018-12-30] MEDS: THERAGRAN MULTIVITAMIN PO SCH (10:20)
[2018-12-30] MEDS: Klor Con 10 MEQ PO SCH (10:20)
[2018-12-30] MEDS: Coreg 6.25 MG PO SCH ×2 (10:20→21:46)
[2018-12-30] MEDS: DELTASONE 10 MG PO SCH (10:20)
--- NOTE | 2018-12-30 12:57 | PCM.NOTE ---
Date and Time: 12/30/18 1256 Subjective Assessment: doing ok - Review of Systems Constitutional: No Fever, No Chills Eyes: No Symptoms Ears, Nose, & Throat: No Symptoms Respiratory: No Cough, No Short Of Breath Cardiac: No Chest Pain, No Edema, No Syncope Abdominal/Gastrointestinal: No Abdominal Pain, No Nausea, No Vomiting, No Diarrhea Genitourinary Symptoms: No Dysuria Musculoskeletal: No Back Pain, No Neck Pain Skin: No Rash Neurological: No Dizziness, No Focal Weakness, No Sensory Changes Psychological: No Symptoms Endocrine: No Symptoms Hematologic/Lymphatic: No Symptoms Immunological/Allergic: No Symptoms Objective Exam General Appearance: no apparent distress, alert Neurologic Exam: alert, oriented x 3, cooperative, normal mood/affect, nml cerebellar function, sensation nml, No motor deficits Skin Exam: normal color, warm, dry Eye Exam: PERRL, EOMI, eyes nml inspection Ears, Nose, Throat Exam: normal ENT inspection, pharynx normal, moist mucous membranes Neck Exam: normal inspection, non-tender, supple, full range of motion Respiratory Exam: normal breath sounds, lungs clear, No respiratory distress Cardiovascular Exam: regular rate/rhythm, normal heart sounds Gastrointestinal/Abdomen Exam: soft, No tenderness, No mass Extremity Exam: normal inspection, normal range of motion Back Exam: normal inspection, normal range of motion, No CVA tenderness, No vertebral tenderness Pelvic Exam: deferred Rectal Exam: deferred OBJECTIVE DATA Vital Signs: Vital Signs - 24 hr Temp Pulse Resp BP Pulse Ox 12/30/18 11:23 97.8 F 14 L 22 130/69 96 12/30/18 11:12 70 24 97 12/30/18 08:00 70 12/30/18 06:58 70 22 100 12/30/18 06:56 98 F 70 20 128/60 100 12/30/18 04:00 98.1 F 71 22 125/55 100 12/30/18 03:04 67 22 99 12/30/18 00:00 97.8 F 70 18 168/75 100 12/29/18 23:14 69 20 99 12/29/18 20:00 97.6 F 70 19 138/66 99 12/29/18 19:01 70 22 99 12/29/18 16:00 97.8 F 70 21 137/83 99 12/29/18 14:18 70 24 98 Oxygen-Last 24 hours Oxygen Flowrate (L/min)-RT 8 Oxygen Flowrate (L/min)-RT 8 Oxygen Flowrate (L/min)-RT 8 Pain Assessment - Last Documented Pain Intensity 5 Pain Scale Used FLACC Intake and Output: Intake & Output 12/28/18 12/29/18 12/30/18 12/31/18 11:59 11:59 11:59 11:59 Intake Total 300 430 Output Total 300 Balance 300 130 Weight 73.4 kg Lab Results: Accuchecks Date 12/29/18 Time 16:55 Accucheck Value: 183 Lab Results-Last 24 Hours 12/30/18 12/30/18 12/30/18 Range/Units 05:15 05:15 05:15 WBC 8.2 (4.0-10.5) K/mm3 RBC 3.27 L (4.1-5.4) M/mm3 Hgb 10.5 L (12.0-16.0) gm/dl Hct 32.2 L (35-47) % MCV 98.5 (78-100) fl MCH 32.1 H (26-32) pg MCHC 32.6 (32-36) g/dl RDW 14.8 H (11.5-14.0) % Plt Count 215 (150-450) K/mm3 MPV 10.0 H (6-9.5) fl Gran % 80.4 H (36.0-66.0) % Eos # (Auto) 0.11 (0-0.5) Absolute Lymphs (auto) 0.82 L (1.0-4.6) Absolute Monos (auto) 0.67 (0.0-1.3) Lymphocytes % 10.0 L (24.0-44.0) % Monocytes % 8.2 (0.0-12.0) % Eosinophils % 1.3 (0.00-5.0) % Basophils % 0.1 (0.0-0.4) % Absolute Granulocytes 6.59 (1.4-6.9) Basophils # 0.01 (0-0.4) Sodium 138 (137-145) mmol/L Potassium 4.1 D (3.5-5.1) mmol/L Chloride 106 (98-107) mmol/L Carbon Dioxide 24 (22-30) mmol/L Anion Gap 12.5 (5-15) MEQ/L BUN 25 H (7-17) mg/dL Creatinine 0.93 (0.52-1.04) mg/dL Estimated GFR > 60.0 ML/MIN Glucose 121 H (74-106) mg/dL Calcium 8.3 L (8.4-10.2) mg/dL Troponin I (0.000-0.034) ng/mL Prealbumin 11.76 L (17.6-36.0) mg/dL 12/30/18 Range/Units 05:15 WBC (4.0-10.5) K/mm3 RBC (4.1-5.4) M/mm3 Hgb (12.0-16.0) gm/dl Hct (35-47) % MCV (78-100) fl MCH (26-32) pg MCHC (32-36) g/dl RDW (11.5-14.0) % Plt Count (150-450) K/mm3 MPV (6-9.5) fl Gran % (36.0-66.0) % Eos # (Auto) (0-0.5) Absolute Lymphs (auto) (1.0-4.6) Absolute Monos (auto) (0.0-1.3) Lymphocytes % (24.0-44.0) % Monocytes % (0.0-12.0) % Eosinophils % (0.00-5.0) % Basophils % (0.0-0.4) % Absolute Granulocytes (1.4-6.9) Basophils # (0-0.4) Sodium (137-145) mmol/L Potassium (3.5-5.1) mmol/L Chloride (98-107) mmol/L Carbon Dioxide (22-30) mmol/L Anion Gap (5-15) MEQ/L BUN (7-17) mg/dL Creatinine (0.52-1.04) mg/dL Estimated GFR ML/MIN Glucose (74-106) mg/dL Calcium (8.4-10.2) mg/dL Troponin I 0.034 (0.000-0.034) ng/mL Prealbumin (17.6-36.0) mg/dL Radiology Exams: Radiology Procedures Category Date Time Status CHEST 1 VIEW (PORTABLE) Stat Exams 12/29/18 04:21 Completed Assessment/Plan (1) Severe sepsis Current Visit: Yes Status: Acute Assessment & Plan: improving Code(s): A41.9 - SEPSIS, UNSPECIFIED ORGANISM; R65.20 - SEVERE SEPSIS WITHOUT SEPTIC SHOCK (2) COPD exacerbation Current Visit: Yes Status: Acute Assessment & Plan: improving Code(s): J44.1 - CHRONIC OBSTRUCTIVE PULMONARY DISEASE W (ACUTE) EXACERBATION (3) D-dimer, elevated Current Visit: Yes Status: Acute Assessment & Plan: improved Code(s): R79.89 - OTHER SPECIFIED ABNORMAL FINDINGS OF BLOOD CHEMISTRY (4) Pulmonary hypertension Current Visit: Yes Status: Chronic Code(s): I27.20 - PULMONARY HYPERTENSION , UNSPECIFIED
[2018-12-30] MEDS: Zocor 10MG PO SCH (21:44)
[2018-12-30] MEDS: NORCO 5/325 MG PO PRN (21:45)
[2018-12-30] MEDS: REQUIP 2MG TAB PO SCH (21:47)
[2018-12-31] MEDS: PROVENTIL 2.5 MG/3 ML NEB IH SCH ×6 (02:59→23:33)
[2018-12-31] MEDS: CEFAZOLIN 2 GM-D5W BAG** 2 GM/50 ML ML IV SCH ×3 (06:26→21:20)
--- NOTE | 2018-12-31 09:21 | PCM.NOTE ---
Date and Time: 12/31/18920 Subjective Assessment: doing ok - Review of Systems Constitutional: No Fever, No Chills Eyes: No Symptoms Ears, Nose, & Throat: No Symptoms Respiratory: Cough, Orthopnea, Short Of Breath, Wheezing Cardiac: No Chest Pain, No Edema, No Syncope Abdominal/Gastrointestinal: No Abdominal Pain, No Nausea, No Vomiting, No Diarrhea Genitourinary Symptoms: No Dysuria Musculoskeletal: No Back Pain, No Neck Pain Skin: No Rash Neurological: No Dizziness, No Focal Weakness, No Sensory Changes Psychological: No Symptoms Endocrine: No Symptoms Hematologic/Lymphatic: No Symptoms Immunological/Allergic: No Symptoms Objective Exam General Appearance: no apparent distress, alert Neurologic Exam: alert, oriented x 3, cooperative, normal mood/affect, nml cerebellar function, sensation nml, No motor deficits Skin Exam: normal color, warm, dry Eye Exam: PERRL, EOMI, eyes nml inspection Ears, Nose, Throat Exam: normal ENT inspection, pharynx normal, moist mucous membranes Neck Exam: normal inspection, non-tender, supple, full range of motion Respiratory Exam: normal breath sounds, diminished breath sounds, prolonged expirations, crackles/rales, rhonchi, No respiratory distress Cardiovascular Exam: regular rate/rhythm, normal heart sounds Gastrointestinal/Abdomen Exam: soft, No tenderness, No mass Extremity Exam: normal inspection, normal range of motion Back Exam: normal inspection, normal range of motion, No CVA tenderness, No vertebral tenderness Pelvic Exam: deferred Rectal Exam: deferred OBJECTIVE DATA Vital Signs: Vital Signs - 24 hr Temp Pulse Resp BP Pulse Ox 12/31/18 07:57 70 12/31/18 07:33 97.5 F 70 18 182/84 98 12/31/18 06:54 70 20 98 12/31/18 03:13 97.8 F 70 26 H 139/66 100 12/31/18 03:03 99 12/31/18 02:59 70 20 99 12/31/18 00:00 98.3 F 70 20 112/56 99 12/30/18 23:08 70 20 98 12/30/18 20:00 97.5 F 70 22 130/58 99 12/30/18 18:04 69 20 98 12/30/18 16:40 98 F 74 22 122/68 95 12/30/18 16:00 70 12/30/18 15:06 70 26 H 96 12/30/18 11:23 97.8 F 14 L 22 130/69 96 12/30/18 11:12 70 24 97 Oxygen-Last 24 hours O2 Percentage 5 Liters = 40% O2 Percentage 5 Liters = 40% O2 Percentage 5 Liters = 40% Pain Assessment - Last Documented Pain Intensity 0 Pain Scale Used 0-10 Pain Scale,FLACC Intake and Output: Intake & Output 12/28/18 12/29/18 12/30/18 12/31/18 11:59 11:59 11:59 11:59 Intake Total 300 430 60 Output Total 300 250 Balance 300 130 -190 Weight 73.4 kg Assessment/Plan (1) COPD exacerbation Current Visit: Yes Status: Acute Code(s): J44.1 - CHRONIC OBSTRUCTIVE PULMONARY DISEASE W (ACUTE) EXACERBATION (2) Severe sepsis Current Visit: Yes Status: Resolved Code(s): A41.9 - SEPSIS, UNSPECIFIED ORGANISM; R65.20 - SEVERE SEPSIS WITHOUT SEPTIC SHOCK (3) D-dimer, elevated Current Visit: Yes Status: Resolved Code(s): R79.89 - OTHER SPECIFIED ABNORMAL FINDINGS OF BLOOD CHEMISTRY (4) Pulmonary hypertension Current Visit: Yes Status: Chronic Code(s): I27.20 - PULMONARY HYPERTENSION , UNSPECIFIED
[2018-12-31] MEDS: Klor Con 10 MEQ PO SCH (10:45)
[2018-12-31] MEDS: Amaryl 2 MG PO SCH (10:45)
[2018-12-31] MEDS: NORCO 5/325 MG PO PRN ×2 (10:45→21:20)
[2018-12-31] MEDS: ELIQUIS 2.5 MG TABLET PO SCH ×2 (10:45→21:21)
[2018-12-31] MEDS: NEURONTIN 300 MG PO SCH ×2 (10:45→21:21)
[2018-12-31] MEDS: FISH OIL 1,000 MG CAPSULE PO SCH ×2 (10:45→21:21)
[2018-12-31] MEDS: Ditropan XL 5 MG PO SCH (10:45)
[2018-12-31] MEDS: Flomax 0.4 MG PO SCH (10:45)
[2018-12-31] MEDS: DELTASONE 10 MG PO SCH (10:45)
[2018-12-31] MEDS: LASIX 20 MG PO SCH ×2 (10:45→16:31)
[2018-12-31] MEDS: Tessalon Perles 100 MG PO PRN ×2 (10:46→21:21)
[2018-12-31] MEDS: THERAGRAN MULTIVITAMIN PO SCH (10:46)
[2018-12-31] MEDS: Coreg 6.25 MG PO SCH ×2 (10:46→21:21)
[2018-12-31] MEDS: REQUIP 2MG TAB PO SCH (21:20)
[2018-12-31] MEDS: Zocor 10MG PO SCH (21:21)
[2019-01-01] MEDS: PROVENTIL 2.5 MG/3 ML NEB IH SCH ×3 (04:10→10:29)
[2019-01-01] MEDS: CEFAZOLIN 2 GM-D5W BAG** 2 GM/50 ML ML IV SCH (06:11)
[2019-01-01 07:22] VITALS: BP 138/80
[2019-01-01] MEDS: THERAGRAN MULTIVITAMIN PO SCH (09:11)
[2019-01-01] MEDS: Klor Con 10 MEQ PO SCH (09:11)
[2019-01-01] MEDS: NEURONTIN 300 MG PO SCH (09:11)
[2019-01-01] MEDS: Ditropan XL 5 MG PO SCH (09:12)
[2019-01-01] MEDS: FISH OIL 1,000 MG CAPSULE PO SCH (09:12)
[2019-01-01] MEDS: Flomax 0.4 MG PO SCH (09:12)
[2019-01-01] MEDS: LASIX 20 MG PO SCH (09:12)
[2019-01-01] MEDS: DELTASONE 10 MG PO SCH (09:12)
[2019-01-01] MEDS: Coreg 6.25 MG PO SCH (09:12)
[2019-01-01] MEDS: ELIQUIS 2.5 MG TABLET PO SCH (09:12)
[2019-01-01] MEDS: Amaryl 2 MG PO SCH (09:12)
[2019-01-01 10:34] VITALS: PULSE 69; O2SAT 96
== END 2019-01-01 10:45 | disposition swing bed (61) | DRG 872 ==
LOC: ED 04:07 → ICU 05:47 → MED SURG 17:54
PROVIDERS: ADMIT General Practice; ATTEND General Practice
DX: A41.9 Sepsis, unspecified organism (principal); T82.7XXA Infection and inflammatory reaction due to other cardiac and vascular devices, implants and grafts, initial encounter; J44.1 Chronic obstructive pulmonary disease with (acute) exacerbation; I27.20 Pulmonary hypertension, unspecified; E11.9 Type 2 diabetes mellitus without complications; R79.1 Abnormal coagulation profile; I48.91 Unspecified atrial fibrillation; I73.9 Peripheral vascular disease, unspecified; Z79.899 Other long term (current) drug therapy
CPT/HCPCS: 36415; 36600; 71045; 80048; 82040; 82375; 82803; 82805; 82962; 83036; 83605; 84100; 84134; 84484; 85025; 85379; 93005; 94002; 94150; 94640; 94760; 94762; 96360; 96365; 96374; 99285; J0690; J1642; J1940; J7609; A9270-GY

== ENCOUNTER 2019-01-01 10:01 | Inpatient (IN) | payer MEDICARE, BC ==
[2019-01-01] MEDS ORDERED: Aplisol ID ONE (10:52)
[2019-01-01] MEDS ORDERED: NORCO 5/325 MG PO PRN (10:52)
[2019-01-01] MEDS ORDERED: MEDICATION INTERVENTION MC SCH (10:52)
[2019-01-01] MEDS ORDERED: PROVENTIL 2.5 MG/3 ML NEB IH PRN (10:52)
[2019-01-01] MEDS ORDERED: TYLENOL 325 MG PO PRN (10:52)
--- NOTE | 2019-01-01 12:09 | PCM.HP.ADD ---
Addendum to History & Physical - History & Physical Addendum Addendum to History & Physical: This certifies that the History & Physical in the electronic chart reflects the current health status of the patient. If there are changes in the H&P these changes/exceptions are listed as follows.
[2019-01-01] MEDS: CEFAZOLIN 2 GM-D5W BAG** 2 GM/50 ML ML IV SCH ×2 (13:48→22:23)
[2019-01-01] MEDS: PROVENTIL 2.5 MG/3 ML NEB IH SCH ×4 (15:08→23:27)
[2019-01-01] MEDS: LASIX 20 MG PO SCH (16:04)
[2019-01-01] MEDS: Tessalon Perles 100 MG PO PRN (16:06)
[2019-01-01] MEDS: Coreg 6.25 MG PO SCH (22:20)
[2019-01-01] MEDS: FISH OIL 1,000 MG CAPSULE PO SCH (22:20)
[2019-01-01] MEDS: Zocor 10MG PO SCH (22:21)
[2019-01-01] MEDS: REQUIP 2MG TAB PO SCH (22:22)
[2019-01-01] MEDS: ELIQUIS 2.5 MG TABLET PO SCH (22:22)
[2019-01-01] MEDS: NEURONTIN 300 MG PO SCH (22:22)
[2019-01-02] MEDS: PROVENTIL 2.5 MG/3 ML NEB IH SCH ×6 (03:40→23:58)
[2019-01-02] MEDS: CEFAZOLIN 2 GM-D5W BAG** 2 GM/50 ML ML IV SCH ×3 (05:18→21:59)
[2019-01-02] MEDS: Coreg 6.25 MG PO SCH ×2 (08:41→22:02)
[2019-01-02] MEDS: FISH OIL 1,000 MG CAPSULE PO SCH ×2 (08:41→21:59)
[2019-01-02] MEDS: ELIQUIS 2.5 MG TABLET PO SCH ×2 (08:41→22:00)
[2019-01-02] MEDS: LASIX 20 MG PO SCH ×2 (08:41→17:03)
[2019-01-02] MEDS: NEURONTIN 300 MG PO SCH ×2 (08:41→22:00)
[2019-01-02] MEDS: Amaryl 2 MG PO SCH (08:46)
[2019-01-02] MEDS: Ditropan XL 5 MG PO SCH (08:47)
[2019-01-02] MEDS: THERAGRAN MULTIVITAMIN PO SCH (08:47)
[2019-01-02] MEDS: Flomax 0.4 MG PO SCH (08:47)
[2019-01-02] MEDS: DELTASONE 10 MG PO SCH (08:47)
[2019-01-02] MEDS: Klor Con 10 MEQ PO SCH (08:47)
[2019-01-02] MEDS: Tessalon Perles 100 MG PO PRN (21:59)
[2019-01-02] MEDS: Zocor 10MG PO SCH (22:00)
[2019-01-02] MEDS: REQUIP 2MG TAB PO SCH (22:01)
[2019-01-03] MEDS: PROVENTIL 2.5 MG/3 ML NEB IH SCH ×6 (03:37→22:31)
[2019-01-03] MEDS: CEFAZOLIN 2 GM-D5W BAG** 2 GM/50 ML ML IV SCH ×3 (06:47→21:13)
[2019-01-03] MEDS: NEURONTIN 300 MG PO SCH ×2 (08:18→21:13)
[2019-01-03] MEDS: Coreg 6.25 MG PO SCH ×2 (08:18→21:13)
[2019-01-03] MEDS: THERAGRAN MULTIVITAMIN PO SCH (08:18)
[2019-01-03] MEDS: DELTASONE 10 MG PO SCH (08:18)
[2019-01-03] MEDS: LASIX 20 MG PO SCH ×2 (08:18→17:05)
[2019-01-03] MEDS: FISH OIL 1,000 MG CAPSULE PO SCH ×2 (08:18→21:13)
[2019-01-03] MEDS: Klor Con 10 MEQ PO SCH (08:18)
[2019-01-03] MEDS: ELIQUIS 2.5 MG TABLET PO SCH ×2 (08:18→21:13)
[2019-01-03] MEDS: Ditropan XL 5 MG PO SCH (08:19)
[2019-01-03] MEDS: Amaryl 2 MG PO SCH (08:19)
[2019-01-03] MEDS: Flomax 0.4 MG PO SCH (08:19)
--- NOTE | 2019-01-03 12:09 | PCM.NOTE ---
Date and Time: 01/03/19 1208 Subjective Assessment: doing ok - Review of Systems Constitutional: No Fever, No Chills Eyes: No Symptoms Ears, Nose, & Throat: No Symptoms Respiratory: No Cough, No Short Of Breath Cardiac: No Chest Pain, No Edema, No Syncope Abdominal/Gastrointestinal: No Abdominal Pain, No Nausea, No Vomiting, No Diarrhea Genitourinary Symptoms: No Dysuria Musculoskeletal: No Back Pain, No Neck Pain Skin: No Rash Neurological: No Dizziness, No Focal Weakness, No Sensory Changes Psychological: No Symptoms Endocrine: No Symptoms Hematologic/Lymphatic: No Symptoms Immunological/Allergic: No Symptoms Objective Exam General Appearance: no apparent distress, alert Neurologic Exam: alert, oriented x 3, cooperative, normal mood/affect, nml cerebellar function, sensation nml, No motor deficits Skin Exam: normal color, warm, dry Eye Exam: PERRL, EOMI, eyes nml inspection Ears, Nose, Throat Exam: normal ENT inspection, pharynx normal, moist mucous membranes Neck Exam: normal inspection, non-tender, supple, full range of motion Respiratory Exam: normal breath sounds, lungs clear, No respiratory distress Cardiovascular Exam: regular rate/rhythm, normal heart sounds Gastrointestinal/Abdomen Exam: soft, No tenderness, No mass Extremity Exam: normal inspection, normal range of motion Back Exam: normal inspection, normal range of motion, No CVA tenderness, No vertebral tenderness Pelvic Exam: deferred Rectal Exam: deferred OBJECTIVE DATA Vital Signs: Vital Signs - 24 hr Temp Pulse Resp BP Pulse Ox 01/03/19 11:26 69 184/75 01/03/19 10:42 77 20 97 01/03/19 09:43 70 180/74 01/03/19 07:18 69 18 95 01/03/19 07:00 97.4 F 69 18 191/74 94 L 01/03/19 04:00 17 01/03/19 03:37 70 17 95 01/03/19 00:00 17 01/02/19 23:58 18 01/02/19 20:04 70 19 97 01/02/19 20:00 17 01/02/19 19:00 97.8 F 70 19 136/67 96 01/02/19 16:11 70 22 96 01/02/19 16:00 22 Pain Assessment - Last Documented Pain Intensity 0 Pain Scale Used FLACC Intake and Output: Intake & Output 01/01/19 01/02/19 01/03/19 01/04/19 11:59 11:59 11:59 11:59 Intake Total 1110 240 Output Total 800 200 Balance 310 40 Weight 74 kg Lab Results: Accuchecks Date 01/02/19 Time 16:30 Accucheck Value: 135 Assessment/Plan (1) Atrial fibrillation Current Visit: Yes Status: Chronic Qualifiers: Code(s): I48.91 - UNSPECIFIED ATRIAL FIBRILLATION (2) Pulmonary hypertension Current Visit: Yes Status: Chronic Code(s): I27.20 - PULMONARY HYPERTENSION , UNSPECIFIED (3) CHF (congestive heart failure) Current Visit: Yes Status: Resolved Onset Date: ~06/02/18 Qualifiers: Heart failure type: combined systolic and diastolic Heart failure chronicity: chronic Qualified Code(s): I50.42 - Chronic combined systolic ( congestive) and diastolic (congestive) heart failure Code(s): I50.9 - HEART FAILURE, UNSPECIFIED (4) COPD (chronic obstructive pulmonary disease) Current Visit: No Status: Resolved Onset Date: ~06/02/18 Qualifiers: COPD type: chronic bronchitis
[2019-01-03] MEDS: NORVASC 5 MG PO SCH (17:04)
[2019-01-03] MEDS: REQUIP 2MG TAB PO SCH (21:13)
[2019-01-03] MEDS: Zocor 10MG PO SCH (21:15)
[2019-01-04] MEDS: PROVENTIL 2.5 MG/3 ML NEB IH SCH ×6 (03:07→22:50)
[2019-01-04] MEDS: CEFAZOLIN 2 GM-D5W BAG** 2 GM/50 ML ML IV SCH ×3 (06:11→22:50)
[2019-01-04] MEDS: Sodium Chloride 0.9% 10 ML FLUSH Syringe PICC PRN ×2 (06:58→23:41)
[2019-01-04] MEDS: NEURONTIN 300 MG PO SCH ×2 (09:22→22:51)
[2019-01-04] MEDS: Flomax 0.4 MG PO SCH (09:22)
[2019-01-04] MEDS: DELTASONE 10 MG PO SCH (09:23)
[2019-01-04] MEDS: Coreg 6.25 MG PO SCH ×2 (09:23→22:50)
[2019-01-04] MEDS: Ditropan XL 5 MG PO SCH (09:23)
[2019-01-04] MEDS: LASIX 20 MG PO SCH ×2 (09:23→17:03)
[2019-01-04] MEDS: FISH OIL 1,000 MG CAPSULE PO SCH ×2 (09:23→22:51)
[2019-01-04] MEDS: Amaryl 2 MG PO SCH (09:23)
[2019-01-04] MEDS: Klor Con 10 MEQ PO SCH (09:23)
[2019-01-04] MEDS: ELIQUIS 2.5 MG TABLET PO SCH ×2 (09:23→22:51)
[2019-01-04] MEDS: THERAGRAN MULTIVITAMIN PO SCH (09:23)
--- NOTE | 2019-01-04 10:37 | PCM.NOTE ---
Date and Time: 01/04/19 1035 Subjective Assessment: doing ok - Review of Systems Constitutional: No Fever, No Chills Eyes: No Symptoms Ears, Nose, & Throat: No Symptoms Respiratory: No Cough, No Short Of Breath Cardiac: No Chest Pain, No Edema, No Syncope Abdominal/Gastrointestinal: No Abdominal Pain, No Nausea, No Vomiting, No Diarrhea Genitourinary Symptoms: No Dysuria Musculoskeletal: No Back Pain, No Neck Pain Skin: No Rash Neurological: No Dizziness, No Focal Weakness, No Sensory Changes Psychological: No Symptoms Endocrine: No Symptoms Hematologic/Lymphatic: No Symptoms Immunological/Allergic: No Symptoms Objective Exam General Appearance: no apparent distress, alert Neurologic Exam: alert, oriented x 3, cooperative, normal mood/affect, nml cerebellar function, sensation nml, No motor deficits Skin Exam: normal color, warm, dry Eye Exam: PERRL, EOMI, eyes nml inspection Ears, Nose, Throat Exam: normal ENT inspection, pharynx normal, moist mucous membranes Neck Exam: normal inspection, non-tender, supple, full range of motion Respiratory Exam: normal breath sounds, lungs clear, No respiratory distress Cardiovascular Exam: regular rate/rhythm, normal heart sounds Gastrointestinal/Abdomen Exam: soft, No tenderness, No mass Extremity Exam: normal inspection, normal range of motion Back Exam: normal inspection, normal range of motion, No CVA tenderness, No vertebral tenderness Pelvic Exam: deferred Rectal Exam: deferred OBJECTIVE DATA Vital Signs: Vital Signs - 24 hr Temp Pulse Resp BP Pulse Ox 01/04/19 08:34 70 18 100 01/04/19 07:55 18 01/04/19 07:29 97.8 F 86 20 142/80 96 01/04/19 05:44 98.3 F 70 18 140/63 96 01/04/19 03:11 69 18 95 01/03/19 22:32 68 18 98 01/03/19 18:45 69 18 98 01/03/19 18:26 70 221/88 01/03/19 16:00 20 01/03/19 15:42 206/110 01/03/19 15:41 69 218/101 01/03/19 12:00 20 01/03/19 11:26 69 184/75 01/03/19 10:42 77 20 97 Pain Assessment - Last Documented Pain Intensity 0 Pain Scale Used 0-10 Pain Scale Intake and Output: Intake & Output 03/27/19 03/28/19 03/29/19 03/30/19 11:59 11:59 11:59 11:59 Intake Total 1110 240 692 Output Total 800 200 400 Balance 310 40 292 Weight 74 kg 74 kg Lab Results: Accuchecks Date 01/04/19 Date 01/03/19 Date 01/03/19 Time 07:53 Time 16:30 Time 11:30 Accucheck Value: 88 Accucheck Value: 292 Accucheck Value: 157 Accucheck Value: 142 Assessment/Plan (1) Atrial fibrillation Current Visit: Yes Status: Chronic Qualifiers: Atrial fibrillation type: chronic Code(s): I48.91 - UNSPECIFIED ATRIAL FIBRILLATION (2) Pulmonary hypertension Current Visit: Yes Status: Chronic Code(s): I27.20 - PULMONARY HYPERTENSION , UNSPECIFIED (3) CHF (congestive heart failure) Current Visit: Yes Status: Resolved Onset Date: ~06/02/18 Qualifiers: Heart failure type: combined systolic and diastolic Heart failure chronicity: chronic Qualified Code(s): I50.42 - Chronic combined systolic ( congestive) and diastolic (congestive) heart failure Code(s): I50.9 - HEART FAILURE, UNSPECIFIED (4) COPD (chronic obstructive pulmonary disease) Current Visit: No Status: Resolved Onset Date: ~06/02/18 Qualifiers: COPD type: chronic bronchitis
[2019-01-04] MEDS: Tessalon Perles 100 MG PO PRN (13:22)
[2019-01-04] MEDS: NORVASC 5 MG PO SCH (18:09)
[2019-01-04] MEDS: REQUIP 2MG TAB PO SCH (22:51)
[2019-01-04] MEDS: Zocor 10MG PO SCH (22:51)
[2019-01-05] MEDS: PROVENTIL 2.5 MG/3 ML NEB IH SCH ×6 (02:51→23:41)
[2019-01-05] MEDS: CEFAZOLIN 2 GM-D5W BAG** 2 GM/50 ML ML IV SCH ×3 (05:18→21:20)
[2019-01-05] MEDS: Sodium Chloride 0.9% 10 ML FLUSH Syringe PICC PRN (05:50)
[2019-01-05] MEDS: Amaryl 2 MG PO SCH (07:59)
[2019-01-05] MEDS: LASIX 20 MG PO SCH ×2 (08:00→16:51)
[2019-01-05] MEDS: Klor Con 10 MEQ PO SCH (08:00)
[2019-01-05] MEDS: FISH OIL 1,000 MG CAPSULE PO SCH ×2 (08:00→21:20)
[2019-01-05] MEDS: Ditropan XL 5 MG PO SCH (08:00)
[2019-01-05] MEDS: NEURONTIN 300 MG PO SCH ×2 (08:00→21:20)
[2019-01-05] MEDS: Flomax 0.4 MG PO SCH (08:00)
[2019-01-05] MEDS: DELTASONE 10 MG PO SCH (08:00)
[2019-01-05] MEDS: THERAGRAN MULTIVITAMIN PO SCH (08:00)
[2019-01-05] MEDS: ELIQUIS 2.5 MG TABLET PO SCH ×2 (08:00→21:21)
[2019-01-05] MEDS: Coreg 6.25 MG PO SCH ×2 (08:00→21:20)
--- NOTE | 2019-01-05 08:22 | PCM.NOTE ---
Date and Time: 01/05/19821 Subjective Assessment: doing better - Review of Systems Constitutional: No Fever, No Chills Eyes: No Symptoms Ears, Nose, & Throat: No Symptoms Respiratory: No Cough, No Short Of Breath Cardiac: No Chest Pain, No Edema, No Syncope Abdominal/Gastrointestinal: No Abdominal Pain, No Nausea, No Vomiting, No Diarrhea Genitourinary Symptoms: No Dysuria Musculoskeletal: No Back Pain, No Neck Pain Skin: No Rash Neurological: No Dizziness, No Focal Weakness, No Sensory Changes Psychological: No Symptoms Endocrine: No Symptoms Hematologic/Lymphatic: No Symptoms Immunological/Allergic: No Symptoms Objective Exam General Appearance: no apparent distress, alert Neurologic Exam: alert, oriented x 3, cooperative, normal mood/affect, nml cerebellar function, sensation nml, No motor deficits Skin Exam: normal color, warm, dry Eye Exam: PERRL, EOMI, eyes nml inspection Ears, Nose, Throat Exam: normal ENT inspection, pharynx normal, moist mucous membranes Neck Exam: normal inspection, non-tender, supple, full range of motion Respiratory Exam: normal breath sounds, lungs clear, No respiratory distress Cardiovascular Exam: regular rate/rhythm, normal heart sounds Gastrointestinal/Abdomen Exam: soft, No tenderness, No mass Extremity Exam: normal inspection, normal range of motion Back Exam: normal inspection, normal range of motion, No CVA tenderness, No vertebral tenderness Pelvic Exam: deferred Rectal Exam: deferred OBJECTIVE DATA Vital Signs: Vital Signs - 24 hr Temp Pulse Resp BP Pulse Ox 01/05/19 08:00 20 01/05/19 07:22 98 F 84 20 142/80 95 01/05/19 06:54 70 18 96 01/05/19 02:56 61 18 97 01/04/19 22:54 69 18 97 01/04/19 18:36 69 18 98 01/04/19 18:12 97.4 F 70 18 130/85 98 01/04/19 16:00 18 01/04/19 14:26 69 18 98 01/04/19 12:00 18 01/04/19 08:34 70 18 100 Pain Assessment - Last Documented Pain Intensity 0 Pain Scale Used 0-10 Pain Scale Intake and Output: Intake & Output 01/02/19 01/03/19 01/04/19 01/05/19 11:59 11:59 11:59 11:59 Intake Total 1110 318 407 6670 Output Total 800 200 400 Balance 310 40 292 1000 Weight 74 kg Lab Results: Accuchecks Date 01/05/19 Date 01/04/19 Date 01/04/19 Time 07:30 Time 17:31 Time 11:05 Accucheck Value: 92 Accucheck Value: 167 Accucheck Value: 229 Accucheck Value: 172 Assessment/Plan (1) Atrial fibrillation Current Visit: Yes Status: Chronic Qualifiers: Atrial fibrillation type: chronic Code(s): I48.91 - UNSPECIFIED ATRIAL FIBRILLATION (2) Pulmonary hypertension Current Visit: Yes Status: Chronic Code(s): I27.20 - PULMONARY HYPERTENSION , UNSPECIFIED (3) CHF (congestive heart failure) Current Visit: Yes Status: Resolved Onset Date: ~06/02/18 Qualifiers: Heart failure type: combined systolic and diastolic Heart failure chronicity: chronic Qualified Code(s): I50.42 - Chronic combined systolic ( congestive) and diastolic (congestive) heart failure Code(s): I50.9 - HEART FAILURE, UNSPECIFIED (4) COPD (chronic obstructive pulmonary disease) Current Visit: No Status: Resolved Onset Date: ~06/02/18 Qualifiers: COPD type: chronic bronchitis
[2019-01-05] MEDS: NORVASC 5 MG PO SCH (18:37)
[2019-01-05] MEDS: REQUIP 2MG TAB PO SCH (21:20)
[2019-01-05] MEDS: Zocor 10MG PO SCH (21:21)
[2019-01-05] MEDS: Tessalon Perles 100 MG PO PRN (23:02)
[2019-01-06] MEDS: PROVENTIL 2.5 MG/3 ML NEB IH SCH ×4 (03:55→14:43)
[2019-01-06 07:28] VITALS: BP 158/80
[2019-01-06] MEDS: CEFAZOLIN 2 GM-D5W BAG** 2 GM/50 ML ML IV SCH ×2 (07:46→13:49)
[2019-01-06] MEDS: DELTASONE 10 MG PO SCH (07:50)
[2019-01-06] MEDS: ELIQUIS 2.5 MG TABLET PO SCH (07:50)
[2019-01-06] MEDS: Amaryl 2 MG PO SCH (07:50)
[2019-01-06] MEDS: Flomax 0.4 MG PO SCH (07:50)
[2019-01-06] MEDS: FISH OIL 1,000 MG CAPSULE PO SCH (07:50)
[2019-01-06] MEDS: Klor Con 10 MEQ PO SCH (07:51)
[2019-01-06] MEDS: Ditropan XL 5 MG PO SCH (07:51)
[2019-01-06] MEDS: LASIX 20 MG PO SCH (07:51)
[2019-01-06] MEDS: Coreg 6.25 MG PO SCH (07:51)
[2019-01-06] MEDS: THERAGRAN MULTIVITAMIN PO SCH (07:51)
[2019-01-06] MEDS: NEURONTIN 300 MG PO SCH (07:51)
[2019-01-06] MEDS ORDERED: NovoLOG Insulin SQ PRN (12:13)
--- NOTE | 2019-01-06 13:02 | PCM.NOTE ---
Date and Time: 01/06/19 1302 Subjective Assessment: doing ok - Review of Systems Constitutional: No Fever, No Chills Eyes: No Symptoms Ears, Nose, & Throat: No Symptoms Respiratory: No Cough, No Short Of Breath Cardiac: No Chest Pain, No Edema, No Syncope Abdominal/Gastrointestinal: No Abdominal Pain, No Nausea, No Vomiting, No Diarrhea Genitourinary Symptoms: No Dysuria Musculoskeletal: No Back Pain, No Neck Pain Skin: No Rash Neurological: No Dizziness, No Focal Weakness, No Sensory Changes Psychological: No Symptoms Endocrine: No Symptoms Hematologic/Lymphatic: No Symptoms Immunological/Allergic: No Symptoms Objective Exam General Appearance: no apparent distress, alert Neurologic Exam: alert, oriented x 3, cooperative, normal mood/affect, nml cerebellar function, sensation nml, No motor deficits Skin Exam: normal color, warm, dry Eye Exam: PERRL, EOMI, eyes nml inspection Ears, Nose, Throat Exam: normal ENT inspection, pharynx normal, moist mucous membranes Neck Exam: normal inspection, non-tender, supple, full range of motion Respiratory Exam: normal breath sounds, lungs clear, No respiratory distress Cardiovascular Exam: regular rate/rhythm, normal heart sounds Gastrointestinal/Abdomen Exam: soft, No tenderness, No mass Extremity Exam: normal inspection, normal range of motion Back Exam: normal inspection, normal range of motion, No CVA tenderness, No vertebral tenderness Pelvic Exam: deferred Rectal Exam: deferred OBJECTIVE DATA Vital Signs: Vital Signs - 24 hr Temp Pulse Resp BP Pulse Ox 01/06/19 12:00 18 01/06/19 10:42 76 18 96 01/06/19 07:54 18 01/06/19 07:27 97.6 F 70 18 158/80 95 01/06/19 06:38 70 18 94 L 01/06/19 03:55 69 18 91 L 01/05/19 23:41 69 18 94 L 01/05/19 19:34 70 18 97 01/05/19 19:00 97.3 F 70 18 194/88 97 01/05/19 16:00 18 01/05/19 15:29 70 18 97 Pain Assessment - Last Documented Pain Intensity 0 Pain Scale Used 0-10 Pain Scale Intake and Output: Intake & Output 01/04/19 01/05/19 01/06/19 01/07/19 11:59 11:59 11:59 11:59 Intake Total 692 1000 1500 Output Total 400 Balance 292 1000 1500 Weight 74 kg Lab Results: Accuchecks Date 01/06/19 Date 01/06/19 Date 01/05/19 Time 11:30 Time 07:30 Time 16:30 Accucheck Value: 248 Accucheck Value: 90 Accucheck Value: 124 Accucheck Value: 230 Assessment/Plan (1) Atrial fibrillation Current Visit: Yes Status: Chronic Qualifiers: Atrial fibrillation type: chronic Code(s): I48.91 - UNSPECIFIED ATRIAL FIBRILLATION (2) Pulmonary hypertension Current Visit: Yes Status: Chronic Code(s): I27.20 - PULMONARY HYPERTENSION , UNSPECIFIED (3) CHF (congestive heart failure) Current Visit: Yes Status: Resolved Onset Date: ~06/02/18 Qualifiers: Heart failure type: combined systolic and diastolic Heart failure chronicity: chronic Qualified Code(s): I50.42 - Chronic combined systolic ( congestive) and diastolic (congestive) heart failure Code(s): I50.9 - HEART FAILURE, UNSPECIFIED (4) COPD (chronic obstructive pulmonary disease) Current Visit: No Status: Resolved Onset Date: ~06/02/18 Qualifiers: COPD type: chronic bronchitis
--- NOTE | 2019-01-06 13:04 | PCM.DS ---
Discharge Summary Date of Admission: 01/01/19 10:45 Admitting Physician: CALVIN SRIVASTAVA Primary Care Provider: CALVIN SRIVASTAVA Allergies Allergies levofloxacin [From Levaquin] Allergy (Intermediate, Verified 11/20/18 12:58) Hives Hives noted to IV insertion site where antibiotic was infused. codeine Allergy (Verified 11/20/18 12:58) penicillin G Allergy (Verified 11/20/18 12:58) Penicillins Allergy (Verified 11/20/18 12:58) pneumococcal vaccine Allergy (Verified 11/20/18 12:58) Hospital Summary - Hospital Course Hospital Course: Last Vital Signs Temp 97.6 F 01/06/19 07:27 Pulse 76 01/06/19 10:42 Resp 18 01/06/19 12:00 BP 158/80 01/06/19 07:27 Pulse Ox 96 01/06/19 10:42 Allergies levofloxacin [From Levaquin] Allergy (Intermediate, Verified 11/20/18 12:58) Hives Hives noted to IV insertion site where antibiotic was infused. codeine Allergy (Verified 11/20/18 12:58) penicillin G Allergy (Verified 11/20/18 12:58) Penicillins Allergy (Verified 11/20/18 12:58) pneumococcal vaccine Allergy (Verified 11/20/18 12:58) Active Medications Acetaminophen (Tylenol 325 Mg) 650 mg PO Q4H PRN PRN PRN Reason: PAIN AND/OR FEVER Stop: 01/28/19 08:01 Albuterol Sulfate (Proventil 2.5 Mg/3 Ml Neb) 2.5 mg IH Q6H PRN PRN PRN Reason: SHORTNESS OF BREATH Stop: 01/28/19 08:43 Albuterol Sulfate (Proventil 2.5 Mg/3 Ml Neb) 2.5 mg IH Q4HRT FAHAD Stop: 01/28/19 10:59 Last Admin: 01/06/19 10:41 Dose: 2.5 mg Amitriptyline HCl (Amitriptyline Hcl 50 Mg Tablet) 50 mg PO HS FAHAD Stop: 01/28/19 21:59 Last Admin: 01/05/19 21:20 Dose: 50 mg Amlodipine Besylate (Norvasc 5 Mg) 5 mg PO 1900 FAHAD Stop: 02/02/19 18:59 Last Admin: 01/05/19 18:37 Dose: 5 mg Apixaban (Eliquis 2.5 Mg Tablet) 2.5 mg PO BID FAHAD Stop: 01/28/19 09:59 Last Admin: 01/06/19 07:50 Dose: 2.5 mg Benzonatate (Tessalon Perles 100 Mg) 100 mg PO TID PRN PRN PRN Reason: COUGH Stop: 01/28/19 08:02 Last Admin: 01/05/19 23:02 Dose: 100 mg Carvedilol (Coreg 6.25 Mg) 6.25 mg PO BID FAHAD Stop: 01/28/19 09:59 Last Admin: 01/06/19 07:51 Dose: 6.25 mg Fish Oil (Fish Oil 1,000 Mg Capsule) 1,000 mg PO BID FAHAD Stop: 01/28/19 09:59 Last Admin: 01/06/19 07:50 Dose: 1,000 mg Furosemide (Lasix 20 Mg) 20 mg PO BID DIURETIC FAHAD Stop: 01/28/19 09:59 Last Admin: 01/06/19 07:51 Dose: 20 mg Gabapentin (Neurontin 300 Mg) 300 mg PO BID FAHAD Stop: 01/28/19 09:59 Last Admin: 01/06/19 07:51 Dose: 300 mg Glimepiride (Amaryl 2 Mg) 1 mg PO DAILY FAHAD Stop: 01/28/19 09:59 Last Admin: 01/06/19 07:50 Dose: 1 mg Heparin Sodium (Beef Lung) (Heparin Lock Flush 100 Units/Ml 5ml Syringe) 500 units PICC PRN PRN PRN Reason: IV PORT FLUSH Stop: 01/28/19 08:26 Last Admin: 01/06/19 08:23 Dose: 500 units Cefazolin Sodium/Dextrose (Cefazolin 2 Gm-D5w Bag) 2 gm in 50 mls @ 100 mls/ hr IV Q8HT FAHAD Stop: 01/28/19 13:59 Last Admin: 01/06/19 07:46 Dose: 100 mls/hr Insulin Aspart (Novolog Insulin) 0 unit SQ UD PRN PRN Reason: HYPERGLYCEMIA Stop: 02/05/19 12:12 Miscellaneous Information (Medication Intervention) 1 each MC .RN TO CHECK WITH PT [facility] Stop: 01/28/19 08:59 Multivitamins Therapeutic (Theragran Multivitamin) 1 tab PO DAILY FAHAD Stop: 01/28/19 09:59 Last Admin: 01/06/19 07:51 Dose: 1 tab Oxybutynin Chloride (Ditropan Xl 5 Mg) 5 mg PO DAILY [facility] Stop: 01/28/19 09:59 Last Admin: 01/06/19 07:51 Dose: 5 mg Potassium Chloride (Klor Con 10 Meq) 10 meq PO DAILY [facility] Stop: 01/28/19 09:59 Last Admin: 01/06/19 07:51 Dose: 10 meq Prednisone (Deltasone 10 Mg) 10 mg PO DAILY [facility] Stop: 01/28/19 09:59 Last Admin: 01/06/19 07:50 Dose: 10 mg Ropinirole HCl (Requip 2mg Tab) 1 mg PO HS [facility] Stop: 01/28/19 21:59 Last Admin: 01/05/19 21:20 Dose: 1 mg Simvastatin (Zocor 10mg) 5 mg PO HS [facility] Stop: 01/28/19 21:59 Last Admin: 01/05/19 21:21 Dose: 5 mg Sodium Chloride (Sodium Chloride 0.9% 10 Ml Flush Syringe) 10 ml PICC PRN PRN PRN Reason: flush Stop: 01/28/19 08:26 Last Admin: 01/05/19 05:50 Dose: 10 ml Tamsulosin HCl (Flomax 0.4 Mg) 0.4 mg PO DAILY [facility] Stop: 01/28/19 09:59 Last Admin: 01/06/19 07:50 Dose: 0.4 mg Intake & Output 01/06/19 01/07/19 11:59 11:59 Intake Total 1500 Balance 1500 Orders 01/06/19 12:13 Insulin Aspart [NovoLOG Insulin] See Dose Instructions SQ UD PRN 01/08/19 05:00 Weight,Daily Q7D 01/15/19 10:45 BMP Q14D - Vitals & Intake/Output Vital Signs: Vital Signs Temperature 97.6 F 01/06/19 07:27 Pulse Rate 76 01/06/19 10:42 Respiratory Rate 18 01/06/19 12:00 Blood Pressure 158/80 01/06/19 07:27 O2 Sat by Pulse Oximetry 96 01/06/19 10:42 Oxygen-Last Documented O2 Percentage 2 Liters = 28% Intake & Output: Intake & Output 01/04/19 01/05/19 01/06/19 01/07/19 11:59 11:59 11:59 11:59 Intake Total 692 1000 1500 Output Total 400 Balance 292 1000 1500 Weight 74 kg - Lab Lab Results-Last 24 Hrs: Accuchecks Date 01/06/19 Date 01/06/19 Date 01/05/19 Time 11:30 Time 07:30 Time 16:30 Accucheck Value: 248 Accucheck Value: 90 Accucheck Value: 124 Accucheck Value: 230 Micro Results-Entire Visit: Accuchecks 01/06/1901/06/1901/05/19 Time 11:30 Time 07:30 Time 16:30 Accucheck Value: 248 Accucheck Value: 90 Accucheck Value: 124 Accucheck Value: 230 - Procedures and Test Procedures and Tests throughout Hospitalization: Therapy Orders & Screens 01/01/19 07:00 Peak Expiratory Flow Rate ONCE Comment: Reason For Exam: Diagnosis: DECONDITIONING R/T EXAC COPD, SEPSIS 01/01/19 10:52 PT Eval & Treat (MD Order) ROUTINE Reason for Eval:: DECONDITIONING R/T EXAC COPD, SEPSIS Diagnosis: DECONDITIONING R/T EXAC COPD, SEPSIS Respiratory Therapy Assessment DAILY Comment: Diagnosis: Shortness of Breath for 2 days 01/01/19 20:15 BiPap/CPAP ROUTINE Comment: AUTOPAP [id number] PER R.T. PROTOCOL Diagnosis: DECONDITIONING R/T EXAC COPD, SEPSIS Discharge Exam General Appearance: no apparent distress, alert Neurologic Exam: alert, oriented x 3, cooperative, normal mood/affect, nml cerebellar function, sensation nml, No motor deficits Skin Exam: normal color, warm, dry Eye Exam: PERRL, EOMI, eyes nml inspection Ears, Nose, Throat Exam: normal ENT inspection, pharynx normal, moist mucous membranes Neck Exam: normal inspection, non-tender, supple, full range of motion Respiratory Exam: normal breath sounds, lungs clear, No respiratory distress Cardiovascular Exam: regular rate/rhythm, normal heart sounds Gastrointestinal/Abdomen Exam: soft, No tenderness, No mass Extremity Exam: normal inspection, normal range of motion Back Exam: normal inspection, normal range of motion, No CVA tenderness, No vertebral tenderness Pelvic Exam: deferred Rectal Exam: deferred Final Diagnosis/Problem List - Final Discharge Diagnosis/Problem (1) Atrial fibrillation Current Visit: Yes Status: Chronic Code(s): I48.91 - UNSPECIFIED ATRIAL FIBRILLATION (2) Pulmonary hypertension Current Visit: Yes Status: Chronic Code(s): I27.20 - PULMONARY HYPERTENSION , UNSPECIFIED (3) CHF (congestive heart failure) Current Visit: Yes Status: Resolved Onset Date: ~06/02/18 Code(s): I50.9 - HEART FAILURE, UNSPECIFIED (4) COPD (chronic obstructive pulmonary disease) Current Visit: No Status: Resolved Onset Date: ~06/02/18 - Discharge Discharge Date: 01/06/19 Disposition: Home, Self-Care Condition: Stable Prescriptions: Continue Ropinirole HCl 1 mg PO HS Glimepiride 1 mg PO DAILY Gabapentin 300 mg PO BID Tamsulosin HCl 0.4 mg [Flomax 0.4 MG] 0.4 mg PO DAILY Oxybutynin Chloride [Oxybutynin Chloride ER] 5 mg PO DAILY Amitriptyline HCl 25 mg [Elavil 25 mg] 50 mg PO HS Simvastatin 5 mg PO HS Apixaban [Eliquis] 2.5 mg PO BID Carvedilol 6.25 mg [Coreg 6.25 MG] 6.25 mg PO BID Hydrocodone/APAP 5-325 Tab^^^ [[place] 5-325 Tablet^^^] 1 tab PO Q6HPRN PRN # 10 tablet MDD 6 PRN Reason: Pain Prednisone 10 mg [Deltasone 10 mg] 10 mg PO DAILY Sildenafil Citrate [Sildenafil] 20 mg PO TID Potassium Chloride 10 Meq Tab* [Klor Con 10 MEQ] 10 meq PO DAILY [place]-3 Fatty Acids/Fish Oil [[place]-3 1,000 mg Softgel] 1 each PO BID Multivitamin [Multivitamins] 1 each PO DAILY Furosemide 20 mg [Lasix 20 mg] 20 mg PO BID Albuterol 2.5 mg/0.5 ml [PROVENTIL Solution 2.5 MG/0.5 ML] 2.5 mg IH Q6HPRN PRN PRN Reason: Shortness Of Breath/Wheezing Follow up with: CALVIN SRIVASTAVA MD [Primary Care Provider] - 1 Week
[2019-01-06 14:47] VITALS: PULSE 69; O2SAT 99
== END 2019-01-06 15:25 | disposition home or self-care (01) | DRG 310 ==
LOC: MED SURG 10:45
PROVIDERS: ADMIT General Practice; ATTEND General Practice
DX: I48.91 Unspecified atrial fibrillation (principal); I27.20 Pulmonary hypertension, unspecified; I50.9 Heart failure, unspecified; E11.9 Type 2 diabetes mellitus without complications; J44.9 Chronic obstructive pulmonary disease, unspecified; Z79.01 Long term (current) use of anticoagulants; Z79.899 Other long term (current) drug therapy
CPT/HCPCS: 82962; 94150; 94640; 94660; 94760; J0690; J1642; J7609; 97110-GP; A9270-GY

== ENCOUNTER 2019-01-24 11:24 | Emergency (ER) | payer MEDICARE, BC ==
[2019-01-24] MEDS ORDERED: TYLENOL 325 MG PO ONE (11:45)
[2019-01-24] MEDS ORDERED: DUONEB 0.5-3 MG/3 ml Neb IH ONE ×2 (11:53→12:01)
[2019-01-24] MEDS ORDERED: TYLENOL 325 MG ONE (12:02)
--- NOTE | 2019-01-24 12:13 | ERPHSYRPT ---
- History of Present Illness Time Seen by Provider: 01/24/19 11:55 Source: patient Exam Limitations: clinical condition Patient Subjective Stated Complaint: confused and SOB today.. had pacemaker replaced yesterday and port removed. she is confused and unable to give adequate history. Triage Nursing Assessment: awake and confused. unsure of why shes here. EMS staets SOB and swollen belly since yesterday.. congested cough. unsure of colo0r of sputum. able tyop follow commands but confused on hx. no pedal swelliong.. 2 dressings on chest from procedure yesterday. warm to touch. Physician History: PATIENT WITH A HISTORY OF COPD, CONGESTIVE HEART FAILURE, CORONARY ARTERY DISEASE, HAD PACEMAKER REPLACEMENT AND REMOVAL OF INFUSAPORT YESTERDAY PRESENTS TO EMS WITH COMPLAINTS OF DYSPNEA, NONPRODUCTIVE COUGH AND CONFUSION. DENIES CHEST PAIN, DIAPHORESIS. Timing/Duration: today Activities at Onset: activity Severity of Dyspnea-Max: severe Severity of Dyspnea-Current: moderate Possible Cause: occasional episodes Modifying Factors: Improves With: activity Associated Symptoms: cough, wheezing, weakness Allergies/Adverse Reactions: levofloxacin [From Levaquin] Allergy (Intermediate, Verified 11/20/18 12:58) Hives Hives noted to IV insertion site where antibiotic was infused. codeine Allergy (Verified 11/20/18 12:58) penicillin G Allergy (Verified 11/20/18 12:58) Penicillins Allergy (Verified 11/20/18 12:58) pneumococcal vaccine Allergy (Verified 11/20/18 12:58) Home Medications: Gabapentin 300 mg PO BID 04/12/17 [History] Glimepiride 1 mg PO DAILY 04/12/17 [History] Oxybutynin Chloride [Oxybutynin Chloride ER] 5 mg PO DAILY 04/12/17 [History] Ropinirole HCl 1 mg PO HS 04/12/17 [History] Tamsulosin HCl 0.4 mg [Flomax 0.4 MG] 0.4 mg PO DAILY 04/12/17 [History] Amitriptyline HCl 25 mg [Elavil 25 mg] 50 mg PO HS 10/14/17 [History] Apixaban [Eliquis] 2.5 mg PO BID 10/14/17 [History] Simvastatin 5 mg PO HS 10/14/17 [History] Carvedilol 6.25 mg [Coreg 6.25 MG] 6.25 mg PO BID 01/28/18 [History] Albuterol 2.5 mg/0.5 ml [PROVENTIL Solution 2.5 MG/0.5 ML] 2.5 mg IH Q6HPRN PRN 12/23/18 [History] Furosemide 20 mg [Lasix 20 mg] 20 mg PO BID 12/23/18 [History] Multivitamin [Multivitamins] 1 each PO DAILY 12/23/18 [History] [place]-3 Fatty Acids/Fish Oil [[place]-3 1,000 mg Softgel] 1 each PO BID 12/23/18 [ History] Potassium Chloride 10 Meq Tab* [Klor Con 10 MEQ] 10 meq PO DAILY 12/23/18 [ History] Prednisone 10 mg [Deltasone 10 mg] 10 mg PO DAILY 12/23/18 [History] Sildenafil Citrate [Sildenafil] 20 mg PO TID 12/23/18 [History] Hx Tetanus, Diphtheria Vaccination/Date Given: No Hx Influenza Vaccination/Date Given: No Hx Pneumococcal Vaccination/Date Given: No - Past Medical History Pertinent Past Medical History: Yes Neurological History: Stroke ENT History: No Pertinent History Cardiac History: Arrhythmia, Coronary Artery Disease, Congestive Heart Failure, Hypertension Respiratory History: COPD Endocrine Medical History: Diabetes Type II Musculoskeletal History: Arthritis GI Medical History: No Pertinent History, GERD History: No Pertinent History Psycho-Social History: No Pertinent History Female Reproductive Disorders: No Pertinent History Other Medical History: external pacemaker - Past Surgical History Past Surgical History: Yes Neuro Surgical History: No Pertinent History Cardiac: Pacemaker Respiratory: No Pertinent History Gastrointestinal: Appendectomy, Cholecystectomy Genitourinary: No Pertinent History Musculoskeletal: No Pertinent History Female Surgical History: Hysterectomy Other Surgical History: ppm placement, then removed for infecrtion, at this time she has external pacemaker. - Social History Smoking Status: Never smoker Exposure to second hand smoke: No Alcohol Use: None Drug Use: none Patient Lives Alone: No Significant Family History: heart disease, diabetes, hypertension - Nursing Vital Signs Nursing Vital Signs: Initial Vital Signs Temperature 101.0 F 01/24/19 11:41 Pulse Rate 62 01/24/19 11:41 Respiratory Rate 22 01/24/19 11:41 Blood Pressure 144/55 01/24/19 11:41 O2 Sat by Pulse Oximetry 98 01/24/19 11:41 Pain Scale Pain Intensity 3 - Physical Exam SpO2 Interpretation: normal SpO2: 98 Ordered Tests: Active Orders 24 hr Category Date Time Status Bartender Server STAT Care 01/24/19 11:47 Completed Bartender Server STAT Care 01/24/19 11:48 Active Cath for Specimen-Straight STAT Care 01/24/19 11:47 Active EKG-ER Only STAT Care 01/24/19 11:45 Active IV Insertion STAT Care 01/24/19 11:48 Active Oxygen-ED Only Nasal Cannula 2 lpm Care 01/24/19 11:45 Active Pulse Oximetry (ED) STAT Care 01/24/19 11:48 Active CHEST 1 VIEW (PORTABLE) Stat Exams 01/24/19 11:46 Completed BLOOD CULTURE Stat Lab 01/24/19 12:15 Received BNP [NT PRO BNP] Stat Lab 01/24/19 12:00 Completed CBC W DIFF Stat Lab 01/24/19 12:00 Completed CMP Stat Lab 01/24/19 12:00 Completed CULTURE,URINE Stat Lab 01/24/19 11:45 Ordered Lactic Acid Stat Lab 01/24/19 11:45 Completed PTT Stat Lab 01/24/19 12:00 Completed UA W/RFX UR CULTURE Stat Lab 01/24/19 11:45 Completed Respiratory Nebulizer STAT RT 01/24/19 11:53 Completed Respiratory Therapy Assessment DAILY RT 01/24/19 12:04 Completed Transfer Order Routine Transfer 01/24/19 Ordered Medication Summary Generic Name Dose Route Start Last Admin Trade Name Freq PRN Reason Stop Dose Admin Sodium Chloride 1,000 mls @ 50 mls/hr 01/24/19 12:15 01/24/19 12:28 Sodium Chloride 0.9% 1000 Ml IV 02/23/19 12:14 50 mls/hr .Q20H FAHAD Administration Discontinued Medications Generic Name Dose Route Start Last Admin Trade Name Freq PRN Reason Stop Dose Admin Acetaminophen 650 mg 01/24/19 11:45 01/24/19 12:03 Tylenol 325 Mg PO 01/24/19 11:46 650 mg STAT ONE Administration Acetaminophen Confirm 01/24/19 12:02 Tylenol 325 Mg Administered 01/24/19 12:03 Dose 650 mg .ROUTE .STK-MED ONE Albuterol/Ipratropium 3 ml 01/24/19 11:53 01/24/19 12:23 Duoneb 0.5-3 Mg/3 Ml Neb IH 01/24/19 11:54 3 ml STAT ONE Administration Albuterol/Ipratropium Confirm 01/24/19 12:01 Duoneb 0.5-3 Mg/3 Ml Neb Administered 01/24/19 12:02 Dose 3 ml IH .STK-MED ONE Ceftriaxone Sodium/Dextrose 1 g in 50 mls @ 100 mls/hr 01/24/19 12:14 13:06 Rocephin 1 Gm-D5w 50 Ml Bag IV 01/24/19 12:43 Infused STAT STA Infusion Azithromycin 500 mg in 250 mls @ 250 mls/hr 01/24/19 12:14 01/24/19 12:31 Zithromax 500 Mg/ 250 Ml Nacl Premix IV 01/24/19 13:13 250 mls/hr STAT STA 250 mls/hr Administration Azithromycin Confirm 01/24/19 12:22 Zithromax 500 Mg/ 250 Ml Nacl Premix Administered 01/24/19 12:23 Dose 500 mg in 250 mls @ ud IV .STK-MED ONE Ceftriaxone Sodium/Dextrose Confirm 01/24/19 12:22 Rocephin 1 Gm-D5w 50 Ml Bag Administered 01/24/19 12:23 Dose 1 g in 50 mls @ ud IV .STK-MED ONE Methylprednisolone Sodium Succinate 125 mg 01/24/19 12:14 01/24/19 12:30 Solu-Medrol 125 Mg IV 01/24/19 12:15 125 mg STAT ONE Administration Methylprednisolone Sodium Succinate Confirm 01/24/19 12:21 Solu-Medrol 125 Mg Administered 01/24/19 12:22 Dose 125 mg .ROUTE .STK-MED ONE Lab/Rad Data: Laboratory Result Diagrams 01/24/19 12:00 01/24/19 12:00 Laboratory Results 01/24/19 01/24/19 01/24/19 Range/Units 12:15 12:00 12:00 WBC (4.0-10.5) K/mm3 RBC (4.1-5.4) M/mm3 Hgb (12.0-16.0) gm/dl Hct (35-47) % MCV (78-100) fl MCH (26-32) pg MCHC (32-36) g/dl RDW (11.5-14.0) % Plt Count (150-450) K/mm3 MPV (6-9.5) fl Gran % (36.0-66.0) % Eos # (Auto) (0-0.5) Absolute Lymphs (auto) (1.0-4.6) Absolute Monos (auto) (0.0-1.3) Lymphocytes % (24.0-44.0) % Monocytes % (0.0-12.0) % Eosinophils % (0.00-5.0) % Basophils % (0.0-0.4) % Absolute Granulocytes (1.4-6.9) Basophils # (0-0.4) APTT 29.9 (25.3-37.0) SECONDS Sodium (137-145) mmol/L Potassium (3.5-5.1) mmol/L Chloride (98-107) mmol/L Carbon Dioxide (22-30) mmol/L Anion Gap (5-15) MEQ/L BUN (7-17) mg/dL Creatinine (0.52-1.04) mg/dL Estimated GFR ML/MIN Glucose (74-106) mg/dL Lactic Acid (0.4-2.0) Calcium (8.4-10.2) mg/dL Total Bilirubin (0.2-1.3) mg/dL AST (14-36) U/L ALT (0-35) U/L Alkaline Phosphatase (38-126) U/L NT-Pro-B Natriuret Pep 5040 H (0-1800) pg/mL Serum Total Protein (6.3-8.2) g/dL Albumin (3.5-5.0) g/dL Urine Color (YELLOW) Urine Appearance (CLEAR) Urine pH (5-6) Ur Specific [place] (1.005-1.025) Urine Protein (Negative) Urine Ketones (NEGATIVE) Urine Blood (0-5) Tanner/ul Urine Nitrite (NEGATIVE) Urine Bilirubin (NEGATIVE) Urine Urobilinogen (0-1) mg/dL Ur Leukocyte Esterase (NEGATIVE) Urine WBC (Auto) (0-5) /HPF Urine RBC (Auto) (0-2) /HPF U Hyaline Cast (Auto) (0-2) /LPF U Epithel Cells (Auto) (FEW) /HPF Urine Bacteria (Auto) (NEGATIVE) /HPF Urine Mucus (Auto) (NEGATIVE) /HPF Urine Culture Reflexed (NO) Urine Glucose (NEGATIVE) mg/dL Influenza Type A Ag NEGATIVE (NEGATIVE) Influenza Type B Ag NEGATIVE (NEGATIVE) RSV (PCR) NEGATIVE (Negative) 01/24/19 01/24/19 01/24/19 Range/Units 12:00 12:00 11:45 WBC 12.8 H (4.0-10.5) K/mm3 RBC 3.83 L (4.1-5.4) M/mm3 Hgb 12.2 (12.0-16.0) gm/dl Hct 37.8 (35-47) % MCV 98.7 (78-100) fl MCH 31.8 (26-32) pg MCHC 32.3 (32-36) g/dl RDW 14.0 (11.5-14.0) % Plt Count 197 (150-450) K/mm3 MPV 10.9 H (6-9.5) fl Gran % 83.5 H (36.0-66.0) % Eos # (Auto) 0.13 (0-0.5) Absolute Lymphs (auto) 1.06 (1.0-4.6) Absolute Monos (auto) 0.90 (0.0-1.3) Lymphocytes % 8.3 L (24.0-44.0) % Monocytes % 7.0 (0.0-12.0) % Eosinophils % 1.0 (0.00-5.0) % Basophils % 0.2 (0.0-0.4) % Absolute Granulocytes 10.66 H (1.4-6.9) Basophils # 0.02 (0-0.4) APTT (25.3-37.0) SECONDS Sodium 134 L (137-145) mmol/L Potassium 4.5 (3.5-5.1) mmol/L Chloride 100 (98-107) mmol/L Carbon Dioxide 23 (22-30) mmol/L Anion Gap 15.2 H (5-15) MEQ/L BUN 27 H (7-17) mg/dL Creatinine 1.39 H (0.52-1.04) mg/dL Estimated GFR 38.2 ML/MIN Glucose 250 H (74-106) mg/dL Lactic Acid (0.4-2.0) Calcium 9.2 (8.4-10.2) mg/dL Total Bilirubin 1.20 (0.2-1.3) mg/dL AST 32 (14-36) U/L ALT 10 (0-35) U/L Alkaline Phosphatase 131 H (38-126) U/L NT-Pro-B Natriuret Pep (0-1800) pg/mL Serum Total Protein 6.5 (6.3-8.2) g/dL Albumin 3.5 (3.5-5.0) g/dL Urine Color YELLOW (YELLOW) Urine Appearance CLEAR (CLEAR) Urine pH 5.0 (5-6) Ur Specific [place] 1.010 (1.005-1.025) Urine Protein NEGATIVE (Negative) Urine Ketones NEGATIVE (NEGATIVE) Urine Blood NEGATIVE (0-5) Tanner/ul Urine Nitrite NEGATIVE (NEGATIVE) Urine Bilirubin NEGATIVE (NEGATIVE) Urine Urobilinogen NEGATIVE (0-1) mg/dL Ur Leukocyte Esterase NEGATIVE (NEGATIVE) Urine WBC (Auto) 0-2 (0-5) /HPF Urine RBC (Auto) NONE (0-2) /HPF U Hyaline Cast (Auto) 11-25 (0-2) /LPF U Epithel Cells (Auto) NONE (FEW) /HPF Urine Bacteria (Auto) NONE (NEGATIVE) /HPF Urine Mucus (Auto) SLIGHT (NEGATIVE) /HPF Urine Culture Reflexed NO (NO) Urine Glucose NEGATIVE (NEGATIVE) mg/dL Influenza Type A Ag (NEGATIVE) Influenza Type B Ag (NEGATIVE) RSV (PCR) (Negative) 01/24/19 Range/Units 11:45 WBC (4.0-10.5) K/mm3 RBC (4.1-5.4) M/mm3 Hgb (12.0-16.0) gm/dl Hct (35-47) % MCV (78-100) fl MCH (26-32) pg MCHC (32-36) g/dl RDW (11.5-14.0) % Plt Count (150-450) K/mm3 MPV (6-9.5) fl Gran % (36.0-66.0) % Eos # (Auto) (0-0.5) Absolute Lymphs (auto) (1.0-4.6) Absolute Monos (auto) (0.0-1.3) Lymphocytes % (24.0-44.0) % Monocytes % (0.0-12.0) % Eosinophils % (0.00-5.0) % Basophils % (0.0-0.4) % Absolute Granulocytes (1.4-6.9) Basophils # (0-0.4) APTT (25.3-37.0) SECONDS Sodium (137-145) mmol/L Potassium (3.5-5.1) mmol/L Chloride (98-107) mmol/L Carbon Dioxide (22-30) mmol/L Anion Gap (5-15) MEQ/L BUN (7-17) mg/dL Creatinine (0.52-1.04) mg/dL Estimated GFR ML/MIN Glucose (74-106) mg/dL Lactic Acid 1.7 (0.4-2.0) Calcium (8.4-10.2) mg/dL Total Bilirubin (0.2-1.3) mg/dL AST (14-36) U/L ALT (0-35) U/L Alkaline Phosphatase (38-126) U/L NT-Pro-B Natriuret Pep (0-1800) pg/mL Serum Total Protein (6.3-8.2) g/dL Albumin (3.5-5.0) g/dL Urine Color (YELLOW) Urine Appearance (CLEAR) Urine pH (5-6) Ur Specific [place] (1.005-1.025) Urine Protein (Negative) Urine Ketones (NEGATIVE) Urine Blood (0-5) Tanner/ul Urine Nitrite (NEGATIVE) Urine Bilirubin (NEGATIVE) Urine Urobilinogen (0-1) mg/dL Ur Leukocyte Esterase (NEGATIVE) Urine WBC (Auto) (0-5) /HPF Urine RBC (Auto) (0-2) /HPF U Hyaline Cast (Auto) (0-2) /LPF U Epithel Cells (Auto) (FEW) /HPF Urine Bacteria (Auto) (NEGATIVE) /HPF Urine Mucus (Auto) (NEGATIVE) /HPF Urine Culture Reflexed (NO) Urine Glucose (NEGATIVE) mg/dL Influenza Type A Ag (NEGATIVE) Influenza Type B Ag (NEGATIVE) RSV (PCR) (Negative) - Progress Progress Note: 01/24/19 13:21 IV NORMAL SALINE 100ML/HR, SOLUMEDROL 125MG IV, DUONEB AEROSOL TX, AFTER 2 SETS OF BLOOD CULTURE X 2, ADMINISTERED ROCEPHIN 1GM IVPB, AND ZITHROMAX 500MG IVPB. Blood Culture(s) Obtained: Yes Antibiotics given: Yes Discussed with : César (DISCUSSED WITH DR SRIVASTAVA [id number] FOR OBSERVATION) - Departure Departure Disposition: Observation Clinical Impression: EXACERBATION COPD, PNEUMONIA Condition: Stable Critical Care Time: No Referrals: CALVIN SRIVASTAVA MD [Primary Care Provider] -
[2019-01-24] MEDS ORDERED: solu-MEDROL 125 MG IV ONE (12:14)
[2019-01-24] MEDS ORDERED: ROCEPHIN 1 Gm-D5w 50 ml Bag** 1 G/50 ML IVPB IV STA (12:14)
[2019-01-24] MEDS ORDERED: Zithromax 500 MG/ 250 ML NaCl Premix 500 MG/250 ML IVPB IV STA (12:14)
[2019-01-24] MEDS ORDERED: Sodium Chloride 0.9% 1000 ML 1,000 ML IV SCH (12:15)
[2019-01-24 12:17] LABS: Appearance CLEAR (CLEAR); Bilirubin NEGATIVE (NEGATIVE); Blood NEGATIVE Ery/ul (0-5); Glucose NEGATIVE (NEGATIVE); Ketones NEGATIVE (NEGATIVE); Leukocyte Esterase NEGATIVE (NEGATIVE); Mucus SLIGHT /HPF (NEGATIVE); Nitrite NEGATIVE (NEGATIVE); Protein,Urine Dip NEGATIVE (Negative); Urobilinogen NEGATIVE mg/dL (0-1); WBC 0-2 /HPF (0-5)
[2019-01-24] MEDS ORDERED: solu-MEDROL 125 MG ONE (12:21)
[2019-01-24] MEDS ORDERED: Sodium Chloride 0.9% 1000 ML 1,000 ML ONE (12:22)
[2019-01-24] MEDS ORDERED: Zithromax 500 MG/ 250 ML NaCl Premix 500 MG/250 ML IVPB IV ONE (12:22)
[2019-01-24] MEDS ORDERED: ROCEPHIN 1 Gm-D5w 50 ml Bag** 1 G/50 ML IVPB IV ONE (12:22)
[2019-01-24 12:33] LABS: BASOPHIL % 0.2 % (0.0-0.4); Basophil (Absolute #) 0.02 (0-0.4); Eosinophil (Absolute #) 0.13 (0-0.5); Granulocyte Absolute (ANC) 10.66 (1.4-6.9); Granulocytes % 83.5 % (36.0-66.0); Hematocrit 37.8 % (35-47); Hemoglobin 12.2 gm/dl (12.0-16.0); Lymphocyte (Absolute #) 1.06 (1.0-4.6); Lymphocytes % 8.3 % (24.0-44.0); Mean Cell Volume 98.7 fl (78-100); Mean Corpuscular Hgb Concent. 32.3 g/dl (32-36); Mean Platelet Volume 10.9 fl (6-9.5); Platelet Count 197 K/mm3 (150-450); Red Blood Count 3.83 M/mm3 (4.1-5.4); White Blood Count 12.8 K/mm3 (4.0-10.5)
--- NOTE | 2019-01-24 12:34 | XRAY ---
Indication: Cough. Short of breath. Comparison: December 29, 2018. Portable chest again demonstrates minimal bibasilar infiltrates/atelectasis/effusions, slightly worsened on the left. Enlarging borderline cardiomegaly with new right single lead pacemaker. Stable right midlung discoid atelectasis/scarring and right apical calcified granuloma.
[2019-01-24 12:35] LABS: Mean Corpuscular Hemoglobin 31.8 pg (26-32)
[2019-01-24 12:45] LABS: ALBUMIN 3.5 g/dL (3.5-5.0); ANION GAP 15.2 MEQ/L (5-15); BILIRUBIN,TOTAL 1.2 mg/dL (0.2-1.3); Calcium 9.2 mg/dL (8.4-10.2); Creatinine 1 1.39 mg/dL (0.52-1.04); Potassium 4.5 mmol/L (3.5-5.1); Total Protein 6.5 g/dL (6.3-8.2)
[2019-01-24 13:08] LABS: INFLUENZA A NEGATIVE (NEGATIVE); INFLUENZA B NEGATIVE (NEGATIVE); RESPIRATORY SYNCTIAL VIRUS NEGATIVE (Negative)
[2019-01-24 15:03] VITALS: BP 130/45; PULSE 63; O2SAT 98
== END 2019-01-24 16:24 ==
LOC: ED 11:24
DX: J44.1 Chronic obstructive pulmonary disease with (acute) exacerbation (principal); J18.9 Pneumonia, unspecified organism; I25.10 Atherosclerotic heart disease of native coronary artery without angina pectoris; I50.9 Heart failure, unspecified; I10 Essential (primary) hypertension; E11.9 Type 2 diabetes mellitus without complications; M19.90 Unspecified osteoarthritis, unspecified site; K21.9 Gastro-esophageal reflux disease without esophagitis; Z79.899 Other long term (current) drug therapy
CPT/HCPCS: 36000; 36415; 71045; 80053; 81001; 83605; 83880; 85025; 85730; 87040; 87086; 87631; 93005; 93041; 94640; 96360; 96365; 96368; 96374; 99285; P9612; 87077; J0456; J0696; J2930; A9270-GY

== ENCOUNTER 2019-03-30 13:40 | Observation (INO) | payer MEDICARE, BC ==
--- NOTE | 2019-03-30 13:49 | PCM.HP ---
History of Present Illness - Chief Complaint Chief Complaint: shortness of breath, vomiting for 1 day History of Present Illness: is a 88 year old female is 88 years old female started having shortness of breath and vomiting for 1 day. She denies any fever, but c/o cough with frothy sputum - Review of Systems Constitutional: Weakness, No Fever, No Chills Eyes: No Symptoms Ears, Nose, & Throat: No Symptoms Respiratory: Cough, Short Of Breath Cardiac: No Chest Pain, No Edema, No Syncope Abdominal/Gastrointestinal: Vomiting, No Abdominal Pain, No Nausea, No Diarrhea Genitourinary Symptoms: No Dysuria Musculoskeletal: No Back Pain, No Neck Pain Skin: No Rash Neurological: No Dizziness, No Focal Weakness, No Sensory Changes Psychological: No Symptoms Endocrine: No Symptoms Hematologic/Lymphatic: No Symptoms Immunological/Allergic: No Symptoms Medications & Allergies Home Medications: Home Medication List Gabapentin 300 mg PO BID 04/12/17 [History Confirmed 01/01/19] Glimepiride 1 mg PO DAILY 04/12/17 [History Confirmed 01/01/19] Oxybutynin Chloride [Oxybutynin Chloride ER] 5 mg PO DAILY 04/12/17 [History Confirmed 01/01/19] Ropinirole HCl 1 mg PO HS 04/12/17 [History Confirmed 01/01/19] Tamsulosin HCl 0.4 mg [Flomax 0.4 MG] 0.4 mg PO DAILY 04/12/17 [History Confirmed 01/01/19] Amitriptyline HCl 25 mg [Elavil 25 mg] 50 mg PO HS 10/14/17 [History Confirmed 01/01/19] Apixaban [Eliquis] 2.5 mg PO BID 10/14/17 [History Confirmed 01/01/19] Simvastatin 5 mg PO HS 10/14/17 [History Confirmed 01/01/19] Carvedilol 6.25 mg [Coreg 6.25 MG] 6.25 mg PO BID 01/28/18 [History Confirmed 01/01/19] Hydrocodone/APAP 5-325 Tab^^^ [[place] 5-325 Tablet^^^] 1 tab PO Q6HPRN PRN #10 tablet MDD 6 11/20/18 [Rx Confirmed 01/01/19] Albuterol 2.5 mg/0.5 ml [PROVENTIL Solution 2.5 MG/0.5 ML] 2.5 mg IH Q6HPRN PRN 12/23/18 [History Confirmed 01/01/19] Furosemide 20 mg [Lasix 20 mg] 20 mg PO BID 12/23/18 [History Confirmed ] Multivitamin [Multivitamins] 1 each PO DAILY 12/23/18 [History Confirmed ] [place]-3 Fatty Acids/Fish Oil [[place]-3 1,000 mg Softgel] 1 each PO BID 12/23/18 [ History Confirmed 01/01/19] Potassium Chloride 10 Meq Tab* [Klor Con 10 MEQ] 10 meq PO DAILY 12/23/18 [ History Confirmed 01/01/19] Prednisone 10 mg [Deltasone 10 mg] 10 mg PO DAILY 12/23/18 [History Confirmed 01/01/19] Sildenafil Citrate [Sildenafil] 20 mg PO TID 12/23/18 [History Confirmed ] Allergies/Adverse Reactions: Allergies Allergy/AdvReac Type Severity Reaction Status Date / Time levofloxacin [From Levaquin] Allergy Intermediate Hives Verified 11/20/18 12:58 codeine Allergy Verified 11/20/18 12:58 penicillin G Allergy Verified 11/20/18 12:58 Penicillins Allergy Verified 11/20/18 12:58 pneumococcal vaccine Allergy Verified 11/20/18 12:58 - Past Medical History Past Medical History: Yes Neurological History: Stroke ENT History: No Pertinent History Cardiac History: Arrhythmia, Coronary Artery Disease, Congestive Heart Failure, Hypertension Respiratory History: COPD Endocrine Medical History: Diabetes Type II Musculoskelatal History: Arthritis GI Medical History: No Pertinent History, GERD History: No Pertinent History Pyscho-Social History: No Pertinent History Reproductive Disorders: No Pertinent History Comment: external pacemaker - Past Surgical History Past Surgical History: Yes Neuro Surgical History: No Pertinent History Cardiac History: Pacemaker Respiratory Surgery: No Pertinent History GI Surgical History: Appendectomy, Cholecystectomy Genitourinary Surgical Hx: No Pertinent History Musculskeletal Surgical Hx: No Pertinent History Female Surgical History: Hysterectomy Other Surgical History: ppm placement, then removed for infecrtion, at this time she has external pacemaker. - Social History Smoking Status: Never smoker Exposure to second hand smoke: No Alcohol: None Drug Use: none Significant Family History: heart disease, diabetes, hypertension - Physical Exam General Appearance: no apparent distress, alert Neurologic Exam: alert, oriented x 3, cooperative, normal mood/affect, nml cerebellar function, nml station & gait, sensation nml, No motor deficits Eye Exam: PERRL/EOMI, eyes nml inspection Ears, Nose, Throat Exam: normal ENT inspection, TMs normal, pharynx normal, moist mucous membranes Neck Exam: normal inspection, non-tender, supple, full range of motion Respiratory Exam: respiratory distress, diminished breath sounds, accessory muscle use, crackles/rales, rhonchi, wheezing Cardiovascular Exam: regular rate/rhythm, normal heart sounds, normal peripheral pulses Gastrointestinal/Abdomen Exam: soft, normal bowel sounds, No tenderness, No mass Back Exam: normal inspection, normal range of motion, No CVA tenderness, No vertebral tenderness Extremity Exam: normal inspection, normal range of motion, pelvis stable Skin Exam: normal color, warm, dry, No rash Lymphatic Exam: No adenopathy Results - Radiology Impressions Radiology Exams & Impressions: Radiology Procedures Category Date Time Status CHEST 2 VIEWS (PA AND LAT) Stat Exams 03/30/19 Ordered - Other Procedures and Tests Respiratory Therapy 03/30/19 13:42 EKG STAT Oxygen Nasal Cannula 3 lpm Respiratory Therapy Consult ROUTINE Assessment/Plan (1) Shortness of breath Current Visit: No Status: Acute Code(s): R06.02 - SHORTNESS OF BREATH (2) Vomiting Current Visit: Yes Status: Acute Qualifiers: Vomiting type: unspecified Nausea presence: without nausea Code(s): R11.10 - VOMITING, UNSPECIFIED (3) Pulmonary hypertension Current Visit: No Status: Chronic Code(s): I27.20 - PULMONARY HYPERTENSION, UNSPECIFIED (4) CHF (congestive heart failure) Current Visit: No Status: Resolved Onset Date: ~06/02/18 Qualifiers: Code(s): I50.9 - HEART FAILURE, UNSPECIFIED (5) COPD (chronic obstructive pulmonary disease) Current Visit: No Status: Resolved Onset Date: ~06/02/18
[2019-03-30 14:07] LABS: BASOPHIL % 0.1 % (0.0-0.4); Basophil (Absolute #) 0.02 (0-0.4); Eosinophil % 0.6 % (0.00-5.0); Eosinophil (Absolute #) 0.08 (0-0.5); Granulocyte Absolute (ANC) 13.48 (1.4-6.9); Granulocytes % 96.5 % (36.0-66.0); Hemoglobin 12.4 gm/dl (12.0-16.0); Lymphocyte (Absolute #) 0.24 (1.0-4.6); Lymphocytes % 1.7 % (24.0-44.0); Mean Cell Volume 94.5 fl (78-100); Mean Corpuscular Hemoglobin 30.8 pg (26-32); Mean Corpuscular Hgb Concent. 32.6 g/dl (32-36); Mean Platelet Volume 10.6 fl (6-9.5); Monocytes % 1.1 % (0.0-12.0); Platelet Count 254 K/mm3 (150-450); Red Blood Count 4.02 M/mm3 (4.1-5.4); Red Cell Distribution Width 13.7 % (11.5-14.0)
[2019-03-30 14:26] LABS: ALBUMIN 3.5 g/dL (3.5-5.0); ANION GAP 15.6 MEQ/L (5-15); BILIRUBIN,TOTAL 0.7 mg/dL (0.2-1.3); Calcium 9.4 mg/dL (8.4-10.2); Creatinine 1 1.07 mg/dL (0.52-1.04); Potassium 3.6 mmol/L (3.5-5.1); Total Protein 6.5 g/dL (6.3-8.2)
[2019-03-30 14:57] LABS: Slide Review 1 YES
[2019-03-30] MEDS: Sodium Chloride 0.9% 1000 ML 1,000 ML IV SCH (15:16)
[2019-03-30] MEDS ORDERED: PROVENTIL Solution 2.5 MG/0.5 ML IH PRN (15:19)
[2019-03-30] MEDS ORDERED: ULTRAM 50 MG PO PRN (15:19)
[2019-03-30] MEDS ORDERED: NovoLOG Insulin SQ PRN (15:57)
[2019-03-30] MEDS: NEURONTIN 300 MG PO SCH ×3 (16:14→22:23)
[2019-03-30] MEDS ORDERED: ROCEPHIN 1 Gm-D5w 50 ml Bag** 1 G/50 ML IVPB IV ONE (16:14)
--- NOTE | 2019-03-30 20:46 | XRAY ---
Indication: Short of breath. Comparison: January 24, 2019. Portable chest again demonstrates mild interstitial edema, small right base infiltrate/atelectasis/effusion, and fluid in the minor/major fissure. Left effusion has cleared. Heart is not enlarged. No new cardiopulmonary abnormalities. Comment: Preliminary interpretation was made by [facility]. No critical discrepancy.
[2019-03-30] MEDS: PROVENTIL 2.5 MG/3 ML NEB IH SCH (21:04)
[2019-03-30] MEDS ORDERED: Requip 0.5 MG PO SCH (22:00)
[2019-03-30] MEDS ORDERED: FATTY ACIDS PO SCH (22:00)
[2019-03-30] MEDS ORDERED: FISH OIL PO SCH (22:00)
[2019-03-30] MEDS ORDERED: Zocor 10MG PO SCH (22:00)
[2019-03-30] MEDS ORDERED: OMEGA PO SCH (22:00)
[2019-03-30] MEDS ORDERED: NON-FORMULARY ITEM (Simvastatin [Simvastatin] 5 MG) PO SCH (22:00)
[2019-03-30] MEDS: FISH OIL 1,000 MG CAPSULE PO SCH (22:22)
[2019-03-30] MEDS: ELIQUIS 2.5 MG TABLET PO SCH (22:23)
[2019-03-30] MEDS: Coreg 6.25 MG PO SCH (22:23)
[2019-03-31] MEDS: Sodium Chloride 0.9% 1000 ML 1,000 ML IV SCH (02:00)
[2019-03-31] MEDS: PROVENTIL 2.5 MG/3 ML NEB IH SCH ×2 (06:46→10:39)
[2019-03-31] MEDS ORDERED: Amaryl 2 MG PO SCH (08:00)
[2019-03-31 09:25] LABS: Hematocrit 35.4 % (35-47); Hemoglobin 11.4 gm/dl (12.0-16.0); Mean Corpuscular Hemoglobin 31.2 pg (26-32); Mean Corpuscular Hgb Concent. 32.2 g/dl (32-36); Mean Platelet Volume 10.5 fl (6-9.5); Platelet Count 230 K/mm3 (150-450); Red Blood Count 3.65 M/mm3 (4.1-5.4); Red Cell Distribution Width 13.9 % (11.5-14.0); White Blood Count 9.6 K/mm3 (4.0-10.5)
[2019-03-31] MEDS ORDERED: ECOTRIN 81 MG PO SCH (10:00)
[2019-03-31] MEDS ORDERED: ROCEPHIN 1 Gm-D5w 50 ml Bag** 1 G/50 ML IVPB IV SCH (10:00)
[2019-03-31] MEDS ORDERED: BUMEX 1 MG PO SCH (10:00)
[2019-03-31] MEDS ORDERED: Lasix 40 MG PO SCH (10:00)
[2019-03-31] MEDS ORDERED: THERAGRAN MULTIVITAMIN PO SCH (10:00)
[2019-03-31] MEDS ORDERED: NON-FORMULARY ITEM (Multivitamin [Multivitamins] 1 EACH) PO SCH (10:00)
[2019-03-31] MEDS ORDERED: Ditropan XL 5 MG PO SCH (10:00)
[2019-03-31] MEDS ORDERED: Flomax 0.4 MG PO SCH (10:00)
[2019-03-31 10:01] LABS: ALBUMIN 3.1 g/dL (3.5-5.0); BILIRUBIN,TOTAL 0.5 mg/dL (0.2-1.3); Calcium 9.1 mg/dL (8.4-10.2); Creatinine 1 1.01 mg/dL (0.52-1.04); Total Protein 6.1 g/dL (6.3-8.2)
[2019-03-31] MEDS: ELIQUIS 2.5 MG TABLET PO SCH (10:33)
[2019-03-31] MEDS: NEURONTIN 300 MG PO SCH (10:33)
[2019-03-31] MEDS: FISH OIL 1,000 MG CAPSULE PO SCH (10:33)
[2019-03-31] MEDS: Coreg 6.25 MG PO SCH (10:34)
[2019-03-31 12:35] VITALS: BP 126/66; PULSE 60; O2SAT 97
[2019-03-31] MEDS ORDERED: Sodium Chloride 0.9% 10 ML FLUSH Syringe IV SCH (14:00)
[2019-03-31] MEDS ORDERED: ROCEPHIN 1 Gm-D5w 50 ml Bag** 1 G/50 ML IVPB IV ONE (16:30)
== END 2019-03-31 13:50 | disposition home or self-care (01) ==
LOC: MED SURG 13:40
PROVIDERS: ADMIT General Practice; ATTEND General Practice
DX: R06.02 Shortness of breath (principal); R11.10 Vomiting, unspecified; I50.9 Heart failure, unspecified; I27.20 Pulmonary hypertension, unspecified; E11.9 Type 2 diabetes mellitus without complications; J44.9 Chronic obstructive pulmonary disease, unspecified; I25.10 Atherosclerotic heart disease of native coronary artery without angina pectoris; Z79.01 Long term (current) use of anticoagulants; Z79.899 Other long term (current) drug therapy; Z95.0 Presence of cardiac pacemaker
CPT/HCPCS: 36415; 71046; 80053; 82962; 83036; 83880; 84484; 85025; 85027; 93005; 93268; 94150; 94640; 94760; G0378; J0696; J7609; A9270-GY